=== PATIENT | female | born 1945 | race Caucasian/White ===

== ENCOUNTER → 2018-05-25 15:44 | Outpatient (CLI) | payer MEDICARE, SELFPAY ==
--- NOTE | 2018-05-25 16:03 | RAD_ITS ---
STUDY: X-RAY - PELVIS AND RIGHT HIP REASON FOR EXAM: Female, 72 years old. Pain, right-sided sciatica radiating to leg. No known injury. TECHNIQUE: 3 views of the pelvis and hip. COMPARISON: None. FINDINGS: There is a non-specific bowel gas pattern. Normal visualized soft tissue structures. There are degenerative changes of the visualized lower lumbar spine. Normal bilateral iliac wings, sacroiliac joints and visualized sacrum. Normal bilateral superior and inferior pubic rami. Normal pubic symphysis. Normal bilateral ischial tuberosities. No demonstrate osseous destructive lesion or acute fracture. There are osteoarthritic changes of the femoral head with marginal osteophyte formation. There is mild osteoarthritic spur formation of the acetabular rim. There is moderate articular joint space narrowing of the hip. RAD/HIP, UNI W/ Pelvis 2-3 Views IMPRESSION: Degenerative changes of the lower lumbar spine and right hip. Electronically Signed: Xavier Reynolds MD at 17:50 EST , Service support ,
--- NOTE | 2018-05-25 16:05 | RAD_ITS ---
STUDY: X-RAY - LUMBAR SPINE REASON FOR EXAM: Female, 72 years old. Pain. Sciatica right side radiating down leg. TECHNIQUE: 5 view(s) of the lumbar spine were obtained. COMPARISON: None FINDINGS: Normal lumbar lordosis. There is no substantial scoliosis. There is slight retrolisthesis of L1 on L2 and borderline retrolisthesis of L2 on L3. Minor leftward subluxation of L2 on L3 also noted. There is multilevel endplate spondylosis of the thoracolumbar vertebrae. There is multi-level degenerative disc disease with multi-level disc space narrowing. There are degenerative arthroses of the lumbar facet articulations, predominantly at L4-5 and L5-S1. There is no demonstrated osseous destructive lesion or acute fracture. There is mild atherosclerotic calcification of the abdominal aorta. RAD/L/S Spine Min 4 Views IMPRESSION: Degenerative changes of the spine, as detailed above. Electronically Signed: Xavier Reynolds MD at 17:53 EST , Service support ,
== END ==
PROVIDERS: Family Provider Preventive Medicine Occupational Medicine; PCP Preventive Medicine Occupational Medicine; Referring Provider Preventive Medicine Occupational Medicine; Visit Provider Preventive Medicine Occupational Medicine
DX: M79.604 Pain in right leg (principal); M54.31 Sciatica, right side
CPT/HCPCS: 72110; 73502

== ENCOUNTER 2018-05-25 16:24 | Emergency (ER) | payer MEDICARE, SELFPAY ==
[2018-05-25 16:25] VITALS: BP 146/85; PULSE 88; RESP 16; TEMP 36.4; O2SAT 96; BMI 38.1
--- NOTE | 2018-05-25 16:46 | ED.VISSUMM ---
- ER Visit Summary Date of Service: 05/25/18 Chief Complaint: [] Left lower leg pain rating from the back for days had x-rays today at [facility] radiology department History of Present Illness: The patient is a 72 F [] indicates that she has had a pain to the right lower back that radiates down her right leg for many days possibly a week no trauma no fever no cough, no trauma no bowel bladder complaints she had x-rays done today at the outpatient radiology center [facility] states the pain intensified, her physicians who saw her this week start her on prednisone that is not helping and she came in for something more for the pain, she has no known history of any problems with her extremities such as arthritis she has no history of peripheral vascular disease or DVT, she takes her hand she draws across her right SI joint down across the hip down to the leg crosses her knee goes into the right lateral tib-fib region Physical Examination: [] 148/65, General, no distress resting comfortably HEENT is generally unremarkable The neck is supple no adenopathy Cardiovascular, regular rate and rhythm Lungs, clear bilateral Abdomen, soft nontender Extremities, no clubbing cyanosis or edema, both feet are well-perfused are strong dorsalis pedis pulse, normal capillary refill to all toes normal movement of toes and ankles knee movement hip flexion extension normal she is able to stand and walk without difficulty, she can heel raise toe raise knee bend with no trouble Neurologic, awake alert answering questions appropriately moving all 4 extremities Test Results: [] Emergency Department Course and Treatment: [], I did review the films that she had today which were of her lumbar spine and right hip, they show DJD nothing acute formal radiology review is pending we will try to get those read and formalized today in the chart, I explained all the above to her, Talk with Dr. Peng her attending physician, discussed case in detail he is comfortable for discharge home she will be given [place] 5 tablets to use at bedtime he will follow-up in the office to determine other outpatient management options plans and studies as clinically warranted explained all this the patient her family they understand will follow-up Treatment Plan: [] Disposition: [] Home stable Impression: [] Right lumbar back pain radiating to right leg with radicular symptoms DJD This note was generated with [employer] software. It may contain incorrect words, spelling, and punctuation that were not noted in review of the chart prior to signing ED Disposition - Plan for ED Patient: Chief Complaint: Lower Extremity Injury Referrals: Hemanth Castro DO [Primary Care Provider] -
--- NOTE | 2018-05-25 16:54 | ED.DCSUM_ITS ---
- ER Visit Summary Date of Service: 05/25/18 Chief Complaint: [] Left lower leg pain rating from the back for days had x-rays today at [facility] radiology department History of Present Illness: The patient is a 72 F [] indicates that she has had a pain to the right lower back that radiates down her right leg for many days possibly a week no trauma no fever no cough, no trauma no bowel bladder complaints she had x-rays done today at the outpatient radiology center [facility] states the pain intensified, her physicians who saw her this week start her on prednisone that is not helping and she came in for something more for the pain, she has no known history of any problems with her extremities such as arthritis she has no history of peripheral vascular disease or DVT, she takes her hand she draws across her right SI joint down across the hip down to the leg crosses her knee goes into the right lateral tib-fib region Physical Examination: [] 148/65, General, no distress resting comfortably HEENT is generally unremarkable The neck is supple no adenopathy Cardiovascular, regular rate and rhythm Lungs, clear bilateral Abdomen, soft nontender Extremities, no clubbing cyanosis or edema, both feet are well-perfused are strong dorsalis pedis pulse, normal capillary refill to all toes normal movement of toes and ankles knee movement hip flexion extension normal she is able to stand and walk without difficulty, she can heel raise toe raise knee bend with no trouble Neurologic, awake alert answering questions appropriately moving all 4 extremities Test Results: [] Emergency Department Course and Treatment: [], I did review the films that she had today which were of her lumbar spine and right hip, they show DJD nothing acute formal radiology review is pending we will try to get those read and formalized today in the chart, I explained all the above to her, Talk with Dr. Peng her attending physician, discussed case in detail he is comfortable for discharge home she will be given [place] 5 tablets to use at bedtime he will follow-up in the office to determine other outpatient management options plans and studies as clinically warranted explained all this the patient her family they understand will follow-up Treatment Plan: [] Disposition: [] Home stable Impression: [] Right lumbar back pain radiating to right leg with radicular symptoms DJD This note was generated with [employer] software. It may contain incorrect words, spelling, and punctuation that were not noted in review of the chart prior to signing ED Disposition - Plan for ED Patient: Chief Complaint: Lower Extremity Injury Referrals: Hemanth Castro DO [Primary Care Provider] -
--- NOTE | 2018-05-25 17:08 | ED.DEP ---
ED Disposition - Plan for ED Patient: Chief Complaint: Lower Extremity Injury Instructions: ED Sciatica Prescriptions: Hydrocodone Bitart/Apap 5-325 [[place] 5MG-325MG] 1 tab PO QHS 2 Days #10 tab Referrals: Hemanth Castro DO [Primary Care Provider] -
--- NOTE | 2018-05-25 17:14 | ED.DEP ---
ED Disposition - Plan for ED Patient: Chief Complaint: Lower Extremity Injury Instructions: ED Sciatica Prescriptions: Hydrocodone Bitart/Apap 5-325 [[place] 5MG-325MG] 1 tab PO QHS 2 Days #10 tab Referrals: Hemanth Castro DO [Primary Care Provider] -
--- NOTE | 2018-05-25 17:22 | DCINST.ED_ITS ---
ED Disposition - Plan for ED Patient: Chief Complaint: Lower Extremity Injury Instructions: ED Sciatica Prescriptions: Hydrocodone Bitart/Apap 5-325 [[place] 5MG-325MG] 1 tab PO QHS 2 Days #10 tab Referrals: Hemanth Castro DO [Primary Care Provider] -
[2018-05-25] MEDS: HYDROcodone Bitartrate/Apap 5/325 Tablet PO (17:27)
[2018-05-25 17:30] VITALS: BP 175/98; PULSE 95; RESP 16; O2SAT 96
== END 2018-05-25 17:33 | disposition home or self-care (01) ==
LOC: ED 17:09
PROVIDERS: Emergency Provider Emergency Medicine; Family Provider Preventive Medicine Occupational Medicine; PCP Preventive Medicine Occupational Medicine
DX: M54.41 Lumbago with sciatica, right side (principal); M79.604 Pain in right leg; M19.90 Unspecified osteoarthritis, unspecified site; Z79.899 Other long term (current) drug therapy
CPT/HCPCS: 72110; 73502; 99283

== ENCOUNTER → 2018-07-27 07:27 | Outpatient (CLI) | payer MEDICARE, SELFPAY ==
--- NOTE | 2018-07-27 07:31 | US_ITS ---
STUDY: ULTRASOUND OF THE FEMALE PELVIS - COMPLETE REASON FOR EXAM: Female, 72 years old. Generalized abdominal pain for 2 months. History of hysterectomy. TECHNIQUE: Transabdominal TECHNICAL QUALITY: Adequate. COMPARISON: None. FINDINGS: The uterus is absent. The patient is status post hysterectomy. The right ovary is non-visualized. There is no visualized right adnexal mass or complex lesion. The left ovary is non-visualized. There is no visualized left adnexal mass or complex lesion. There is no fluid in the cul-de-sac. The pre void volume of the bladder was 412 ml. US/Pelvic (Non ) IMPRESSION: 1. Status post hysterectomy. 2. Nonvisualization of both ovaries. 3. No pelvic mass is seen. Electronically Signed: Maxwell Grant MD at 10:42 EST Tel , Service support ,
--- NOTE | 2018-07-27 07:31 | US_ITS ---
STUDY: ABDOMINAL ULTRASOUND REASON FOR EXAM: Female, 72 years old. Generalized abdominal pain x 2 months TECHNIQUE: Transabdominal ultrasound was performed with real-time and static ferris scale imaging. TECHNICAL QUALITY: Adequate. COMPARISON: None. FINDINGS: Liver: The liver measures 17.4 cm. There is increased echogenicity consistent with fatty infiltration. The bile ducts are within normal limits. There is hepatic color flow. The direction of portal flow is hepatopetal. There is no demonstrated mass lesion. Portal vein measurement: Gallbladder: Normal distended gallbladder. The gallbladder wall measures 2.6 mm. There is a negative sonographic Macias's sign. There is no pericholecystic fluid. There are no gallstones. Common Bile Duct (C.B.D.): The common bile duct measures 4.7 mm. Pancreas: Normal size of the head, body and tail of the pancreas. There is normal echogenicity of the pancreas. There is no demonstrated pancreatic mass or cyst. Spleen: Normal size of the spleen. The spleen measures 8.4 cm. Right Kidney: Normal size of the right kidney. The right kidney measures 9.1 x 4.4 x 4.9 cm. Normal renal cortex. The right cortex measures 1.2 cm. There is no demonstrated renal mass or cyst. There is no right hydronephrosis. Left Kidney: Normal size of the left kidney. The left kidney measures 9.1 x 4.3 x 5.0 cm. Normal renal cortex. The left cortex measures 1.5 cm. There is no demonstrated renal mass or cyst. There is no left hydronephrosis. Aorta: Tapers normally with peripheral plaque I.V.C.: The IVC is patent. There is no ascites. US/Abdomen Complete IMPRESSION: Fatty liver, no discrete lesion. Sonographically normal gallbladder Electronically Signed: Xavier Haas MD at 10:44 EST , Service support ,
== END ==
PROVIDERS: Family Provider Preventive Medicine Occupational Medicine; PCP Preventive Medicine Occupational Medicine; Referring Provider Preventive Medicine Occupational Medicine; Visit Provider Preventive Medicine Occupational Medicine
DX: R10.84 Generalized abdominal pain (principal)
CPT/HCPCS: 76700; 76856

== ENCOUNTER → 2018-08-10 10:23 | Outpatient (CLI) | payer MEDICARE, SELFPAY ==
--- NOTE | 2018-08-10 10:31 | NM_ITS ---
CLINICAL: 72-year-old female with reported history of abdominal pain. RADIONUCLIDE HEPATOBILIARY SCINTIGRAPHY COMPARISON: Abdominal ultrasound report 07/27/2018 FINDINGS: Following the intravenous administration of 5.3 mCi of 99m Tc Mebrofenin, hepatobiliary images reveal: 1. Relatively prompt and homogeneous radiopharmaceutical concentration is noted by a normal sized liver. No parenchymal defects are identified. 2. Gallbladder activity is identified at 15 minutes post radiopharmaceutical administration. 3. Small intestinal tract is not visualized during 60 minutes of pre-CCK sequential imaging. Small bowel activity is identified following the administration of cholecystokinin. 4. Washout of the radiopharmaceutical by the hepatic parenchyma appears qualitatively normal. Cholecystokinin (0.02 ug/kg) was administered intravenously over a 30-minute period. The post CCK gallbladder ejection fraction calculated at 30 minutes following Cholecystokinin administration was noted to be < 5 % (normal greater than 35%). NM/Hepatobilliary Img w/Pharm Int IMPRESSION: 1. ABNORMAL 99m Tc Mebrofenin hepatobiliary imaging examination with Cholecystokinin. A. A gallbladder ejection fraction calculated to be less than 35% following the administration of Cholecystokinin is consistent with the presence of functional hepatobiliary disease (gallbladder and/or sphincter of Oddi dyskinesia) and/or organic hepatobiliary disease (chronic acalculous cholecystitis and/or cystic duct syndrome) in patients with intermediate to high pretest likelihoods of hepatobiliary illness. (Arun Huizar et al, Journal of Nuclear Medicine 32:1695, 1990). Electronically Signed: Jesu Howe DO at 23:18 EST Tel , Service support ,
== END ==
PROVIDERS: Family Provider Preventive Medicine Occupational Medicine; PCP Preventive Medicine Occupational Medicine; Referring Provider Preventive Medicine Occupational Medicine; Visit Provider Preventive Medicine Occupational Medicine
DX: R10.11 Right upper quadrant pain (principal)
CPT/HCPCS: 78227; A9537; J2805

== ENCOUNTER → 2019-10-19 12:30 | Outpatient (CLI) | payer MEDICARE, SELFPAY ==
--- NOTE | 2019-10-19 12:44 | MRI_ITS ---
STUDY: MRI BRAIN WITHOUT CONTRAST REASON FOR EXAM: Female, 74 years old. memory loss, repeating self TECHNIQUE: Standardized multiplanar fat and water weighted pulse sequences were obtained. COMPARISON: None. FINDINGS: Normal size of the ventricles and extra-axial spaces for the patient''s age. Normal white matter tracts of the supratentorial brain. There is no evidence for recent intracranial ischemia or other cause of cytotoxic edema on diffusion weighted imaging (DWI). Normal T2* images of the brain without demonstrated susceptibility artifact. There is no demonstrated hemosiderin stain. Thin section coronal images through the temporal lobes demonstrate no evidence of parahippocampal atrophy. Normal bilateral basal ganglia. Normal thalami. There is no extra-axial fluid accumulation. Normal flow voids within the major intracranial circulation suggesting patency by spin echo criteria. Normal sella turcica, pituitary gland, infundibular stalk, optic chiasm and hypothalamus. Normal tectal plate and pineal gland. Normal midbrain, alyson and medulla. Normal cerebellum. Normal basal cisterns. Normal bilateral temporal bones. Normal bilateral internal auditory canals. No demonstrated orbital abnormality, within the constraints of a routine brain study. Normal visualized paranasal sinuses. Normal calvarium and skull base. Normal visualized soft tissue structures. Normal visualized upper cervical spine. MRI/Brain without Contrast IMPRESSION: Normal unenhanced MRI of the brain. Electronically Signed: Jesu Lee MD at 17:12 EDT Tel , Service support ,
== END ==
PROVIDERS: PCP Preventive Medicine Occupational Medicine; Referring Provider Psychiatry & Neurology Neurology; Visit Provider Psychiatry & Neurology Neurology
DX: R41.3 Other amnesia (principal)
CPT/HCPCS: 70551

== ENCOUNTER → 2019-11-08 09:50 | Outpatient (CLI) | payer MEDICARE, SELFPAY ==
[2019-11-08 11:03] LABS: Anion Gap 5 (5-15); BUN 20 mg/dL (7-18); BUN/Creat Ratio 21.5 RATIO (10-20); Calcium,Total 9.3 mg/dL (8.5-10.1); Chloride 105 mmol/L (98-107); Cholesterol 201 mg/dL (200); Creatinine, Serum 0.93 mg/dL (0.55-1.02); EST Glomerular Filtration Rate 63 mL/min (>60); Est Glom Filt Rate - Afr Amer 76 mL/min (>60); Glucose 103 mg/dL (74-106); High Density Lipoprotein 34 mg/dL; Potassium 4.5 mmol/L (3.5-5.1); Sodium Level 138 mmol/L (136-145); Thyroid Stim Hormone (TSH) 1.67 uIU/mL (0.358-3.74); Triglycerides 172 mg/dL; Very Low Density Lipoprotein 34 mg/dL (5-40)
== END ==
PROVIDERS: PCP Preventive Medicine Occupational Medicine; Referring Provider Preventive Medicine Occupational Medicine; Visit Provider Preventive Medicine Occupational Medicine
DX: I10 Essential (primary) hypertension (principal); E03.9 Hypothyroidism, unspecified; E78.5 Hyperlipidemia, unspecified
CPT/HCPCS: 36415; 80048; 80061; 84443

== ENCOUNTER → 2020-05-13 13:12 | Outpatient (CLI) | payer MEDICARE, SELFPAY ==
--- NOTE | 2020-05-13 13:15 | CT_ITS ---
STUDY: CT TEMPORAL BONES WITHOUT CONTRAST REASON FOR EXAM: Female, 74 years old. LEFT HEARING LOSS X1 MONTH -- SURG-BILAT INNER EAR CANALS CLEANED OUT RADIATION DOSAGE (If Supplied By Facility): CTDIvol = ( 67.58 ) mGy, DLP = ( 569.79 ) mGycm TECHNIQUE: The patient was scanned in a multi detector CT scanner. High resolution transaxial imaging was performed without the administration of intravenous contrast material. Sagittal and coronal images were reconstructed. Individualized dose optimization techniques were used for this CT. COMPARISON: 10/24/2015 FINDINGS: RIGHT TEMPORAL BONE There has been interval mastoidectomy and middle ear debulking with prosthetic ossicular reconstruction. There is thickening of the tympanic membrane. Clear epitympanum, mesotympanum, and hypotympanum. Normal right posterior, superior and lateral semicircular canals. Normal right vestibule and cochlea. Normal tympanic segment of the facial nerve. LEFT TEMPORAL BONE Again noted is the left mastoidectomy. Again noted is the soft tissue at the mastoidectomy defect and left middle ear cavity. Soft tissue density is seen at the epitympanum without evidence of dehiscence. The ossicles are not well visualized but appears to be intact and unchanged since the prior examination. The soft tissue is increased in comparison with prior examination in 2016. Normal left posterior, superior and lateral semicircular canals. Normal left vestibule and cochlea. Normal tympanic segment of the facial nerve. CT/Orb Sella Post Fossa Ear w/o IMPRESSION: Increased left mastoid and middle ear soft tissue status post mastoidectomy. Interval right mastoidectomy and ossicular reconstruction. Electronically Signed: Barbara Jean MD at 8:17 EST Tel , Service support ,
== END ==
PROVIDERS: PCP Preventive Medicine Occupational Medicine; Referring Provider Otolaryngology; Visit Provider Otolaryngology
DX: H91.92 Unspecified hearing loss, left ear (principal)
CPT/HCPCS: 70480

== ENCOUNTER 2021-04-14 08:30 | Day surgery (SDC) | payer MEDICARE, SELFPAY ==
[2021-04-14] MEDS: Lactated Ringers 1,000 ML 100 ML IV ×2 (08:45→10:45)
[2021-04-14 09:03] VITALS: BP 156/52; PULSE 74; RESP 16; TEMP 36.7; O2SAT 97; BMI 31.1
--- NOTE | 2021-04-14 09:30 | COLBX_PTH ---
PATIENT: PAYAL MENA LOC: EN U#:[id number] AGE/SX: 75/F ROOM: RE04/14/[address]: Dr. Heriberto Jackson DO : 1945 BED: DIS: 04/14/2021 SPEC #: [id number] RECD: 04/14/21 14:00 STATUS: ESTEPHANIE ENRIQUETA #: [id number] CAMILLA: 04/14/21 09:[address]: Heriberto Jackson DEPT: SURGICAL PATHOLOGY RECD BY: Bryson Hernandez ENTERED: 04/15/21 10:00 SP TYPE: COLON BX OTHR DR: Dr. Hemanth Castro DO Tissues: A - Duodenum, NOS B - Esophagus, NOS C - COLON BIOPSY D - Sigmoid colon biopsy E - Sigmoid colon biopsy Procedures: Special Stain Group II Surgery Specimen Level IV Alcian Blue/PAS (control) HEADER OPERATION: Colonoscopy, EGD ([facility]) PRE-OP DIAGNOSIS: Diarrhea, abdomen pain TISSUE SUBMITTED: A ? Duodenum biopsy, B ? Distal esophagus biopsy, C ? Random colon biopsy, D ? Sigmoid biopsy, E ? Sigmoid polyp biopsy MICROSCOPIC DIAGNOSIS A. Duodenum, biopsy: No pathologic change. B. Distal esophagus, biopsy: Gastroesophageal junctional mucosa with mild chronic inflammation. Focal changes of reflux. No evidence of goblet cell metaplasia. See comment. C. Colon, random biopsy: No pathologic change. D. Sigmoid colon, biopsy: No pathologic change. E. Sigmoid colon polyp, biopsy: Hyperplastic polyp. AM:park 04/16/2021 COMMENT B. Alcian blue/PAS stain with matched control supports the above diagnosis. MICROSCOPIC DESCRIPTION Slides are reviewed. GROSS DESCRIPTION A - Received in fixative is one container labeled with the patient's name and designated duodenum biopsy. The specimen consists of multiple irregular fragments of light hernández soft tissue that in aggregate measure 1 x 0.5 x 0.1 cm. The specimen is totally submitted in one cassette. B - Received in fixative is one container labeled with the patient's name and designated distal esophagus biopsy. The specimen consists of two irregular fragments of light hernández soft tissue that in aggregate measure 0.5 x 0.3 x 0.1 cm. The specimen is totally submitted in one cassette. C - Received in fixative is one container labeled with the patient's name and designated random colonic biopsy. The specimen consists of multiple irregular fragments of light hernández soft tissue that in aggregate measure 1.5 x 0.5 x 0.1 cm. The specimen is totally submitted in one cassette. D - Received in fixative is one container labeled with the patient's name and designated sigmoid biopsy. The specimen consists of multiple irregular fragments of light hernández soft tissue that in aggregate measure 0.6 x 0.3 x 0.1 cm. The specimen is totally submitted in one cassette. E - Received in fixative is one container labeled with the patient's name and designated sigmoid polyp biopsy. The specimen consists of multiple irregular fragments of light hernández soft tissue that in aggregate measure 0.4 x 0.2 x 0.1 cm. The specimen is totally submitted in one cassette. / SJ:rg 04/15/21 TC:5 CPT: 41913 x5, 43266
--- NOTE | 2021-04-14 09:47 | HP.PCM_ITS ---
History and Physical Date of Admission: 04/14/21 ntake Visit Reasons: NEEDS UPPER AND LOWER Allergies atropine sulfate [From Lomotil] Adverse Reaction (Verified 04/02/21 09:20) Unknown diphenoxylate HCl [From Lomotil] Adverse Reaction (Verified 04/02/21 09:20) Unknown fexofenadine HCl [From Rafalea] Adverse Reaction (Verified 04/02/21 09:20) Other propoxyphene HCl [From Darvon] Adverse Reaction (Verified 04/02/21 09:20) Nausea/Vom/Diarrhea Medications levothyroxine 50 mcg PO DAILY 05/25/18 [History Confirmed 04/02/21] pantoprazole 40 mg PO DAILY 05/25/18 [History Confirmed 04/02/21] prednisone [Deltasone] 20 mg PO DAILY 05/25/18 [History Confirmed 05/25/18] ascorbate calcium (vitamin C) 500 mg tablet 500 mg PO DAILY 04/02/21 [History Confirmed 04/02/21] carbidopa 25 mg-levodopa 250 mg tablet 1 tab PO BID 04/02/21 [History Confirmed 04/02/21] cholecalciferol (vitamin D3) 50 mcg (2,000 unit) capsule 50 mcg PO DAILY 04/02/21 [History Confirmed 04/02/21] lactobacillus combination no.4 3 billion cell capsule 3,000 mmu cells PO DAILY 04/02/21 [History Confirmed 04/02/21] losartan 50 mg tablet 50 mg PO DAILY 04/02/21 [History Confirmed 04/02/21] multivitamin 1 tab PO DAILY 04/02/21 [History Confirmed 04/02/21] polyethylene glycol 3350 17 gram/dose oral powder 17 g PO Q10-15M #238 g 04/02/21 [Rx Confirmed 04/02/21] rivastigmine tartrate 1.5 mg capsule 1.5 mg PO BID 04/02/21 [History Confirmed 04/02/21] PFSH Medical History (Updated 04/02/21 @ 09:[address] Louis Friend, DO) Abdominal pain Arthritis Chronic headaches Diarrhea GERD (gastroesophageal reflux disease) Hearing loss HTN (hypertension) Hypothyroid Lewy body dementia Seasonal allergies Surgical History (Updated 04/02/21 @ 09:35 by Angie Swan) History of cholecystectomy History of hysterectomy Social History Smoking Status: Former smoker HPI HPI Details: PAYAL SHELLHORN, is a 75 F who presents to the office today for evaluation of abdominal pain, dark tarry stools and diarrhea. She comes in with her daughter. The patient says that her symptoms going on for several months that have worsened in the last month. Her symptoms include abdominal pain like labor pains, nausea with hematemesis, uncontrolled diarrhea and constipation. There was visible blood in her stool on one occasion and then became black and tarry - last week was most recent occurrence. She also reports weight loss reported of 15lbs since mid-summer. Two sons who had liver issues - [place]. She had an ultrasound done back in July when the results are as follows: Liver: The liver measures 17.4 cm. There is increased echogenicity consistent with fatty infiltration. The bile ducts are within normal limits. There is hepatic color flow. The direction of portal flow is hepatopetal. There is no demonstrated mass lesion. Portal vein measurement: Gallbladder: Normal distended gallbladder. The gallbladder wall measures 2.6 mm. There is a negative sonographic Macias's sign. There is no pericholecystic fluid. There are no gallstones. Common Bile Duct (C.B.D.): The common bile duct measures 4.7 mm. Pancreas: Normal size of the head, body and tail of the pancreas. There is normal echogenicity of the pancreas. There is no demonstrated pancreatic mass or cyst. Spleen: Normal size of the spleen. The spleen measures 8.4 cm. Colonoscopy last performed 4+years ago; no EGD. ROS Const Constitutional: Positive for fatigue, frequent falls, headache(s) and weight change (Loss) ENT ENT: Positive for hearing loss, headache(s) and difficulty swallowing Cardio Cardiology: Positive for leg pain with exertion Gastro GI: Positive for abdominal pain, bloating, change in bowel habits, constipation, diarrhea, difficulty swallowing, Vomiting blood/hematemesis, Blood in stool, nausea/dyspepsia and vomiting Musc Musculoskeletal: Positive for abnormal gait, Arthritis, restless legs, leg pain at night and leg pain with exertion Neuro Neurology: Positive for abnormal gait, frequent falls, headache(s) and restless legs Endo Endocrine: Positive for fatigue and increased thirst/drinking Exam Const General: cooperative and comfortable Nutritional Appearance: average body habitus and well nourished HENMN Head: normal to inspection Ears: hearing grossly normal bilaterally Nose: external nose normal Face and sinus: normal facial exam Mouth: oral mucosae normal Throat: posterior oropharynx normal Eyes General: appearance normal, both eyes and all related structures Neck Neck: normal visual inspection Chest Chest palpation & inspection: normal inspection of the chest and normal palpation of entire chest wall Resp Effort & Inspection: normal respiratory effort Auscultation: Bilateral: Clear to Auscultation Cardio Palpation: normal PMI Rate: regular rate Rhythm: regular rhythm GI Inspection: normal to inspection Auscultation: normal bowel sounds Percussion: normal to percussion Palpation: no hepatosplenomegaly Skin General: no rashes or lesions noted Neuro General: patient alert Extrem General: normal to inspection Psych Affect: normal affect Quality Reporting Tobacco Screening ([facility]) Smoking Status: Former smoker Assessment and Plan Assessment and Plan (1) Diarrhea: Status: Acute Plan - Dr. Louis Friend, DO: This can be secondary to GI bleed. We will need to check her stools for stool culture, C. difficile and fecal leukocytes. She will also need ESR and CRP and CBC. She will undergo colonoscopy for evaluation of the colon for possible microscopic colitis or infectious colitis. Less likely inflammatory bowel disease including Crohn's and also colitis. (2) Abdominal pain: Status: Acute Plan - Dr. Louis Friend, DO: Patient's abdominal pain could be multifactorial including peptic ulcer disease, duodenal ulcer disease or duodenitis secondary to NSAIDs or H. pylori. She will have an evaluation of upper GI tract to look for signs of bleeding in her diarrhea. Plan Details Other Medications: New: polyethylene glycol 3350 (Miralax) 17 grams PO Q10-15M 238 grams 0RF This is an updated H&P from when the patient was seen in office.
[2021-04-14 10:50] VITALS: BP 124/62; BP 156/52; PULSE 75; RESP 16; TEMP 36.4; O2SAT 97
[2021-04-14 10:55] VITALS: BP 122/78; BP 156/52; PULSE 75; RESP 16; O2SAT 97
--- NOTE | 2021-04-14 10:57 | OP.EGD_ITS ---
Patient Name: Stacey Elkins Procedure Date: 04/14/2021 9:54 AM Date of : 1945 Age: 75 Procedure: Upper GI endoscopy Indications: Epigastric abdominal pain, Foreign body in the stomach Providers: Heriberto Jackson DO Referring MD: Heriberto Jackson DO Medicines: Propofol per Anesthesia Patient Profile: This is a 75 year old female. Refer to note in patient chart for documentation of history and physical. Patient has symptoms of acute global abdominal pain, acute nausea and acute vomiting. Complications: No immediate complications. Procedure: Pre-Anesthesia Assessment: - Prior to the procedure, a History and Physical was performed, and patient medications and allergies were reviewed. The patient is competent. The risks and benefits of the procedure and the sedation options and risks were discussed with the patient. All questions were answered and informed consent was obtained. Patient identification and proposed procedure were verified by the physician in the pre-procedure area. Mental Status Examination: alert and oriented. Airway Examination: normal oropharyngeal airway and neck mobility. Respiratory Examination: clear to auscultation. CV Examination: normal. Prophylactic Antibiotics: The patient does not require prophylactic antibiotics. Prior Anticoagulants: The patient has taken no previous anticoagulant or antiplatelet agents. ASA Grade Assessment: II - A patient with mild systemic disease. After reviewing the risks and benefits, the patient was deemed in satisfactory condition to undergo the procedure. The anesthesia plan was to use moderate sedation / analgesia (conscious sedation). Immediately prior to administration of medications, the patient was re-assessed for adequacy to receive sedatives. The heart rate, respiratory rate, oxygen saturations, blood pressure, adequacy of pulmonary ventilation, and response to care were monitored throughout the procedure. The physical status of the patient was re-assessed after the procedure. After obtaining informed consent, the endoscope was passed under direct vision. Throughout the procedure, the patient's blood pressure, pulse, and oxygen saturations were monitored continuously. The Endoscope was introduced through the mouth, and advanced to the second part of duodenum. The upper GI endoscopy was accomplished without difficulty. The patient tolerated the procedure well. Moderate Sedation: Moderate (conscious) sedation was administered by the endoscopy nurse and supervised by the endoscopist. The patient's oxygen saturation, heart rate, blood pressure and response to care were monitored. Total physician intraservice time was 15 minutes. Scope In: 10:04:49 AM Scope Out: 10:09:12 AM Total Procedure Duration Time 0 hours 4 minutes 23 seconds Findings: LA Grade A (one or more mucosal breaks less than 5 mm, not extending between tops of 2 mucosal folds) esophagitis with no bleeding was found 34 to 35 cm from the incisors. Biopsies were taken with a cold forceps for histology. Verification of patient identification for the specimen was done. Estimated blood loss was minimal. No other significant abnormalities were identified in a careful examination of the stomach. Patchy mild inflammation characterized by congestion (edema) was found in the first portion of the duodenum. Biopsies were taken with a cold forceps for histology. Verification of patient identification for the specimen was done. Estimated blood loss was minimal. Impression: - LA Grade A reflux esophagitis. Biopsied. - Duodenitis. Biopsied. Recommendation: - Discharge patient to home. - Resume previous diet. - Continue present medications. - Await pathology results. - Repeat upper endoscopy in 1 year for surveillance. - Return to GI office in 2 weeks. Procedure Code(s): --- Professional --- 38363, Esophagogastroduodenoscopy, flexible, transoral; with biopsy, single or multiple G0500, Moderate sedation services provided by the same physician or other qualified health home health care respiratory therapist performing a gastrointestinal endoscopic service that sedation supports, requiring the presence of an independent trained observer to assist in the monitoring of the patient's level of consciousness and physiological status; initial 15 minutes of intra-service time; patient age 5 years or older (additional time may be reported with 47580, as appropriate) CPT copyright 2017 [employer]. All rights reserved. The codes documented in this report are preliminary and upon behavioral sciences instructor review may be revised to meet current compliance requirements. Heriberto Jackson DO 04/14/2021 10:56:50 AM This report has been signed electronically. Number of Addenda: 1 Note Initiated On: 04/14/2021 9:54 AM Addendum Number: 1 Addendum Date: 02/19/2022 4:47:18 PM MAC was used instead of moderate sedation for this patient. Heriberto Jackson DO 02/19/2022 4:47:22 PM This report has been signed electronically.
--- NOTE | 2021-04-14 10:58 | OP.CCLET_ITS ---
02/19/2022 Hemanth Castro [address] [place] [address] Re : Upper GI endoscopy procedure for Stacey Elkins Dear Dr. Castro This procedure was performed on Wednesday, April 14, 2021. My impressions and recommendations are as follows: Impressions : - LA Grade A reflux esophagitis. Biopsied. - Duodenitis. Biopsied. Recommendations : - Discharge patient to home. - Resume previous diet. - Continue present medications. - Await pathology results. - Repeat upper endoscopy in 1 year for surveillance. - Return to GI office in 2 weeks. My findings are described in the full procedure note, which is enclosed. If I can be of further assistance, please feel free to contact me at . Sincerely, Heriberto Jackson, 04/14/2021 10:56:50 AM This report has been signed electronically.
[2021-04-14 11:00] VITALS: BP 134/84; BP 144/83; BP 156/52; PULSE 75; PULSE 79; RESP 16; TEMP 36; O2SAT 97; O2SAT 98
--- NOTE | 2021-04-14 11:02 | OP.COLON_ITS ---
Patient Name: Stacey Elkins Procedure Date: 04/14/2021 10:12 AM Date of : 1945 Age: 75 Procedure: Colonoscopy Indications: Generalized abdominal pain, Chronic diarrhea Providers: Heriberto Jackson DO Referring MD: Heriberto Jackson DO Medicines: Propofol per Anesthesia Patient Profile: This is a 75 year old female. Refer to note in patient chart for documentation of history and physical. Patient has symptoms of acute global abdominal pain, acute nausea and acute vomiting. Last Colonoscopy: 5 years ago. Complications: No immediate complications. Procedure: Pre-Anesthesia Assessment: - Prior to the procedure, a History and Physical was performed, and patient medications and allergies were reviewed. The patient is competent. The risks and benefits of the procedure and the sedation options and risks were discussed with the patient. All questions were answered and informed consent was obtained. Patient identification and proposed procedure were verified by the physician in the pre-procedure area. Mental Status Examination: alert and oriented. Airway Examination: normal oropharyngeal airway and neck mobility. Respiratory Examination: clear to auscultation. CV Examination: normal. Prophylactic Antibiotics: The patient does not require prophylactic antibiotics. Prior Anticoagulants: The patient has taken no previous anticoagulant or antiplatelet agents. ASA Grade Assessment: II - A patient with mild systemic disease. After reviewing the risks and benefits, the patient was deemed in satisfactory condition to undergo the procedure. The anesthesia plan was to use moderate sedation / analgesia (conscious sedation). Immediately prior to administration of medications, the patient was re-assessed for adequacy to receive sedatives. The heart rate, respiratory rate, oxygen saturations, blood pressure, adequacy of pulmonary ventilation, and response to care were monitored throughout the procedure. The physical status of the patient was re-assessed after the procedure. After I obtained informed consent, the scope was passed under direct vision. Throughout the procedure, the patient's blood pressure, pulse, and oxygen saturations were monitored continuously. The pediatric colonoscope was introduced through the anus and advanced to the cecum, identified by appendiceal orifice and ileocecal valve. The colonoscopy was performed with moderate difficulty due to multiple diverticula in the colon. The patient tolerated the procedure well. The quality of the bowel preparation was good. Moderate Sedation: Moderate (conscious) sedation was administered by the endoscopy nurse and supervised by the endoscopist. The patient's oxygen saturation, heart rate, blood pressure and response to care were monitored. Total physician intraservice time was 15 minutes. Scope In: 10:15:14 AM Scope Withdrawal Time 0 hours 9 minutes 14 seconds Scope Out: 10:45:46 AM Total Procedure Duration Time 0 hours 30 minutes 32 seconds Findings: Hemorrhoids were found on perianal exam. Impression: - Hemorrhoids found on perianal exam. - No specimens collected. - Severe diverticulosis in the sigmoid colon. There was no evidence of diverticular bleeding. There was narrowing of the colon in association with the diverticular opening. There was evidence of diverticular spasm. Erythema was seen in association with the diverticular opening. Celi-diverticular erythema was seen. There was evidence of an impacted diverticulum. Biopsied. - Random biopsies were taken in the colon to rule out microscopic colitis Recommendation: - Discharge patient to home. - Resume previous diet. - Continue present medications. - Return to my office in 2 weeks. - Repeat colonoscopy in 5 years for surveillance based on pathology results. Procedure Code(s): --- Professional --- 84009, Colonoscopy, flexible; diagnostic, including collection of specimen(s) by brushing or washing, when performed (separate procedure) G0500, Moderate sedation services provided by the same physician or other qualified health personal care aide performing a gastrointestinal endoscopic service that sedation supports, requiring the presence of an independent trained observer to assist in the monitoring of the patient's level of consciousness and physiological status; initial 15 minutes of intra-service time; patient age 5 years or older (additional time may be reported with 87895, as appropriate) Diagnosis Code(s): --- Professional --- K64.9, Unspecified hemorrhoids R10.84, Generalized abdominal pain K52.9, Noninfective gastroenteritis and colitis, unspecified K57.30, Diverticulosis of large intestine without perforation or abscess without bleeding CPT copyright 2017 [employer]. All rights reserved. The codes documented in this report are preliminary and upon barrel builder review may be revised to meet current compliance requirements. Heriberto Jackson DO 04/14/2021 11:02:26 AM This report has been signed electronically. Number of Addenda: 1 Note Initiated On: 04/14/2021 10:12 AM Addendum Number: 1 Addendum Date: 02/19/2022 4:47:32 PM MAC was used instead of moderate sedation for this patient. Heriberto Jackson DO 02/19/2022 4:47:37 PM This report has been signed electronically.
--- NOTE | 2021-04-14 11:03 | OP.CCLET_ITS ---
02/19/2022 Hemanth Castro [address] [place] [address] Re : Colonoscopy procedure for Stacey Elkins Dear Dr. Castro This procedure was performed on Wednesday, April 14, 2021. My impressions and recommendations are as follows: Impressions : - Hemorrhoids found on perianal exam. - No specimens collected. - Severe diverticulosis in the sigmoid colon. There was no evidence of diverticular bleeding. There was narrowing of the colon in association with the diverticular opening. There was evidence of diverticular spasm. Erythema was seen in association with the diverticular opening. Celi-diverticular erythema was seen. There was evidence of an impacted diverticulum. Biopsied. - Random biopsies were taken in the colon to rule out microscopic colitis Recommendations : - Discharge patient to home. - Resume previous diet. - Continue present medications. - Return to my office in 2 weeks. - Repeat colonoscopy in 5 years for surveillance based on pathology results. My findings are described in the full procedure note, which is enclosed. If I can be of further assistance, please feel free to contact me at . Sincerely, Heriberto Jackson, 04/14/2021 11:02:26 AM This report has been signed electronically.
[2021-04-14 11:20] VITALS: BP 156/52
== END 2021-04-14 11:30 ==
LOC: EN 08:33 → AC 08:34
PROVIDERS: PCP Preventive Medicine Occupational Medicine; Referring Provider Internal Medicine Gastroenterology; Visit Provider Internal Medicine Gastroenterology
PROC: 0DJD8ZZ Inspection of Lower Intestinal Tract, Via Natural or Artificial Opening Endoscopic (ICD-10-PCS; CPT 45378; principal; 2021-04-14 09:25)
DX: K29.80 Duodenitis without bleeding (principal); K57.30 Diverticulosis of large intestine without perforation or abscess without bleeding; K21.00 Gastro-esophageal reflux disease with esophagitis, without bleeding; K52.9 Noninfective gastroenteritis and colitis, unspecified; K64.9 Unspecified hemorrhoids; Z20.828 Contact with and (suspected) exposure to other viral communicable diseases; G20 Parkinson's disease; F02.80 Dementia in other diseases classified elsewhere, unspecified severity, without behavioral disturbance, psychotic disturbance, mood disturbance, and anxiety; I10 Essential (primary) hypertension; E03.9 Hypothyroidism, unspecified; M19.90 Unspecified osteoarthritis, unspecified site; G47.30 Sleep apnea, unspecified; Z79.52 Long term (current) use of systemic steroids; Z79.890 Hormone replacement therapy; Z79.899 Other long term (current) drug therapy; Z87.891 Personal history of nicotine dependence
CPT/HCPCS: 43239; 45378; 87426; 88305; 88313; C9803; J7120; J2405

== ENCOUNTER 2021-07-28 07:50 | Outpatient (CLI) | payer MEDICARE, SELFPAY ==
[2021-08-01 11:08] LABS: Beef <0.10 kU/L (Class 0); Corn <0.10 kU/L (Class 0); Egg, Whole <0.10 kU/L (Class 0); Milk (Cow) <0.10 kU/L (Class 0); Peanut <0.10 kU/L (Class 0); Pork <0.10 kU/L (Class 0); Soybean <0.10 kU/L (Class 0); Wheat <0.10 kU/L (Class 0)
[2021-08-01 14:22] LABS: Chocolate <0.10 kU/L (Class 0)
== END 2021-07-28 23:59 | disposition home or self-care (01) ==
LOC: LAB 07:54
PROVIDERS: PCP Preventive Medicine Occupational Medicine; Referring Provider Internal Medicine Gastroenterology; Visit Provider Internal Medicine Gastroenterology
DX: K52.839 Microscopic colitis, unspecified (principal); R10.9 Unspecified abdominal pain; R19.7 Diarrhea, unspecified
CPT/HCPCS: 36415; 86003; 86005

== ENCOUNTER 2021-08-18 09:25 | Outpatient (CLI) | payer MEDICARE, SELFPAY ==
--- NOTE | 2021-08-18 09:50 | RAD_ITS ---
STUDY: X-RAY - ABDOMEN/PELVIS REASON FOR EXAM: Female, 75 years old. Diarrhea, eval for underlying constipation TECHNIQUE: Two AP supine views of the abdomen and pelvis. COMPARISON: None. FINDINGS: Normal visualized lung bases. There is a moderate amount of colonic fecal material. There is no demonstrated free abdominal air. The visualized liver, spleen and kidneys are grossly normal in size and morphology. Normal soft tissue structures. There are diffuse degenerative changes of the visualized lumbar spine. Significant right hip arthrosis RAD/Abdomen Single View IMPRESSION: No acute findings, retained stool Electronically Signed: Xavier Haas MD at 18:02 EST ,
== END 2021-08-18 23:59 | disposition home or self-care (01) ==
LOC: RAD 09:27
PROVIDERS: PCP Preventive Medicine Occupational Medicine; Referring Provider Nurse Practitioner Adult Health; Visit Provider Nurse Practitioner Adult Health
DX: R19.7 Diarrhea, unspecified (principal)
CPT/HCPCS: 74018

== ENCOUNTER 2022-05-25 15:06 | Observation (INO) | payer MEDICARE, SELFPAY ==
--- NOTE | 2022-05-19 10:38 | EKG12_ITS ---
Test Reason : PRE-OP Blood Pressure : / mmHG Vent. Rate : 072 BPM Atrial Rate : 072 BPM P-R Int : 114 ms QRS Dur : 066 ms QT Int : 384 ms P-R-T Axes : -14 009 019 degrees QTc Int : 420 ms Normal sinus rhythm Normal ECG Confirmed by VANDANA VARGAS, YOGI ([id number]), editor managing director HERNANDO SETH ([id number]) on 05/20/2022 8:06:14 AM Referred By: De Whittington Confirmed By:YOGI ROSS MD
[2022-05-19 11:59] LABS: Absolute Lymphocyte Count 2.18 X10^3/uL (0.83-4.51); Absolute Neutrophil Count 4.4 X10^3/uL (2.0-7.7); Basophil# 0.05 X10^3/uL; Basophil% 0.7 % (0-1); Eosinophil# 0.14 X10^3/uL; Eosinophils% 1.9 % (0-5); Hematocrit 44.3 % (37-47); Hemoglobin 14.8 g/dL (12.0-15.0); Lymphocyte # 2.18 X10^3/ul (0.83-4.51); Lymphocyte % 29.7 % (19-41); Mean Corp Hgb Conc 33.4 g/dL (32-36); Mean Corpuscular Hgb 31.3 pg (27.0-32.0); Mean Corpuscular Volume 93.7 fL (81-99); Mean Platelet Vol. 10.8 fl (6.2-12.0); Monocyte# 0.53 X10^3/uL; Monocyte% 7.2 % (0-10); NRBC Flagged by Analyzer 0 % (0-5); Neutrophil # 4.41 X10^3/uL (2.7-7.7); Neutrophil % 60.2 % (47-70); Platelet Count 271 K/mm3 (150-450); RBC Distribution Width CV 13.2 % (11.6-14.6); RBC Distribution Width SD 45.9 fl (35.1-43.9); Red Blood Count 4.73 M/mm3 (4.2-5.4); White Blood Count 7.3 K/mm3 (4.4-11.0)
[2022-05-19 12:24] LABS: Albumin, Serum 3.8 g/dL (3.2-5.0); Anion Gap 4 (5-15); BUN 21 mg/dL (7-18); BUN/Creat Ratio 21.9 RATIO (10-20); Calcium,Total 9.5 mg/dL (8.5-10.1); Chloride 103 mmol/L (98-107); Creatinine, Serum 0.96 mg/dL (0.55-1.02); EST Glomerular Filtration Rate 60 mL/min (>60); Est Glom Filt Rate - Afr Amer 73 mL/min (>60); Glucose 104 mg/dL (74-106); Potassium 4.1 mmol/L (3.5-5.1); Sodium Level 138 mmol/L (136-145)
[2022-05-19 12:48] LABS: Magnesium 2.2 mg/dL (1.6-2.6); Thyroid Stim Hormone (TSH) 1.74 uIU/mL (0.358-3.74)
--- NOTE | 2022-05-20 14:46 | CASEMGMT ---
JULIAN TOMAS Assessment: TC to pt for initial transition planning/care coordination assessment. Pt dtr Ana answered and states that she takes pt phone calls as pt cannot hear on the phone. Assessment completed with dtr. Care providers, pharmacy, and demographics verified/updated. Admitting Dx: R total hip PCP:Gloria Specialists:Nelsy, ortho; Vu, neuro; Friend, GI Preferred Pharmacy: [facility] Insurance: [facility] Ad[facility]age Prescription Benefit: yes LNOK: Alexey Elkins, ; Ana Yun, dtr Living Arrangements: Pt lives with in a 1.5 story house with 5 steps to enter with a rail. Pt is I in ADL's typically. Dtr reports pt has Lewy body dementia and Parkinsons. Transportation: Pt dtr transports pt to medical appts. DME/HHC/SNF: Pt has a cane at home. Pt has no hx of SNF stays or HHC. Pt dtr states they have discussed pt going to [facility] Rehab unit post surgery due to her Parkinsons. Made her aware pt insurance requires a precertification for this. She states the second option would be for pt to go to her home and have HHC. She is aware we will see how pt does with therapy post surgery and form a plan. Pt dtr states no further concerns/needs. CM to follow. Pt/Dtr Goal: [facility] Rehab Unit Plan: TBD
[2022-05-25] VITALS (12 sets, daily range): BP systolic 100–140; BP diastolic 51–85; PULSE 72–85; RESP 12–18; TEMP 36.3–37.2; O2SAT 96–100; BMI 33.3
--- NOTE | 2022-05-25 | HIP_PTH ---
PATIENT: PAYAL MENA LOC: MS3 U#:[id number] AGE/SX: 76/F ROOM: [facility] RE05/25/[address]: Dr. De Whittington DO : 1945 BED: 1 DIS: 05/27/2022 SPEC #: [id number] RECD: 05/25/22 12:37 STATUS: ESTEPHANIE JOSeng #: [id number] CAMILLA: 05/25/22 00:[address]: De Whittington DEPT: SURGICAL PATHOLOGY RECD BY: Jean Carlos Holliday ENTERED: 05/25/22 12:37 SP TYPE: TOTAL HIP OTHR DR: MD Dr. Hemanth Celis DO Tissues: Hip, NOS Procedures: Decalcification bone/plaque Surgery Specimen Level IV HEADER OPERATION: ERAS, total hip replacement PRE-OP DIAGNOSIS: Primary osteoarthritis right hip TISSUE SUBMITTED: Femoral head and tissue right hip MICROSCOPIC DIAGNOSIS Femoral head and tissue right hip, total hip replacement/resection: Femoral head with degenerative osteoarthritic changes. SJ:park 05/28/2022 MICROSCOPIC DESCRIPTION Slides are reviewed. GROSS DESCRIPTION Received is one container labeled with the patient's name and designated right femoral head. The specimen consists of a hernández femoral head measuring 5.6 x 4.5 x 4.5 cm and displays prominent osteophyte formation, eburnation and bone erosion. Also present in the specimen container are multiple irregular fragments of reddish-hernández bone consistent with bone reamings measuring in aggregate 6 x 4.5 x 1 cm. Business Banker sections are submitted in two cassettes after decalcification as follows: 1 ? bone reamings, 2 ? femoral head. / AM:park 05/25/2022 TC:5 CPT: 74536, 73315
[2022-05-25] MEDS: Lactated Ringers 1,000 ML 15 ML IV (08:15)
[2022-05-25] MEDS: Gabapentin 600 MG Tablet PO (08:25)
[2022-05-25] MEDS: Acetaminophen 500 MG Tablet 1000 MG PO ×3 (08:25→21:05)
[2022-05-25 09:10] LABS: Bedside Glucose 112 mg/dL (74-106)
[2022-05-25] MEDS: Cefazolin 2 GM in 0.9% Normal Saline 100 ML IV (10:15)
[2022-05-25] MEDS: TXA 1000mg in NS100 100ml (IVPB at Incision) 660 MG IV (10:25)
[2022-05-25] MEDS: Lactated Ringers 1,000 ML 999 ML IV (10:45)
[2022-05-25] MEDS: TXA 1000mg in NS100 100ml (IVPB at Closure) 660 MG IV (11:11)
--- NOTE | 2022-05-25 11:50 | RAD_ITS ---
STUDY: X-RAY - PELVIS AND RIGHT HIP REASON FOR EXAM: Female, 76 years old. Post Op TECHNIQUE: 2 views of the pelvis and hip. COMPARISON: Comparison is made with prior study of 08/18/2021. FINDINGS: The patient is status post right total hip replacement. There is good alignment. Postoperative soft tissue changes. RAD/Hip Min 2 Views (Portable) IMPRESSION: Status post right total hip replacement. There is good alignment. Postoperative soft tissue changes. Electronically Signed: Billy Yanes MD at 12:11 EST ,
--- NOTE | 2022-05-25 11:54 | PCM.OPRPT ---
Report of Operation Date of Procedure: 05/25/22 Pre-Operative Diagnosis: OA right hip Post-Operative Diagnosis: same Surgery/Procedure Performed:: Right THR Description of Surgical Findings:: Report of Operation Date of Procedure: 05/25/2022 Pre-Operative Diagnosis: OA [right ] hip Post-Operative Diagnosis: same Surgery/Procedure Performed: [right ] THR back pad inspector: Alberto Sterling PA-C Type of Anesthesia: spinal Anesthesiologist: Loc Pozo M.D. Specimen's removed: bone Estimated Blood Loss (mL): Implants: 127 degree [place] Accolade 2 size 4 femoral stem with neutral head/neck, 48 mm Trilogy cluster hole cup with MDM liner Surgical Indications: Patient has severe end-stage osteoarthritic changes in the [ right ] hip. They have failed conservative measures including activity modification, anti-inflammatories, use of assistive devices. This to the point where the pain affects their ability to enjoy life and complete activities of daily living without discomfort. Patient has elected to undergo the above procedure Procedure Description: The patient was greeted in the preoperative area the [right ] hip was marked with surgical marker preoperative antibiotics administered. The patient was then taken to or suite in stable condition. Preoperative tranexamic acid was also utilized. Once the patient was placed in the supine position on the operating room table and once adequate anesthesia was obtained they were then placed in the lateral decubitus position with the surgical hip facing the field. All bony prominences were well-padded. A commercial hip position was utilized. The appropriate extremity was then prepped and draped in usual sterile fashion. Ioban was placed on the skin. Surgical timeout was performed and surgery was commenced. A standard posterior approach to the hip was then performed. Incision was planned and carried out with a #10 blade scalpel. Dissection was then carried length of the incision to the IT band which was split proximally and distally. A Charnley retractor was then placed for soft tissue retraction exposing the piriformis. A standard posterior capsulotomy was performed. Severe eburnation of bone was noted and periarticular osteophytes were identified consistent with severe end-stage osteoarthritis. A femoral neck osteotomy guide was used to nai the proximal femur. A femoral osteotomy was then created approximately 1 fingerbreadth above the lesser trochanter. This was measured and placed on the back table. Once this was complete acetabular retractors were placed anteriorly and posteriorly. Labrum was then removed from the acetabulum exposing the entire cup of the acetabulum. Sequential reaming was then commenced and the acetabulum was medialized and sequentially widened in order to accommodate appropriate size cup. The acetabular cup was then impacted into position to the appropriate depth referencing approximately [45 ] anteversion and [45 ]of inclination. Excellent purchase was obtained. An appropriate size MDM liner was then placed. Attention was then turned to the femoral preparation. The hip was placed in the 90/90 position and a lateralizing box osteotome was utilized. Femoral starting awl was used followed by sequential broaching to the appropriate size. Excellent purchase was obtained with the stem no stem subsidence and excellent rotational stability was confirmed. A calcar reamer was then used in the trial head neck was placed on the broach. The hip was then located and taken through full range of motion flexion internal and external rotation as well as extension. Excellent stability was noted no impingement was identified of the components and leg lengths appear to be appropriate. The hip was at this point dislocated and the trial femoral components were removed. The final femoral stem was then implanted and impacted to the appropriate depth. Again excellent purchase was obtained no stem subsidence or rotational instability was noted. The hip was once again trialed and confirmation of leg length and stability was performed. Soft tissue tension also appeared to be appropriate. At this point the hip was redislocated and the trunnion was cleaned and dried meticulously in the appropriate size MDM femoral head was placed on the clean dry trunnion using a 12/14 Cruz taper. The hip was once again relocated and again taken through full range of motion. I did inject a cocktail of postoperative pain medication in the deep and superficial tissues. Copious irrigation was performed. Anatomic closure of the piriformis tendon was performed through drill holes in the greater trochanter. A #1 Vicryl 0 Vicryl was utilized in subcutaneous tissue and surgical pedro were placed in the skin. A well-padded nonadherent dressing was applied. Patient was taken to PACU in stable condition. No complications were identified. Will follow standard postop protocol for total hip arthroplasty. My collections assistant played a vital role in the procedure beginning with positioning, holding retraction of soft tissues, positioning the leg to optimize visualization during the procedure and assisting with wound closure. Post-op Plan: DVT ppx; ASA 81 mg BID, thigh high compression stockings Follow up: in office in 2 weeks for wound check PT: to start POD #0 at hospital, outpatient PT should be arranged. Preoperative antibiotic: Ancef 2 grams IV De Whittington DO Surgeon: eD Whittington back pad inspector: Alberto Sterling Type of Anesthesia: Spinal Anesthesiologist: Loc Pozo Specimen's removed: bone Estimated Blood Loss (mL): 50 cc Fluids Replaced: 1000 cc crystalloid Admit VTE Documentation VTE Present on Admission: No VTE Mechan Device Prophylaxis: SCD's and Thigh High GERDA Hose VTE Pharm Prophylaxis ordered?: Yes
[2022-05-25] MEDS: Lactated Ringers 1,000 ML 125 ML IV (12:25)
[2022-05-25] MEDS: Carbidopa/Levodopa 25/250 Tablet PO (15:36)
--- NOTE | 2022-05-25 16:20 | CASEMGMT ---
Addendum entered by Zoila Ross 05/25/22 17:23: Pt was provided w/list of local [facility] agencies, in case pt unable to go to [facility] TCU for therapy. Original Note: JULIAN TOMAS NOTE: JULIAN TOMAS informed family would like to talk w/CM for discharge planning. JULIAN TOMAS to room. Pt sitting up in recliner chair. Dtr, Ana, @ bedside. Ana states would like pt to stay @ [facility] for therapy @ discharge and pt in agreeance. Offered SNF list for other choices and Ana stated, No, we're not doing that. I promised mom if she can't stay here then I will have her come home to my house and we would like [facility]. We've had bad experiences w/nursing homes. Ana made aware SW will follow-up tomorrow 05/26. Ese LUNA RN CM
--- NOTE | 2022-05-25 16:34 | CM.ED ---
AIDE Note AIDE received call from [facility]. Patient wants TCU only. Declined list. Patient said that if she doesn't get TCU she will go home with home health. AIDE called Rosario Dariusz and made referral. She indicated the only discharge she has is for tomorrow and that bed is already spoken for. Rosario will review the patient's chart. Plan: Referral to TCU for review. Scarlet DE LEON
[2022-05-25] MEDS: Aspirin 81 MG TAB.CHEW PO (17:05)
[2022-05-25] MEDS: Cefazolin 1 GM/50 ML BAG IV (18:09)
[2022-05-25] MEDS: oxyCODONE 5 MG Tablet PO (20:34)
[2022-05-25] MEDS: Pantoprazole Sodium 40 MG Tablet PO (21:05)
[2022-05-25] MEDS: Rivastigmine Tartrate 1.5 MG Capsule PO (21:05)
[2022-05-25] MEDS: Senna/Docusate Sodium 1 Tablet 2 TABLET PO (21:05)
[2022-05-26] VITALS (8 sets, daily range): BP systolic 94–105; BP diastolic 40–58; PULSE 76–96; RESP 16–18; TEMP 36.4–37.2; O2SAT 94–97
[2022-05-26] MEDS: Cefazolin 1 GM/50 ML BAG IV (01:52)
[2022-05-26] MEDS: oxyCODONE 5 MG Tablet PO ×3 (05:30→20:05)
[2022-05-26] MEDS: Levothyroxine 50 MCG Tablet PO (05:30)
[2022-05-26] MEDS: Acetaminophen 500 MG Tablet 1000 MG PO ×3 (05:30→21:21)
[2022-05-26] MEDS: Carbidopa/Levodopa 25/250 Tablet PO ×2 (06:09→16:21)
[2022-05-26 06:29] LABS: Hematocrit 34.2 % (37-47); Hemoglobin 11.3 g/dL (12.0-15.0); Mean Platelet Vol. 10.9 fl (6.2-12.0); Platelet Count 205 K/mm3 (150-450); RBC Distribution Width CV 13.2 % (11.6-14.6); RBC Distribution Width SD 45.7 fl (35.1-43.9); Red Blood Count 3.64 M/mm3 (4.2-5.4); White Blood Count 9.6 K/mm3 (4.4-11.0)
[2022-05-26 07:14] LABS: Anion Gap 4 (5-15); BUN 19 mg/dL (7-18); BUN/Creat Ratio 20.9 RATIO (10-20); Calcium,Total 8.1 mg/dL (8.5-10.1); Chloride 106 mmol/L (98-107); Creatinine, Serum 0.91 mg/dL (0.55-1.02); EST Glomerular Filtration Rate 64 mL/min (>60); Est Glom Filt Rate - Afr Amer 77 mL/min (>60); Glucose 153 mg/dL (74-106); Potassium 4.2 mmol/L (3.5-5.1); Sodium Level 138 mmol/L (136-145)
--- NOTE | 2022-05-26 07:24 | PN.ORTHO_ITS ---
Subjective Subjective Patient lying in bed, states her pain is well-managed. Patient denies chest pain, shortness of breath, calf pain, nausea vomiting. Patient states she is hoping to be admitted to [facility] for rehab. Patient has no other complaints at this time. Objective Data Objective Data Vital Signs: Vital Signs Temp Pulse Resp BP Pulse Ox O2 Del Method O2 Flow Rate 98.8 F 76 16 105/50 L 97 Room Air 2 05/26/22 05:16 05/26/22 05:16 05/26/22 05:16 05/26/22 05:16 05/26/22 05:16 05/26/22 05:16 05/25/22 13:38 Oxygen Flow Rate (L/min) 2 Oxygen Delivery Method Room Air Weight: 69.853 kg Body Mass Index (BMI) 33.3 Intake & Output: Intake and Output for Last 24 Hours 05/24/22 05/25/22 05/26/22 23:59 23:59 23:59 Intake Total 2918.17 / 2918.17 215.75 / 215.75 Balance 2918.17 / 2918.17 215.75 / 215.75 Lab / Micro Data Result Diagrams: 05/26/22 06:09 05/26/22 06:09 Labs: Laboratory Results - last 24 hr 05/25/22 08:06: POC Glucose 112 H 05/26/22 06:09: WBC 9.6, RBC 3.64 L, Hgb 11.3 L, Hct 34.2 L, MCV 94.0, MCH 31.0, MCHC 33.0, RDW Std Deviation 45.7 H, RDW Coeff of Jennifer 13.2, Plt Count 205, MPV 10.9 05/26/22 06:09: Sodium 138, Potassium 4.2, Chloride 106, Carbon Dioxide 28.0, Anion Gap 4 L, BUN 19 H, Creatinine 0.91, Estim Creat Clear Calc 58.00, Est GFR (MDRD) Af Amer 77, Est GFR (MDRD) Non-Af 64, BUN/Creatinine Ratio 20.9 H, Glucose 153 H, Calcium 8.1 L Micro: Microbiology 05/19/22 10:31 Swab (Method) Nasal Screen MRSA/MSSA - Final Radiography Diagnostic Testing: Radiology Impression Hip X-Ray 05/25/22 11:50 IMPRESSION: Status post right total hip replacement. There is good alignment. Postoperative soft tissue changes. Electronically Signed: Billy Yanes MD at 12:11 EST , Physical Exam Narrative Upon entering the room I found patient sleeping. Patient was easy to awake, and was alert and oriented. Patient was in no respiratory distress speaking in full sentences. Patient full range of motion of the upper extremities with good muscle tone and strength. The dressing over the right hip was clean dry intact. Patient had tenderness to palpation through the incisional area. The right thigh was otherwise soft. Patient good flexion-extension of the bilateral knees. No calf tenderness. Neurovascular is otherwise intact. Patient had good plantar flexion dorsiflexion of the bilateral feet. Const alert and oriented x3 General Appearance: cooperative Eyes PERRL Resp normal respiratory effort Effort and Inspection: able to speak in complete sentences Extremity normal capillary refill Neuro CN's II-XII intact bilaterally Psych mental status grossly normal and affect normal Assessment & Plan Assessment/Plan (1) S/P total right hip arthroplasty: PLAN: 1. Continue all pain medications as prescribed 2. Aspirin 81 mg 1 p.o. every 12 hours x30 days for postop DVT prophylaxis 3. Encourage incentive spirometry 4. Continue ice to right hip 5. Weight-bear as tolerated with walker 6. Begin physical therapy today. 7. Possible discharge to [facility] for for rehab tomorrow
--- NOTE | 2022-05-26 07:42 | PCM.PN.ORT ---
Objective Data Objective Data Vital Signs: Vital Signs Temp Pulse Resp BP Pulse Ox O2 Del Method O2 Flow Rate 98.8 F 76 16 105/50 L 97 Room Air 2 05/26/22 05:16 05/26/22 05:16 05/26/22 05:16 05/26/22 05:16 05/26/22 05:16 05/26/22 05:16 05/25/22 13:38 Oxygen Flow Rate (L/min) 2 Oxygen Delivery Method Room Air Weight: 69.853 kg Body Mass Index (BMI) 33.3 Intake & Output: Intake and Output for Last 24 Hours 05/24/22 05/25/22 05/26/22 23:59 23:59 23:59 Intake Total 2918.17 / 2918.17 215.75 / 215.75 Balance 2918.17 / 2918.17 215.75 / 215.75 Lab / Micro Data Result Diagrams: 05/26/22 06:09 05/26/22 06:09 Labs: Laboratory Results - last 24 hr 05/25/22 08:06: POC Glucose 112 H 05/26/22 06:09: WBC 9.6, RBC 3.64 L, Hgb 11.3 L, Hct 34.2 L, MCV 94.0, MCH 31.0, MCHC 33.0, RDW Std Deviation 45.7 H, RDW Coeff of Jennifer 13.2, Plt Count 205, MPV 10.9 05/26/22 06:09: Sodium 138, Potassium 4.2, Chloride 106, Carbon Dioxide 28.0, Anion Gap 4 L, BUN 19 H, Creatinine 0.91, Estim Creat Clear Calc 58.00, Est GFR (MDRD) Af Amer 77, Est GFR (MDRD) Non-Af 64, BUN/Creatinine Ratio 20.9 H, Glucose 153 H, Calcium 8.1 L Micro: Microbiology 05/19/22 10:31 Swab (Method) Nasal Screen MRSA/MSSA - Final Radiography Diagnostic Testing: Radiology Impression Hip X-Ray 05/25/22 11:50 IMPRESSION: Status post right total hip replacement. There is good alignment. Postoperative soft tissue changes. Electronically Signed: Billy Yanes MD at 12:11 EST ,
[2022-05-26] MEDS: Ascorbic Acid 500 MG Tablet PO (08:31)
[2022-05-26] MEDS: Senna/Docusate Sodium 1 Tablet 2 TABLET PO ×2 (08:31→21:21)
[2022-05-26] MEDS: Aspirin 81 MG TAB.CHEW PO ×2 (08:31→16:21)
[2022-05-26] MEDS: Pantoprazole Sodium 40 MG Tablet PO ×2 (08:32→21:21)
[2022-05-26] MEDS: Rivastigmine Tartrate 1.5 MG Capsule PO ×2 (08:32→21:21)
[2022-05-26] MEDS: Escitalopram Oxalate 10 MG Tablet 5 MG PO (08:32)
[2022-05-26] MEDS: Cholecalciferol (VIT D3) 25 MCG TABLET (1,000 UNITS) 50 MCG PO (08:33)
[2022-05-26] MEDS: Multivitamins,Therapeutic Tablet 1 TABLET PO (08:33)
--- NOTE | 2022-05-26 09:50 | CASEMGMT ---
JULIAN TOMAS in to pt room, pt sitting in chair. Discussed GOOD form with patient. Pt asked if this could be done when her dtr comes back. JULIAN TOMAS to check back. Pt states she still is hoping to go to the Rehab unit. Updated SW.
--- NOTE | 2022-05-26 11:06 | CASEMGMT ---
JULIAN TOMAS in to discuss GOOD form with patient dtr. Pt working with therapy. JULIAN TOMAS explained GOOD form, patient dtr voiced understanding. Pt dtr signed form and filed in chart. Pt dtr provided with a copy of signed GOOD form. Pt dtr states they would still like pt to try to go to the Rehab unit. Patient/dtr had no further questions or concerns at this time.
--- NOTE | 2022-05-26 12:02 | CASEMGMT ---
Social work SW notified by RN THOM Forde that pt and family still requesting [facility]. AIDE called Rosario at Rehab Unit. Left message requesting call back. Rosario called back later, stated it is possible pt could come to RU but Dr. Voss would have to approve first. Rosario o review with and called AIDE back later this day with determination. PLAN: Rehab Unit, pending acceptance and precert ASHVIN Molina
--- NOTE | 2022-05-26 14:22 | CASEMGMT ---
Social Work SW received note from pt nurse to call pt daughter to discuss discharge plan. Daughter discussed concern with discharge plan and not knowing what will happen. SW informed that a call from Rehab unit had just been received and pt was accepted. SW explained the process of waiting for insurance auth, which could take 24-72 hours. Daughter voiced understanding. PLAN: Rehab Unit, pending precert ASHVIN Molina
--- NOTE | 2022-05-26 15:56 | CASEMGMT ---
Social Work? ? SW in to pt room to verify advance directives. Pt confirmed has AD and named Alexey Elkins - ; Ana Malcolm, daughter, as agents. SW made pt aware documents are not on file and if pt would like to bring these documents in the documents can be dropped off at the Medical Records department. Pt voiced understanding. ? ? ASHVIN Molina?
[2022-05-27 02:16] VITALS: BP 132/47; PULSE 73; RESP 16; TEMP 37.1; O2SAT 97
[2022-05-27] MEDS: oxyCODONE 5 MG Tablet PO ×2 (04:29→12:39)
[2022-05-27] MEDS: Levothyroxine 50 MCG Tablet PO (05:23)
[2022-05-27] MEDS: Acetaminophen 500 MG Tablet 1000 MG PO (05:23)
[2022-05-27] MEDS: Carbidopa/Levodopa 25/250 Tablet PO (05:23)
[2022-05-27 07:20] VITALS: O2SAT 94
[2022-05-27] MEDS: Aspirin 81 MG TAB.CHEW PO (07:37)
[2022-05-27] MEDS: Multivitamins,Therapeutic Tablet 1 TABLET PO (07:37)
[2022-05-27] MEDS: Cholecalciferol (VIT D3) 25 MCG TABLET (1,000 UNITS) 50 MCG PO (07:37)
[2022-05-27] MEDS: Pantoprazole Sodium 40 MG Tablet PO (07:37)
[2022-05-27] MEDS: Escitalopram Oxalate 10 MG Tablet 5 MG PO (07:38)
[2022-05-27] MEDS: Ascorbic Acid 500 MG Tablet PO (07:38)
[2022-05-27] MEDS: Rivastigmine Tartrate 1.5 MG Capsule PO (07:38)
[2022-05-27] MEDS: Senna/Docusate Sodium 1 Tablet 2 TABLET PO (07:38)
[2022-05-27] MEDS: Losartan Potassium 50 MG Tablet PO (07:38)
[2022-05-27 08:40] VITALS: BP 118/53; PULSE 85; RESP 18; TEMP 36.8; O2SAT 94
--- NOTE | 2022-05-27 09:30 | CASEMGMT ---
Social work AIDE received call from U referral line. Rosario shared pt insurance has denied. Insurance offered peer to peer option if pt would like to complete the call. AIDE called Dr. Whittington to inform of peer to peer call. AIDE informed can call the floor to gather info if Dr able to complete the call by 1:30 pm today. AIDE will leave instructions with charge Nurse, Tk, so can get needed information if AIDE is with other pts. PLAN: Peer to peer or home with [facility] ASHVIN Molina
[2022-05-27 09:31] VITALS: O2SAT 93
--- NOTE | 2022-05-27 11:08 | CASEMGMT ---
Addendum entered by Anita Acuna 05/27/22 11:12: AIDE called Rosario at [facility] to inform that pt will not be going to Rehab unit. Rosario voiced understanding. Original Note: Social Work Dr. Whittington was informed of peer to peer. Declined to complete call. does not feel the call would be beneficial. spoke to pt and discussed options for discharge. Dr. Whittington informed that pt has collaborated with daughter, Ana, and pt will home and do OP therapy with [facility] beginning WednesdayMay 29 at 11:00am. Dispo: Home, OP therapy ASHVIN Molina
--- NOTE | 2022-05-27 11:12 | PCM.PN.ORT ---
Subjective Subjective Patient sitting in chair in her room. Patient states her pain has been very well managed. Patient's reports, as well as case management the patient will not be able to do inpatient rehab. Patient reports she is spoke with her daughter that she will go home. Patient states she will be able to stay on 1 floor with her . She will have transportation for outpatient therapy at [facility]. Patient states this time she is ready for discharge home, she denies any chest pain, shortness of breath, calf pain, not nausea vomiting. Objective Data Objective Data Vital Signs: Vital Signs Temp Pulse Resp BP Pulse Ox O2 Del Method O2 Flow Rate 98.2 F 85 18 118/53 L 93 Room Air 2 05/27/22 08:40 05/27/22 08:40 05/27/22 08:40 05/27/22 08:40 05/27/22 09:31 05/27/22 08:40 05/25/22 13:38 Oxygen Flow Rate (L/min) 2 Oxygen Delivery Method Room Air Weight: 69.853 kg Body Mass Index (BMI) 33.3 Intake & Output: Intake and Output for Last 24 Hours 05/25/22 05/26/22 05/27/22 23:59 23:59 23:59 Intake Total 2918.17 / 2918.17 215.75 / 215.75 Balance 2918.17 / 2918.17 215.75 / 215.75 Lab / Micro Data Result Diagrams: 05/26/22 06:09 05/26/22 06:09 Micro: Microbiology 05/19/22 10:31 Swab (Method) Nasal Screen MRSA/MSSA - Final Physical Exam Narrative Exam, I found patient sitting comfortably in the exam chair at bedside. Patient was sleeping, she was easy to awake and was alert and oriented. Patient had good motion of the upper extremities without limitations and good muscle tone and strength. Patient was had no respiratory distress speaking full sentences. The incision was clean dry intact. Patient had limited flexion extension hip secondary to pain and stiffness. Patient had no calf tenderness. Neurovascular is otherwise intact no signs and symptoms of DVT. Const alert and oriented x3 General Appearance: cooperative HEENT normocephalic Eyes PERRL Resp normal respiratory effort Effort and Inspection: able to speak in complete sentences Extremity normal capillary refill Skin no rashes or lesions noted Neuro CN's II-XII intact bilaterally Psych mental status grossly normal and affect normal Assessment & Plan Assessment/Plan (1) S/P total right hip arthroplasty: PLAN: Plan 1. Continue pain medications as prescribed 2. Continue aspirin 81 mg 1 p.o. every 12 hours x30 days for postop DVT prophylaxis 3. Ice right hip 30 minutes each hour while awake 4. Discharge home today after p.m. therapy 5. Patient will continue her physical therapy at [facility]. Patient is scheduled for her first appointment 05/29/2022 at 11 AM 6. Follow-up as scheduled
--- NOTE | 2022-05-27 11:17 | DCINST_ITS ---
Discharge Instructions Diet Discharge Diet: No restrictions Activity Discharge Activity: Return to Normal Activity, May Not Drive, May Shower and Use Walker May shower in (days): 2 May resume sexual activity in: No Restrictions Ice area for (Minutes): 30 Weight Bearing Status: Weight bearing as tolerated and Full weight bearing Keep extremity elevated above heart level: Operative Extremity Dressing / Incision Call your doctor if your incision/area has: Continuous Slow Oozing, Sudden Increased Bleeding, Increased Pain/ Swelling and Increased Redness Call your doctor if you observe: Fever of 101 or Higher Change Dressing in: leave in place till F/U Remove Dressing in: leave in place till F/U Follow Up Care Please Follow Up With: Alberto Sterling PA-C When: As scheduled Test Results: Test results from this visit will be discussed in further detail at your follow- up appointment, if applicable. Discharge Plan Admission Admit Date/Time: 05/25/22 15:06 Primary Reason for Your Visit: Right total hip Attending Provider: De Whittington Primary Care Provider: Hemanth Castro Consulting Providers: Bunny Goss Discharge Orders/Prescriptions Prescriptions: New acetaminophen 500 mg Tablet 1,000 mg PO Q8 30 Days Qty: 180 0RF aspirin 81 mg Tablet,Chewable 81 mg PO BIDCM 30 Days Qty: 60 0RF oxycodone 5 mg Tablet 5 - 10 mg PO Q4H PRN PRN (Reason: Pain Score 4-10) 7 Days Qty: 56 0RF Continued losartan 50 mg tablet 50 mg PO DAILY carbidopa-levodopa 25-250 mg tablet 1 tab PO BID rivastigmine tartrate 1.5 mg capsule 1.5 mg PO BID multivitamin Tablet 1 tab PO DAILY ascorbate calcium (vitamin C) 500 mg tablet 500 mg PO DAILY cholecalciferol (vitamin D3) 50 mcg (2,000 unit) capsule 50 mcg PO DAILY Probiotic 3 billion cell capsule 3,000 mmu cells PO DAILY Rx Instructions: administer with a meal levothyroxine 50 MCG tablet 50 mcg PO DAILY pantoprazole 40 MG tablet 40 mg PO BID escitalopram oxalate 5 mg tablet 5 mg PO DAILY Label Comments: TAKE 1 TABLET EVERY DAY Other Ambulatory Orders: 12 Lead EKG (Routine) Timeframe: [id number] Location: None Selected Ordered By: Dr. De Whittington Referrals / Follow Up: Hemanth Castro DO [Primary Care Provider] - Disposition Disposition (needs filled in before D/C Order can be placed): Home, Self Care
--- NOTE | 2022-05-27 11:23 | CASEMGMT ---
JULIAN TOMAS notified by [facility] that pt will dc to her own home and she has outpt therapy set up for Wednesday at 11am. JULIAN TOMAS in to pt room, pt states this information is correct. She states there is an illness in her dtr's family and that is why she cannot go there. She states she has a FWW that her will bring in. Pt denies any further homegoing needs. TC to pt dtr, Ana, she confirms the plan and states that she will be taking pt to outpt therapy. Pt dtr denies further needs.
[2022-05-27 11:39] VITALS: BP 118/53; PULSE 85; RESP 16; TEMP 36.8; O2SAT 94
--- NOTE | 2022-05-27 13:46 | PHA.DC.MR ---
Pharmacy Service has performed discharge medication reconciliation for this patient. The patient's discharge medication list was reviewed for discrepancies and discrepancies were resolved. Medication education papers prepared, patient discharged before I was able to staff counsel. Home Medications levothyroxine 50 mcg tablet 50 mcg PO DAILY 05/25/18 pantoprazole 40 mg tablet,delayed release 40 mg PO BID 05/25/18 ascorbate calcium (vitamin C) 500 mg tablet 500 mg PO DAILY 04/02/21 carbidopa 25 mg-levodopa 250 mg tablet 1 tab PO BID 04/02/21 cholecalciferol (vitamin D3) 50 mcg (2,000 unit) capsule 50 mcg PO DAILY 04/02/21 lactobacillus combination no.4 3 billion cell capsule (Probiotic) 3,000 mmu cells PO DAILY 04/02/21 losartan 50 mg tablet 50 mg PO DAILY 04/02/21 multivitamin 1 tab PO DAILY 04/02/21 rivastigmine tartrate 1.5 mg capsule 1.5 mg PO BID 04/02/21 escitalopram oxalate 5 mg tablet 5 mg PO DAILY 05/13/22 acetaminophen 500 mg tablet 1,000 mg PO Q8 30 days #180 tabs 05/27/22 aspirin 81 mg chewable tablet 81 mg PO BIDCM 30 days #60 tabs 05/27/22 oxycodone 5 mg tablet 5 - 10 mg PO Q4H PRN PRN Pain Score 4-10 7 days #56 tabs 05/27/22
== END 2022-05-27 13:25 | disposition home or self-care (01) ==
LOC: SDC 15:23 → MS3 15:23
PROVIDERS: Anesthesiology; Admitting Provider Orthopaedic Surgery; PCP Preventive Medicine Occupational Medicine; Referring Provider Orthopaedic Surgery; Visit Provider Orthopaedic Surgery
PROC: 0SR90JZ Replacement of Right Hip Joint with Synthetic Substitute, Open Approach (ICD-10-PCS; CPT 27130; principal; 2022-05-25 10:00)
DX: M16.11 Unilateral primary osteoarthritis, right hip (principal); G20 Parkinson's disease; F03.90 Unspecified dementia, unspecified severity, without behavioral disturbance, psychotic disturbance, mood disturbance, and anxiety; Z96.641 Presence of right artificial hip joint; Z87.891 Personal history of nicotine dependence; E66.9 Obesity, unspecified; Z71.3 Dietary counseling and surveillance; Z68.31 Body mass index [BMI] 31.0-31.9, adult; K21.9 Gastro-esophageal reflux disease without esophagitis; I10 Essential (primary) hypertension; E03.9 Hypothyroidism, unspecified; Z79.899 Other long term (current) drug therapy
CPT/HCPCS: 29915; 01202; 36415; 73502; 80048; 82040; 82962; 83036; 83735; 84443; 85025; 85027; 87081; 88305; 88311; 93005; 94762; 96365; 96366; 97110; 97116; 97162; 97166; 97530; 97535; 99218; 99251; C1776; J7120; G0378; G0463; J2405; J3475

== ENCOUNTER 2022-07-24 10:49 | Outpatient (CLI) | payer MEDICARE, SELFPAY ==
[2022-07-24 12:04] LABS: Ferritin 145 ng/mL (8-252); Iron 72 ug/dL (50-170); Iron Binding Capacity,Total 310 ug/dL (250-450); PERCENT IRON SATURATION 23.2 % (15.0-55.0); T4 Free Direct 1.06 ng/dL (0.76-1.46); Thyroid Stim Hormone (TSH) 1.63 uIU/mL (0.358-3.74)
== END 2022-07-24 23:59 | disposition home or self-care (01) ==
LOC: LAB 10:53
PROVIDERS: PCP Preventive Medicine Occupational Medicine; Referring Provider Physician Assistant; Visit Provider Physician Assistant
DX: G25.81 Restless legs syndrome (principal)
CPT/HCPCS: 36415; 82728; 83540; 83550; 84439; 84443

== ENCOUNTER → 2022-07-29 | Outpatient (CLI) | payer MEDICARE, SELFPAY ==
--- NOTE | 2022-07-29 16:13 | SP.MBSS_ITS ---
Modified Barium Swallow - Patient Information Study Date: 07/29/22 Study Time: 13:00 Direct Billable Minutes: 55 Total Minutes procedure & reportin Diagnosis: Dysphagia, unspecified (R13.10) Referring Physician: Cely Bruno Reason for Referral: Objectively assess swallow function, assess risk for aspiration, and determine recommendations for least restrictive diet textures and compensatory strategies to improve safety of swallow. Medical History: The patient is a 76-year-old female with PMH including Abdominal pain, GERD, HTN, Lewy body dementia, and seasonal allergies. Pt and daughter, Ana, provided recent history regarding dysphagia concerns. The patient has had coughing episodes frequently at meals with foods, occasional difficulty swallowing liquids. Pt reports frequent sensation of food stuck in her throat, which she feels more often at nighttime. Daughter was concerned for choking 1X, but patient vomited her entire meal. When asked, pt stated these difficulties have been going on for ~1 year. Current Diet Ordered: Regular / Thin (avoids burgers) Dentition: Upper Dentures, Lower Dentures Mental Status: Impaired - hx of Lewy body dementia Respiratory Status: Oxygenating on Room Air - Penetration-Aspiration Scale Penetration-Aspiration Scale: OBJECTIVE ASSESSMENT OF SWALLOW FUNCTION (QUANTITATIVE ? PER TRIAL): PENETRATION / ASPIRATION SCALE (COPELAND): 1 = does not enter airway 2 = enters airway/above vocal folds/ejected 3 = enters airway/above vocal folds/not ejected 4 = enters airway/contacts vocal folds/ejected 5 = enters airway/contacts vocal folds/not ejected 6 = enters airway/below vocal folds/ejected 7 = enters airway/below vocal folds/not ejected despite effort 8 = enters airway/below vocal folds/no effort VIDEOFLOROSCOPIC SCALE SCORE (COPELAND): Grade I = aspiration of material that has penetrated into the laryngeal vestibule, intact cough reflex Grade II = aspiration < 10 % of the bolus, intact cough reflex Grade III = aspiration of < 10 % of the bolus, reduced cough reflex or aspiration of > 10 % of the bolus, intact cough reflex Grade IV = aspiration of > 10 % of the bolus, reduced cough reflex - Oral Phase Labial Seal: Interlabial escape, no progression to anterior lip Tongue Control During Bolus Hold: Posterior escape of less than half of bolus Bolus Preparation/Mastication: Slow prolonged chewing/mashing with complete recollection - small pieces did appear unchewed Bolus Transport/Lingual Motion: Delayed initiation of tongue motion Oral Residue: Trace residue lining oral structures - Pharyngeal Phase Initiation of Pharyngeal Swallow: Bolus head in pyriforms Soft Palate Elevation: Trace column of contrast/air between soft palate and pharyngeal wall Laryngeal Elevation: Comp. Superior move thyroid cart w/comp. apprx arytenoid cart-epig pet Anterior Hyoid Excursion: Partial anterior movement Epiglottic Movement: Complete inversion Laryngeal Vestibule Closure at Height of Swallow: Complete; no air/contrast in laryngeal vestibule Pharyngeal Stripping Wave: Present - complete Pharyngoesophageal Segment Opening: Complete distension and complete duration; no obstruction of flow Tongue Base Retraction: Trace column of contrast between tongue base & post. pharyngeal wall Pharyngeal Residue: Trace residue within or on pharyngeal structures - Esophageal Phase Esophageal Clearance: Complete clearance - Diagnosis/Impression Diagnosis: Oropharyngeal swallow function grossly WNL Impression: Overall, the patient presents with oropharyngeal swallow function grossly WNL. Pt has mildly decreased and slowed mastication abilities - will recommend continuing with Easy to Chew meats (pt's family stated she avoids food such as hamburgers). Pt also mildly delayed swallow onset with sips via straw and decreased anterior hyoid excursion throughout the study; however, the patient demonstrated excellent airway closure during the swallow. No laryngeal penetration or aspiration was observed. Trace oral and pharyngeal residues after the swallow despite the patient feeling sensation of food in her throat at the end of the study - [employer]INE concerned that pt may be experiencing globus sensation secondary to GERD diagnosis. - Recommendations Diet: Regular Textures - Easy to Chew meats (IDDSI Level 7), Thin Liquids Compensatory Strategies: Small Bites - chew thoroughly, Small Sips, Slow Rate, Sitting upright, Remain sitting upright for 30 minutes after PO intake Recommend Repeat Modified Barium Swallow: No Need for Skilled Speech Therapy Services: No Recommended Referrals: GI Consult - Would consider GI follow-up due to reports of vomiting meals and frequent globus sensation (trace pharyngeal residues seen during MBSS). Education Completed: 1. Described result of evaluation. - Status Active ST Patient: Active - Contact Information [facility] Speech Therapy:: Cindy Elkins M.A. [facility] Speech-Language Pathologist [facility] [address] [place] [address] [email or web address] [phone] 07/29/22 16:25
== END | disposition home or self-care (01) ==
LOC: RAD 12:42
PROVIDERS: PCP Preventive Medicine Occupational Medicine; Referring Provider Physician Assistant; Visit Provider Physician Assistant
DX: R13.10 Dysphagia, unspecified (principal)
CPT/HCPCS: 74230; 92611

== ENCOUNTER 2022-12-07 10:37 | Emergency (ER) | payer MEDICARE, SELFPAY ==
[2022-12-07 10:38] VITALS: BP 147/77; PULSE 80; RESP 14; TEMP 36.8; O2SAT 97
[2022-12-07 11:00] VITALS: BMI 34.2
--- NOTE | 2022-12-07 11:02 | CT_ITS ---
STUDY: CT BRAIN WITHOUT CONTRAST REASON FOR EXAM: Female, 77 years old. Severe headache RADIATION DOSAGE (If Supplied By Facility): CTDIvol = ( 44.99 ) mGy, DLP = ( 745.49 ) mGycm TECHNIQUE: Transaxial CT imaging of the brain was performed without administration of intravenous contrast material. Individualized dose optimization techniques were used for this CT. COMPARISON: MRI from 10/19/2019 FINDINGS: Normal soft tissue structures. Normal calvarium. Normal size ventricles and extra-axial spaces for the patient''s age. Normal white matter tracts of the cerebral hemispheres. Normal basal ganglia and thalami. Normal brainstem. Normal cerebellum. There is no intracranial hemorrhage. There are no findings of an acute ischemic infarction. Normal visualized paranasal sinuses. CT/Brain/Head without Contrast IMPRESSION: Age consistent changes, no acute findings Electronically Signed: Xavier Haas MD at 11:41 EDT ,
--- NOTE | 2022-12-07 11:25 | RAD_ITS ---
STUDY: X-RAY - SACRUM/COCCYX REASON FOR EXAM: Female, 77 years old. Fall TECHNIQUE: 4 view(s) of the sacrum and coccyx were obtained. COMPARISON: None. FINDINGS: Diffuse osteopenia. 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 Normal visualized sacral ala and fused sacral bodies. Normal sacrococcygeal junction with a normal angulation. Normal coccygeal segments. Replaced right hip joint free of complication The presacral soft tissue structures are unremarkable. RAD/Sacrum-Coccyx min 2 Views IMPRESSION: Osteopenia with age consistent degenerative changes, no acute fracture or suspicious osseous lesion. Electronically Signed: Xavier Haas MD at 11:42 EDT ,
[2022-12-07 11:26] LABS: Absolute Neutrophil Count 6.6 X10^3/uL (2.0-7.7); Basophil# 0.04 X10^3/uL; Basophil% 0.4 % (0-1); Eosinophil# 0.12 X10^3/uL; Eosinophils% 1.3 % (0-5); Hemoglobin 13.5 g/dL (12.0-15.0); Lymphocyte % 20.9 % (19-41); Mean Corp Hgb Conc 32.9 g/dL (32-36); Mean Corpuscular Hgb 30.1 pg (27.0-32.0); Mean Corpuscular Volume 91.5 fL (81-99); Mean Platelet Vol. 10.7 fl (6.2-12.0); Monocyte# 0.73 X10^3/uL; Monocyte% 7.6 % (0-10); NRBC Flagged by Analyzer 0 % (0-5); Neutrophil # 6.63 X10^3/uL (2.7-7.7); Neutrophil % 69.2 % (47-70); Platelet Count 253 K/mm3 (150-450); RBC Distribution Width CV 13.7 % (11.6-14.6); RBC Distribution Width SD 46.7 fl (35.1-43.9); Red Blood Count 4.48 M/mm3 (4.2-5.4); White Blood Count 9.6 K/mm3 (4.4-11.0)
[2022-12-07 11:39] LABS: Anion Gap 5 (5-15); BUN 18 mg/dL (7-18); BUN/Creat Ratio 18.9 RATIO (10-20); Calcium,Total 9.4 mg/dL (8.5-10.1); Chloride 106 mmol/L (98-107); Creatinine, Serum 0.95 mg/dL (0.55-1.02); EST Glomerular Filtration Rate 61 mL/min (>60); Est Glom Filt Rate - Afr Amer 73 mL/min (>60); Estimated Creatinine Clearance 58.01 ml/min; Glucose 102 mg/dL (74-106); Potassium 4.9 mmol/L (3.5-5.1); Sodium Level 138 mmol/L (136-145)
--- NOTE | 2022-12-07 11:47 | ED.VIS.FALL ---
HPI HPI - Fall History of Present Illness Chief Complaint: Head Injury Occured/Mechanism Occurred: Yesterday Mechanism/Context: Yes same level fall Narrative: Patient fell getting out of a vehicle Pain/Injury Location: Tailbone Pain Location: head Quality of Pain: Sharp Worsened by: Nothing Relieved by: Tylenol Associated Symptoms Associated Symptoms: Negative for Parasthesias, Weakness, Loss of function, Inability to ambulate, Loss of consciousness or Amnesia Narrative Narrative: Patient presents after a fall that occurred last night. Patient fell getting out of the vehicle. Patient fell backwards and landed on her tailbone and hit the back of her head. Patient and family deny any loss of consciousness. Patient has a history of Parkinson's disease and has been falling more frequently. Patient admits to some dizziness and nausea with standing. Patient denies any chest pain or palpitations. Patient admits to some nausea but denies any vomiting. Patient denies any visual changes. Tetanus Immunization: Unknown [facility] Medical History Abdominal pain Ambulates with cane Arthritis Chronic headaches CPAP (continuous positive airway pressure) dependence Dementia Diarrhea Difficulty swallowing Former smoker Gastric reflux GERD (gastroesophageal reflux disease) Hearing loss History of diverticulitis History of echocardiogram History of edema History of GI bleed History of stress test HTN (hypertension) Hypothyroid Leg cramps Lewy body dementia Parkinson's disease Post-menopausal Seasonal allergies Sleep apnea Thyroid disease Wears dentures Wears hearing aid Home Medications levothyroxine 50 mcg tablet 50 mcg PO DAILY 05/25/18 [History Last Taken 05/25/22] pantoprazole 40 mg tablet,delayed release 40 mg PO BID 05/25/18 [History Last Taken 05/24/22] ascorbate calcium (vitamin C) 500 mg tablet 500 mg PO DAILY 04/02/21 [History Last Taken 05/24/22] carbidopa 25 mg-levodopa 250 mg tablet 1 tab PO BID 04/02/21 [History Last Taken 05/24/22] cholecalciferol (vitamin D3) 50 mcg (2,000 unit) capsule 50 mcg PO DAILY 04/02/21 [History Last Taken 05/24/22] lactobacillus combination no.4 3 billion cell capsule (Probiotic) 3,000 mmu cells PO DAILY 04/02/21 [History Last Taken 05/24/22] losartan 50 mg tablet 50 mg PO DAILY 04/02/21 [History Last Taken 05/24/22] rivastigmine tartrate 1.5 mg capsule 1.5 mg PO BID 04/02/21 [History Last Taken 05/24/22] acetaminophen 500 mg tablet 1,000 mg PO Q8 30 days #180 tabs 05/27/22 [Rx Last Taken Unknown] hydrocodone-acetaminophen 5-325mg 5mg-325mg 1 tab PO Q6H PRN PRN Pain 3 days #10 TABLETS 12/07/22 [Rx Last Taken Unknown] Allergy/AdvReac Type Severity Reaction Status Date / Time atropine sulfate AdvReac Unknown Verified 12/07/22 10:40 [From Lomotil] diphenoxylate HCl AdvReac Unknown Verified 12/07/22 10:40 [From Lomotil] fexofenadine HCl AdvReac nightmares Verified 12/07/22 10:40 [From Rafaela] propoxyphene HCl AdvReac Nausea/Vom/ Verified 12/07/22 10:40 [From Darvon] Diarrhea Surgical History History of cholecystectomy History of hysterectomy History of surgery Hx of mastoidectomy Social History Smoking Status: Former smoker ROS ROS ED Constitutional Constitutional ED: Denies chills or fever(s) Eyes Eyes: Denies blurry vision or change in vision ENT ENT ED: Denies rhinorrhea or sore throat Cardiovascular Cardiovascular: Denies chest pain or palpitations Respiratory/Chest Respiratory/Chest: Denies cough or dyspnea Gastrointestinal Gastrointestinal: Reports nausea; Denies vomiting Genitourinary Genitourinary ED: Denies dysuria or hematuria Musculoskeletal Musculoskeletal: Denies back pain or neck pain Integumentary Denies abscess or rash Neurologic Neurologic: Reports headache(s); Denies weakness Allergic/Immunologic Allergic/Immunologic ED: Denies mouth swelling or urticaria EXAM Physical Exam Const Vital Signs: 12/07/22 10:38 12/07/22 10:55 Temperature 98.2 F Temperature Source Temporal Pulse Rate 80 Respiratory Rate 14 Respiratory Effort Normal Non-Labored Respiratory Depth Normal Respiratory Pattern Normal Blood Pressure 147/77 H Blood Pressure Mean 100 Pulse Ox 97 Oxygen Delivery Method Room Air Room Air Positive well nourished and well developed General Appearance ED: well developed HEENT Reports moist mucous membranes HEENT Narrative: There is some mild tenderness over the occipital scalp. There is no bony crepitance or step-off. There is some mild edema. There is no ecchymosis noted. There are no lacerations noted. There are no abrasions noted. Neck supple and no JVD Resp normal respiratory effort and clear to auscultation bilaterally Cardio regular rate, regular rhythm and no murmurs GI normal to inspection, nondistended, normoactive bowel sounds and non-tender Palpation: soft Extremity normal to inspection General Extremety ED: Negative for edema or tenderness General Extremity: Negative for edema Neuro oriented x3, CN's II-XII intact bilaterally and no sensory deficits noted Sensorium / Orientation: alert Motor Exam: strength 5/5 throughout Psych mental status grossly normal Skin no rashes or lesions noted MDM MDM MDM Narrative Medical decision making narrative: Differential diagnosis includes intracranial bleeding, concussion, closed head injury, anemia, electrolyte abnormality, dehydration, and Parkinson's disease. CT scan of the brain will be obtained to assess for intracranial bleeding. CBC will be obtained to assess for leukocytosis and anemia. Basic metabolic profile will be obtained to assess for electrolyte abnormality and renal function. X-rays of the sacrum and coccyx will be obtained to assess for fracture. Lab Data Labs: Laboratory Results - last 24 hr 12/07/22 12/07/22 11:10 11:10 WBC 9.6 RBC 4.48 Hgb 13.5 Hct 41.0 MCV 91.5 MCH 30.1 MCHC 32.9 RDW Std Deviation 46.7 H RDW Coeff of Jennifer 13.7 Plt Count 253 MPV 10.7 Immature Gran % (Auto) 0.600 Neut % (Auto) 69.2 Lymph % (Auto) 20.9 Gordon % (Auto) 7.6 Eos % (Auto) 1.3 Baso % (Auto) 0.4 Absolute Neuts (auto) 6.6 Absolute Lymphs (auto) 2.00 Nucleated RBC % 0 Sodium 138 Potassium 4.9 Chloride 106 Carbon Dioxide 27.0 Anion Gap 5 BUN 18 Creatinine 0.95 Estim Creat Clear Calc 58.01 Est GFR (MDRD) Af Amer 73 Est GFR (MDRD) Non-Af 61 BUN/Creatinine Ratio 18.9 Glucose 102 Calcium 9.4 Radiography Diagnostic Testing: Clinical Impression(s) from Imaging Studies Brain CT 12/07/22 11:02 IMPRESSION: Age consistent changes, no acute findings Electronically Signed: Xavier Haas MD at 11:41 EDT , Sacrum and Coccyx X-Ray 12/07/22 11:25 IMPRESSION: Osteopenia with age consistent degenerative changes, no acute fracture or suspicious osseous lesion. Electronically Signed: Xavier Haas MD at 11:42 EDT , X-rays of the sacrum and coccyx were obtained. There are 4 views. On my independent interpretation, there is no acute fracture or dislocation. Radiologist also interpreted the x-rays and agrees. CT scan of the brain was obtained. There is no acute intracranial abnormality. There are age-related changes. This was interpreted by the radiologist and was also independently reviewed by myself. Treatment and Re-Evaluation Narrative: Patient still complaining of sacral pain on reevaluation. Patient was given a dose of [place] Arm here. Patient was instructed to get an inflatable donut pillow to sit on. Patient was given a prescription for a short course of Big Arm. Patient was instructed to follow-up with her primary care physician in 5 to 7 days. Patient was instructed to use her cane whenever she walks. Patient understood and was agreeable with the plan. All questions were answered. Discharge Plan Triage Chief Complaint: Head Injury Other Complaint: Fall ED Provider: Toñito Hu Dx/Rx/DC Orders Clinical Impression: Closed head injury, Contusion of sacrum Instructions: ED Coccyx or Sacrum Contusion, ED Head Injury (Adult), ED Fall Prevention Prescriptions: New hydrocodone-acetaminophen [hydrocodone-acetaminophen] 5-325 mg tablet 1 tab PO Q6H PRN PRN (Reason: Pain) 3 Days Qty: 10 0RF No Action losartan 50 mg tablet 50 mg PO DAILY carbidopa-levodopa 25-250 mg tablet 1 tab PO BID rivastigmine tartrate 1.5 mg capsule 1.5 mg PO BID ascorbate calcium (vitamin C) 500 mg tablet 500 mg PO DAILY cholecalciferol (vitamin D3) 50 mcg (2,000 unit) capsule 50 mcg PO DAILY Probiotic 3 billion cell capsule 3,000 mmu cells PO DAILY Rx Instructions: administer with a meal levothyroxine 50 MCG tablet 50 mcg PO DAILY pantoprazole 40 MG tablet 40 mg PO BID acetaminophen 500 mg Tablet 1,000 mg PO Q8 30 Days Qty: 180 0RF Primary Care Provider: Hemanth Castro Referrals: Hemanth Castro DO [Primary Care Provider] - 5-7 Days Disposition Disposition: Home, Self Care
[2022-12-07] MEDS: HYDROcodone Bitartrate/Apap 5/325 Tablet PO (12:21)
== END 2022-12-07 12:24 | disposition home or self-care (01) ==
PROVIDERS: Emergency Provider Emergency Medicine; PCP Preventive Medicine Occupational Medicine; Visit Provider Emergency Medicine
DX: S09.90XA Unspecified injury of head, initial encounter (principal); G20 Parkinson's disease; F02.80 Dementia in other diseases classified elsewhere, unspecified severity, without behavioral disturbance, psychotic disturbance, mood disturbance, and anxiety; S30.0XXA Contusion of lower back and pelvis, initial encounter; W18.39XA Other fall on same level, initial encounter; I10 Essential (primary) hypertension; R29.6 Repeated falls; Z79.899 Other long term (current) drug therapy; Z87.891 Personal history of nicotine dependence
CPT/HCPCS: 70450; 72220; 80048; 85025; 99283

== ENCOUNTER → 2023-02-05 | Outpatient (CLI) | payer MEDICARE, SELFPAY ==
[2023-02-05 09:02] LABS: Microalbumin,Random Urine 15.1 mg/L (NO RANGE EST.); Microalbumin:Creatinine Ratio 24.9 mg/g CRE (<30 mg/g CRE)
[2023-02-05 09:40] LABS: AST(SGOT) 11 U/L (15-37); Alanine Aminotransfer ALT/SGPT 24 U/L (13-56); Albumin, Serum 3.6 g/dL (3.2-5.0); Alkaline Phosphatase 62 U/L (45-117); Anion Gap 3 (5-15); BUN 17 mg/dL (7-18); BUN/Creat Ratio 16.7 RATIO (10-20); Calcium,Total 9.1 mg/dL (8.5-10.1); Chloride 104 mmol/L (98-107); Cholesterol 191 mg/dL (200); Creatinine, Serum 1.02 mg/dL (0.55-1.02); EST Glomerular Filtration Rate 56 mL/min (>60); Est Glom Filt Rate - Afr Amer 68 mL/min (>60); Globulin 3.6 g/dL (2.2-4.2); Glucose 114 mg/dL (74-106); High Density Lipoprotein 37 mg/dL; Potassium 4.2 mmol/L (3.5-5.1); Protein, Total 7.2 g/dL (6.4-8.2); Sodium Level 137 mmol/L (136-145); Thyroid Stim Hormone (TSH) 2.12 uIU/mL (0.358-3.74); Triglycerides 144 mg/dL; Very Low Density Lipoprotein 29 mg/dL (5-40)
== END | disposition home or self-care (01) ==
PROVIDERS: PCP Preventive Medicine Occupational Medicine; Referring Provider Preventive Medicine Occupational Medicine; Visit Provider Preventive Medicine Occupational Medicine
DX: R51.9 Headache, unspecified (principal); I10 Essential (primary) hypertension; E78.5 Hyperlipidemia, unspecified; E03.9 Hypothyroidism, unspecified
CPT/HCPCS: 36415; 80053; 80061; 82043; 82570; 84443

== ENCOUNTER → 2023-09-15 | Outpatient (CLI) | payer MEDICARE, SELFPAY ==
[2023-09-15 10:20] LABS: Mucous, Urine 0 SEEN /hpf (<or=2+)
[2023-09-15 11:00] LABS: Color, Urine Yellow (Yellow); Glucose, Dipstick Normal (Normal); Ketone-Dipstick Negative (Negative); Leukocyte Esterase-Dipstick 500 /ul (Negative); Nitrite-Dipstick Positive (Negative); Occult Blood-Urine 150 /ul (Negative); Protein-Dipstick 30 mg/dl (Negative); Urine Bilirubin Dipstick Negative (Negative); Urine Clarity Cloudy (Clear); Urine Urobilinogen Normal (Normal); Urine pH 6.5 (5.0 - 8.0)
[2023-09-15 11:17] LABS: White Blood Cells 50-100 SEEN /hpf (0-5)
[2023-09-15 11:18] LABS: Bacteria 2+ /hpf (None Seen); Red Blood Cells-Urine 0-5 SEEN /hpf (0-5); Squamous Epithelial Cells - UA 0-5 SEEN /hpf (5-10)
== END | disposition home or self-care (01) ==
LOC: LAB 10:16
PROVIDERS: PCP Preventive Medicine Occupational Medicine; Referring Provider Physician Assistant; Visit Provider Physician Assistant
DX: N39.0 Urinary tract infection, site not specified (principal)
CPT/HCPCS: 81001; 87077; 87086; 87088; 87186

== ENCOUNTER → 2024-02-17 | Outpatient (CLI) | payer MEDICARE, SELFPAY ==
[2024-02-17 08:51] LABS: ALB/GLOB Ratio 0.9 RATIO (0.9-2.4); AST(SGOT) 12 U/L (15-37); Alanine Aminotransfer ALT/SGPT 16 U/L (13-56); Albumin, Serum 3.7 g/dL (3.2-5.0); Alkaline Phosphatase 63 U/L (45-117); Anion Gap 7 (5-15); BUN 18 mg/dL (7-18); BUN/Creat Ratio 20.9 RATIO (10-20); Calcium,Total 9.2 mg/dL (8.5-10.1); Chloride 103 mmol/L (98-107); Cholesterol 182 mg/dL (200); Creatinine, Serum 0.86 mg/dL (0.55-1.02); EST Glomerular Filtration Rate 68 mL/min (>60); Est Glom Filt Rate - Afr Amer 82 mL/min (>60); Globulin 3.9 g/dL (2.2-4.2); Glucose 113 mg/dL (74-106); High Density Lipoprotein 38 mg/dL; Potassium 3.8 mmol/L (3.5-5.1); Protein, Total 7.6 g/dL (6.4-8.2); Sodium Level 137 mmol/L (136-145); Triglycerides 154 mg/dL; Very Low Density Lipoprotein 31 mg/dL (5-40)
[2024-02-17 10:54] LABS: Microalbumin,Random Urine < 5.0 mg/L (NO RANGE EST.)
== END | disposition home or self-care (01) ==
LOC: LAB 07:34
PROVIDERS: PCP Preventive Medicine Occupational Medicine; Referring Provider Preventive Medicine Occupational Medicine; Visit Provider Preventive Medicine Occupational Medicine
DX: E03.9 Hypothyroidism, unspecified (principal); I10 Essential (primary) hypertension; E78.5 Hyperlipidemia, unspecified
CPT/HCPCS: 36415; 80053; 80061; 82043; 82570; 84443

== ENCOUNTER → 2025-04-04 | Outpatient (CLI) | payer MEDICARE, SELFPAY ==
[2025-04-04 10:43] LABS: AST(SGOT) 16 U/L (<=31); Alanine Aminotransfer ALT/SGPT 15 U/L (<=34); Albumin, Serum 4.2 g/dL (3.4-4.8); Alkaline Phosphatase 48 U/L (35-104); Anion Gap 9 (5-15); BUN 20 mg/dL (4-19); BUN/Creat Ratio 21.4 RATIO (10-20); Calcium,Total 10.0 mg/dL (7.6-11.0); Carbon Dioxide 29.3 mmol/L (21.0-32.0); Chloride 99 mmol/L (98-108); Cholesterol 185 mg/dL (<=200); Globulin 3.1 g/dL (2.2-4.2); Glucose 106 mg/dL (70-99); Low Density Lipoprotein Calc. 117 mg/dL; Potassium 4.5 mmol/L (3.3-5.1); Triglycerides 161 mg/dL; Very Low Density Lipoprotein 32 mg/dL (5-40); cholesterol:hdl ratio screen 5.20
== END | disposition home or self-care (01) ==
LOC: LAB 08:23
PROVIDERS: PCP Nurse Practitioner Family; Referring Provider Nurse Practitioner Family; Visit Provider Nurse Practitioner Family
DX: I10 Essential (primary) hypertension (principal); E78.5 Hyperlipidemia, unspecified; E03.9 Hypothyroidism, unspecified
CPT/HCPCS: 36415; 80053; 80061; 82043; 82570; 84439; 84443

== ENCOUNTER → 2025-04-05 | Outpatient (CLI) | payer MEDICARE, SELFPAY ==
--- OUTSIDE RECORDS SUMMARY | 2025-04-05 07:33 | XMS RPT_ITS | CCD ---
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 Name Role Phone BOLOGNA, MARISSA A Unavailable Unavailable BRANDY JOSÉ MIGUEL F Unavailable Unavailable BOLOGNA, MARISSA A Unavailable Unavailable BRANDY JOSÉ MIGUEL F Unavailable Unavailable BOLOGNA, MARISSA A Unavailable Unavailable BRANDY JOSÉ MIGUEL F Unavailable Unavailable BOLOGNA, MARISSA A Unavailable Unavailable BRANDY, JOSÉ MIGUEL F Unavailable Unavailable BOLOGNA, MARISSA A Unavailable Unavailable BRANDY JOSÉ MIGUEL F Unavailable Unavailable BOLOGNA, MARISSA A Unavailable Unavailable BRANDY, JOSÉ MIGUEL F Unavailable Unavailable ALEX RAMON Admitting Unavailable ALEX RAMON Attending Unavailable JOSÉ MIGUEL NAVA DO Primary Care Physician [phone] José Miguel Nava Primary Care Provider [phone] JOSÉ MIGUEL NAVA DO Primary Care Physician [phone] BLANCA CARTER Attending Unavailable , PHYSICIAN Primary Care Unavailable Dr. José Miguel Nava Primary Care Provider Dr. Willian Ndiaye Attending Provider [phone] Dr. De [place] Referring Provider José Miguel Nava DO Primary Care Provider [phone] ELTON DAVIES Attending JOSÉ MIGUEL Post DO Primary Care Unavailable José Miguel Nava DO Primary Care Provider [phone] MARILEE BAIN Referring Unavailable JOSÉ MIGUEL NAVA Primary Care Unavailable JOSÉ MIGUEL NAVA Primary Care Unavailable JOSÉ MIGUEL NAVA Primary Care Unavailable LAURITA ARANGO Referring Unavailable JOSÉ MIGUEL NAVA Primary Care Unavailable JOSÉ MIGUEL NAVA Primary Care Unavailable JOSÉ MIGUEL NAVA Primary Care Unavailable PARI JIMENEZ Primary Care Physician JOSÉ MIGUEL NAVA DO Primary Care Unavailable JOSÉ MIGUEL NAVA DO Attending Unavailable JOSÉ MIGUEL NAVA DO Primary Care Unavailable JOSÉ MIGUEL NAVA DO Attending Unavailable MAURI EXPORT PACKER-DEV TECHNICAL MGR, PARI Primary Care Bianca MONTGOMERY MD, DOREEN Ramirez Attending Unavail able ANIBAL HAMILTON-DEV TECHNICAL MGR, WICHO Attending Unavailab le JOSÉ MIGUEL NAVA DO Primary Care Unavailable MAURI, PARI Referring Unavailable MAURI, PARI Attending Unavailable MAURI, PARI Primary Care Unavailable Allergies Allergy Classification Reported Allergen(s) Allergy Type Date of Onset Reaction(s) Facility (18 sources) fexofenadine; Translations: [FEXOFENADINE HCL] Drug Allergy 9 nightmares [facility] Repository (18 sources) propoxyphene; Translations: [PROPOXYPHENE HCL] Drug Allergy 9 Mental Status Change [facility] Repository (8 sources) Atropine / Diphenoxylate; Translations: [atropine-diphe noxylate] Drug Allergy Rash [facility] (8 sources) fexofenadine; Translations: [fexofenadine] Drug Allergy Rash [facility] (8 sources) Propoxyphene; Translations: [propoxyphene] Drug Allergy Hallucinations (finding) [facility] (5 sources) Atropine; Translations: [atropine sulfate] Drug Allergy 2 Unknown [facility] (5 sources) Diphenoxylate; Translations: [diphenoxylate HCl] Drug Allergy 2 Unknown [facility] (7 sources) Diphenoxylate; Translations: [DIPHENOXYLATE] Drug Allergy 1 Unknown [facility] Medications Current Medications Medication Drug Class(es) Dates Sig (Normalized) Sig (Original) acetaminophen 500 mg oral powder (17 sources) Start: 06-09-2022 take 2 doses by mouth every six hours as needed for pain Tylenol Extra Strength 500 mg oral powder 2 packet(s), Oral, q6h, PRN as needed for pain, # 12 packet(s), 0 Refill(s) Start Date: 06/09/22 Status: Ordered Medication Dispense Status: Completed Quantity: 12.0 Unit: packet(s) Total Allowed Fills: 1 Fills Dispensed: 0 Start: 05-27-2022 take 1000 mg by mout h every eight hours Acetaminophen Active 1000 MG PO EVERY 8 HOURS 180 May 27, 2022 1:00am take 2 tablets by mo uth every eight hours as needed acetaminophen (TYLENOL) 500 mg tablet Take 1,000 mg by mouth every 8 hours as needed. Active Comment on above: Take 1,000 mg by beata th every 8 hours as needed. acetaminophen 300 mg / codeine phosphate 30 mg oral tablet (1 source) Opioid Agonist Start: 03-29-2025 End: 04-01-2025 take 1 tablet by mouth every six hours Tylenol with Codeine #3 use acetaminophen-codein e 300 mg-30 mg tablet Dose = 1 tab(s), Oral, q6hr, X 3 day(s), # 12 tab(s), 0 Refill(s), Arm contusion, 72.7 Start Date: 03/29/25 Stop Date: 04/01/25 Status: Ordered Medication Dispense Status: Completed Quantity: 12.0 Unit: tab(s) Total Allowed Fills: 1 Fills Dispensed: 0 Indications: Contusion of unspecified upper arm, initial encounter; acetaminophen 325 mg / HYDROcodone bitartrate 5 mg oral tablet (7 sources) Opioid Agonist Start: 12-07-2022 take 1 tablet by mouth every six hours as needed Hydrocodone-Acetamin ophen Active 1 TABLET PO EVERY 6 HOURS NEEDED 10 December 07, 2022 Start: 05-25-2018 End: 05-27-2018 take 1 tablet by mouth at bedtime Hydrocodone-Acetaminophen Discontinued 1 TABLET PO AT BEDTIME 10 May 25, 2018 1:00am May 27, 2018 1:09am amoxicillin 875 mg oral tablet (1 source) Penicillin-class Antibacterial Start: 03-24-2024 End: 03-31-2024 take 1 tablet by mouth twice daily amoxicillin (AMOXIL) 875 mg tablet Take 1 tablet by mouth two times a day for 7 days. 14 tablet 03/24/2024 03/31/2024 Active amoxicillin 875 mg / clavulanate 125 mg oral tablet (1 source) Penicillin-class Antibacterial Start: 08-27-2021 End: 09-03-2021 take 1 tablet by mouth every twelve hours amoxicillin-clav ulanate 875 mg-125 mg oral tablet 1 tab(s), Oral, q12h, X 7 day(s), # 14 tab(s), 0 Refill(s), 09/03/21 14:01:00 EDT, Pharmacy: [facility], Acute bacterial bronchitis, 150, cm, 08/27/21 13:40:00 EST, Height, 69.1, kg, 08/27/21 13:35:00 EST, Dosing Weight Start Date: 08/27/21 Stop Date: 09/03/21 Status: Ordered ascorbic acid 500 mg oral tablet (9 sources) Vitamin C take 2 tablets by mouth once daily ascorbic acid, vitamin C, (VITAMIN C) 500 mg tablet Take 1,000 mg by mouth once daily. Active Comment on above: Take 1,000 mg by beata once daily. aspirin 81 mg chewable tablet (1 source) Platelet Aggregation Inhibitor, Nonsteroidal Anti-inflammatory Drug Start: 05-27-2022 take 81 mg by mouth twice daily at mealtime Aspirin Active 81 MG PO TWICE DAILY WITH MEALS May 27, 2022 12:00am benzonatate 100 mg oral capsule (3 sources) Non-narcotic Antitussive Start: 08-27-2021 benzonatate 100 mg oral capsule Dose : 200 mg = 2 cap(s), TID, 0 Refill(s) Start Date: 08/27/21 Status: Ordered calcium ascorbate 500 mg oral tablet (4 sources) Start: 04-02-2021 take 500 mg by mouth once daily Ascorbate Calcium (Vitamin C) Active 500 MG PO DAILY April 02, 2021 12:00am calcium carbonate 120 mg/ml / magnesium hydroxide 27 mg/ml / simethicone 8 mg/ml oral suspension (2 sources) calcium carb-mag hydrox-simeth 1,200 mg-270 mg -80 mg/10 mL susp Take by mouth. Active carbidopa 25 mg / levodopa 100 mg oral tablet (20 sources) Aromatic Amino Acid Decarboxylation Inhibitor, Aromatic Amino Acid Start: 04-02-2021 take 1 tablet by mouth twice daily Carbidopa-Levodo pa Active 1 TABLET PO TWICE A DAY April 02, 2021 12:00am Start: 01-09-2020 take 1 tablet by beata three times daily carbidopa-levodopa 25 mg-100 mg oral tablet Dose = 1 tab(s), Oral, TID, neurocare, # 270 tab(s), 0 Refill(s) Start Date: 02/02/24 Status: Ordered Medication Dispense Status: Completed Quantity: 270.0 Unit: tab(s) Total Allowed Fills: 1 Fills Dispensed: 0 Start: 01-09-2020 take 1 tablet by beata twice daily carbidopa-levodopa 25 mg-100 mg oral tablet Dose = 1 tab(s), BID, 0 Refill(s) Start Date: 01/09/20 Status: Ordered Comment on above: Take 1 tablet by [facility] three times daily. cephalexin 500 mg oral capsule (1 source) Cephalosporin Antibacterial Start: 2023 End: 2023 take 1 capsule by mouth twice daily cephALEXin (KEFLEX) 500 mg capsule Take 1 capsule by mouth two times a day for 7 days. 14 capsule 0 09/25/2023 10/02/2023 Active Comment on above: Take 1 capsule by [facility] two times a day for 7 days. cholecalciferol 0.05 mg oral capsule (4 sources) Vitamin D Start: 2020 take 50 ug by mouth once daily Cholecalciferol (Vitamin D3) Active 50 MCG PO DAILY April 02, 2021 12:00am clonazePAM 0.5 mg oral tablet (6 sources) Benzodiazepine Start: 2023 take 1 tablet by mouth once daily at bedtime clonazePAM (KLONOPIN) 0.5 mg tablet Take 1 tablet every day by oral route at bedtime. 01/11/2024 Active Dextromethorphan / Promethazine (1 source) Phenothiazine, Uncompetitive N-qcufwv-T-aspartate Receptor Antagonist, Sigma-1 Agonist Start: 2021 End: 2021 take 1 dose by mouth every six hours as needed for cough dextromethorphan-prom ethazine 15 mg-6.25 mg/5 mL oral syrup Dose = 5 mL, Oral, q6h, PRN for cough, X 7 day(s), # 120 mL, 1 Refill(s), Pharmacy: [facility], Cough in adult, 150, cm, 08/27/21 13:40:00 EST, Height, kg, 08/27/21 13:35:00 EST, Dosing Weight Start Date: 08/27/21 Stop Date: 09/10/21 Status: Ordered doxycycline monohydrate 100 mg oral tablet (1 source) Tetracycline-class Drug Start: 2023 End: 2024 take 1 tablet by mouth twice daily doxycycline monohydrate 100 mg tablet Indications: Productive cough Take 1 tablet by mouth two times a day for 7 days. 14 tablet 06/16/2024 06/23/2024 Active escitalopram 5 mg oral tablet (1 source) Serotonin Reuptake Inhibitor Start: 2021 take 5 mg by mouth once daily Escitalopram Oxalate Active 5 MG PO DAILY May 13, 2022 12:00am gabapentin 300 mg oral capsule (3 sources) Anti-epileptic Agent Start: 2023 gabapentin 300 mg oral capsule Dose : 300 mg = 1 cap(s), Oral, qHS, # 30 cap(s), 0 Refill(s), 72.9 Start Date: 03/30/24 Status: Ordered Medication Dispense Status: Completed Quantity: 30.0 Unit: cap(s) Total Allowed Fills: 1 Fills Dispensed: 0 Lactobacillus Combination No.4 (Probiotic) 3 billion cell capsule (4 sources) Start: 2020 take 3 capsules by mouth once daily Lactobacillus Combination No.4 (Probiotic) 3 billion cell capsule Active 3000 MMU CELLS PO DAILY April 02, 2021 12:00am administer with a meal Start: 04-02-2021 take 3 capsules by m outh once daily Lactobacillus Combination No.4 (Probiotic) 3 billion cell capsule Active 3000 MMU CELLS PO DAILY April 01, 2021 11:00pm administer with a meal levothyroxine sodium 0.05 mg oral tablet (20 sources) l-Thyroxine Start: 07-28-2023 End: 05-24-2025 levothyroxine 50 mcg (0.05 mg) oral tablet Dose : 50 mcg = 1 tab(s), Oral, qDay, # 90 tab(s), 3 Refill(s), Pharmacy: [facility], 149, cm, 05/29/24 9:50:00 EST, Height, kg, 05/29/24 9:50:00 EST, Dosing Weight Start Date: 05/29/24 Stop Date: 05/24/25 Status: Ordered Medication Dispense Status: Completed Quantity: 90.0 Unit: tab(s) Total Allowed Fills: 4 Fills Dispensed: 0 Start: 07-21-2021 End: 07-16-2022 levothyroxine 50 mcg (0.05 m g) oral tablet Dose : 50 mcg = 1 tab(s), Oral, qDay, # 90 tab(s), 3 Refill(s), Pharmacy: [facility], 147.8, cm, 03/19/21 14:41:00 EDT, Height, kg, 03/19/21 14:41:00 EDT, Dosing Weight Start Date: 07/21/21 Stop Date: 07/16/22 Status: Ordered Start: 01-27-2017 levothyroxine (SYNTHROID) 50 mcg tablet 01/27/2017 Active losartan potassium 50 mg oral tablet (20 sources) Angiotensin 2 Receptor Fred Start: 12-12-2019 End: 05-24-2025 losartan 50 mg oral tablet Dose : 50 mg = 1 tab(s), Oral, qDay, # 90 tab(s), 3 Refill(s), Pharmacy: [facility], Essential hypertension, 149, cm, 05/29/24 9:50:00 EST, Height, kg, 05/29/24 9:50:00 EST, Dosing Weight Start Date: 05/29/24 Stop Date: 05/24/25 Status: Ordered Medication Dispense Status: Completed Quantity: 90.0 Unit: tab(s) Total Allowed Fills: 4 Fills Dispensed: 0 Indications: Essential (primary) hypertension; Comment on above: Take 50 mg by mouth once daily. meclizine hydrochloride 25 mg oral tablet (2 sources) Antiemetic Start: 01-25-2023 meclizine 25 m g oral tablet Dose : 25 mg = 1 tab(s), Oral, TID, PRN as needed for dizziness, # 30 tab(s), 0 Refill(s) Start Date: 01/25/23 Status: Ordered Quantity: 30.0 Unit: tab(s) Repeat number: 1 meloxicam 7.5 mg oral tablet (2 sources) Nonsteroidal Anti-inflammatory Drug Start: 01-26-2022 meloxicam 7.5 mg ora l tablet Dose : 7.5 mg = 1 tab(s), Oral, qDay, PRN Leg pain, # 30 tab(s), 2 Refill(s), Pharmacy: [facility], Right hip pain, 150, cm, 01/26/22 10:04:00 EDT, Height Start Date: 01/26/22 Status: Ordered MULTIVITAMIN ORAL (9 sources) MULTIVITAMIN ORA L Take by mouth. Active MULTIVITAMIN ORA L Take by mouth. 0 Active Comment on above: Take by mouth. Multivitamin preparation (6 sources) Start: 04-02-2021 take 1 tablet by mouth once daily Multivitamin Active 1 TABLET PO DAILY April 01, 2021 11:00pm Start: 04-25-2019 take 1 tablet by beata once daily Multivitamin Dose = 1 tab(s), Oral, Daily, 0 Refill(s) Start Date: 04/25/19 Status: Ordered nystatin [id number] unt/ml / triamcinolone acetonide 1 mg/ml topical cream (1 source) Polyene Antifungal, Corticosteroid Start: 05-29-2024 End: 06-26-2024 nystatin-triamcinolone 100,000 units/g-0.1% topical cream Apply 1 remy, Topical, BID, X 14 day(s), # 30 gram(s), 1 Refill(s), Pharmacy: [facility], 149, cm, 05/29/24 9:50:00 EST, Height, 74.8, kg, 05/29/24 9:50:00 EST, Dosing Weight Start Date: 05/29/24 Stop Date: 06/26/24 Status: Ordered Quantity: 30.0 Unit: g Repeat number: 2 Indication: Dermatitis, unspecified ofloxacin 3 mg/ml otic solution (1 source) Quinolone Antimicrobial Start: 03-24-2024 End: 03-31-2024 ofloxacin (FLOXIN) 0.3 % otic solution Use 10 Drops in the left ear once daily for 7 days. 5 mL 03/24/2024 03/31/2024 Active ondansetron 4 mg oral tablet (5 sources) Serotonin-3 Receptor Antagonist Start: 03-29-2025 End: 04-03-2025 Zofran 4 mg oral tablet Dose : 4 mg = 1 tab(s), Oral, q6h, PRN Nausea/Vomiting, X 5 day(s), # 20 tab(s), 0 Refill(s), 04/03/25 12:50:00 PM EDT Start Date: 03/29/25 Stop Date: 04/03/25 Status: Ordered Medication Dispense Status: Completed Quantity: 20.0 Unit: tab(s) Total Allowed Fills: 1 Fills Dispensed: 0 Start: 04-21-2021 End: 08-12-2021 take 4 mg by mouth every eight hours Ondansetron Discontinued 4 MG PO Q8H April 21, 2021 12:00am August 12, 2021 12:23pm oxyCODONE hydrochloride 5 mg oral tablet (1 source) Opioid Agonist Start: 05-27-2022 take 5-10 mg by mouth every four hours as needed Oxycodone Active 5 - 10 MG PO EVERY 4 HOURS NEEDED 56 May 27, 2022 pantoprazole 40 mg delayed release oral tablet (20 sources) Proton Pump Inhibitor Start: 09-11-2024 pantoprazole 40 mg oral enteric coated tablet Dose : 40 mg = 1 tab(s), Oral, BID, # 180 tab(s), 3 Refill(s), Pharmacy: [facility], 152, cm, 07/18/24 13:31:00 EST, Height, kg, 07/18/24 13:31:00 EST, Dosing Weight Start Date: 09/11/24 Status: Ordered Medication Dispense Status: Completed Quantity: 180.0 Unit: tab(s) Total Allowed Fills: 4 Fills Dispensed: 0 Start: 08-26-2018 End: 02-02-2022 take 1 tablet by mouth once daily pantoprazole DR (PROTONIX) 40 mg tablet Take 1 tablet by mouth once daily. 30 tablet 3 08/26/2018 Active Start: 05-25-2018 take 40 mg by mouth twice gordy y Pantoprazole Active 40 MG PO TWICE A DAY May 25, 2018 1:00am Comment on above: Take 1 tablet by beata once daily. Take 40 mg by mouth once daily. Probiotic (4 sources) Start: 04-25-2019 Probiotic 1, Daily, 0 Refill(s) Start Date: 04/25/19 Status: Ordered rivastigmine 1.5 mg oral capsule (20 sources) Start: 04-01-2020 rivastigmine 1.5 mg oral capsule Dose : 1.5 mg = 1 cap(s), Oral, BID, # 180 cap(s), 0 Refill(s) Start Date: 02/02/24 Status: Ordered Medication Dispense Status: Completed Quantity: 180.0 Unit: cap(s) Total Allowed Fills: 1 Fills Dispensed: 0 Comment on above: Take 1.5 mg by mouth twice daily. Saccharomyces boulardii (9 sources) SACCHAROMYCES MATTHEW ULARDII (PROBIOTIC, S.BOULARDII, ORAL) Take by mouth every other day. Active SACCHAROMYCES MATTHEW ULARDII (PROBIOTIC, S.BOULARDII, ORAL) Take by mouth every other day. 0 Active Comment on above: Take by mouth every other day. sertraline 50 mg oral tablet (10 sources) Serotonin Reuptake Inhibitor Start: 4 sertraline 50 mg oral tablet Dose : 50 mg = 1 tab(s), Oral, qDay, # 90 tab(s), 3 Refill(s), Pharmacy: [facility], 149, cm, 05/29/24 9:50:00 EST, Height, kg, 05/29/24 9:50:00 EST, Dosing Weight Start Date: 05/29/24 Status: Ordered Medication Dispense Status: Completed Quantity: 90.0 Unit: tab(s) Total Allowed Fills: 4 Fills Dispensed: 0 traZODone hydrochloride 50 mg oral tablet (6 sources) Serotonin Reuptake Inhibitor take 1 tablet by mouth once daily at bedtime traZODone (DESYREL) 50 mg tablet Take 1 tablet every day by oral route at bedtime. Active Vitamin C 1000 mg oral tablet (8 sources) Start: 9 Vitamin C 1000 mg oral tablet Dose : 1,000 mg = 1 tab(s), Oral, qDay, # 30 tab(s), 0 Refill(s) Start Date: 04/25/19 Status: Ordered Medication Dispense Status: Completed Quantity: 30.0 Unit: tab(s) Total Allowed Fills: 1 Fills Dispensed: 0 Start: 04-25-2019 Vitamin C 1000 mg oral tablet Dose : 1,000 mg = 1 tab(s), Oral, qDay, # 30 tab(s), 0 Refill(s) Start Date: 04/25/19 Status: Ordered Quantity: 30.0 Unit: tab(s) Repeat number: 1 Start: 04-25-2019 Vitamin C 1000 mg oral tablet Dose : 1,000 mg = 1 tab(s), Oral, qDay, # 30 tab(s), 0 Refill(s) Start Date: 04/25/19 Status: Ordered Vitamin D with Minerals oral tablet (3 sources) Start: 05-29-2024 take 1 tablet by mouth once daily Vitamin D with Minerals oral tablet Dose = 1 tab(s), Oral, qDay, OTC, # 30 tab(s), 0 Refill(s) Start Date: 05/29/24 Status: Ordered Medication Dispense Status: Completed Quantity: 30.0 Unit: tab(s) Total Allowed Fills: 1 Fills Dispensed: 0 Start: 05-29-2024 take 1 tablet by beata th once daily Vitamin D with Minerals oral tablet Dose = 1 tab(s), Oral, qDay, OTC, # 30 tab(s), 0 Refill(s) Start Date: 05/29/24 Status: Ordered Quantity: 30.0 Unit: tab(s) Repeat number: 1 Completed/Discontinued Medications Medication Drug Class(es) Dates Sig (Normalized) Sig (Original) [id number] actuat albuterol 0.09 mg/actuat metered dose inhaler (4 sources) beta2-Adrenergic Agonist Start: 06-09-2022 End: 06-16-2022 take 2 puff(s) by inhalation every six hours as needed for wheezing ProAir HFA MDI (90 mcg/inh) inhalation aerosol 2 puff(s), Inhalation, q6hr, PRN as needed for wheezing, # 18 gram(s), 0 Refill(s), Pharmacy: [facility], 150, cm, 06/09/22 16:16:00 EST, Height Start Date: 06/09/22 Stop Date: 06/16/22 Status: Ordered Medication Dispense Status: Completed Quantity: 18.0 Unit: g Total Allowed Fills: 1 Fills Dispensed: 0 24 hr budesonide 9 mg extended release oral tablet (4 sources) Corticosteroid Start: 04-21-2021 End: 06-04-2021 take 1 tablet by mouth once daily in the morning Budesonide Discontinued 9 MG PO DAILY April 21, 2021 12:00am June 04, 2021 3:27pm Take one tab every morning. cyclobenzaprine hydrochloride 5 mg oral tablet (1 source) Muscle Relaxant Start: 07-31-2019 End: 02-02-2022 take 1 tablet by mouth twice daily as needed for muscle spasms cyclobenzaprine (FLEXERIL) 5 mg tablet Indications: Spasm of muscle of lower back Take 1 tablet by mouth twice daily as needed for Muscle Spasm. 10 tablet 0 07/31/2019 02/02/2022 Discontinued Comment on above: Take 1 tablet by beata th twice daily as needed for Muscle Spasm. dicyclomine hydrochloride 10 mg oral capsule (1 source) Anticholinergic Start: 08-17-2018 End: 02-02-2022 dicyclomine (BENTYL) 10 mg capsule Take 10 mg by mouth as needed. 0 08/17/2018 02/02/2022 Discontinued Comment on above: Take 10 mg by mouth as needed. donepezil hydrochloride 5 mg oral tablet (1 source) Start: 10-05-2019 End: 02-02-2022 donepezil (ARICEPT) 5 mg tablet take 1 (ONE) tablet every day use as directed 0 10/05/2019 02/02/2022 Discontinued Comment on above: take 1 (ONE) tablet every day use as directed estrogens, conjugated (detention) 0.625 mg/ml vaginal cream (1 source) Estrogen Start: 08-30-2017 End: 02-02-2022 conjugated estrogens (PREMARIN) vaginal cream Apply fingertip amount into the vagina Every Wed, Wednesday, Wednesday at bedtime. 1 Tube 7 08/30/2017 02/02/2022 Discontinued Comment on above: Apply fingertip amou nt into the vagina Every Wed, Wednesday, Wednesday at bedtime. fluticasone propionate 0.05 mg/actuat metered dose nasal spray (2 sources) Corticosteroid Start: 09-19-2024 End: 10-19-2024 take 100 ug nasal route once daily fluticasone 50 mcg/inh NASAL spray 100 mcg Dose = 2 spray(s), Nostril, each, qDay, shake well before using, # 16 gram(s), 0 Refill(s), Pharmacy: [facility], Viral URI, 152, cm, 09/19/24 9:54:00 EDT, Height, kg, 09/19/24 9:54:00 EDT, Dosing Weight Start Date: 09/19/24 Stop Date: 10/19/24 Status: Ordered Medication Dispense Status: Completed Quantity: 16.0 Unit: g Total Allowed Fills: 1 Fills Dispensed: 0 Indications: Acute upper respiratory infection, unspecified; loratadine 10 mg oral tablet (1 source) Start: 02-21-2009 End: 02-02-2022 loratadine(CLARITIN 10 MG TAB) Take one(1) tablet daily as needed for allergy symptoms. 0 02/21/2009 02/02/2022 Discontinued Comment on above: Take one(1) tablet d aily as needed for allergy symptoms. memantine hydrochloride 10 mg oral tablet (1 source) S-otejqe-Z-aspartate Receptor Antagonist Start: 10-09-2019 End: 02-02-2022 take 1 tablet by mouth once daily in the evening, then take 1 tablet by mouth twice daily in the morning memantine (NAMENDA) 10 mg tablet TAKE 1 TABLET BY MOUTH EVERY EVENING FOR 2 WEEKS, THEN TAKE 1 TABLET TWICE DAILY (IN THE MORNING AND IN THE EVENING) 0 10/09/2019 02/02/2022 Discontinued Comment on above: TAKE 1 TABLET BY BEATA EVERY EVENING FOR 2 WEEKS, THEN TAKE 1 TABLET TWICE DAILY (IN THE MORNING AND IN THE EVENING) Phenazopyridine (1 source) End: 02-02-2022 PHENAZOPYRIDINE HCL (AZO ORAL) Take by mouth. 0 02/02/2022 Discontinued Comment on above: Take by mouth. polyethylene glycol 3350 18266 mg powder for oral solution (4 sources) Osmotic Laxative Start: 04-02-2021 End: 04-21-2021 Polyethylene Glycol 3350 (Miralax) 17 gram/dose powder Discontinued 17 GM PO every 10 to 15 minutes 238 April 02, 2021 12:00am April 21, 2021 8:43am predniSONE 20 mg oral tablet (4 sources) Start: 04-30-2021 End: 06-04-2021 take 20 mg by mouth once daily Prednisone Discontinued 20 MG PO DAILY April 30, 2021 1:00am June 04, 2021 3:27pm propranolol hydrochloride 10 mg oral tablet (1 source) beta-Adrenergic Fred Start: 11-10-2019 End: 02-02-2022 take 1 tablet by mouth twice daily propranolol (INDERAL) 10 mg tablet Take 10 mg by mouth twice daily. 0 11/10/2019 02/02/2022 Discontinued Comment on above: Take 10 mg by mouth twice daily. Salicylic Acid (1 source) End: 02-02-2022 SALICYLIC ACID (COMPOUND W TOPICAL) Apply to affected area. 0 02/02/2022 Discontinued Comment on above: Apply to affected ar ea. 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 Disorders of lipid metabolism (9 sources) Hyperlipidemia; Translations: [Hyperlipidemia, unspecified] Onset: 5 10-30-2019 Chronic E Codes: Fall (2 sources) Fall; Translations: [Unspecified fall, initial encounter] Onset: Episodic E Codes: Fall (1 source) Fall in home 12-07-2022 Esophageal disorders (8 sources) Gastroesophageal reflux disease without esophagitis 01-09-2020 Chronic Essential hypertension (10 sources) Essential hypertension; Translations: [Hypertensive disorder] Onset: 5 01-09-2020 Chronic Fracture of lower limb (1 source) Closed fracture of distal right fibula; Translations: [Other fracture of upper and lower end of right fibula, initial encounter for closed fracture] 02-03-2024 Episodic Genitourinary symptoms and ill-defined conditions (9 sources) Incontinence; Translations: [Mixed incontinence] Onset: 5 05-21-2015 Chronic Headache; including migraine (1 source) Headache 03-03-2022 Episodic Mood disorders (1 source) Depressive disorder 01-08-2025 Chronic Noninfectious gastroenteritis (4 sources) Microscopic colitis; Translations: [Microscopic colitis, unspecified] 04-25-2021 Chronic Osteoporosis (2 sources) Osteoporosis 06-07-2024 Chronic Other connective tissue disease (4 sources) History of total hip arthroplasty; Translations: [Presence of right artificial hip joint] 05-26-2022 Chronic Other connective tissue disease (1 source) Presence of right artificial hip joint; Translations: [Hip joint replacement] 05-27-2022 Chronic Other diseases of bladder and urethra (9 sources) Overactive bladder; Translations: [Other neuromuscular dysfunction of bladder] Onset: 9 02-21-2009 Chronic Other ear and sense organ disorders (1 source) Otitis externa 07-21-2023 Chronic Other ear and sense organ disorders (3 sources) Dermatitis of external ear 05-29-2024 Chronic Other ear and sense organ disorders (1 source) Acute otitis externa of left ear; Translations: [Unspecified acute noninfective otitis externa, left ear] 03-24-2024 Episodic Other gastrointestinal disorders (4 sources) Diarrhea; Translations: [Diarrhea, unspecified] 04-02-2021 Episodic Other gastrointestinal disorders (4 sources) Incontinence of feces; Translations: [Full incontinence of feces] 08-12-2021 Episodic Other injuries and conditions due to external causes (3 sources) Closed injury of head; Translations: [Unspecified injury of head, initial encounter] 12-07-2022 Episodic Other injuries and conditions due to external causes (2 sources) Injury of right ankle; Translations: [Unspecified injury of right ankle, initial encounter] 02-03-2024 Episodic Other injuries and conditions due to external causes (2 sources) Injury of right foot; Translations: [Unspecified injury of right foot, initial encounter] 02-03-2024 Episodic Other injuries and conditions due to external causes (3 sources) H/O: fracture 05-29-2024 Episodic Comment on above: left side Other lower respiratory disease (1 source) Cough 08-27-2021 Episodic Other lower respiratory disease (1 source) Cough; Translations: [Acute cough] 06-16-2024 Episodic Other lower respiratory disease (1 source) Productive cough ; Translations: [Productive cough] 06-16-2024 Episodic Other nervous system disorders (8 sources) Tremor 06-19-2019 Episodic Other non-traumatic joint disorders (5 sources) Hip pain 01-30-2022 Episodic Other upper respiratory infections (1 source) Acute upper respiratory infection; Translations: [Acute upper respiratory infection, unspecified] Episodic Otitis media and related conditions (1 source) Otitis media of left ear; Translations: [Otitis media, unspecified, left ear] 03-24-2024 Episodic Prolapse of female genital organs (1 source) Cystocele, midline; Translations: [Cystocele, midline] Onset: 7 Chronic Residual codes; unclassified (8 sources) Obstructive sleep apnea syndrome 04-25-2019 Chronic Residual codes; unclassified (3 sources) Dependent edema 05-29-2024 Episodic Superficial injury; contusion (7 sources) Contusion of sacral region; Translations: [Contusion of lower back and pelvis, initial encounter] Onset: 5 12-07-2022 Episodic Thyroid disorders (9 sources) Hypothyroidism; Translations: [Hypothyroidism, unspecified] Onset: 5 01-09-2020 Chronic Unclassified (1 source) Unknown / UNK(Unknown) Onset: 7 Unclassified (6 sources) Patient encounter status 05-29-2024 Unclassified (1 source) Cough, unspecified; Translations: [Cough, unspecified] Onset: 5 Past or Other Problems Problem Classification Problem Date Documented Da te Episodic/Chronic Genitourinary symptoms and ill-defined conditions (3 sources) Retention of urine, unspecified; Translations: [Dysuria] Onset: 03-31-2017 Episodic Other injuries and conditions due to external causes (1 source) Unspecified injury of right ankle, initial encounter; Translations: [Right ankle injury, initial encounter] Onset: 02-03-2024 Episodic Other injuries and conditions due to external causes (1 source) Unspecified injury of right foot, initial encounter; Translations: [Right foot injury, initial encounter] Onset: 02-03-2024 Episodic Unclassified (1 source) Cough, unspecified; Translations: [Cough, unspecified] Onset: 09-19-2024 Urinary tract infections (16 sources) Urinary tract infection, site not specified; Translations: [Urinary tract infectious disease] Onset: 05-21-2015 08-27-2021 Episodic Urinary tract infections (1 source) Urinary tract infections Onset: 03-31-2017 Results Test Name Value Interpretation [facility] Albumin [Mass/Vol] 4.2 g/dL Normal 3.4-4.8 [facility] Comment on above: Performed By: #### L 506.0400, L500.4050, L501.9520, L500.4100, L502.0250 #### [facility] [address] [place], [address] Albumin/Globulin [Mass ratio] 1.4 {ratio} Normal 0.9-2.4 [facility] Comment on above: Performed By: #### L 506.0400, L500.4050, L501.9520, L500.4100, L502.0250 #### [facility] [address] [place], [address] ALK PHOS 48 U/L Normal 35-104 [facility] Comment on above: Performed By: #### L 506.0400, L500.4050, L501.9520, L500.4100, L502.0250 #### [facility] [address] [place], [address] ALT [Catalytic activity/Vol] 15 U/L Normal <=34 [facility] Comment on above: Performed By: #### L 506.0400, L500.4050, L501.9520, L500.4100, L502.0250 #### [facility] [address] [place], [address] AST [Catalytic activity/Vol] 16 U/L Normal <=31 [facility] Comment on above: Performed By: #### L 506.0400, L500.4050, L501.9520, L500.4100, L502.0250 #### [facility] [address] [place], [address] Bilirubin [Mass/Vol] 0.38 mg/dL Normal 0.00-1.30 [place] Comment on above: Performed By: #### L 506.0400, L500.4050, L501.9520, L500.4100, L502.0250 #### [facility] [address] [place], [address] BUN/CRE 21.4 RATIO High 10-20 [facility] Comment on above: Performed By: #### L 506.0400, L500.4050, L501.9520, L500.4100, L502.0250 #### [facility] [address] [place], [address] Calcium [Mass/Vol] 10.0 mg/dL Normal 7.6-11.0 [facility] Comment on above: Performed By: #### L 506.0400, L500.4050, L501.9520, L500.4100, L502.0250 #### [facility] [address] [place], [address] Chloride [Moles/Vol] 99 mmol/L Normal 98-108 [place] Comment on above: Performed By: #### L 506.0400, L500.4050, L501.9520, L500.4100, L502.0250 #### [facility] [address] [place], [address] CO2 [Moles/Vol] 29.3 mmol/L Normal 21.0-32.0 [facility] Comment on above: Performed By: #### L 506.0400, L500.4050, L501.9520, L500.4100, L502.0250 #### [facility] [address] [place], [address] Creatinine [Mass/Vol] 0.92 mg/dL Normal 0.70-1.20 [facility] Comment on above: Performed By: #### L 506.0400, L500.4050, L501.9520, L500.4100, L502.0250 #### [facility] [address] [place], [address] GAP 9 Normal 5-15 [facility] Comment on above: Performed By: #### L 506.0400, L500.4050, L501.9520, L500.4100, L502.0250 #### [facility] [address] [place], [address] GFR/1.73 sq M.predicted among non-blacks MDRD (S/P/Bld) [Vol rate/Area] 63 mL/min/{1.73_m2} Normal >60 [facility] Comment on above: Result Comment: mL/m in/1.73m2 CKD-EPI Creatinine Equation (2020) Performed By: #### L 506.0400, L500.4050, L501.9520, L500.4100, L502.0250 #### [facility] [address] [place], [address] Globulin (S) [Mass/Vol] 3.1 g/dL Normal 2.2-4.2 [facility] Comment on above: Performed By: #### L 506.0400, L500.4050, L501.9520, L500.4100, L502.0250 #### [facility] [address] [place], [address] Glucose [Mass/Vol] 106 mg/dL High 70-99 [facility] Comment on above: Performed By: #### L 506.0400, L500.4050, L501.9520, L500.4100, L502.0250 #### [facility] [address] [place], [address] Potassium [Moles/Vol] 4.5 mmol/L Normal 3.3-5.1 [facility] Comment on above: Performed By: #### L 506.0400, L500.4050, L501.9520, L500.4100, L502.0250 #### [facility] [address] [place], [address] Sodium [Moles/Vol] 138 mmol/L Normal 133-145 [facility] Comment on above: Performed By: #### L 506.0400, L500.4050, L501.9520, L500.4100, L502.0250 #### [facility] [address] [place], [address] T PROT 7.3 g/dL Normal 5.9-8.4 [facility] Comment on above: Performed By: #### L 506.0400, L500.4050, L501.9520, L500.4100, L502.0250 #### [facility] [address] [place], [address] Urea nitrogen [Mass/Vol] 20 mg/dL High 4-19 [facility] Comment on above: Performed By: #### L 506.0400, L500.4050, L501.9520, L500.4100, L502.0250 #### [facility] [address] [place], [address] Lipid Profileon 04-04-2025 CHOL:HDL 5.20 Normal [facility] Comment on above: Performed By: #### L 506.0400, L500.4050, L501.9520, L500.4100, L502.0250 #### [facility] [address] [place], [address] Cholesterol [Mass/Vol] 185 mg/dL Normal <=200 [facility] Comment on above: Result Comment: Chol esterol level, Desirable <200 mg/dL Borderline high cholesterol 200-239 mg/dL High cholesterol >=240 mg/dL Recommendations of the NCEP Adult Treatment Panel for the following risk-cutoff thresholds for the [place] population. Performed By: #### L 506.0400, L500.4050, L501.9520, L500.4100, L502.0250 #### [facility] [address] [place], [address] Cholesterol in HDL [Mass/Vol] 36 mg/dL Low [facility] Comment on above: Result Comment: Deja onal Cholesterol Education Program (NCEP) guidelines: <40 mg/dL: Low HDL-cholesterol (major risk factor for CHD) >= 60 mg/dL: High HDL-cholesterol (negative risk factor for CHD) HDL-cholesterol is affected by a number of factors, e.g. smoking, exercise, hormones, sex and age. Performed By: #### L 506.0400, L500.4050, L501.9520, L500.4100, L502.0250 #### [facility] [address] [place], [address] Cholesterol in LDL [Mass/Vol] 117 mg/dL Normal [facility] Comment on above: Result Comment: Bord augceq=248-904 mg/dL Higher Hcwm=068 mg/dL or greater Friedwald Equation for LDL-C Performed By: #### L 506.0400, L500.4050, L501.9520, L500.4100, L502.0250 #### [facility] [address] [place], [address] Cholesterol in VLDL [Mass/Vol] 32 mg/dL Normal 5-40 [facility] Comment on above: Performed By: #### L 506.0400, L500.4050, L501.9520, L500.4100, L502.0250 #### [facility] [address] [place], [address] Triglyceride [Mass/Vol] 161 mg/dL Normal [facility] Comment on above: Result Comment: The drugs N-Acetylcysteine and Metamizole may falsely depress this assay. Normal range: <150 mg/dL Borderline High: 150-199 mg/dL High: 200-499 mg/dL Very High: >500 mg/dL Performed By: #### L 506.0400, L500.4050, L501.9520, L500.4100, L502.0250 #### [facility] [address] [place], [address] Microalb:Creat Ratio,Random URon 04-04-2025 MALB:CREAT Normal <30 mg/g CRE [facility] Comment on above: Order Comment: PATIE NT UTO, WILL BRING BACK BY 1700, IF SHE DOES NOT, ANGIE OP [employer] PROGRAMS DIRECTOR WILL CANCEL ORDER Result Comment: UTO, PATIENT DID NOT BRING BACK URINE Performed By: #### L 506.0400, L500.4050, L501.9520, L500.4100, L502.0250 #### [facility] [address] [place], [place], [phone] MICROALBUMIN,UR Normal <20 mg/L [facility] Comment on above: Order Comment: PATIE NT UTO, WILL BRING BACK BY 1700, IF SHE DOES NOT, ANGIE OP [employer]IST[employer] PROGRAMS DIRECTOR WILL CANCEL ORDER Result Comment: UTO, PATIENT DID NOT BRING BACK URINE Performed By: #### L 506.0400, L500.4050, L501.9520, L500.4100, L502.0250 #### [facility] [address] [place], [address] UR CREAT Normal 28.00-217. 00 [facility] Comment on above: Order Comment: PATIE NT UTO, WILL BRING BACK BY 1700, IF SHE DOES NOT, ANGIE OP [employer]IST[employer] PROGRAMS DIRECTOR WILL CANCEL ORDER Result Comment: UTO, PATIENT DID NOT BRING BACK URINE Performed By: #### L 506.0400, L500.4050, L501.9520, L500.4100, L502.0250 #### [facility] [address] [place], [place], [phone] Free Directon 04-04-2025 T4 FREE DIRECT 1.30 ng/dL Normal 0.76-1.46 [facility] Comment on above: Performed By: #### L 506.0400, L500.4050, L501.9520, L500.4100, L502.0250 #### [facility] [address] [place], [address] Thyroid Stim Hormone (TSH)on 04-04-2025 TSH 2.720 uIU/mL Normal 0.300-4.20 0 [facility] Comment on above: Performed By: #### L 506.0400, L500.4050, L501.9520, L500.4100, L502.0250 #### [facility] [address] [place], [place], [address] XR CHEST 1 VIEWon 03-29-2025 XR CHEST 1 VIEW ORIGINAL EXAMINATION: ONE XRAY VIEW OF THE CHEST 03/29/2025 11:59 am COMPARISON: None. HISTORY: ORDERING SYSTEM PROVIDED HISTORY: Reason for Exam: SOB, LT RIB PAIN S/P FALL 4 DAYS AGO SOB/cough/fever FINDINGS: Severe osteoarthritis left glenohumeral articulation observed. Skeletal elements are intact. No acute fracture is seen. There is a normal cardiac and pulmonary contour without acute alveolar, interstitial or pleural process. Mild osteoarthritis affects the visualized right glenohumeral articulation. IMPRESSION: 1. Severe osteoarthritis left glenohumeral articulation. 2. No acute cardiopulmonary disease. Interpreted by: Chris Henning DO Preliminary Report By: Chris Henning DO Electronically signed By Chris Henning DO Dictated Date: 03/29/2025 12:27:09 PM Prelim Date: 03/29/2025 12:27:49 PM Sign Date: 03/29/2025 12:27:49 PM Ordering Provider: DOREEN MONTGOMERY Normal [facility] XR HUMERUS MINIMUM 2 VIEWS L [facility] 03-29-2025 XR HUMERUS MINIMUM 2 VIEWS LEFT ORIGINAL EXAMINATION: TWO XRAY VIEWS OF THE LEFT HUMERUS 03/29/2025 11:59 am COMPARISON: None. HISTORY: ORDERING SYSTEM PROVIDED HISTORY: Reason for Exam: LT ARM PAIN S/P FALL 4 DAYS AGO fall FINDINGS: Marked joint space narrowing and osteophyte formation affect the glenohumeral articulation. Acromioclavicular joint is preserved. No acute fracture affects the left humerus. Visualized left elbow joint is smoothly marginated. IMPRESSION: 1. 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 2. No acute fracture. Interpreted by: Chris Henning DO Preliminary Report By: Chris Henning DO Electronically signed By Chris Henning DO Dictated Date: 03/29/2025 12:27:54 PM Prelim Date: 03/29/2025 12:28:25 PM Sign Date: 03/29/2025 12:28:25 PM Ordering Provider: DOREEN GARAYFivejack RP [facility] XR RIBS 2 VIEWS LEFTon 03-29 XR RIBS 2 VIEWS LEFT ORIGINAL EXAMINATION: 2 XRAY VIEWS OF THE LEFT RIBS 03/29/2025 11:59 am COMPARISON: None HISTORY: ORDERING SYSTEM PROVIDED HISTORY: Reason for Exam: LT RIB PAIN S/P FALL 4 DAYS AGO. fall FINDINGS: No evidence of acute fracture of the ribs. No focal rib abnormality. No evidence of acute focal process in the lungs. No evidence of consolidation or pulmonary edema. No pleural effusion or pneumothorax. Cardiomediastinal silhouette demonstrates no acute abnormality. IMPRESSION: No acute abnormality of the ribs. No acute process in the lungs. Interpreted by: Chris Henning DO Preliminary Report By: Chris Henning DO Electronically signed By Chris Henning DO Dictated Date: 03/29/2025 12:25:49 PM Prelim Date: 03/29/2025 12:27:02 PM Sign Date: 03/29/2025 12:27:02 PM Ordering Provider: DOREEN MONTGOMERY RP [facility] CVFLURVon 09-19-2024 FLU A PCR Negative Normal Negative [facility] Comment on above: Performed By: #### C VFLURV #### [address] [address] FLU B PCR Negative Normal Negative [facility] Comment on above: Performed By: #### C VFLURV #### [address] [address] [place], [place] [address] RSV PCR Negative Normal Negative [facility] Comment on above: Performed By: #### C VFLURV #### [address] [place], [place] [address] SARS-CoV-2 (COVID-19) RNA ELISEO+probe Ql (Unsp spec) Negative Normal Negative [facility] Comment on above: Result Comment: Resu lts from the Xpert Xpress CoV-2/Flu/RSV plus test should be correlated with the clinical history, epidemiological data, and other data available to the clinical evaluating the patient. Performance of the Xpert Xpress CoV-2/Flu/RSV plus test has only been established in nasopharyngeal swab specimen. Erroneous test results might occur from improper specimen collection, failure to follow the recommended sample collection, handling and storage procedures, technical error, or sample mix-up. False negative results may occur if a virus is present at a level below the analytical limit of detection. Viral nucleic acid may persist in vivo, independent of virus viability. Detection of analyte target(s) does not imply that the corresponding virus(es) are infectious or are the causative agents for clinical symptoms. Recent patient exposure to FluMist or other live attenuated influenza vaccines may cause inaccurate positive results. Performed By: #### C VFLURV #### [address] [address] [place] 06-16-2024 CNOV Office Visit (UCWSTR ) STACEY ELKINS ([id number]) 1945 F Date Time Provider Department 06/16/24 11:30 AM LAURITA ARANGO [facility] During your visit today, we recorded the following information about you: Temperature Pulse Respiration Blood pressure 98.6 degrees 79/minute 19/minute 132/82 Weight 76.1 kg Laurita Arango APRN.DEV TECHNICAL MGR 06/16/2024 11:41 AM Signed Subjective HPI HPI Stacey Elkins is a 78 year old female who presents today for CC of cough, congestion, ear pain. This started 1 day ago. Has tried otc medication for relief. Symptoms are worsened by nothing. Risk factors no sick exposures. .Patient presents with: Cough: Drainage x 1 day PAST MEDICAL HISTORY Diagnosis Date Arthritis Bronchitis GERD (gastroesophageal reflux disease) Hearing loss HTN (hypertension) Overactive bladder Pneumonia Sleep apnea Snoring Thyroid disease UTI (urinary tract infection) PAST SURGICAL HISTORY Procedure Laterality Date COLONOSCOPY FLX DX W/COLLJ SPEC WHEN PFRMD 07/14/2013 Colonoscopy ESOPHAGOGASTRODUODENOSCOPY TRANSORAL DIAGNOSTIC 08/26/2018 [facility]-repeat in 3 years LAPAROSCOPY SURG CHOLECYSTECTOMY 09/05/2018 Cholecystectomy, lap PAST SURGICAL HISTORY OF 05/11/2014 cysto bladder biopsy TOTAL ABDOMINAL HYSTERECT W/WO RMVL TUBE OVARY Hysterectomy, CECILE TYMPANIC MEMB RPR W/WO PREPJ PERFOR PATCH bilat Tympanoplasty ALLERGIES Rafaela [Fexofenadine Hcl], Darvon [Propoxyphene Hcl], and Diphenoxylate MEDICATIONS calcium carb-mag hydrox-simeth 1,200 mg-270 mg -80 mg/10 mL susp Take by mouth. traZODone (DESYREL) 50 mg tablet Take 1 tablet every day by oral route at bedtime. sertraline (ZOLOFT) 50 mg tablet Take 50 mg by mouth once daily. clonazePAM (KLONOPIN) 0.5 mg tablet Take 1 tablet every day by oral route at bedtime. carbidopa-levodopa (SINEMET 25-100) 25-100 mg per tablet Take 1 tablet by mouth three times daily. rivastigmine tartrate (EXELON) 1.5 mg capsule Take 1.5 mg by mouth twice daily. losartan (COZAAR) 50 mg tablet Take 50 mg by mouth once daily. pantoprazole DR (PROTONIX) 40 mg tablet Take 1 tablet by mouth once daily. acetaminophen (TYLENOL) 500 mg tablet Take 1,000 mg by mouth every 8 hours as needed. ascorbic acid, vitamin C, (VITAMIN C) 500 mg tablet Take 1,000 mg by mouth once daily. SACCHAROMYCES BOULARDII (PROBIOTIC, S.BOULARDII, ORAL) Take by mouth every other day. levothyroxine (SYNTHROID) 50 mcg tablet MULTIVITAMIN ORAL Take by mouth. FAMILY HISTORY Problem Relation Age of Onset Heart Mother mi Heart Father mi Stroke Sister Seizures Sister Social History Tobacco Use Smoking status: Former Types: Cigarettes Smokeless tobacco: Never Substance Use Topics Alcohol use: No Drug use: No Review of Systems Constitutional: Negative for fever. HENT: Positive for congestion and ear pain. Negative for ear discharge, nosebleeds and sore throat. Respiratory: Positive for cough and sputum production (yellow). Negative for shortness of breath and wheezing. Cardiovascular: Negative for chest pain. Musculoskeletal: Negative for neck pain. Skin: Negative for itching and rash. Objective Blood pressure 132/82, pulse 79, temperature 37 ?C (98.6 ?F), resp. rate 19, weight 76.1 kg (167 lb 12.3 oz), SpO2 95%. Physical Exam Constitutional: General: She is not in acute distress. Appearance: She is not toxic-appearing or diaphoretic. HENT: Head: Normocephalic and atraumatic. Right Ear: Hearing, tympanic membrane, ear canal and external ear normal. Left Ear: Hearing, ear canal and external ear normal. A middle ear effusion is present. Tympanic membrane is not perforated, erythematous or bulging. Nose: Nose normal. Mouth/Throat: Pharynx: Uvula midline. No pharyngeal swelling, oropharyngeal exudate, posterior oropharyngeal erythema or uvula swelling. Eyes: General: Lids are normal. No scleral icterus. Right eye: No discharge. Left eye: No discharge. Conjunctiva/sclera: Conjunctivae normal. Pupils: Pupils are equal, round, and reactive to light. Neck: Trachea: Trachea normal. Cardiovascular: Rate and Rhythm: Normal rate and regular rhythm. Heart sounds: Normal heart sounds. Pulmonary: Effort: Pulmonary effort is normal. Breath sounds: Normal breath sounds. Musculoskeletal: Cervical back: Normal range of motion and neck supple. Lymphadenopathy: Cervical: No cervical adenopathy. Right cervical: No superficial cervical adenopathy. Left cervical: No superficial cervical adenopathy. Skin: Findings: No rash. Neurological: Mental Status: She is alert and oriented to person, place, and time. ASSESSMENT/PLAN: 1. Productive cough - ICD9: 786.2, ICD10: R05.8 (primary diagnosis) Viral today Hold atb if s/s persist or worsen fill and take atb - DOXYCYCLINE MONOHYDRATE 100 MG TABLET 2. Acute co (more content not included)... Normal [facility] XR CHEST 2V FRONTAL/LATon XR CHEST 2V FRONTAL/LAT * * *Final Report* * * DATE OF EXAM: Jun 16 2024 11:17AM WOX 5291 - XR CHEST 2V FRONTAL/LAT / PROCEDURE REASON: Acute cough * * * * Physician Interpretation * * * * EXAMINATION: CHEST RADIOGRAPH (2 VIEW FRONTAL and LATERAL) CLINICAL HISTORY: Acute cough MQ: XC2_6 EXAM DATE/TIME: 06/16/2024 11:17 AM COMPARISON: No relevant prior studies available. RESULT: Lines, tubes, and devices: None. Lungs and pleura: No consolidation. No lung mass. No pleural effusion. No pneumothorax. Cardiomediastinal silhouette: The cardiac silhouette is within normal limits. There is dilation or tortuosity of the thoracic aorta. Bones and soft tissues: The spine shows degenerative changes. There are 2 suture anchors in the right humeral head. IMPRESSION: No acute radiographic abnormality. General Maintenance Technician[facility] Transcribe Date/Time: Jun 16 2024 11:17A Dictated by : LEENA ALAS MD This examination was interpreted and the report reviewed and electronically signed by: LEENA ALAS MD on Jun 16 2024 11:19AM EST [id number] Normal [facility] XR Chest PA and Lateralon IMPRESSION: No acute radiographic abnormality. General Maintenance Technician: [facility] Transcribe Date/Time: Jun 16 2024 11:17A Dictated by : LEENA ALAS MD This examination was interpreted and the report reviewed and electronically signed by: LEENA ALAS MD on Jun 16 2024 11:19AM EST DIVISION OF RADIOLOGY * * *Final Report* * * DATE OF EXAM: Jun 16 2024 11:17AM WOX 5291 - XR CHEST 2V FRONTAL/LAT / PROCEDURE REASON: Acute cough * * * * Physician Interpretation * * * * EXAMINATION: CHEST RADIOGRAPH (2 VIEW FRONTAL & LATERAL) CLINICAL HISTORY: Acute cough MQ: XC2_6 EXAM DATE/TIME: 06/16/2024 11:17 AM COMPARISON: No relevant prior studies available. RESULT: Lines, tubes, and devices: None. Lungs and pleura: No consolidation. No lung mass. No pleural effusion. No pneumothorax. Cardiomediastinal silhouette: The cardiac silhouette is within normal limits. There is dilation or tortuosity of the thoracic aorta. Bones and soft tissues: The spine shows degenerative changes. There are 2 suture anchors in the right humeral head. DIVISION OF RADIOLOGY Provider, Elana Vernell [facility] - 06/16/2024 * * *Final Report* * * DATE OF EXAM: Jun 16 2024 11:17AM WOX 5291 - XR CHEST 2V FRONTAL/LAT / PROCEDURE REASON: Acute cough * * * * Physician Interpretation * * * * EXAMINATION: CHEST RADIOGRAPH (2 VIEW FRONTAL & LATERAL) CLINICAL HISTORY: Acute cough MQ: XC2_6 EXAM DATE/TIME: 06/16/2024 11:17 AM COMPARISON: No relevant prior studies available. RESULT: Lines, tubes, and devices: None. Lungs and pleura: No consolidation. No lung mass. No pleural effusion. No pneumothorax. Cardiomediastinal silhouette: The cardiac silhouette is within normal limits. There is dilation or tortuosity of the thoracic aorta. Bones and soft tissues: The spine shows degenerative changes. There are 2 suture anchors in the right humeral head. IMPRESSION IMPRESSION: No acute radiographic abnormality. General Maintenance Technician: RAN Transcribe Date/Time: Jun 16 2024 11:17A Dictated by : LEENA ALAS MD This examination was interpreted and the report reviewed and electronically signed by: LEENA ALAS MD on Jun 16 2024 11:19AM EST [facility] Radiology Study observation (narrative) [facility] XR Chest PA and LateralOrder ed By: [facility] Provider on 06-16-2024 [facility] BD BONE DENSITY DEXA AXIAL S Tova 06-06-2024 BD BONE DENSITY DEXA AXIAL SKELETON ORIGINAL EXAMINATION: BONE [id number]/17/2024 3:11 pm TECHNIQUE: Dual energy bone densitometry lumbar spine and left hip. COMPARISON: None HISTORY: Reason for Exam: Osteoporosis Screening FINDINGS: L1-L4: BMD= 1.018 g/cm2 T score= -0.3 Left femoral neck: BMD= 0.488 g/cm2 T score= -3.3 Left hip: BMD= 0.722 g/cm2 T score= -1.8 FRAX score: Not calculated The BHOF f/k/a NOF recommends that FDA-approved medical therapies be considered in post-menopausal women and men age >/= 50 years with a: * Hip or vertebral fracture, or * T-score of /= 20% for major osteoporotic fractures or * >/= 3% for hip fractures All treatment decisions require clinical judgement and consideration of individual patient factors, including patient preferences, comorbidities, previous drug use, risk factors not captured in the FRAX registered model (e.g., frailty, falls, vitamin D deficiency, increased bone turnover, interval significant decline in bone density) and possible under- or over-estimation of fracture risk by FRAX. IMPRESSION: Osteoporosis. Interpreted by: Loraine Foster MD Preliminary Report By: Loraine Foster MD Electronically signed By Loraine Foster MD Dictated Date: 06/06/2024 3:23:44 PM Prelim Date: 06/06/2024 3:24:36 PM Sign Date: 06/06/2024 3:24:36 PM Ordering Provider: JSOÉ MIGUEL Hernández [facility] STACEY ELKINS ([id number]) 1945 F Date Time Provider Department 03/24/24 12:30 PM RADHA MOSQUERA [facility] During your visit today, we recorded the following information about you: Temperature Pulse Respiration Blood pressure 97.8 degrees 73/minute 18/minute 194/88 Weight 76.9 kg Radha Mosquera PA 03/24/2024 12:25 PM Signed This note was created using NoteWriter. Subjective Stacey Elkins is a 78 year old female. HPI 78-year-old female presents for left ear pain. Patient has been having left ear pain for about 2 weeks. Patient presents with daughter. Patient wears a hearing aid in the left ear. She states that she has had drainage from the left ear for few weeks. The drainage goes around the outside of the ear and then gets crusted and is itchy and irritating. She has pain in the ear. She states this has occurred in the past. She has been putting drops she was given by ENT and it, but they do not seem to be helping. She has not had any fevers. No cough, congestion or URI symptoms. No other complaint. PAST MEDICAL HISTORY Diagnosis Date Arthritis Bronchitis GERD (gastroesophageal reflux disease) Hearing loss HTN (hypertension) Overactive bladder Pneumonia Sleep apnea Snoring Thyroid disease UTI (urinary tract infection) PAST SURGICAL HISTORY Procedure Laterality Date COLONOSCOPY FLX DX W/COLLJ SPEC WHEN PFRMD 07/14/2013 Colonoscopy ESOPHAGOGASTRODUODENOSCOPY TRANSORAL DIAGNOSTIC 08/26/2018 [facility]-repeat in 3 years LAPAROSCOPY SURG CHOLECYSTECTOMY 09/05/2018 Cholecystectomy, lap PAST SURGICAL HISTORY OF 05/11/2014 cysto bladder biopsy TOTAL ABDOMINAL HYSTERECT W/WO RMVL TUBE OVARY Hysterectomy, CECILE TYMPANIC MEMB RPR W/WO PREPJ PERFOR PATCH bilat Tympanoplasty ALLERGIES Rafaela [Fexofenadine Hcl], Darvon [Propoxyphene Hcl], and Diphenoxylate MEDICATIONS amoxicillin (AMOXIL) 875 mg tablet Take 1 tablet by mouth two times a day for 7 days. ofloxacin (FLOXIN) 0.3 % otic solution Use 10 Drops in the left ear once daily for 7 days. traZODone (DESYREL) 50 mg tablet Take 1 tablet every day by oral route at bedtime. sertraline (ZOLOFT) 50 mg tablet Take 50 mg by mouth once daily. clonazePAM (KLONOPIN) 0.5 mg tablet Take 1 tablet every day by oral route at bedtime. carbidopa-levodopa (SINEMET 25-100) 25-100 mg per tablet Take 1 tablet by mouth three times daily. rivastigmine tartrate (EXELON) 1.5 mg capsule Take 1.5 mg by mouth twice daily. losartan (COZAAR) 50 mg tablet Take 50 mg by mouth once daily. pantoprazole DR (PROTONIX) 40 mg tablet Take 1 tablet by mouth once daily. acetaminophen (TYLENOL) 500 mg tablet Take 1,000 mg by mouth every 8 hours as needed. ascorbic acid, vitamin C, (VITAMIN C) 500 mg tablet Take 1,000 mg by mouth once daily. SACCHAROMYCES BOULARDII (PROBIOTIC, S.BOULARDII, ORAL) Take by mouth every other day. levothyroxine (SYNTHROID) 50 mcg tablet MULTIVITAMIN ORAL Take by mouth. FAMILY HISTORY Problem Relation Age of Onset Heart Mother mi Heart Father mi Stroke Sister Seizures Sister Social History Tobacco Use Smoking status: Former Types: Cigarettes Smokeless tobacco: Never Substance Use Topics Alcohol use: No Drug use: No Review of Systems Constitutional: Negative for chills and fever. HENT: Positive for ear discharge and ear pain. Negative for congestion and sore throat. Respiratory: Negative for cough and shortness of breath. Cardiovascular: Negative for chest pain. Gastrointestinal: Negative for diarrhea and vomiting. Objective BP 194/88 Pulse 73 Temp 36.6 ?C (97.8 ?F) Resp 18 Wt 76.9 kg (169 lb 8.5 oz) SpO2 95% BMI 35.43 kg/m? Physical Exam Vitals and nursing note reviewed. Constitutional: General: She is not in acute distress. Appearance: Normal appearance. She is not toxic-appearing. HENT: Right Ear: Tympanic membrane and ear canal normal. Left Ear: Drainage and tenderness present. A middle ear effusion is present. Ears: Comments: Patient has purulent middle ear effusion. Tenderness of the external canal with erythema. She does have yellow/white drainage in the external canal. Patient has dry skin and excoriation noted on the external ear and behind the ear. No vesicular rash. Nose: Nose normal. Mouth/Throat: Mouth: Mucous membranes are moist. Eyes: Conjunctiva/sclera: Conjunctivae normal. Cardiovascular: Rate and Rhythm: Normal rate and regular rhythm. Pulmonary: Effort: Pulmonary effort is normal. Breath sounds: Normal breath sounds. Skin: General: Skin is warm and dry. Neurological: Mental Status: She is alert. Assessment and Plan ASSESSMENT/PLAN: 1. Acute otitis externa of left ear, unspecified type - ICD9: 380.10, ICD10: H60.502 (primary diagnosis) -Rx for ofloxacin drops. -Patient does have d (more content not included)... [facility] ([id number]) 1945 F Date Time Provider Department 02/04/24 MARILEE BAIN During your visit today, we recorded the following information about you: Angie Kidd, JULIAN 02/04/2024 10:22 AM Signed Patient daughter Aliyah calls and states that patient has appointment with [facility] on Wednesday02/07/2024. Daughter asking if a xray disc can be made so that patient can take to appointment? Please review and advise, please call when completed [phone] which is patient's daughter Hardeep Angie Kidd, Juli Colbert, [facility] 02/08/2024 9:10 AM Signed Pt picked up Allergies As of Date: 02/04/2024 Noted Allergy Reaction RAFAELA (FEXOFENADINE HCL) 02/21/2009 Comments: bad dreams DARVON (PROPOXYPHENE HCL) 02/21/2009 Comments: mental status change DIPHENOXYLATE 04/02/2021 16 - Unknown Date Reviewed: 02/03/2024 Reviewed by: Marguerite Bauer MA - Fully Assessed Reason for Visit: Patient Request [1696] Prescriptions as of 02/08/2024 - traZODone (DESYREL) 50 mg tablet Take 1 tablet every day by oral route at bedtime. - sertraline (ZOLOFT) 50 mg tablet Take 50 mg by mouth once daily. - clonazePAM (KLONOPIN) 0.5 mg tablet Take 1 tablet every day by oral route at bedtime. - carbidopa-levodopa (SINEMET 25-100) 25-100 mg per tablet Take 1 tablet by mouth three times daily. - rivastigmine tartrate (EXELON) 1.5 mg capsule Take 1.5 mg by mouth twice daily. - losartan (COZAAR) 50 mg tablet Take 50 mg by mouth once daily. - pantoprazole DR (PROTONIX) 40 mg tablet Take 1 tablet by mouth once daily. - acetaminophen (TYLENOL) 500 mg tablet Take 1,000 mg by mouth every 8 hours as needed. - ascorbic acid, vitamin C, (VITAMIN C) 500 mg tablet Take 1,000 mg by mouth once daily. - SACCHAROMYCES BOULARDII (PROBIOTIC, S.BOULARDII, ORAL) Take by mouth every other day. - levothyroxine (SYNTHROID) 50 mcg tablet - MULTIVITAMIN ORAL Take by mouth. Problem List As Of Date 02/04/2024 Noted Resolved Hyperactivity of Bladder [N31.8] 02/21/2009 Urinary tract infection without hematuria [N39.*05/21/2015 Mixed incontinence [N39.46] 05/21/2015 Encounter Status:Closed by ANGIE KIDD on 02/07/[address] [facility] CNOVon 02-03-2024 CNOV Office Visit (UCWSTR ) STACEY ELKINS ([id number]) 1945 F Date Time Provider Department 02/03/24 3:15 PM MARILEE BAIN [facility] During your visit today, we recorded the following information about you: Temperature Pulse Respiration Blood pressure 98.8 degrees 78/minute 18/minute 156/78 Weight 72.9 kg Marilee Bain APRN.DEV TECHNICAL MGR 02/03/2024 4:27 PM Signed Subjective HPI Staceyclement Elkins is a 78 year old female who presents with right ankle and foot pain, swelling and bruising. She fell in a hole in her yard yesterday. She states her took a tree out of the yard and did not fill the hole with dirt and she fell into it. She has been taking tylenol for pain. Review of Systems Constitutional: Negative for chills and fever. Musculoskeletal: Positive for falls and joint pain. See HPI Skin: Negative for itching and rash. BP 156/78 Pulse 78 Temp 37.1 ?C (98.8 ?F) Resp 18 Wt 72.9 kg (160 lb 11.5 oz) SpO2 95% BMI 33.59 kg/m? PAST MEDICAL HISTORY No date: Arthritis No date: Bronchitis No date: GERD (gastroesophageal reflux disease) No date: Hearing loss No date: HTN (hypertension) No date: Overactive bladder No date: Pneumonia No date: Sleep apnea No date: Snoring No date: Thyroid disease No date: UTI (urinary tract infection) PAST SURGICAL HISTORY 07/14/2013: COLONOSCOPY FLX DX W/COLLJ SPEC WHEN PFRMD Comment: Colonoscopy 08/26/2018: ESOPHAGOGASTRODUODENOSCOPY TRANSORAL DIAGNOSTIC Comment: [facility]-repeat in 3 years 09/05/2018: LAPAROSCOPY SURG CHOLECYSTECTOMY Comment: Cholecystectomy, lap 05/11/2014: PAST SURGICAL HISTORY OF Comment: cysto bladder biopsy No date: TOTAL ABDOMINAL HYSTERECT W/WO RMVL TUBE OVARY Comment: Hysterectomy, CECILE bilat: TYMPANIC MEMB RPR W/WO PREPJ PERFOR PATCH Comment: Tympanoplasty ALLERGIES Rafaela [Fexofenadine Hcl] and Darvon [Propoxyphene Hcl] MEDICATIONS clonazePAM (KLONOPIN) 0.5 mg tablet Take 1 tablet every day by oral route at bedtime. carbidopa-levodopa (SINEMET 25-100) 25-100 mg per tablet Take 1 tablet by mouth three times daily. rivastigmine tartrate (EXELON) 1.5 mg capsule Take 1.5 mg by mouth twice daily. losartan (COZAAR) 50 mg tablet Take 50 mg by mouth once daily. pantoprazole DR (PROTONIX) 40 mg tablet Take 1 tablet by mouth once daily. acetaminophen (TYLENOL) 500 mg tablet Take 1,000 mg by mouth every 8 hours as needed. ascorbic acid, vitamin C, (VITAMIN C) 500 mg tablet Take 1,000 mg by mouth once daily. SACCHAROMYCES BOULARDII (PROBIOTIC, S.BOULARDII, ORAL) Take by mouth every other day. levothyroxine (SYNTHROID) 50 mcg tablet MULTIVITAMIN ORAL Take by mouth. traZODone (DESYREL) 50 mg tablet Take 1 tablet every day by oral route at bedtime. sertraline (ZOLOFT) 50 mg tablet Take 50 mg by mouth once daily. FAMILY HISTORY Problem Relation Age of Onset Heart Mother mi Heart Father mi Stroke Sister Seizures Sister Social History Tobacco Use Smoking status: Former Types: Cigarettes Smokeless tobacco: Never Substance Use Topics Alcohol use: No Drug use: No Objective Physical Exam Vitals and nursing note reviewed. Constitutional: Appearance: Normal appearance. Musculoskeletal: General: Swelling, tenderness and signs of injury present. No deformity. Legs: Skin: General: Skin is warm and dry. Capillary Refill: Capillary refill takes less than 2 seconds. Findings: Bruising present. No erythema or rash. Neurological: Mental Status: She is alert. ASSESSMENT/PLAN: 1. Right ankle injury, initial encounter - ICD9: 959.7, ICD10: S99.911A (primary diagnosis) - XR ANKLE GENERAL 3V AP/LAT/OBL RIGHT 2. Right foot injury, initial encounter - ICD9: 959.7, ICD10: S99.921A - XR FOOT GENERAL 3V AP/LAT/OBL RIGHT FINDINGS: Nondisplaced oblique fracture seen in the distal fibula extending to the ankle joint level (Fermin B). The mortise joint spaces are well preserved. There appears to be small ankle joint effusion. Calcaneal enthesophyte is present. There appears be pes cavus. The bones are somewhat osteopenic. There is soft tissue swelling along the lateral malleolus. IMPRESSION: Distal fibular fracture with soft tissue swelling. General Maintenance Technician: RAN Transcribe Date/Time: Feb 03 2024 4:01P Dictated by : LEENA ALAS MD 3. Closed fracture of distal end of right fibula, unspecified fracture morphology, initial encounter - ICD9: 824.8, ICD10: S82.831A - CONSULT PANEL TO ORTHOPAEDICS - patient placed in [employer] walking boot. - she has a 4 point cane she uses and is instructed to use the cane and wear boot until seen by orthopedics. - she will call to make appointment. - Wear boot during daytime. May take off at night but must be worn to walk. Limit weight bearing on right foot. - may take tylenol for pain. - may also use over the swollen a (more content not included)... Normal [facility] No Panel Informationon 02-02 IMPRESSION: Distal f ibular fracture with soft tissue swelling. General Maintenance Technician: RAN Transcribe Date/Time: Feb 03 2024 4:01P Dictated by : LEENA ALAS MD This examination was interpreted and the report reviewed and electronically signed by: LEENA ALAS MD on Feb 03 2024 4:07PM EST DIVISION OF RADIOLOGY Radiology Study observation (narrative) [facility] No Panel InformationOrdered By: Ccf Provider on 02-03-2024 [facility] XR ANKLE 3V AP/LAT/OBL RTon 02-03-2024 XR ANKLE 3V AP/LAT/OBL RT * * *Final Report* * * DATE OF EXAM: Feb 03 2024 3:30PM WOX 5297 - XR ANKLE 3V AP/LAT/OBL RT / PROCEDURE REASON: Right ankle injury, initial encounter * * * * Physician Interpretation * * * * EXAM TITLE: XR ANKLE 3V AP/LAT/OBL RT, XR FOOT 3V AP/LAT/OBL RT EXAM DATE/TIME: 02/03/2024 3:30 PM COMPARISON: None. CLINICAL INDICATION/HISTORY: Injury TECHNIQUE: AP, mortise and lateral views of the right ankle are presented. AP, oblique and lateral views of the right foot are also presented. FINDINGS: Nondisplaced oblique fracture seen in the distal fibula extending to the ankle joint level (Fermin B). The mortise joint spaces are well preserved. There appears to be small ankle joint effusion. Calcaneal enthesophyte is present. There appears be pes cavus. The bones are somewhat osteopenic. There is soft tissue swelling along the lateral malleolus. IMPRESSION: Distal fibular fracture with soft tissue swelling. General Maintenance Technician: RAN Transcribe Date/Time: Feb 03 2024 4:01P Dictated by : LEENA ALAS MD This examination was interpreted and the report reviewed and electronically signed by: LEENA ALAS MD on Feb 03 2024 4:07PM EST [id number] Normal [facility] XR Ankle - right AP and Late ral and obliqueon 02-03-2024 * * *Final Report* * * DATE OF EXAM: Feb 03 2024 3:30PM WOX 5297 - XR ANKLE 3V AP/LAT/OBL RT / PROCEDURE REASON: Right ankle injury, initial encounter * * * * Physician Interpretation * * * * EXAM TITLE: XR ANKLE 3V AP/LAT/OBL RT, XR FOOT 3V AP/LAT/OBL RT EXAM DATE/TIME: 02/03/2024 3:30 PM COMPARISON: None. CLINICAL INDICATION/HISTORY: Injury TECHNIQUE: AP, mortise and lateral views of the right ankle are presented. AP, oblique and lateral views of the right foot are also presented. FINDINGS: Nondisplaced oblique fracture seen in the distal fibula extending to the ankle joint level (Fermin B). The mortise joint spaces are well preserved. There appears to be small ankle joint effusion. Calcaneal enthesophyte is present. There appears be pes cavus. The bones are somewhat osteopenic. There is soft tissue swelling along the lateral malleolus. DIVISION OF RADIOLOGY Provider, [facility] - 02/03/2024 * * *Final Report* * * DATE OF EXAM: Feb 03 2024 3:30PM WOX 5297 - XR ANKLE 3V AP/LAT/OBL RT / PROCEDURE REASON: Right ankle injury, initial encounter * * * * Physician Interpretation * * * * EXAM TITLE: XR ANKLE 3V AP/LAT/OBL RT, XR FOOT 3V AP/LAT/OBL RT EXAM DATE/TIME: 02/03/2024 3:30 PM COMPARISON: None. CLINICAL INDICATION/HISTORY: Injury TECHNIQUE: AP, mortise and lateral views of the right ankle are presented. AP, oblique and lateral views of the right foot are also presented. FINDINGS: Nondisplaced oblique fracture seen in the distal fibula extending to the ankle joint level (Fermin B). The mortise joint spaces are well preserved. There appears to be small ankle joint effusion. Calcaneal enthesophyte is present. There appears be pes cavus. The bones are somewhat osteopenic. There is soft tissue swelling along the lateral malleolus. IMPRESSION IMPRESSION: Distal fibular fracture with soft tissue swelling. General Maintenance Technician[facility] Transcribe Date/Time: Feb 03 2024 4:01P Dictated by : LEENA ALAS MD This examination was interpreted and the report reviewed and electronically signed by: LEENA ALAS MD on Feb 03 2024 4:07PM [facility] XR FOOT 3V AP/LAT/OBL RTon 0 8-15-2024 XR FOOT 3V AP/LAT/OBL RT * * *Final Report* * * DATE OF EXAM: Feb 03 2024 3:30PM WOX 5337 - XR FOOT 3V AP/LAT/OBL RT / PROCEDURE REASON: Right foot injury, initial encounter * * * * Physician Interpretation * * * * EXAM TITLE: XR ANKLE 3V AP/LAT/OBL RT, XR FOOT 3V AP/LAT/OBL RT EXAM DATE/TIME: 02/03/2024 3:30 PM COMPARISON: None. CLINICAL INDICATION/HISTORY: Injury TECHNIQUE: AP, mortise and lateral views of the right ankle are presented. AP, oblique and lateral views of the right foot are also presented. FINDINGS: Nondisplaced oblique fracture seen in the distal fibula extending to the ankle joint level (Fermin B). The mortise joint spaces are well preserved. There appears to be small ankle joint effusion. Calcaneal enthesophyte is present. There appears be pes cavus. The bones are somewhat osteopenic. There is soft tissue swelling along the lateral malleolus. IMPRESSION: Distal fibular fracture with soft tissue swelling. General Maintenance Technician: [facility] Transcribe Date/Time: Feb 03 2024 4:01P Dictated by : LEENA ALAS MD This examination was interpreted and the report reviewed and electronically signed by: LEENA ALAS MD on Feb 03 2024 4:07PM EST [id number] Normal [facility] XR Foot - right AP and Later al and obliqueon 02-03-2024 * * *Final Report* * * DATE OF EXAM: Feb 03 2024 3:30PM WOX 5337 - XR FOOT 3V AP/LAT/OBL RT / PROCEDURE REASON: Right foot injury, initial encounter * * * * Physician Interpretation * * * * EXAM TITLE: XR ANKLE 3V AP/LAT/OBL RT, XR FOOT 3V AP/LAT/OBL RT EXAM DATE/TIME: 02/03/2024 3:30 PM COMPARISON: None. CLINICAL INDICATION/HISTORY: Injury TECHNIQUE: AP, mortise and lateral views of the right ankle are presented. AP, oblique and lateral views of the right foot are also presented. FINDINGS: Nondisplaced oblique fracture seen in the distal fibula extending to the ankle joint level (Fermin B). The mortise joint spaces are well preserved. There appears to be small ankle joint effusion. Calcaneal enthesophyte is present. There appears be pes cavus. The bones are somewhat osteopenic. There is soft tissue swelling along the lateral malleolus. DIVISION OF RADIOLOGY Provider, Jayme Lu - 02/03/2024 * * *Final Report* * * DATE OF EXAM: Feb 03 2024 3:30PM WOX 5337 - XR FOOT 3V AP/LAT/OBL RT / PROCEDURE REASON: Right foot injury, initial encounter * * * * Physician Interpretation * * * * EXAM TITLE: XR ANKLE 3V AP/LAT/OBL RT, XR FOOT 3V AP/LAT/OBL RT EXAM DATE/TIME: 02/03/2024 3:30 PM COMPARISON: None. CLINICAL INDICATION/HISTORY: Injury TECHNIQUE: AP, mortise and lateral views of the right ankle are presented. AP, oblique and lateral views of the right foot are also presented. FINDINGS: Nondisplaced oblique fracture seen in the distal fibula extending to the ankle joint level (Fermin B). The mortise joint spaces are well preserved. There appears to be small ankle joint effusion. Calcaneal enthesophyte is present. There appears be pes cavus. The bones are somewhat osteopenic. There is soft tissue swelling along the lateral malleolus. IMPRESSION IMPRESSION: Distal fibular fracture with soft tissue swelling. General Maintenance Technician[facility] Trans[facility] Date/Time: Feb 03 2024 4:01P Dictated by : LEENA ALAS MD This examination was interpreted and the report reviewed and electronically signed by: LEENA ALAS MD on Feb 03 2024 4:07PM [facility] No Panel Informationon 09-30 Culture Urine No growth at 48 hours. [facility] Work Phone: Bacteria Ur Culton Bacteria identified Cx Nom (U) ORGANISM ID: 1 >=100,000 CFU/ml Escherichia coli ORGANISM ID: 1 (ESCHERICHIA COLI) ------ ANTIBIOTIC INTERPRETATION BE STATUS REFERENCE RANGE ------ Ampicillin R >=32 F Susceptible <=8 , Intermediate >8 , Resistant >16 Cefazolin S <=4 F Susceptible 0-16 , Intermediate <0 or >16 , Resistant >16 For uncomplicated urinary tract infections, cefazolin results can be used to predict susceptibility or resistance to cephalexin. Ceftriaxone S <=1 F Susceptible <=1 , Intermediate >1 , Resistant >=4 Cefepime S <=1 F Susceptible <=2 , Susceptible-Dose Dependent >2 , Resistant >=16 Ertapenem S <=0.5 F Susceptible <=0.5 , Intermediate >.5 , Resistant >1 Meropenem S <=0.25 F Susceptible <=1 , Intermediate >1 , Resistant >2 Ampicillin/Sulbact I 16 F Susceptible <=8 , Intermediate >8 , Resistant >16 Piperacillin/Tazobac S <=4 F Susceptible <16 , Susceptible-Dose Dependent >=16 , Resistant >=32 Gentamicin S <=1 F Susceptible <=2 , Intermediate >2 , Resistant >=8 Tobramycin S <=1 F Susceptible <4 , Intermediate >=4 , Resistant >=8 Trimeth sulfameth S <=20 F Susceptible <=40 , Resistant >40 Ciprofloxacin R >=4 F Susceptible <0.5 , Intermediate >=.5 , Resistant >=1 Nitrofurantoin S <=16 F Susceptible <=32 , Intermediate >32 , Resistant >64 Abnormal [facility] Comment on above: Performed By: #### 6 30-4 #### [facility] CLIA [id number] [address] [place] [address] [place] CNOVon 09-25-2023 CNOV Office Visit (UCWSTR ) STACEY ELKINS ([id number]) 1945 F Date Time Provider Department 09/25/23 9:00 AM EMILY OLIVEIRA [facility] During your visit today, we recorded the following information about you: Temperature Pulse Respiration Blood pressure 98.1 degrees 73/minute 18/minute 118/76 Weight 74.6 kg Emily Oliveira APRN.DEV TECHNICAL MGR 09/25/2023 9:38 AM Signed This note was created using mPorticoriter. Subjective Stacey Elkins is a 78 year old female. 78 year old female with PMH hyperactivity of bladder and mixed incontinence presents for UTI sx. Acute onset She was seen 09/16/23 and Macrobid called in. She completed 5 days Endorses symptoms not improving +burning +frequency +urgency Denies vaginal bleeding Denies vaginal discharge. Denies flank pain Denies abdominal pain Denies N/V/D The history is provided by the patient. No machinery engineer was used. UTI This is a new problem. The current episode started more than 2 days ago. The problem occurs every urination. The problem has been gradually worsening. The quality of the pain is described as burning. The pain is at a severity of 6/10. The pain is moderate. There has been no fever. She is Not sexually active. Associated symptoms include frequency and urgency. Pertinent negatives include no chills, no sweats, no nausea, no vomiting, no discharge, no hematuria, no hesitancy, no possible and no flank pain. She has tried nothing for the symptoms. Her past medical history does not include kidney stones, single kidney, urological procedure, recurrent UTIs, urinary stasis or catheterization. PAST MEDICAL HISTORY Diagnosis Date Arthritis Bronchitis GERD (gastroesophageal reflux disease) Hearing loss HTN (hypertension) Overactive bladder Pneumonia Sleep apnea Snoring Thyroid disease UTI (urinary tract infection) PAST SURGICAL HISTORY Procedure Laterality Date COLONOSCOPY FLX DX W/COLLJ SPEC WHEN PFRMD 07/14/2013 Colonoscopy ESOPHAGOGASTRODUODENOSCOPY TRANSORAL DIAGNOSTIC 08/26/2018 [facility]-repeat in 3 years LAPAROSCOPY SURG CHOLECYSTECTOMY 09/05/2018 Cholecystectomy, lap PAST SURGICAL HISTORY OF 05/11/2014 cysto bladder biopsy TOTAL ABDOMINAL HYSTERECT W/WO RMVL TUBE OVARY Hysterectomy, CECILE TYMPANIC MEMB RPR W/WO PREPJ PERFOR PATCH bilat Tympanoplasty ALLERGIES Rafaela [Fexofenadine Hcl] and Darvon [Propoxyphene Hcl] MEDICATIONS carbidopa-levodopa (SINEMET 25-100) 25-100 mg per tablet Take 1 tablet by mouth three times daily. rivastigmine tartrate (EXELON) 1.5 mg capsule Take 1.5 mg by mouth twice daily. losartan (COZAAR) 50 mg tablet Take 50 mg by mouth once daily. pantoprazole DR (PROTONIX) 40 mg tablet Take 1 tablet by mouth once daily. acetaminophen (TYLENOL) 500 mg tablet Take 1,000 mg by mouth every 8 hours as needed. ascorbic acid, vitamin C, (VITAMIN C) 500 mg tablet Take 1,000 mg by mouth once daily. SACCHAROMYCES BOULARDII (PROBIOTIC, S.BOULARDII, ORAL) Take by mouth every other day. levothyroxine (SYNTHROID) 50 mcg tablet MULTIVITAMIN ORAL Take by mouth. cephALEXin (KEFLEX) 500 mg capsule Take 1 capsule by mouth two times a day for 7 days. FAMILY HISTORY Problem Relation Age of Onset Heart Mother mi Heart Father mi Stroke Sister Seizures Sister Social History Tobacco Use Smoking status: Former Types: Cigarettes Smokeless tobacco: Never Substance Use Topics Alcohol use: No Drug use: No Review of Systems Constitutional: Negative for activity change, appetite change, chills and diaphoresis. Eyes: Negative for pain, discharge, redness and itching. Respiratory: Negative for apnea, cough, choking, chest tightness and shortness of breath. Cardiovascular: Negative for chest pain, palpitations and leg swelling. Gastrointestinal: Negative for abdominal pain, diarrhea, nausea and vomiting. Genitourinary: Positive for dysuria, frequency and urgency. Negative for flank pain, hematuria and hesitancy. Musculoskeletal: Negative for arthralgias, back pain and gait problem. Skin: Negative for color change, pallor, rash and wound. Allergic/Immunologic: Negative for environmental allergies, food allergies and immunocompromised state. Hematological: Negative for adenopathy. Does not bruise/bleed easily. Psychiatric/Behavioral: Negative for agitation and behavioral problems. Objective BP 118/76 Pulse 73 Temp 36.7 ?C (98.1 ?F) (Tympanic) Resp 18 Wt 74.6 kg (164 lb 7.4 oz) SpO2 99% BMI 34.37 kg/m? Physical Exam Vitals and nursing note reviewed. Constitutional: General: She is not in acute distress. Appearance: Normal appearance. She is normal weight. She is not ill-appearing, toxic-appearing or diaphoretic. HENT: Head: Normocephalic and atraumatic. Right Ear: Ear canal and external ear normal. Left Ear: Ear canal and external (more content not included)... Normal [facility] UA DIP, URINE (POC)on 2023 BILIRUBIN UA (POCT) Negative Negative [facility] CLARITY UA (POCT) Cloudy [facility] COLOR UA (POCT) Dark yellow [facility] GLUCOSE UA (POCT) Negative Negative mg/dL [facility] Hemoglobin Ql (U) Moderate Abnormal Negative [facility] KETONE UA (POCT) Negative Negative mg/dL [facility] LEUKOCYTES UA (POCT) Large Abnormal Negative [facility] NITRITE UA (POCT) Positive Abnormal Negative [facility] PH UA (POCT) 5.5 4.5 - 8.0 [facility] Protein Ql (U) Trace Abnormal Negative mg/dL [facility] SPECIFIC GRAVITY UA (POCT) <=1.005 Abnormal 1.005 - 1.030 [facility] UROBILINOGEN UA (POCT) 0.2 E.U./dL Mindy l E.U./dL [facility] Basophil percentageOrdered B y: Cely Bruno on 09-15-2023 Basophil percentage 50-100 SEEN /hpf 0-5 [facility] Bilirubin Test strip Ql (U)O rdered By: Cely Bruno on 09-15-2023 Bilirubin Ql (U) Negative Negative [facility] Culture, urineOrdered By: Kandy Bruno on 09-15-2023 Bacteria identified Cx Nom (U) Escherichia coli [facility] Ketones Test strip Ql (U)Ord ered By: Cely Bruno on 09-15-2023 Ketones Ql (U) Negative Negative [facility] Mucus LM Ql (Urine sed)Order ed By: Cely Bruno on 09-15-2023 Mucus Ql (Urine sed) 0 SEEN /hpf [facility] Nitrite Test strip Ql (U)Ord ered By: Cely Bruno on 09-15-2023 Nitrite Ql (U) Positive Negative [facility] No Panel InformationOrdered By: Cely Bruno on 09-15-2023 Urine RBC 0-5 SEEN /hpf 0-5 [facility] Protein Test strip Ql (U)Ord ered By: Cely Bruno on 09-15-2023 Protein Ql (U) 30 mg/dl Negative [facility] Squamous epithelial cells de tection in urine sediment by light microscopyOrdered By: Cely Bruno on 09-15-2023 Epithelial cells.squamous LM Ql (Urine sed) 0-5 SEEN /hpf 5-10 [facility] Urine blood detectionOrdered By: Cely Bruno on 09-15-2023 RBC Ql (U) 150 /ul Negative [facility] Urine clarityOrdered By: Marni Bruno on 09-15-2023 Clarity (U) Cloudy Clear [facility] Urine color determinationOrd ered By: Cely Bruno on 09-15-2023 Color (U) Yellow Yellow [facility] Urine glucose detectionOrder ed By: Cely Bruno on 09-15-2023 Glucose Ql (U) Normal mg/dl Normal [facility] Urine leukocyte esterase det ection by dipstickOrdered By: Cely Bruno on 09-15-2023 Leukocyte esterase Test strip Ql (U) 500 /ul Negative [facility] Urine pHOrdered By: Cely davis on 09-15-2023 pH (U) 6.5 [pH] 5.0 - 8.0 [facility] Urine sediment bacteria coun t by microscopy (number/high power field)Ordered By: Cely Bruno on 09-15-2023 Bacteria LM.HPF (Urine sed) [#/Area] 2 /[HPF] None Seen [facility] Urine specific gravity measu rementOrdered By: Cely Bruno on 09-15-2023 Specific gravity (U) [Rel density] 1.010 1.002-1.03 0 [facility] Urine urobilinogen measureme ntOrdered By: Cely Damion on 09-15-2023 Urobilinogen Ql (U) Normal mg/dl Normal [facility] Basophil percentageOrdered B y: José Miguel Nava on 02-05-2023 Bilirubin [Mass/Vol] 0.40 mg/dL 0.20-1.00 [place] Comment on above: For patients on eltr ombopag therapy, use of Dimension [place] TBIL is not recommended. Chloride [Moles/Vol] 104 mmol/L 98-107 [place] Cholesterol [Mass/Vol] 191 mg/dL <200 [facility] Comment on above: <200 mg/dL Desirable 200-240 mg/dL Borderline >240 mg/dL High Risk Glucose [Mass/Vol] 114 mg/dL 74-106 [facility] Comment on above: Fasting Glucose resu lt from 100 to 125 mg/dL suggests IMPAIRED HOMEOSTASIS per A.D.A. criteria. Potassium [Moles/Vol] 4.2 mmol/L 3.5-5.1 [facility] Protein [Mass/Vol] 7.2 g/dL 6.4-8.2 [facility] Sodium [Moles/Vol] 137 mmol/L 136-145 [facility] Triglyceride [Mass/Vol] 144 mg/dL <199 [facility] Comment on above: The drugs N-Acetylcy steine and Metamizole may falsely depress this assay.Serum Triglycerides Reference Interval Normal <150 mg/dL Borderline high 150 - 199 mg/dL High 200 - 499 mg/dL Very High > or = 500 mg/dL Laboratory - Chemistry and C hemistry - challengeOrdered By: José Miguel Nava on 02-05-2023 ALP [Catalytic activity/Vol] 62 U/L 45-117 [facility] ALT [Catalytic activity/Vol] 24 U/L 13-56 [facility] CO2 [Moles/Vol] 30.0 mmol/L 21.0-32.0 [facility] Globulin (S) [Mass/Vol] 3.6 g/dL 2.2-4.2 [facility] Urea nitrogen/Creatinine [Mass ratio] 16.7 mg/mg 10-20 [facility] No Panel InformationOrdered By: José Miguel Nava on 02-05-2023 Estimated GFR (MDRD) Amer 68 mL/min >60 [facility] Comment on above: GFR Calc Estimated GFR (MDRD) Non-Af Amer 56 mL/min >60 [facility] Comment on above: Non- GFR Calc Thyroid Stimulating Hormone (TSH) 2.12 uIU/mL 0.358-3.74 [facility] Urine Microalbumin/Creatinin e Ratio 24.9 mg/g CRE <30 [facility] Serum or plasma albumin javier urement (mass/volume)Ordered By: José Miguel Nava on 02-05-2023 Albumin [Mass/Vol] 3.6 g/dL 3.2-5.0 [facility] Serum or plasma albumin/glob ulin mass ratioOrdered By: José Miguel Nava on 02-05-2023 Albumin/Globulin [Mass ratio] 1.0 {ratio} 0.9-2.4 [facility] Serum or plasma calcium javier urement (mass/volume)Ordered By: José Miguel Nava on 02-05-2023 Calcium [Mass/Vol] 9.1 mg/dL 8.5-10.1 [facility] Serum or plasma cholesterol in HDL measurement (mass/volume)Ordered By: José Miguel Nava on 02-05-2023 Cholesterol in HDL [Mass/Vol] 37 mg/dL >40 [facility] Comment on above: The drugs N-Acetylcy steine and Metamizole may falsely depress this assay. Reference Range HDL <40 mg/dL Low HDL Cholesterol HDL >or= 60 mg/dL High HDL Cholesterol Serum or plasma cholesterol in VLDL measurement (mass/volume)Ordered By: José Miguel Nava on 02-05-2023 Cholesterol in VLDL [Mass/Vol] 29 mg/dL 5-40 [facility] Serum or plasma creatinine m easurement (mass/volume)Ordered By: José Miguel Nvaa on 02-05-2023 Creatinine [Mass/Vol] 1.02 mg/dL 0.55-1.02 [facility] Comment on above: The validity of the calculated GFR & GFRAA in patients over 70 years has not been determined. Clinical correlation is essential. Serum or plasma low density lipoprotein (LDL) cholesterol measurement (mass/volume)Ordered By: José Miguel Nava on 02-05-2023 Cholesterol in LDL [Mass/Vol] 125 mg/dL 0-130 [facility] Serum or plasma urea nitroge n measurement (mass/volume)Ordered By: José Miguel Nava on 02-05-2023 Urea nitrogen [Mass/Vol] 17 mg/dL 7-18 [facility] Thin prep Papanicolaou smear with manual screeningOrdered By: José Miguel Nava on 02-05-2023 Thin prep Papanicolaou smear with manual screening 11 U/L 15-37 [facility] Thin prep Papanicolaou smear with manual screening 3 5-15 [facility] Thin prep Papanicolaou smear with manual screening 15.1 mg/L NO RANGE EST. [facility] Urine creatinine measurement (mass/volume)Ordered By: José Miguel Nava on 02-05-2023 Creatinine (U) [Mass/Vol] 60.70 mg/dL NO RANGE EST. [facility] Absolute lymphocyte countOrd ered By: Dr. Hu on 12-07-2022 Lymphocytes Auto (Unsp spec) [#/Vol] 2.00 10*3/uL 0.83-4.51 [facility] Basophil percentageOrdered B y: Dr. Hu on 12-07-2022 Basophils/100 WBC (Bld) 0.4 % 0-1 [facility] Chloride [Moles/Vol] 106 mmol/L 98-107 [place] Eosinophils/100 WBC (Bld) 1.3 % 0-5 [facility] Glucose [Mass/Vol] 102 mg/dL 74-106 [facility] Comment on above: Fasting Glucose resu lt from 100 to 125 mg/dL suggests IMPAIRED HOMEOSTASIS per A.D.A. criteria. Neutrophils (Bld) [#/Vol] 6.6 10*3/uL 2.0-7.7 [facility] Neutrophils/100 WBC (Bld) 69.2 % 47-70 [facility] Potassium [Moles/Vol] 4.9 mmol/L 3.5-5.1 [facility] Comment on above: Moderate Hemolysis, Result may be falsely increased. Sodium [Moles/Vol] 138 mmol/L 136-145 [facility] WBC (Bld) [#/Vol] 9.6 10*3/uL 4.4-11.0 [facility] Blood erythrocytes count (nu mber/volume)Ordered By: Dr. Hu on 12-07-2022 RBC (Bld) [#/Vol] 4.48 10*6/uL 4.2-5.4 [facility] Blood hemoglobin measurement (mass/volume)Ordered By: Dr. Hu on 12-07-2022 Hemoglobin (Bld) [Mass/Vol] 13.5 g/dL 12.0-15.0 [facility] Blood lymphocytes/100 leukoc ytesOrdered By: Dr. Hu on 12-07-2022 Lymphocytes/100 WBC (Bld) 20.9 % 19-41 [facility] Blood monocytes/100 leukocyt esOrdered By: Dr. Hu on 12-07-2022 Monocytes/100 WBC (Bld) 7.6 % 0-10 [facility] Blood platelet mean volumeOr dered By: Dr. Hu on 12-07-2022 Platelet mean volume (Bld) [Entitic vol] 10.7 fL 6.2-12.0 [facility] Determination of erythrocyte mean corpuscular volume (MCV)Ordered By: Dr. Hu on 12-07-2022 MCV (RBC) [Entitic vol] 91.5 fL 81-99 [facility] Hematocrit Auto (Bld) [Volum e fraction]Ordered By: Dr. Hu on 12-07-2022 Hematocrit (Bld) [Volume fraction] 41.0 % 37-47 [facility] Laboratory - Chemistry and C hemistry - challengeOrdered By: Dr. Hu on 12-07-2022 CO2 [Moles/Vol] 27.0 mmol/L 21.0-32.0 [facility] Urea nitrogen/Creatinine [Mass ratio] 18.9 mg/mg 10-20 [facility] Laboratory - Hematology and Cell countsOrdered By: Dr. Hu on 12-07-2022 Erythrocyte distribution width (RBC) [Entitic vol] 46.7 fL 35.1-43.9 [facility] Erythrocyte distribution width (RBC) [Ratio] 13.7 % 11.6-14.6 [facility] Immature granulocytes/100 WBC (Bld) 0.600 % 0.0-0.9 [facility] Comment on above: IG% - Immature Granu locytes (promyelocytes, myelocytes and metamyelocytes) > 1% indicates that a LEFT SHIFT is Present. MCH (RBC) [Entitic mass] 30.1 pg 27.0-32.0 [facility] Nucleated RBC/100 WBC (Bld) [Ratio] 0 % 0-5 [facility] MCHC Auto (RBC) [Mass/Vol]Or dered By: Dr. Hu on 12-07-2022 MCHC (RBC) [Mass/Vol] 32.9 g/dL 32-36 [facility] No Panel InformationOrdered By: Dr. Hu on 12-07-2022 Estimated Creatinine Clearance Calc 58.01 ml/min [facility] Estimated GFR (MDRD) Amer 73 mL/min >60 [facility] Comment on above: GFR Calc Estimated GFR (MDRD) Non-Af Amer 61 mL/min >60 [facility] Comment on above: Non- GFR Calc Platelets bldOrdered By: Dr. Hu on 12-07-2022 Platelets (Bld) [#/Vol] 253 10*3/uL 150-450 [facility] Serum or plasma calcium javier urement (mass/volume)Ordered By: Dr. Hu on 12-07-2022 Calcium [Mass/Vol] 9.4 mg/dL 8.5-10.1 [facility] Serum or plasma creatinine m easurement (mass/volume)Ordered By: Dr. Hu on 12-07-2022 Creatinine [Mass/Vol] 0.95 mg/dL 0.55-1.02 [facility] Comment on above: The validity of the calculated GFR & GFRAA in patients over 70 years has not been determined. Clinical correlation is essential. Serum or plasma urea nitroge n measurement (mass/volume)Ordered By: Dr. Hu on 12-07-2022 Urea nitrogen [Mass/Vol] 18 mg/dL 7-18 [facility] Thin prep Papanicolaou smear with manual screeningOrdered By: Dr. Hu on 12-07-2022 Thin prep Papanicolaou smear with manual screening 5 5-15 [facility] Iron measurement (mass/mass) Ordered By: Cely Bruno on 07-24-2022 Iron (Unsp spec) [Mass/Mass] 72 ug/dL 50-170 [facility] Laboratory - Chemistry and C hemistry - challengeOrdered By: Cely Bruno on 07-24-2022 Free T4 [Mass/Vol] 1.06 ng/dL 0.76-1.46 [facility] No Panel InformationOrdered By: Cely Bruno on 07-24-2022 Thyroid Stimulating Hormone (TSH) 1.63 uIU/mL 0.358-3.74 [facility] Total Iron Binding Capacity 310 ug/dL 250-450 [facility] Serum or plasma ferritin rasheed surement (mass/volume)Ordered By: Cely Bruno on 07-24-2022 Ferritin [Mass/Vol] 145 ng/mL 8-252 [facility] Serum or plasma iron saturat ion measurement (mass fraction)Ordered By: Cely Bruno on 07-24-2022 Iron saturation [Mass fraction] 23.2 % 15.0-55.0 [facility] Basophil percentageOrdered B y: Dr. Whittington on 05-26-2022 Chloride [Moles/Vol] 106 mmol/L 98-107 [place] Glucose [Mass/Vol] 153 mg/dL 74-106 [facility] Comment on above: Fasting Glucose resu lt greater than or equal to 126 mg/dL suggests DIABETES MELLITUS per A.D.A. criteria. Potassium [Moles/Vol] 4.2 mmol/L 3.5-5.1 [facility] Sodium [Moles/Vol] 138 mmol/L 136-145 [facility] WBC (Bld) [#/Vol] 9.6 10*3/uL 4.4-11.0 [facility] Blood erythrocytes count (nu mber/volume)Ordered By: Dr. Whittington on 05-26-2022 RBC (Bld) [#/Vol] 3.64 10*6/uL 4.2-5.4 [facility] Blood hemoglobin measurement (mass/volume)Ordered By: Dr. Whittington on 05-26-2022 Hemoglobin (Bld) [Mass/Vol] 11.3 g/dL 12.0-15.0 [facility] Blood platelet mean volumeOr dered By: Dr. Whittington on 05-26-2022 Platelet mean volume (Bld) [Entitic vol] 10.9 fL 6.2-12.0 [facility] Determination of erythrocyte mean corpuscular volume (MCV)Ordered By: Dr. Whittington on 05-26-2022 MCV (RBC) [Entitic vol] 94.0 fL 81-99 [facility] Hematocrit Auto (Bld) [Volum e fraction]Ordered By: Dr. Whittington on 05-26-2022 Hematocrit (Bld) [Volume fraction] 34.2 % 37-47 [facility] Laboratory - Chemistry and C hemistry - challengeOrdered By: Dr. Whittington on 05-26-2022 CO2 [Moles/Vol] 28.0 mmol/L 21.0-32.0 [facility] Urea nitrogen/Creatinine [Mass ratio] 20.9 mg/mg 10-20 [facility] Laboratory - Hematology and Cell countsOrdered By: Dr. Whittington on 05-26-2022 Erythrocyte distribution width (RBC) [Entitic vol] 45.7 fL 35.1-43.9 [facility] [facility] Erythrocyte distribution width (RBC) [Ratio] 13.2 % 11.6-14.6 [facility] MCH (RBC) [Entitic mass] 31.0 pg 27.0-32.0 [facility] MCHC Auto (RBC) [Mass/Vol]Or dered By: Dr. Whittington on 05-26-2022 MCHC (RBC) [Mass/Vol] 33.0 g/dL 32-36 [facility] No Panel InformationOrdered By: Dr. Whittington on 05-26-2022 Estimated Creatinine Clearance Calc 58.00 ml/min [facility] Estimated GFR (MDRD) Amer 77 mL/min >60 [facility] Comment on above: GFR Calc Estimated GFR (MDRD) Non-Af Amer 64 mL/min >60 [facility] Comment on above: Non- GFR Calc Platelets bldOrdered By: Dr. Whittington on 05-26-2022 Platelets (Bld) [#/Vol] 205 10*3/uL 150-450 [facility] Serum or plasma calcium javier urement (mass/volume)Ordered By: Dr. Whittington on 05-26-2022 Calcium [Mass/Vol] 8.1 mg/dL 8.5-10.1 [facility] Serum or plasma creatinine m easurement (mass/volume)Ordered By: Dr. Whittington on 05-26-2022 Creatinine [Mass/Vol] 0.91 mg/dL 0.55-1.02 [facility] Comment on above: The validity of the calculated GFR & GFRAA in patients over 70 years has not been determined. Clinical correlation is essential. Serum or plasma urea nitroge n measurement (mass/volume)Ordered By: Dr. Whittington on 05-26-2022 Urea nitrogen [Mass/Vol] 19 mg/dL 7-18 [facility] Thin prep Papanicolaou smear with manual screeningOrdered By: Dr. Whittington on 05-26-2022 Thin prep Papanicolaou smear with manual screening 4 5-15 [facility] Glucose Glucometer (BldC) [M ass/Vol]Ordered By: Dr. Whittington on 05-25-2022 Glucose [Mass/Vol] 112 mg/dL 74-106 [facility] Comment on above: MANAGEMENT OF PATIEN T CARE PER NURSING PROTOCOL No Panel InformationOrdered By: Dr. Whittington on 05-20-2022 Nasal Screen MRSA/MSSA [facility] Absolute lymphocyte countOrd ered By: Dr. Whittington on 05-19-2022 Lymphocytes Auto (Unsp spec) [#/Vol] 2.18 10*3/uL 0.83-4.51 [facility] Basophil percentageOrdered B y: Dr. Whittington on 05-19-2022 Basophils/100 WBC (Bld) 0.7 % 0-1 [facility] Eosinophils/100 WBC (Bld) 1.9 % 0-5 [facility] Neutrophils (Bld) [#/Vol] 4.4 10*3/uL 2.0-7.7 [facility] Neutrophils/100 WBC (Bld) 60.2 % 47-70 [facility] Blood lymphocytes/100 leukoc ytesOrdered By: Dr. Whittington on 05-19-2022 Lymphocytes/100 WBC (Bld) 29.7 % 19-41 [facility] Blood monocytes/100 leukocyt esOrdered By: Dr. Whittington on 05-19-2022 Monocytes/100 WBC (Bld) 7.2 % 0-10 [facility] Laboratory - Chemistry and C hemistry - challengeOrdered By: Dr. Goss on 05-19-2022 Magnesium [Mass/Vol] 2.2 mg/dL 1.6-2.6 [facility] - Hematology and Cell countsOrdered By: Dr. Whittington on 05-19-2022 Immature granulocytes/100 WBC (Bld) 0.300 % 0.0-0.9 [facility] Comment on above: IG% - Immature Granu locytes (promyelocytes, myelocytes and metamyelocytes) > 1% indicates that a LEFT SHIFT is Present. Nucleated RBC/100 WBC (Bld) [Ratio] 0 % 0-5 [facility] No Panel InformationOrdered By: Dr. Goss on 05-19-2022 Thyroid Stimulating Hormone (TSH) 1.74 uIU/mL 0.358-3.74 [facility] Serum or plasma albumin javier urement (mass/volume)Ordered By: Dr. Whittington on 05-19-2022 Albumin [Mass/Vol] 3.8 g/dL 3.2-5.0 [facility] Whole blood hemoglobin A1c/t otal hemoglobin ratio (mass fraction)Ordered By: Dr. Whittington on 05-19-2022 HbA1c (Bld) [Mass fraction] 6.0 % 3.8-5.6 [facility] Comment on above: Normal < 5.7 % Predi abetic 5.7 - 6.4 % Diabetic >or= 6.5 % Please note range changes. No Panel Informationon 08-27 Culture Urine >100,000 cfu/ml Esch erichia coli 50,000 - 100,000 cfu/ml Group B Beta Hemolytic Strep (Strep agalactiae) Sensitivity testing is not recommended for one of the following reasons: 1. Established susceptibility patterns are available or 2. Interpretative criteria are not available. [facility] Work Phone: Escherichia coli Escherichia coli [facility] Work Phone: LABORATORYOrdered By: Kelby Foster on 08-05-2021 Albumin BCP dye [Mass/Vol] 4.0 G/dL Invalid Interpretation Code 3.4 - 4.8 G/dL AO ADM SS Albumin/Globulin [Mass ratio] 1.2 {ratio} Invalid Interpretation Code 1.1 - 2.5 ratio AO ADM SS ALP [Catalytic activity/Vol] 64 U/L Invalid Interpretation Code 40 - 135 U/L AO ADM SS ALT With P-5'-P [Catalytic activity/Vol] 28 U/L Invalid Interpretation Code 14 - 59 U/L AO ADM SS AST With P-5'-P [Catalytic activity/Vol] 22 U/L Invalid Interpretation Code 10 - 40 U/L AO ADM SS Bilirubin [Mass/Vol] 0.6 mg/dL Invalid Interpretation Code 0.2 - 1.0 mg/dL AO ADM SS Calcium [Mass/Vol] 9.4 mg/dL Invalid Interpretation Code 8.4 - 10.2 mg/dL AO ADM SS Chloride [Moles/Vol] 104 mmol/L Invalid Interpretation Code 98 - 107 mmol/L AO ADM SS Cholesterol [Mass/Vol] 209 mg/dL Invalid Interpretation Code 0 - 200 mg/dL AO ADM SS Cholesterol in HDL [Mass/Vol] 44 mg/dL Invalid Interpretation Code 40 - 60 mg/dL AO ADM SS Cholesterol in LDL [Mass/Vol] 142 mg/dL Invalid Interpretation Code 0 - 130 mg/dL AO ADM SS CO2 [Moles/Vol] 28 mmol/L Invalid Interpretation Code 23 - 31 mmol/L AO ADM SS Creatinine [Mass/Vol] 0.80 mg/dL Invalid Interpretation Code 0.55 - 1.02 mg/dL AO ADM SS Electrolyte Balance 8.0 mEq/L Invalid Interpretation Code 4.0 - 15.0 mEq/L AO ADM SS Globulin 3.3 G/dL Invalid Interpretation Code AO ADM SS Glucose [Mass/Vol] 107 mg/dL Invalid Interpretation Code 83 - 110 mg/dL AO ADM SS Potassium [Moles/Vol] 5.1 mmol/L Invalid Interpretation Code 3.5 - 5.1 mmol/L AO ADM SS Protein [Mass/Vol] 7.3 G/dL Invalid Interpretation Code 6.4 - 8.2 G/dL AO ADM SS Sodium [Moles/Vol] 140 mmol/L Invalid Interpretation Code 136 - 145 mmol/L AO ADM SS Triglyceride [Mass/Vol] 117 mg/dL Invalid Interpretation Code 0 - 150 mg/dL AO ADM SS TSH Qn 1.72 m[IU]/L Invalid Interpretation Code 0.36 - 3.74 mcIU/mL AO ADM SS Urea nitrogen [Mass/Vol] 17 mg/dL Invalid Interpretation Code 7 - 18 mg/dL AO ADM SS Urea nitrogen/Creatinine [Mass ratio] 21 ratio Invalid Interpretation Code 7 - 27 ratio AO ADM SS LABORATORYOrdered By: SYSTEM SYSTEM on 08-05-2021 GFR 85 ml/min/1.73sqm Invalid Interpretation Code AO Chemistry S GFR Non- 70 ml/min/1.73sqm Invalid Interpretation Code AO Chemistry S ANES Jami 09-05-2018 ANES POST HNO ID: [id number] Author: Grabiel Dyson Service: Anesthesiology Author Type: Anesthesiologist Type: Anesthesia PostOp Filed: 09/05/2018 5:12 PM Note Text: POST ANESTHESIA EVALUATION NOTE SERVICE DATE: 09/05/2018 SERVICE TIME: 5:12 PM : 1945 Vitals: 09/05/18 1044 09/05/18 1435 09/05/18 1530 Temp: 36.8 ?C (98.2 ?F) 36.5 ?C (97.7 ?F) 36.2 ?C (97.2 ?F) 09/05/18 1445 09/05/18 1515 09/05/18 1530 09/05/18 1600 BP: 190/74 131/58 117/60 145/63 09/05/18 1445 09/05/18 1515 09/05/18 1530 09/05/18 1600 Pulse: 100 68 85 80 09/05/18 1445 09/05/18 1515 09/05/18 1530 09/05/18 1600 Resp: 18 16 16 16 09/05/18 1445 09/05/18 1515 09/05/18 1530 09/05/18 1600 SpO2: 95% 98% 98% 94% Validated Vital Signs: Yes POST ANES STATUS: No apparent anesthetic complications. The patient is appropriately hydrated with stable respiratory and cardiovascular status. Patient has safe and adequate airway control. The patient has appropriate pain relief and no significant post operative nausea or vomiting. The patient has achieved baseline mental status. Further assessment by Anesthesia Service: None Other Remarks: SIGNATURE: Grabiel Dyson MD PATIENT NAME: Stacey Elkins DATE: September 05, 2018 TIME: 5:12 PM PAGER/CONTACT #: [id number] [facility] ANES PREOPon 09-05-2018 ANES PREOP HNO ID: [id number] Author: Grabiel Dyson Service: Anesthesiology Author Type: Anesthesiologist Type: Anesthesia PreOp Filed: 09/05/2018 1:05 PM Note Text: ANESTHESIOLOGY DAY OF SURGERY NOTE SERVICE DATE: 09/05/2018 SERVICE TIME: 1:04 PM : 1945 Procedure(s) (LRB): LAPAROSCOPIC CHOLECYSTECTOMY (N/A) Surgeon(s): Alex Ramon Estimated body mass index is 35.11 kg/m? as calculated from the following: Height as of 09/02/18: 147.3 cm (4' 10"). Weight as of 09/02/18: 76.2 kg (168 lb). Most recent hematocrit and potassium results: No results found for this basename: HCT,HEMATOCRIT,K,POTASSIUM ANES DOS/PREOP NOTE: Vitals: 09/05/18 1044 09/05/18 1045 BP: 144/72 Pulse: 87 Resp: 18 Temp: 36.8 ?C (98.2 ?F) SpO2: 97% ACTIVE PROBLEM LIST Hyperactivity of Bladder Urinary Tract Infection Without Hematuria Mixed Incontinence PAST MEDICAL HISTORY Diagnosis Date - Arthritis - Bladder infection - Bronchitis - Bronchitis - GERD (gastroesophageal reflux disease) - Hearing loss - HTN (hypertension) - Overactive bladder - Pneumonia - Sleep apnea - Snoring - Thyroid disease - Unspecified hearing loss - UTI (urinary tract infection) PAST SURGICAL HISTORY Procedure Laterality Date - COLONOSCOP W/ OR W/O BRSH SPEC 07/14/2013 Colonoscopy - EGD W/O OR W/BRUSH/WASH 08/26/2018 Barboza's-repeat in 3 years - LAPAROSCOPIC CHOLEYCYSTECTOMY 09/05/2018 Cholecystectomy, lap - PAST SURGICAL HISTORY OF 05/11/2014 cysto bladder biopsy - TOTAL ABDOM HYSTERECTOMY Hysterectomy, CECILE - TYP MEMBR REP W OR W/O PATCH bilat Tympanoplasty FAMILY HISTORY Problem Relation Age of Onset - Heart Mother mi - Heart Father mi - Stroke Sister - Seizures Sister Social History: Social History Tobacco Use - Smoking status: Former Smoker Types: Cigarettes - Smokeless tobacco: Never Used Substance Use Topics - Alcohol use: No - Drug use: No No current facility-administered medications on file prior to encounter. Current Outpatient Medications on File Prior to Encounter: acetaminophen (TYLENOL EXTRA STRENGTH) 500 mg tablet Take 1,000 mg by mouth every 8 hours as needed. dicyclomine (BENTYL) 10 mg capsule Take 10 mg by mouth as needed. PHENAZOPYRIDINE HCL (AZO ORAL) Take by mouth. ascorbic acid, vitamin C, (VITAMIN C) 500 mg tablet Take 1,000 mg by mouth once daily. SACCHAROMYCES BOULARDII (PROBIOTIC, S.BOULARDII, ORAL) Take by mouth every other day. levothyroxine (SYNTHROID) 50 mcg tablet MULTIVITAMIN ORAL Take by mouth. pantoprazole DR (PROTONIX) 40 mg tablet Take 40 mg by mouth once daily. pantoprazole DR (PROTONIX) 40 mg tablet Take 1 tablet by mouth once daily. conjugated estrogens (PREMARIN) vaginal cream Apply fingertip amount into the vagina Every Wed, Wednesday, Wednesday at bedtime. SALICYLIC ACID (COMPOUND W TOPICAL) Apply to affected area. loratadine(CLARITIN 10 MG TAB) Take one(1) tablet daily as needed for allergy symptoms. No current facility-administered medications for this encounter. Allergies: ALLERGIES Allergen Reactions - Rafaela [Fexofenadi* bad dreams - Darvon [Propoxyphen* mental status change DOS EXAM: Adequate NPO status: Yes Anesthetic risks, benefits, alternatives, personnel and consent discussed: Yes Patient agrees to proceed: Yes Previous Anesthesia: No history of adverse event. Airway Assessment: MP 2; Neck ROM: Full ROM without neurologic symptoms; Airway Evaluation: No significant abnormalities Symptoms of Sleep Apnea: None Dentition: Teeth intact Additional Physical Exam: Lungs: Patient health status unchanged since recent history and physical. See history and physical for exam findings. Cardiac: Patient health status unchanged since recent history and physical. See history and physical for exam findings. Additional Pertinent Findings: N/A Blood Products: Not anticipated for this procedure. Anesthetic Plan: MAC with Sedation Pain Management Plan: Parenteral or Oral ASA Class: 3 Other Medical Problems: None I have interviewed and examined the patient. I have reviewed the medical record and/or the pre-anesthesia evaluation, pertinent labs, and test results. Significant changes in the patient's condition since the History and Physical, not otherwise documented in primary service progress notes: No This contains updated information obtained within 48 hours of Surgery/Procedure. SIGNATURE: Grabiel Dyson MD PATIENT NAME: Stacey Elkins DATE: September 05, 2018 TIME: 1:04 PM CSN: [id number] [facility] BRIEF OP NOTon 09-05-2018 BRIEF OP NOT HNO ID: [id number] Author: Alex Ramon Service: General Surgery Author Type: Physician Type: Brief Op Note Filed: 09/05/2018 2:30 PM Note Text: BRIEF OPERATIVE NOTATION FOR SURGICAL PROCEDURE. Stacey Elkins 1945 [id number] female LOG ID: [id number] Surgery/Procedure Date: 09/05/2018 Incision/Procedure Start Time: 1:38 PM Incision Close/Procedure End Time: 2:25 PM Surgeon(s)/Proceduralist(s) and Ice Cream Scooper(s): Surgeon(s) and Role: * Alex Ramon - Primary Physician Ice Cream Scooper: Tonya Polanco REFERRING PHYSICIAN: Outpatient DEPT: [facility] PROVIDER: Shailesh POS: [id number] ANESTHESIA: General ASA CLASS: 3 - Severe DIAGNOSIS: biliary colic PROCEDURE: LAPAROSCOPIC CHOLECYSTECTOMY WITH INTRAOPERATIVE CHOLEANGIOGRAM - [id number] IVF: 1400 EBL: 10 Specimens: gallbladder ADDITIONAL DIAGNOSES: FINDINGS: normal IOC COMPLICATIONS: None PMHx - PAST MEDICAL HISTORY Diagnosis Date - Arthritis - Bladder infection - Bronchitis - Bronchitis - GERD (gastroesophageal reflux disease) - Hearing loss - HTN (hypertension) - Overactive bladder - Pneumonia - Sleep apnea - Snoring - Thyroid disease - Unspecified hearing loss - UTI (urinary tract infection) COMORBIDITIES - HTN Post Op Occurrences - None Wound Classification - Clean Contaminated Operative note dictated in the dictation system. - [id number] Alex Ramon MD [facility] HISTORY PHYSICALon 9 HISTORY PHYSICAL HNO ID: [id number] Author: Alex Ramon Service: General Surgery Author Type: Physician Type: HANDP Filed: 09/05/2018 1:02 PM Note Text: HISTORY AND PHYSICAL ? Stacey Elkins 1945 ? REFERRING PHYSICIAN: José Miguel Nava, DO ? CHIEF COMPLAINT: Consult ? HPI: Stacey is a 72 year old female with a complaint of right lower quadrant pain. The patient has had symptoms of right lower quadrant pain for 6 months. The symptoms have increased, over the past few months. The pain does radiate to the back. Food does aggravate her symptoms. Alleviating factors include: none. ? The patient was seen by her primary care physician 1 week ago. Stacey underwent an ultrasound and a HIDA scan. These tests demonstrated a normal ultrasound and a decreased gall bladder ejection fraction. She noted nausea during the second portion of the HIDA scan but no true reproduction of her pain symptoms. The patient is referred for evaluation and treatment. ? The patient is being seen by me today at the request of Dr. José Miguel Nava, DO for my opinion and advice regarding right lower quadrant pain but questionably biliary colic. ? ? SIGNIFICANT MEDICAL PROBLEMS: PAST?MEDICAL?HISTORY PAST MEDICAL HISTORY Diagnosis Date - Arthritis ? - Bladder infection ? - Bronchitis ? - Bronchitis ? - GERD (gastroesophageal reflux disease) ? - Hearing loss ? - HTN (hypertension) ? - Overactive bladder ? - Pneumonia ? - Sleep apnea ? - Snoring ? - Thyroid disease ? - Unspecified hearing loss ? - UTI (urinary tract infection) ? ? ? OPERATIONS: PAST?SURGICAL?HISTORY PAST SURGICAL HISTORY Procedure Laterality Date - COLONOSCOP W/ OR W/O BRSH SPEC ? 07/14/2013 ? Colonoscopy - EGD W/O OR W/BRUSH/WASH ? 08/26/2018 ? EGD - PAST SURGICAL HISTORY OF ? 05/11/2014 ? cysto bladder biopsy - TOTAL ABDOM HYSTERECTOMY ? ? ? Hysterectomy, CECILE - TYP MEMBR REP W OR W/O PATCH ? bilat ? Tympanoplasty ? ? ? CURRENT MEDICATIONS: CURRENT?MEDICATIONS Current Outpatient Medications: acetaminophen (TYLENOL EXTRA STRENGTH) 500 mg tablet Take 1,000 mg by mouth every 8 hours as needed. Disp: Rfl: dicyclomine (BENTYL) 10 mg capsule Take 10 mg by mouth as needed. Disp: Rfl: 0 ascorbic acid, vitamin C, (VITAMIN C) 500 mg tablet Take 1,000 mg by mouth once daily. Disp: Rfl: SACCHAROMYCES BOULARDII (PROBIOTIC, S.BOULARDII, ORAL) Take by mouth every other day. Disp: Rfl: levothyroxine (SYNTHROID) 50 mcg tablet ? Disp: Rfl: MULTIVITAMIN ORAL Take by mouth. Disp: Rfl: pantoprazole DR (PROTONIX) 40 mg tablet Take 40 mg by mouth once daily. Disp: Rfl: pantoprazole DR (PROTONIX) 40 mg tablet Take 1 tablet by mouth once daily. Disp: 30 tablet Rfl: 3 conjugated estrogens (PREMARIN) vaginal cream Apply fingertip amount into the vagina Every Wed, Wednesday, Wednesday at bedtime. (Patient not taking: Reported on 08/25/2018 ) Disp: 1 Tube Rfl: 7 PHENAZOPYRIDINE HCL (AZO ORAL) Take by mouth. Disp: Rfl: SALICYLIC ACID (COMPOUND W TOPICAL) Apply to affected area. Disp: Rfl: Methenamine Hippurate (HIPREX) 1 gram tablet Take 1 tablet by mouth twice daily with meals. Disp: 60 tablet Rfl: 11 loratadine(CLARITIN 10 MG TAB) Take one(1) tablet daily as needed for allergy symptoms. Disp: Rfl: 0 ? No current facility-administered medications for this visit. ? ALLERGIES: Rafaela [Fexofenadine Hcl]; Darvon [Propoxyphene Hcl] ? PERSONAL HISTORY: SOCIAL?HISTORY Social History Socioeconomic History Marital status: Spouse name: Not on file Number of children: Not on file Years of education: Not on file Highest education level: Not on file Social Needs Financial resource strain: Not on file Food insecurity - worry: Not on file Food insecurity - inability: Not on file Transportation needs - medical: Not on file Transportation needs - non-medical: Not on file Occupational History Not on file Tobacco Use Smoking status: Former Smoker Types: Cigarettes Smokeless tobacco: Never Used Substance and Sexual Activity Alcohol use: No Drug use: No Sexual activity: Not on file Other Topics Concerns: Service: Not Asked Blood Transfusions: Not Asked Caffeine Concern: Yes low Occupational Exposure: Not Asked Hobby Hazards: Not Asked Sleep Concern: Not Asked Stress Concern: Not Asked Weight Concern: Not Asked Special Diet: Not Asked Back Care: Not Asked Exercise: Not Asked Bike Helmet: Not Asked Seat Belt: Not Asked Self-Exams: Not Asked Social History Narrative Not on file ? FAMILY HISTORY: FAMILY?HISTORY FAMILY HISTORY Problem Relation Age of Onset - Heart Mother ? ? mi - Heart Father ? ? mi - Stroke Sister ? - Seizures Sister ? ? ? REVIEW OF SYMPTOMS: The review of systems data was entered by the nurse and reviewed by me ? Nursing Notes: Manas Davalos 08/25/2018 10:47 AM Signed REVIEW OF SYSTEMS: General: The patient denies fatigue, denies weight loss, denies weight gain, denies feeling hot, and denies feelings of cold. Eyes: The patient denies glaucoma, denies eye injury/surgery, wears glasses or contacts. Ear/Nose/Throat: The patient denies allergies, denies hayfever, denies ear infections, and denies bloody noses. Cardiovascular: The patient denies chest pain, denies heart disease, NOTES high blood pressure,denies cardiac stent, denies prior heart attack, denies irregular heart beat, denies high cholesterol, NOTES poor circulation, denies heart failure, other cardiac issues, denies claudication, denies cold feet, denies peripheral arterial stent. Respiratory: The patient denies tuberculosis, NOTES pneumonia, denies frequent cough, denies pulmonary embolism, denies shortness of breath, and denies coughing up blood. Gastrointestinal: The patient denies difficulty swallowing, NOTES acid reflux, denies ulcers, denies vomiting, denies jaundice/hepatitis, NOTES gallbladder problems, denies black or tarry stools, denies hemorrhoids, denies bleeding from rectum, NOTES diverticulitis, denies constipation, denies diarrhea, denies loss of stool control, and denies hernias. Kidney/Bladder: The patient denies kidney stones, NOTES urine infections, and denies bloody urine. Skin: The patient denies a history of skin cancer, denies bleeding/changing moles, and denies a history of skin rash. Neurologic: The patient denies a history of epilepsy/convulsions, denies headaches, denies head/spinal injuries, and denies stroke/TIA. Psychiatric: The patient denies psychiatric medications, denies depression, and denies voices, denies substance abuse. Endocrine: The patient NOTES thyroid disorders, denies diabetes, and denies hormonal problems. Hematologic: The patient denies a history of bruising, denies bleeding, and denies anemia, denies blood clots. Infections: The patient denies a history of measles and mumps, denies rheumatic fever, and denies sexually transmitted diseases. Musculoskeletal: The patient denies back pain/injury, denies back problems, denies sciatica, denies knee/foot trouble, denies arthritis, or denies gout. ? ? When was patient's last Mammogram screening? Unknown ? Last Colonoscopy: 06/2013 ? Manas Davalos PHYSICAL EXAMINATION: ? General: The patient is 72 year old female, well nourished, well hydrated in no acute distress. The patient is oriented to time, place, and person. ? VITALS: Blood pressure 144/98, pulse 76, temperature 36.8 ?C (98.2 ?F), temperature source Temporal Artery, weight 75 kg (165 lb 6.4 oz). Body mass index is 35.79 kg/m?. ? HEENT: Normal cephalic, ataumatic, pupils are equally round, sclera are anicteric, mucous membranes are moist, oropharynx is clear. Neck has no masses, asymmetry or lymphadenopathy. Thyroid is unremarkable. ? Respiratory: Clear to auscultation and percussion. Normal respiratory excursion and pattern. ? Cardiac: Examination is regular rate and rhythm. ? Abdominal exam: Normoactive bowel sounds, Soft, non tender in the right upper quadrant negative Macias's sign, with no palpable masses. No hepatosplenomegaly. No palpable hernias. ? Rectal exam: exam deferred ? Extremities: no clubbing, cyanosis or edema. No adenopathy. ? Other: ? LABORATORY VALUES: As Noted ? RADIOLOGIC STUDIES: As Noted Above ? Assessment IMPRESSION: Biliary Dyskinesia, atypical history for biliary colic ? PLAN: My plan is to perform upper endoscopy. We discussed the risks and benefits of the planned endoscopy. I have informed the patient that complications can occur including failure to complete the endoscopy and perforation. The patient had the opportunity to ask questions concerning the planned endoscopy. My staff has also explained the procedure to the patient in understandable terms and has given the patient printed material concerning the procedure. The patient freely consents to surgery. ? ? This is unremarkable then my plan is to perform a laparoscopic cholecystectomy with intraoperative choleangiogram. The planned surgical procedure was discussed extensively with the patient. The risks, benefits, anticipated outcomes and possible complications were mentioned. My staff has also explained the procedure in understandable terms and the patient was given the option to take printed material concerning the planned procedure. The patient had the opportunity to ask questions concerning the planned procedure. The patient freely consents to the planned procedure. ? Planned Procedure: LAPAROSCOPIC CHOLECYSTECTOMY WITH INTRAOPERATIVE CHOLEANGIOGRAM - [id number] ? Planned antibiotic: Ancef 2gm IVPB road design draftsperson to OR ? SCDs needed - Yes ? Ice Cream Scooper Needed - Yes ? Diagnoses: (R10.10) Pain of upper abdomen (primary encounter diagnosis) ? ? A letter was sent to Dr. José Miguel Nava DO indicating the above finding for this patient. ? _ Alex Ramon MD [facility] NURSING PROGon 09-05-2018 Protein mass conc HNO ID: [id number] Author: Anni (Rn) JULIAN English Service: Nursing Author Type: Registered Nurse Type: Nursing Progress Note Filed: 09/05/2018 4:34 PM Note Text: 1435 pt to PACU. Awakes easily to VS, remains drowsy. HOPKINS TCx4. Denies pain. Lap sites with mireya VENTURA. PIV DANRAGHAVENDRA. VSS. No s/sx of distress. 1530 pt to Phase 2 in PACU. 1620 pt d/c'd to home via wheelchair. [facility] OPERATIVE NOon 09-05-2018 OPERATIVE NO HNO ID: [id number] Author: Alex Ramon Service: General Surgery Author Type: Physician Type: Operative Report Filed: 09/06/2018 9:16 AM Note Text: [facility] - Operative Report STACEY ELKINS : 1945 AGE: 72. SEX: F PATIENT TYPE: A HOSP SVC: GEN LOCATION: [facility] ATTENDING PHYSICIAN: ALEX RAMON CSN NUMBER: [id number] DATE OF SURGERY/PROCEDURE: 09/05/2018 INCISION/PROCEDURE START TIME: 1:38 p.m. INCISION CLOSE/PROCEDURE END TIME: 2:25 p.m. PREOPERATIVE DIAGNOSIS: Upper abdominal pain, biliary colic. POSTOPERATIVE DIAGNOSIS: Upper abdominal pain, biliary colic. Normal intraoperative cholangiogram. SURGEON: Alex Ramon M.D. BULLET CASTING OPERATOR: Tonya Polanco PA-C. SURGERY/PROCEDURE: Laparoscopic cholecystectomy with intraoperative cholangiogram. ANESTHESIA: General endotracheal. LOG ID NUMBER: [id number]. ANESTHESIOLOGIST: Dr. Jackson. ASA: 3. IV FLUIDS: 1400 mL. EBL: 10 mL. URINE OUTPUT: No catheter. FINDINGS: Normal intraoperative cholangiogram. SPECIMENS: Gallbladder. DRAINS: None. COMPLICATIONS: None. DISPOSITION: The patient was taken to PACU in stable condition. DESCRIPTION OF PROCEDURE: The patient was brought to the operative suite. Sign-in was performed verifying patient, site, procedure, position, critical nursing information, VTE and antibiotic prophylaxis. The patient received 2 grams of Ancef and had sequential compression devices placed. Following induction of general anesthetic, the patient's abdomen was prepped and draped in usual fashion. Time-out was performed verifying patient, site, procedure, and position. Local anesthetic was injected below the umbilicus. Incision was made dissecting down to the level of the fascia. Two stay sutures were placed in the fascia. Incision was made at the fascia, and peritoneum was entered under direct visualization. Jerson trocar was inserted through a stay suture, and pneumoperitoneum to 15 mmHg was insufflated. Three 5-mm ports were placed into position. Visual inspection revealed normal- appearing gallbladder. Gallbladder was dissected upward and outward and dissection was carried out in Calot's triangle. The artery was noted to be anterior to the duct. Once this was fully dissected, it was double clipped proximally and single clipped distally, and divided. As dissection was continued, a critical view of the neck of the gallbladder following into the cystic duct with no signs of aberrant ductal structures were seen. A clip was placed in the neck of the gallbladder- cystic duct junction, and a partial ductotomy was made. Percutaneous cholangiocath was inserted and secured with a clip. Intraoperative cholangiogram showed filling from the cystic duct, filling the common bile duct, filling the secondary biliary radicals, and emptying into the duodenum without obstruction. Clip and catheter were removed. Two clips were placed on the cystic duct and cystic duct was divided. The gallbladder was dissected from the gallbladder fossa using electrocautery, placed in Endobag and removed through the umbilical port site. 0 PDS figure-of- eight sutures were placed on the umbilical port site defect. The gallbladder fossa was checked for hemostasis. With good hemostasis, the area was irrigated and aspirated clear. 5-mm ports were removed under direct visualization with no signs of bleeding. Pneumoperitoneum was released. The umbilical trocar was removed. The umbilical fascia was secured. Skin was closed with interrupted 4-0 Monocryl subcuticular suture. Steri-Strips and sterile dressings were applied. The patient tolerated the procedure well and was brought to recovery room in stable condition. Alex Ramon M.D. IJMMY:[id number] [facility] PT EDon 09-05-2018 PT ED HNO ID: [id number] Author: Anni YeRn) Amador RN Service: Nursing Author Type: Registered Nurse Type: Patient Education Filed: 09/05/2018 4:31 PM Note Text: POST OP LEARNING RESPONSE INSTRUCTION PROVIDED TO: Patient METHOD OF INSTRUCTION: Individual instruction PATIENT / FAMILY RESPONSE: Verbalizes understanding of: POST-PROCEDURE INSTRUCTIONS-Correct actions to take to reduce post procedure complications FOLLOW-UP PLAN: Complete - No need for follow-up SUPPLEMENTAL MATERIAL: None REFERRAL (RECOMMENDATION): None Electronically Signed By: Anni English RN In Department: [facility] SURGERY [facility] PT ED HNO ID: [id number] Author: Maryjane YeRn) JULIAN Fang Service: Nursing Author Type: Registered Nurse Type: Patient Education Filed: 09/05/2018 10:48 AM Note Text: PRE OP LEARNING ASSESSMENT PROCEDURE/SURGERY: SURGERY: READINESS TO LEARN COGNITIVE ABILITY: Alert and oriented MOTIVATION TO LEARN: Eager FAMILY SUPPORT: High - Very involved in pt care PATIENT LEARNS BEST BY: Verbal Instruction FACTORS AFFECTING LEARNING: None PHYSICAL LIMITATIONS AFFECTING LEARNING: None Electronically Signed By: Maryjane Fang RN In Department: [facility] SURGERY [facility] SURGICAL PATHOLOGYon 019 SURGICAL PATHOLOGY Specimen originated from [facility] Specimen #: [id number] Submitting Physician: ALEX RAMON MD FINAL DIAGNOSIS Gallbladder, cholecystectomy - Mild chronic cholecystitis with cholesterolosis. SR/lbk 09/07/2018 Gagan Dewey MD, Ph.D. (Electronic Signature) SPECIMEN SUBMITTED A: GALLBLADDER CLINICAL DATA RUQ PAIN, LMP: BOAT WASHER LAPAROSCOPIC CHOLECYSTECTOMY WITH GRAMS GROSS DESCRIPTION A. Received in formalin is a gallbladder measuring 5.1 x 2.2 x 2 cm. The serosal aspect is smooth and glistening. A perforation is not present. The lumen contains bile. The wall of the gallbladder averages 0.2 cm in thickness. Calculi are not present. The mucosa is bile stained and demonstrates longitudinally oriented yellow streaks more prominent on the summit of the mucosal ridges. Crown Pouncer sections are submitted in cassette A1. GREG/lorin/09/06/18 Gross examination performed at [facility], [address] [place] [address] Date of Report: 09/07/2018 Date of Procedure: 09/05/2018 Date of Receipt: 09/05/2018 Submitted by: ALEX RAMON MD Location: [facility] Diagnostic interpretation performed at [facility], [address] [place] [address]. [facility] Comment on above: Performed By: #### P ATHS ####[facility] [id number] [place], [place] [id number] XR CHOLANGIOGRAM INTRAOPon 0 09-05-2018 Cholesterol mass conc * * *Final Report* * * DATE OF EXAM: Sep 05 2018 2:15PM MDR [id number] - XR CHOLANGIOGRAM INTRAOP / PROCEDURE REASON: GALLBLADDER DISEASE * * * * Physician Interpretation * * * * History: Cholecystectomy Findings: 2 fluoroscopic views submitted. Visualized common bile duct and biliary radicals appear within normal limits without evidence of filling defect or abnormal narrowing. Please see detailed operative report. Fluoroscopic Radiation Summary: Plane A, Air Kerma: 3.9 mGy Dose Area Product (DAP): 1365.6 mGy*cmS2 Fluoro time: 0:20 min:sec General Maintenance Technician: RAN Transcribe Date/Time: Sep 05 2018 5:02P Dictated by : DADA CADET MD This examination was interpreted and the report reviewed and electronically signed by: DADA CADET MD on Sep 05 2018 5:02PM EST [id number] [facility] HOSPon 09-02-2018 HOSP Patient:Matt Elkins ggy Lola MRN: Height:4' 10"(1.473 m) Weight:168 lb (76.204 kg) Outpatient Medications as of 09/05/18: pantoprazole DR (PROTONIX) 40 mg tablet acetaminophen (TYLENOL EXTRA STRENGTH) 500 mg tablet dicyclomine (BENTYL) 10 mg capsule conjugated estrogens (PREMARIN) vaginal cream PHENAZOPYRIDINE HCL (AZO ORAL) ascorbic acid, vitamin C, (VITAMIN C) 500 mg tablet SALICYLIC ACID (COMPOUND W TOPICAL) SACCHAROMYCES BOULARDII (PROBIOTIC, S.BOULARDII, ORAL) levothyroxine (SYNTHROID) 50 mcg tablet MULTIVITAMIN ORAL pantoprazole DR (PROTONIX) 40 mg tablet loratadine(CLARITIN 10 MG TAB) Admission/Clinic Administered Medications as of 09/05/18: scopolamine 1 mg over 3 days 1 Patch (TRANSDERM-SCOP) scopolamine - REMOVE PATCH scopolamine - VERIFY patch Problem List: Hyperactivity of bladder [N31.8] Urinary tract infection without hematuria [N39.0] Mixed incontinence [N39.46] Allergies: Rafaela [Fexofenadine Hcl] Darvon [Propoxyphene Hcl] Date Verified: 09/05/18 Lab Values No results within the last 30 days for the following basenames: K,HCT Progress Notes ([facility]): Manas Davalos 09/02/2018 3:43 PM Signed 09-05-2018 Samir Davalos Progress Notes ([facility]): Jade Hernandez PA-C 09/04/2018 11:04 PM Signed HISTORY AND PHYSICAL Stacey Elkins 1945 REFERRING PHYSICIAN: José Miguel Nava DO CHIEF COMPLAINT: No chief complaint on file. HPI: Stacey is a 72 year old female I am following with Dr. Ramon for a complaint of right upper quadrant pain. Per his HANDP from 08/25/18: Stacey is a 72 year old female with a complaint of right lower quadrant pain. The patient has had symptoms of right lower quadrant pain for 6 months. The symptoms have increased, over the past few months. The pain does radiate to the back. Food does aggravate her symptoms. Alleviating factors include: none. ? The patient was seen by her primary care physician 1 week ago. Stacey underwent an ultrasound and a HIDA scan. These tests demonstrated a normal ultrasound and a decreased gall bladder ejection fraction. She noted nausea during the second portion of the HIDA scan but no true reproduction of her pain symptoms. The patient is referred for evaluation and treatment. ? The patient is being seen by me today at the request of Dr. José Miguel Nava, DO for my opinion and advice regarding right lower quadrant pain but questionably biliary colic. ? Dr. Ramon had felt history was atypical for biliary colic and recommended EGD first, with consideration for possible cholecystectomy pending EGD findings. Dr. Ramon performed EGD on 08/26/18. Patient was noted to have normal examined jejunum, duodenitis, gastritis, and mildly severe reflux esophagitis concerning for Barboza's. Pathology demonstrated: FINAL DIAGNOSIS 1. Stomach, antrum, biopsy (A) - Gastric antral-type mucosa with no pathologic diagnostic abnormality; see comment. 2. Esophagogastric junction, biopsy (B) - Squamous mucosa and inflamed gastric mucosa with intestinal metaplasia; negative for dysplasia; see comment. SS/glw 08/29/2018 COMMENT 1. No microorganisms morphologically compatible with H. pylori are identified on routine XANDER stained sections. 2. If the biopsy specimen comes from an endoscopic abnormality within the esophagus, the intestinal metaplasia fulfills the [employer] definition of Barboza's esophagus; otherwise, this is considered intestinal metaplasia at the gastroesophageal junction. ? Patient states she is miserable today. Notes she has been having more episodes of right upper quadrant discomfort since the endoscopy. Notes she is afraid to eat because food exacerbates her symptoms. Notes feeling "pressure" under right rib cage today. Denies fever, chills, nausea or vomiting. Patient denies any known cardiac or pulmonary issues. She denies any problems with sedation in the past. SIGNIFICANT MEDICAL PROBLEMS: PAST MEDICAL HISTORY Diagnosis Date - Arthritis - Bladder infection - Bronchitis - Bronchitis - GERD (gastroesophageal reflux disease) - Hearing loss - HTN (hypertension) - Overactive bladder - Pneumonia - Sleep apnea - Snoring - Thyroid disease - Unspecified hearing loss - UTI (urinary tract infection) OPERATIONS: PAST SURGICAL HISTORY Procedure Laterality Date - COLONOSCOP W/ OR W/O BRSH SPEC 07/14/2013 Colonoscopy - EGD W/O OR W/BRUSH/WASH 08/26/2018 Barboza's - PAST SURGICAL HISTORY OF 05/11/2014 cysto bladder biopsy - TOTAL ABDOM HYSTERECTOMY Hysterectomy, CECILE - TYP MEMBR REP W OR W/O PATCH bilat Tympanoplasty CURRENT MEDICATIONS: Current Outpatient Medications: pantoprazole DR (PROTONIX) 40 mg tablet Take 1 tablet by mouth once daily. Disp: 30 tablet Rfl: 3 acetaminophen (TYLENOL EXTRA STRENGTH) 500 mg tablet Take 1,000 mg by mouth every 8 hours as needed. Disp: Rfl: dicyclomine (BENTYL) 10 mg capsule Take 10 mg by mouth as needed. Disp: Rfl: 0 conjugated estrogens (PREMARIN) vaginal cream Apply fingertip amount into the vagina Every Wed, Wednesday, Wednesday at bedtime. Disp: 1 Tube Rfl: 7 PHENAZOPYRIDINE HCL (AZO ORAL) Take by mouth. Disp: Rfl: ascorbic acid, vitamin C, (VITAMIN C) 500 mg tablet Take 1,000 mg by mouth once daily. Disp: Rfl: SALICYLIC ACID (COMPOUND W TOPICAL) Apply to affected area. Disp: Rfl: SACCHAROMYCES BOULARDII (PROBIOTIC, S.BOULARDII, ORAL) Take by mouth every other day. Disp: Rfl: Methenamine Hippurate (HIPREX) 1 gram tablet Take 1 tablet by mouth twice daily with meals. Disp: 60 tablet Rfl: 11 levothyroxine (SYNTHROID) 50 mcg tablet Disp: Rfl: MULTIVITAMIN ORAL Take by mouth. Disp: Rfl: pantoprazole DR (PROTONIX) 40 mg tablet Take 40 mg by mouth once daily. Disp: Rfl: loratadine(CLARITIN 10 MG TAB) Take one(1) tablet daily as needed for allergy symptoms. Disp: Rfl: 0 No current facility-administered medications for this visit. ALLERGIES: Rafaela [Fexofenadine Hcl]; Darvon [Propoxyphene Hcl] PERSONAL HISTORY: Social History Socioeconomic History Marital status: Spouse name: Not on file Number of children: Not on file Years of education: Not on file Highest education level: Not on file Social Needs Financial resource strain: Not on file Food insecurity - worry: Not on file Food insecurity - inability: Not on file Transportation needs - medical: Not on file Transportation needs - non-medical: Not on file Occupational History Not on file Tobacco Use Smoking status: Former Smoker Types: Cigarettes Smokeless tobacco: Never Used Substance and Sexual Activity Alcohol use: No Drug use: No Sexual activity: Not on file Other Topics Concerns: Service: Not Asked Blood Transfusions: Not Asked Caffeine Concern: Yes low Occupational Exposure: Not Asked Hobby Hazards: Not Asked Sleep Concern: Not Asked Stress Concern: Not Asked Weight Concern: Not Asked Special Diet: Not Asked Back Care: Not Asked Exercise: Not Asked Bike Helmet: Not Asked Seat Belt: Not Asked Self-Exams: Not Asked Social History Narrative Not on file FAMILY HISTORY: FAMILY HISTORY Problem Relation Age of Onset - Heart Mother mi - Heart Father mi - Stroke Sister - Seizures Sister REVIEW OF SYMPTOMS: The review of systems data was entered by the nurse and reviewed by wv Nursing Notes: Gunner John BOYD 09/02/2018 3:31 PM Signed REVIEW OF SYSTEMS: General: The patient denies fatigue, denies weight loss, denies weight gain, denies feeling hot, and denies feelings of cold. Eyes: The patient denies glaucoma, denies eye injury/surgery, wears glasses or contacts. Ear/Nose/Throat: The patient denies allergies, denies hayfever, denies ear infections, and denies bloody noses. Cardiovascular: The patient denies chest pain, denies heart disease, NOTES high blood pressure,denies cardiac stent, denies prior heart attack, denies irregular heart beat, denies high cholesterol, NOTES poor circulation, denies heart failure, other cardiac issues, denies claudication, denies cold feet, denies peripheral arterial stent. Respiratory: The patient denies tuberculosis, NOTES pneumonia, denies frequent cough, denies pulmonary embolism, denies shortness of breath, and denies coughing up blood. Gastrointestinal: The patient denies difficulty swallowing, NOTES acid reflux, denies ulcers, denies vomiting, denies jaundice/hepatitis, NOTES gallbladder problems, denies black or tarry stools, denies hemorrhoids, denies bleeding from rectum, NOTES diverticulitis, denies constipation, denies diarrhea, denies loss of stool control, and denies hernias. Kidney/Bladder: The patient denies kidney stones, NOTES urine infections, and denies bloody urine. Skin: The patient denies a history of skin cancer, denies bleeding/changing moles, and denies a history of skin rash. Neurologic: The patient denies a history of epilepsy/convulsions, denies headaches, denies head/spinal injuries, and denies stroke/TIA. Psychiatric: The patient denies psychiatric medications, denies depression, and denies voices, denies substance abuse. Endocrine: The patient NOTES thyroid disorders, denies diabetes, and denies hormonal problems. Hematologic: The patient denies a history of bruising, denies bleeding, and denies anemia, denies blood clots. Infections: The patient denies a history of measles and mumps, denies rheumatic fever, and denies sexually transmitted diseases. Musculoskeletal: The patient denies back pain/injury, denies back problems, denies sciatica, denies knee/foot trouble, denies arthritis, or denies go I have confirmed and edited as necessary, the PFSH and ROS obtained by others. PHYSICAL EXAMINATION: General: The patient is 72 year old female, well nourished, well hydrated in no acute distress. The patient is oriented to time, place, and person. VITALS: Blood pressure 138/82, pulse 101, temperature 36.9 ?C (98.4 ?F), temperature source Temporal Artery, height 147.3 cm (4' 10"), weight 76.2 kg (168 lb), SpO2 97 %. Body mass index is 35.11 kg/m?. HEENT: Normal cephalic, ataumatic, pupils are equally round, sclera are anicteric, mucous membranes are moist, oropharynx is clear. Neck has no masses, asymmetry or lymphadenopathy. Respiratory: Clear to auscultation and percussion. Normal respiratory excursion and pattern. Cardiac: Examination is regular rate and rhythm. Abdominal exam: Normoactive bowel sounds, Soft, tender in the right upper quadrant without rebound or guarding, with no palpable masses. No hepatosplenomegaly. No palpable hernias. Rectal exam: exam deferred Extremities: no clubbing, cyanosis or edema. No adenopathy. Other: LABORATORY VALUES: As Noted RADIOLOGIC STUDIES: As Noted Above Assessment IMPRESSION: 1) s/p endoscopy with findings of gastritis and Barboza's esophagus. 2) Biliary colic PLAN: The operative findings and pathology report were reviewed with the patient, and the patient had the opportunity to ask questions and have questions answered. Discussed diagnosis of Barboza's esophagus, importance of staying on a PPI long-term, as well as dietary and lifestyle modifications and regular endoscopic surveillance. 3-year recall letter generated. Patient verbalized understanding of all above and agreed with the plan. Dr. Ramon also evaluated the patient. He plans to perform a laparoscopic cholecystectomy with intraoperative choleangiogram. The planned surgical procedure was discussed extensively with the patient. The risks, benefits, anticipated outcomes and possible complications were mentioned. My staff has also explained the procedure in understandable terms and the patient was given the option to take printed material concerning the planned procedure. The patient had the opportunity to ask questions concerning the planned procedure. The patient freely consents to the planned procedure. Planned Procedure: LAPAROSCOPIC CHOLECYSTECTOMY WITH INTRAOPERATIVE CHOLEANGIOGRAM - [id number] Planned antibiotic: Ancef 2gm IVPB road design draftsperson to OR SCDs needed - Yes Ice Cream Scooper Needed - Yes Diagnoses: (K22.70) Barboza's esophagus without dysplasia (primary encounter diagnosis) (R10.11) Right upper quadrant pain My findings have been communicated to Dr. José Miguel Nava DO via shared medical record. This note will be forwarded to Dr. José Miguel Nava DO. _ FABIAN Stokes PA-C 09/02/2018 3:26 PM Signed The following instructions are important for you related to your office visit today with the [facility] General Surgeons. INSTRUCTIONS FOR BARRETTS ESOPHAGITIS I discussed with you the findings of your upper endoscopy. Your upper endoscopy demonstrated Barboza's esophagitis Esophagitis may be a form of peptic irritation, with acid moving from the stomach to the esophagus (gastroesophageal reflux). Barboza's changes are microscopic findings that have the lining of the esophagus look like the stomach lining. This finding of gastric metaplasia has been shown to be associated with an increased risk of developing esophageal cancer in the future. This is particularly worrisome if atypical cells (dysplasia) are found at biopsy. Esophagitis is related to many factors - acid production, obesity, foods, smoking and alcohol. Factors that increase acid production include smoking and stress. If you smoke, stopping smoking will often cure these issues without needing other medications. Prescription strength proton pump inhibitors (PPIs) are necessary for treatment of Barboza's esophagitis. Treatment with PPI are usually continued indefinitely, even if your symptoms improve or if you never had GERD symptoms. Avoiding smoking, alcohol and antiinflammatory medications are important in the successful treatment of reflux esophagitis and peptic diseases. Other factors that contribute to GERD and esophagitis are being overweight, eating large meals before laying down and certain foods. Weight loss will help improve many GERD complaints. Remaining upright after eating large meals and having a small supper will also help symptoms. Avoiding food that contribute to reflux - chocolate, caffeine, cheddar cheese may also help. Follow up upper endoscopy should be performed regularly to assure healing of the esophagus and to make sure that worsening Barboza's esophagitis is treated appropriately. New or worsening symptoms such are epigastric pain, burning, difficulty swallowing or food sticking should be relayed to your physician. Feeling full early after eating, or black, tarry, foul smelling stools are also worrisome. If you have any difficulties or concerns, you should contact our office immediately. If you note any additional difficulties, questions, or concerns, you should contact our office immediately @ [phone] and ask to be transferred to the General Surgery department. Gunner Lopez LPN 09/02/2018 3:31 PM Signed REVIEW OF SYSTEMS: General: The patient denies fatigue, denies weight loss, denies weight gain, denies feeling hot, and denies feelings of cold. Eyes: The patient denies glaucoma, denies eye injury/surgery, wears glasses or contacts. Ear/Nose/Throat: The patient denies allergies, denies hayfever, denies ear infections, and denies bloody noses. Cardiovascular: The patient denies chest pain, denies heart disease, NOTES high blood pressure,denies cardiac stent, denies prior heart attack, denies irregular heart beat, denies high cholesterol, NOTES poor circulation, denies heart failure, other cardiac issues, denies claudication, denies cold feet, denies peripheral arterial stent. Respiratory: The patient denies tuberculosis, NOTES pneumonia, denies frequent cough, denies pulmonary embolism, denies shortness of breath, and denies coughing up blood. Gastrointestinal: The patient denies difficulty swallowing, NOTES acid reflux, denies ulcers, denies vomiting, denies jaundice/hepatitis, NOTES gallbladder problems, denies black or tarry stools, denies hemorrhoids, denies bleeding from rectum, NOTES diverticulitis, denies constipation, denies diarrhea, denies loss of stool control, and denies hernias. Kidney/Bladder: The patient denies kidney stones, NOTES urine infections, and denies bloody urine. Skin: The patient denies a history of skin cancer, denies bleeding/changing moles, and denies a history of skin rash. Neurologic: The patient denies a history of epilepsy/convulsions, denies headaches, denies head/spinal injuries, and denies stroke/TIA. Psychiatric: The patient denies psychiatric medications, denies depression, and denies voices, denies substance abuse. Endocrine: The patient NOTES thyroid disorders, denies diabetes, and denies hormonal problems. Hematologic: The patient denies a history of bruising, denies bleeding, and denies anemia, denies blood clots. Infections: The patient denies a history of measles and mumps, denies rheumatic fever, and denies sexually transmitted diseases. Musculoskeletal: The patient denies back pain/injury, denies back problems, denies sciatica, denies knee/foot trouble, denies arthritis, or denies go [facility] OBSOLETEon 08-26-2017 OBSOLETE Refill (UROLAE) ----STACEY ELKINS ([id number]) 1945 [facility] Time Provider Department08/26/17 MARISSA FRYE UROLAE During your visit today, we recorded the following information about you:Angie Pacheco [facility] 08/26/2017 3:43 PM SignedPatient called requesting the following refill.Pending Prescriptions Disp Refills CONJUGATED ESTROGENS 0.625 MG/GRAM VAGINAL CREAM 1 Tube 7 Sig: Apply fingertip amount into the vagina Every Wed, Wednesday, Wednesday atbedtime. JOCELIN: No NITROFURANTOIN MACROCRYSTAL 100 MG CAPSULE 30 capsule 2 Sig: Take 1 capsule by mouth daily at bedtime. JOCELIN: NoPatient last appointment: 06/08/2017Patient Phone numbers: [phone] (home)Request is for script(s) to be escript to pharmacy.Angie Pacheco CMAAllergies As of Date: 08/26/2017 Noted Allergy ReactionALLEGRA (FEXOFENADINE HCL) 02/21/2009 Comments: bad dreamsDARVON (PROPOXYPHENE HCL) 02/21/2009 Comments: mental status changeDate Reviewed: 06/08/2017Reviewed by: Marissa Frye - Fully AssessedReason for Visit: Refill Request [94]Order(s):conjugated estrogens (PREMARIN) vaginal creamApply fingertip amount into the vagina Every Wed, Wednesday, Wednesday at bedtime.Disp: 1 TubeRfl: 7 nitrofurantoin (MACRODANTIN) 100 mg capsuleTake 1 capsule by mouth daily at bedtime.Disp: 30 capsuleRfl: 2Prescriptions as of 08/26/2017 Sig: CONJUGATED ESTROGENS 0.625 MG* Apply fingertip amount into t* NITROFURANTOIN MACROCRYSTAL 1* Take 1 capsule by mouth daily* AZO ORAL Take by mouth. ASCORBIC ACID (VITAMIN C) 500* Take 500 mg by mouth once ada* COMPOUND W TOPICAL Apply to affected area. PROBIOTIC (S.BOULARDII) ORAL Take by mouth every other da* METHENAMINE HIPPURATE 1 GRAM * Take 1 tablet by mouth twice * LEVOTHYROXINE 50 MCG TABLET MULTIVITAMIN ORAL Take by mouth. PANTOPRAZOLE 40 MG TABLET,DEL* Take 40 mg by mouth once gordy* * CLARITIN 10 MG TABLET Take one(1) tablet daily as n*Problem List As Of Date 08/26/2017 Noted Resolved Hyperactivity of Bladder [N31.8] INVALID FOR* Urinary tract infection without hematuria [N39.*INVALID FOR* Mixed incontinence [N39.46] INVALID FOR*Prescriptions ordered this encounter Disp Refills Start End CONJUGATED ESTROGENS 0.625 MG/GRAM V* 1 Tu* 7 08/30/2017 Sig: Apply fingertip amount into the vagina Every Wed, Wednesday, Wednesday at bedtime. NITROFURANTOIN MACROCRYSTAL 100 MG C* 30 c* 2 08/30/2017 11/28/2017 Route: ORAL Sig: Take 1 capsule by mouth daily at bedtime.Medications Discontinued During This Encounter conjugated estrogens (PREMARIN) vagi* 1 Tu* 7 12/31/2015 08/30/2017 Sig: Apply fingertip amount into the vagina Every Wed, Wednesday, Wednesday at bedtime. Disc: Reason for discontinue is not on file. nitrofurantoin (MACRODANTIN) 100 mg * 30 c* 2 06/08/2017 08/30/2017 Route: ORAL Sig: Take 1 capsule by mouth daily at bedtime. Disc: Reason for discontinue is not on file. Status:Closed by ALEXIS GAY on 08/30/17 [facility] CNOVon 06-08-2017 CNOV Office Visit (UROLAE) ----DONTAESTACEY Coley ([id number]) 1945 [facility] Time Provider Bgbfmsmjcu74/19/17 1:30 PM MARISSA FRYE During your visit today, we recorded the following information about you: Blood pressure Weight Height 144/90 76.2 kg 1.448 Demond Ruby RN 06/08/2017 1:53 PM SignedMedications and Allergies reviewed and documented.Patient accompanied by:daughterHigh Risk: WEIGHT APPETITE CHANGE: YesSAFETY IN THE HOME: NoADL'S: NoCONCERNS ABOUT ABUSE: NoLatex allergy: No .Betadine allergy: NoLidocaine allergy: NoDo you have any difficulty with chewing and swallowing? No .Any new or significant change in pain? NoLevel of pain, 1-10, with 1 being mild discomfort is NAPatient given lidocaine 2% jelly, 6 ml to urethra Lot# [id number], Exp [id number], [facility] #[id number]. Jeannette Frye MD 06/08/2017 2:43 PM SignedCYSTOSCOPY PROCEDURE NOTE:Stacey Elkins is a 71 year old female who presents with recurrent UTIsfor acystoscopy.Pt ID verified with patient: YesProcedure verified with patient: YesProcedure confirmed with physician and decision support manager: YesSign In:History and Physical Exam reviewed and is unchanged.Primary Diagnosis: UTIInformed Consent Discussed: Yes. Risks, benefits, alternatives and personneldiscussed with patient who consents to proceed.Sign in Communication: CompletedTime Out: Team Confirms the Correct Patient, Correct Procedure; Cystoscopy,Correct Site and Site Marking, Correct Position (if applicable).Affirmation of Time Out: YesSign Out: Sign Out Discussion: CompletedPhysician: Marissa Frye MDA urinalysis was performed revealing no evidence of infection.The benefits, risks, alternatives of the cystoscopy procedure and personnelwere discussed with the patient. The verbal consent was obtained and thepatient agrees to proceed.Procedure: The patient was placed on the procedure table in the supine positionand prepped and draped in the usual sterile fashion. 2% Lidocaine Jelly wasplaced per urethra as an anesthetic in the standard fashion. Once adequatelocal anesthesia was achieved, the tip of the Flexible cystoscope was carefullyplaced into the urethra under direct visual guidance. The scope was negotiatedper urethra with no evidence of stricture into the bladder. Careful panendoscopy was carried out. The posterior, superior and lateral benoit and domeof the bladder were all well visualized and the scope was retroflexed uponitself. The findings were consistent with no evidence of bladder mucosalpathology.At the conclusion of the procedure, the Flexible cystoscope was removedatraumatically. The patient tolerated the procedure without complications.Patient was given standard post-procedure instructions, and was directed tocomplete the course of oral antibiotics and increase oral fluid intake asdirected.ASSESSMENT/PLAN:1 . Urinary tract infection without hematuria, site unspecified - ICD9: 599.0,ICD10: N39.0Referring Provider: JOSÉ MIGUEL NAVA [[id number]]Allergies As of Date: 06/08/2017 Noted Allergy ReactionALLEGRA (FEXOFENADINE HCL) 02/21/2009 Comments: bad dreamsDARVON (PROPOXYPHENE HCL) 02/21/2009 Comments: mental status changeDate Reviewed: 06/08/2017Reviewed by: Marissa Frye - Fully AssessedReason for Visit: Cystoscopy-1 [303]Primary Visit Diagnosis:Urinary tract infection without hematuria, site unspecified [N39.0]Order(s):UA DIP B/O [[id number]] Order #: [id number] nitrofurantoin (MACRODANTIN) 100 mg capsuleTake 1 capsule by mouth daily at bedtime.Disp: 30 capsuleRfl: 2Prescriptions as of 06/08/2017 Sig: AZO ORAL Take by mouth. ASCORBIC ACID (VITAMIN C) 500* Take 500 mg by mouth once ada* PROBIOTIC (S.BOULARDII) ORAL Take by mouth every other da* METHENAMINE HIPPURATE 1 GRAM * Take 1 tablet by mouth twice * LEVOTHYROXINE 50 MCG TABLET MULTIVITAMIN ORAL Take by mouth. PANTOPRAZOLE 40 MG TABLET,DEL* Take 40 mg by mouth once gordy* CONJUGATED ESTROGENS 0.625 MG* Apply fingertip amount into t* NITROFURANTOIN MACROCRYSTAL 1* Take 1 capsule by mouth daily* COMPOUND W TOPICAL Apply to affected area. * CLARITIN 10 MG TABLET Take one(1) tablet daily as n*Medication notes this encounter COMPOUND W TOPICAL >> Jeannette Ruby RN 06/08/2017 1:44 PM >> JEANNETTE RUBY RN Jun 08, 2017 1:44 PM Not takingProblem List As Of Date 06/08/2017 Noted Resolved Hyperactivity of Bladder [N31.8] INVALID FOR* Urinary tract infection without hematuria [N39.*INVALID FOR* Mixed incontinence [N39.46] INVALID FOR*Visit Notes:>> Jeannette Glass Jun 08, 2017 1:48 PM Status: SignedMedications and Allergies reviewed and documented.Patient accompanied by:daughterHigh Risk: WEIGHT APPETITE CHANGE: YesSAFETY IN THE HOME: NoADL'S: NoCONCERNS ABOUT ABUSE: NoLatex allergy: No .Betadine allergy: NoLidocaine allergy: NoDo you have any difficulty with chewing and swallowing? No .Any new or significant change in pain? NoLevel of pain, 1-10, with 1 being mild discomfort is NAPatient given lidocaine 2% jelly, 6 ml to urethra Lot# [id number], Expdate [id number], [facility] #[id number]. Jeannette Ruby RNPrescriptions ordered this encounter Disp Refills Start End NITROFURANTOIN MACROCRYSTAL 100 MG C* 30 c* 2 06/08/2017 09/06/2017 Route: ORAL Sig: Take 1 capsule by mouth daily at bedtime. Status:Closed by MARISSA FRYE MD on 06/08/17 [facility] PROCEDUREon 06-08-2017 PROCEDURE HNO ID: [id number] thor: Marissa Olivoe: (none)Author Type: PhysicianType: ProceduresFiled: 06/08/2017 2:43 PMNote Text:CYSTOSCOPY PROCEDURE NOTE:Stacey Elkins is a 71 year old female who presents with recurrentUTIsfor a cystoscopy.Pt ID verified with patient: YesProcedure verified with patient: YesProcedure confirmed with physician and decision support manager: YesSign In:History and Physical Exam reviewed and is unchanged.Primary Diagnosis: UTIInformed Consent Discussed: Yes. Risks, benefits, alternatives andpersonnel discussed with patient who consents to proceed.Sign in Communication: CompletedTime Out: Team Confirms the Correct Patient, Correct Procedure;Cystoscopy, Correct Site and Site Marking, Correct Position (ifapplicable).Affirmation of Time Out: YesSign Out: Sign Out Discussion: CompletedPhysician: Marissa Frye MDA urinalysis was performed revealing no evidence of infection.The benefits, risks, alternatives of the cystoscopy procedure andpersonnel were discussed with the patient. The verbal consent was obtainedand the patient agrees to proceed.Procedure: The patient was placed on the procedure table in the supineposition and prepped and draped in the usual sterile fashion. 2% LidocaineJelly was placed per urethra as an anesthetic in the standard fashion.Once adequate local anesthesia was achieved, the tip of the Flexiblecystoscope was carefully placed into the urethra under direct visualguidance. The scope was negotiated per urethra with no evidence ofstricture into the bladder. Careful michael endoscopy was carried out. Theposterior, superior and lateral benoit and dome of the bladder were allwell visualized and the scope was retroflexed upon itself. The findingswere consistent with no evidence of bladder mucosal pathology.At the conclusion of the procedure, the Flexible cystoscope was removedatraumatically. The patient tolerated the procedure without complications.Patient was given standard post-procedure instructions, and was directedto complete the course of oral antibiotics and increase oral fluid intakeas directed.ASSESSMENT/PLAN:1. Urinary tract infection without hematuria, site unspecified - ICD9:599.0, ICD10: N39.0 [facility] CNOVon 04-06-2017 CNOV Office Visit (UROLAE) ----STACEY ELKINS ([id number]) 1945 FDate Time Provider Kybamrlteb11/17/17 8:30 AM MARISSA FRYE During your visit today, we recorded the following information about you: Blood pressure Weight Height 122/84 77.1 kg 1.524 Demond Ruby RN 04/06/2017 8:42 AM AddendumMedications and Allergies reviewed and documented.Patient accompanied by:selfHigh Risk: WEIGHT APPETITE CHANGE: NoSAFETY IN THE HOME: NoADL'S: NoCONCERNS ABOUT ABUSE: NoLatex allergy: No .Betadine allergy: NoLidocaine allergy: NoDo you have any difficulty with chewing and swallowing? No .Any new or significant change in pain? NoLevel of pain, 1-10, with 1 being mild discomfort is 0Patient given lidocaine 2% jelly, 6 ml to urethra Lot# [id number], Exp date07/09, [facility] #[id number]. Jeannette Frye MD 04/06/2017 8:53 AM SignedCYSTOSCOPY PROCEDURE NOTE:Stacey Elkins is a 71 year old female who presents with recurrent UTIsfor acystoscopy.Pt ID verified with patient: YesProcedure verified with patient: YesProcedure confirmed with physician and decision support manager: YesSign In:History and Physical Exam reviewed and is unchanged.Primary Diagnosis: UTIInformed Consent Discussed: Yes. Risks, benefits, alternatives and personneldiscussed with patient who consents to proceed.Sign in Communication: CompletedTime Out: Team Confirms the Correct Patient, Correct Procedure; Cystoscopy,Correct Site and Site Marking, Correct Position (if applicable).Affirmation of Time Out: YesSign Out: Sign Out Discussion: CompletedPhysician: Marissa Frye MDA urinalysis was performed revealing no evidence of infection.The benefits, risks, alternatives of the cystoscopy procedure and personnelwere discussed with the patient. The verbal consent was obtained and thepatient agrees to proceed.Procedure: The patient was placed on the procedure table in the supine positionand prepped and draped in the usual sterile fashion. 2% Lidocaine Jelly wasplaced per urethra as an anesthetic in the standard fashion. Once adequatelocal anesthesia was achieved, the tip of the Flexible cystoscope was carefullyplaced into the urethra under direct visual guidance. The scope was negotiatedper urethra with no evidence of stricture into the bladder. Careful panendoscopy was carried out. The posterior, superior and lateral benoit and domeof the bladder were all well visualized and the scope was retroflexed uponitself. The findings were consistent with diffuse erythema areas of erythemareviewed with patient will recheck cysto.At the conclusion of the procedure, the Flexible cystoscope was removedatraumatically. The patient tolerated the procedure without complications.Patient was given standard post-procedure instructions, and was directed tocomplete the course of oral antibiotics and increase oral fluid intake asdirected.ASSESSMENT/PLAN:R ecurrent UTI'sRepeat cysto in 2 monthsReferring Provider: JOSÉ MIGUEL NAVA [[id number]]Allergies As of Date: 04/06/2017 Noted Allergy ReactionALLEGRA (FEXOFENADINE HCL) 02/21/2009 Comments: bad dreamsDARVON (PROPOXYPHENE HCL) 02/21/2009 Comments: mental status changeDate Reviewed: 04/06/2017Reviewed by: Marissa Frye - Fully AssessedReason for Visit: Cystoscopy-1 [303]Primary Visit Diagnosis:Recurrent UTI [N39.0]Order(s):UA DIP B/O [[id number]] Order #: [id number] as of 04/06/2017 Sig: COMPOUND W TOPICAL Apply to affected area. PROBIOTIC (S.BOULARDII) ORAL Take by mouth every other da* METHENAMINE HIPPURATE 1 GRAM * Take 1 tablet by mouth twice * LEVOTHYROXINE 50 MCG TABLET MULTIVITAMIN ORAL Take by mouth. PANTOPRAZOLE 40 MG TABLET,DEL* Take 40 mg by mouth once gordy* CONJUGATED ESTROGENS 0.625 MG* Apply fingertip amount into t* * CLARITIN 10 MG TABLET Take one(1) tablet daily as n*Medication notes this encounter CONJUGATED ESTROGENS 0.625 MG/GRAM VAGINAL CREAM >> Jeannette Ruby RN 04/06/2017 8:16 AM >> JEANNETTE RUBY RN Apr 06, 2017 8:16 AMProblem List As Of Date 04/06/2017 Noted Resolved Hyperactivity of Bladder [N31.8] INVALID FOR* Urinary tract infection without hematuria [N39.*INVALID FOR* Mixed incontinence [N39.46] INVALID FOR*Visit Notes:>> Jeannette Glass Apr 06, 2017 8:23 AM Status: AddendumMedications and Allergies reviewed and documented.Patient accompanied by:selfHigh Risk: WEIGHT APPETITE CHANGE: NoSAFETY IN THE HOME: NoADL'S: NoCONCERNS ABOUT ABUSE: NoLatex allergy: No .Betadine allergy: NoLidocaine allergy: NoDo you have any difficulty with chewing and swallowing? No .Any new or significant change in pain? NoLevel of pain, 1-10, with 1 being mild discomfort is 0Patient given lidocaine 2% jelly, 6 ml to urethra Lot# [id number], Expdate 07/09, [facility] #[id number]. Jeannette Ruby RNEncounter Number: [id number] Status:Closed by MARISSA FRYE MD on 04/06/17 [facility] PROCEDUREon 04-06-2017 PROCEDURE HNO ID: [id number] thor: Marissa Reeder: (none)Author Type: PhysicianType: ProceduresFiled: 04/06/2017 8:53 AMNote Text:CYSTOSCOPY PROCEDURE NOTE:Stacey Elkins is a 71 year old female who presents with recurrentUTIsfor a cystoscopy.Pt ID verified with patient: YesProcedure verified with patient: YesProcedure confirmed with physician and decision support manager: YesSign In:History and Physical Exam reviewed and is unchanged.Primary Diagnosis: UTIInformed Consent Discussed: Yes. Risks, benefits, alternatives andpersonnel discussed with patient who consents to proceed.Sign in Communication: CompletedTime Out: Team Confirms the Correct Patient, Correct Procedure;Cystoscopy, Correct Site and Site Marking, Correct Position (ifapplicable).Affirmation of Time Out: YesSign Out: Sign Out Discussion: CompletedPhysician: Marissa Frye MDA urinalysis was performed revealing no evidence of infection.The benefits, risks, alternatives of the cystoscopy procedure andpersonnel were discussed with the patient. The verbal consent was obtainedand the patient agrees to proceed.Procedure: The patient was placed on the procedure table in the supineposition and prepped and draped in the usual sterile fashion. 2% LidocaineJelly was placed per urethra as an anesthetic in the standard fashion.Once adequate local anesthesia was achieved, the tip of the Flexiblecystoscope was carefully placed into the urethra under direct visualguidance. The scope was negotiated per urethra with no evidence ofstricture into the bladder. Careful michael endoscopy was carried out. Theposterior, superior and lateral benoit and dome of the bladder were allwell visualized and the scope was retroflexed upon itself. The findingswere consistent with diffuse erythema areas of erythema reviewed withpatient will recheck cysto.At the conclusion of the procedure, the Flexible cystoscope was removedatraumatically. The patient tolerated the procedure without complications.Patient was given standard post-procedure instructions, and was directedto complete the course of oral antibiotics and increase oral fluid intakeas directed.ASSESSMENT/PLAN:Rec urrent UTI'sRepeat cysto in 2 months [facility] ----STACEY ELKINS ([id number]) 1945 [facility] Time Provider Tiefzvufbq21/11/17 2:00 PM MARISSA FRYE During your visit today, we recorded the following information about you: Blood pressure Weight Height 174/104 77.1 kg 1.524 Janna Frye MD 03/31/2017 2:30 PM SignedNEW PATIENT HISTORY AND PHYSICAL EXAMHISTORY OF PRESENT ILLNESS: Stacey Elkins is a 71 year old female whopresents recurrent uti's.Last atbx keflex for a boil.Feels she has a uti every 2 months.Will usually take the AZO.Using estrogen cream Mon/Wed/e has seen 3 different urologist previously.Previous TAHBSO We reviewed her evaluation incomplete bladder emptying.We discussed UTI prevention. Where can arrange for cystoscopy. She is can usstart [facility].She has a history of urethral dilation approximately 30 years ago./12/2015 ?3:57 PM - Interface, Results InComponent ResultsComponent Performing LabSpecimen Request (Final) CCMSpecimen received in preservativeCulture (Abnormal) (Final) CCMANDgt;=100,000 CFU/mlEscherichia coliCulture ANDamp; SusceptibilityAntibiotic Organism Organism Organism Organism Escherichia coliAMPICILLIN ?ANDgt;=32 ? R FinalAMPICILLIN SULBACT ?ANDgt;=32 ? R FinalCEFAZOLIN ?ANDlt;=4 ? S FinalCEFEPIME ?ANDlt;=1 ? S FinalCEFTRIAXONE ?ANDlt;=1 ? S FinalCIPROFLOXACIN ?ANDgt;=4 ? R FinalERTAPENEM ?ANDlt;=0.5 ? S FinalGENTAMICIN ?ANDlt;=1 ? S FinalMEROPENEM ?ANDlt;=0.25 ? S FinalNITROFURANTOIN ?ANDlt;=16 ? S FinalPIPERACILLIN/TAZOBAC ?ANDlt;=4 ? S FinalTRIMETH SULFAMETH ?ANDgt;=320 ? R FinalREVIEW OF SYSTEMS:GENERAL:Positive for fever recent UTIALLERGIC/IMMUNOLOGIC: drug allergiesHEENT:Ears Positive for ear infection and sinus problemRESPIRATORY: Negative for cough, hemoptysis, wheezing, COPD, dyspnea orshortness of breathCARDIOVASCULAR: Hypertension, left leg swellingGASTROINTESTINAL: No nausea, vomiting, or diarrheaGENITOURINARY: See HPIMUSCULOSKELETAL: Negative for joint pain or swelling, back pain or muscle painNEUROLOGIC:Positive for dizzy spellsSKIN:Negative for lesions, rash, and itchingPSYCHIATRIC: Negative for sleep disturbance, mood disorder and recentpsychosocial stressors.HEMATOLOGIC/LYMPHA TIC/IMMUNOLOGIC:Negative for prolonged bleeding, bruisingeasily or swollen nodesENDOCRINE: Negative for cold or heat intolerance, polyuria, polydipsia andgoiterThe remainder of the ROS was negative.LABColor (no units)Date Value12/31/2015 Yellow Clarity (no units)Date Value12/31/2015 Cloudy Glucose, Urine (mg/dL)Date Value03/31/2017 neg Bilirubin, Urine (no units)Date Value03/31/2017 neg Ketones, Urine (no units)Date Value03/31/2017 neg Specific [place], Ur (no units)Date Value03/31/2017 1.010 Hemoglobin/Bl ood,Ur (no units)Date Value03/31/2017 small pH, Urine (no units)Date Value03/31/2017 6.0 Protein, Urine (mg/dL)Date Value03/31/2017 neg Urobilinogen (no units)Date Value12/31/2015 Normal Nitrites (no units)Date Value03/31/2017 neg Leukest (no units)Date Value12/31/2015 3+ MEDICATIONS:levo thyroxine (SYNTHROID) 50 mcg tabletMULTIVITAMIN ORAL Take by mouth.pantoprazole DR (PROTONIX) 40 mg tablet Take 40 mg by mouth once daily.conjugated estrogens (PREMARIN) vaginal cream Apply fingertip amount into thevagina Every Wed, Wednesday, Wednesday at bedtime.loratadine(CLARITIN 10 MG TAB) Take one(1) tablet daily as needed for allergysymptoms.HISTORIESPAS T MEDICAL HISTORYDiagnosis Date- Arthritis- Bronchitis- Hearing loss- HTN (hypertension)- Overactive bladder- Unspecified hearing lossFAMILY HISTORYProblem Relation Age of Onset- Heart Mother mi- Heart Father miPAST SURGICAL HISTORYProcedure Laterality Date- COLONOSCOP W/ OR W/O BRSH SPEC 07/14/2013 Colonoscopy- PAST SURGICAL HISTORY OF 05/11/2014 cysto bladder biopsy- TOTAL ABDOM HYSTERECTOMY Hysterectomy, CECILE- TYP MEMBR REP W OR W/O PATCH bilat TympanoplastySocial HistorySubstance Use Topics- Smoking status: Never Smoker- Smokeless tobacco: Not on file- Alcohol use NoPhysical ExamBP 174/104 Ht 152.4 cm (5') Wt 77.1 kg (170 lb) BMI 33.2 kg/m2GU PHYSICAL EXAM: FEMALEVital signs: BP 174/104 Ht 152.4 cm (5') Wt 77.1 kg (170 lb) BMI 33.2kg/f2Fgirbic Appearance: Normal, No acute distress, well nourishedPsych:No signs of depression, anxiety, or agitation.Neuro: Gait normal: YesSKIN/LYMPH: No rashes noted, no lesions.Respiratory Effort: Normal, no labored breathingCardiovascular:No extremity swelling varices, edema, pallor, or erythemaABDOMEN: - Liver/spleen: No abnormalities palpable - Hernia: None - Mass: None - Pain on palpation: None - Bladder/Kidney: No abnormalities palpableExtremities:Extremit ies normal. No deformities, edema, clubbing or skindiscoloration.GENITALIA FEMALE EXAM:External Genitalia: Normal, no atrophy, no rashUrethral Meatus: Normal, no prolapse or caruncleUrethra: No mass, no tenderness and no diverticulum.Urethral angle: ANDgt;30 degreesStress incontinence on exam: noBladder:Cystocele to the hymen,Vagina: Enterocele: no Rectocele: noCervix: Present without inflammation or dischargeUterus: Not enlarged; no uterine prolapse, no palpable massAdnexa: No palpable mass; no cysts; no tendernessAnus/Perineum: No hemorrhoids, no mass, normal sphincter toneLevator tenderness: noPOP-Q: Prolapse noted: NoPost Void Residual (stcath): 250ccaSSESSMENT/PLAN:1. Urinary tract infection without hematuria, site unspecified- UA DIP B/O1. Urinary tract infection without hematuria, site unspecified - ICD9: 599.0,ICD10: N39.0 (primary diagnosis)2. Midline cystocele - ICD9: 618.01, ICD10: N81.113. Retention of urine - ICD9: 788.20, ICD10: R33.9Referring Provider: JOSÉ MIGUEL NAVA [[id number]]Allergies As of Date: 03/31/2017 Noted Allergy ReactionALLEGRA (FEXOFENADINE HCL) 02/21/2009 Comments: bad dreamsDARVON (PROPOXYPHENE HCL) 02/21/2009 Comments: mental status changeDate Reviewed: 03/31/2017Reviewed by: Joselyn Jesus MA - Fully AssessedReason for Visit: UTI [116]Primary Visit Diagnosis:Urinary tract infection without hematuria, site unspecified [N39.0] Other Visit Diagnoses:Midline cystocele [N81.11] Retention of urine [R33.9]Order(s):UA DIP B/O [[id number]] Order #: [id number] Methenamine Hippurate (HIPREX) 1 gram tabletTake 1 tablet by mouth twice daily with meals.Disp: 60 tabletRfl: 11Prescriptions as of 03/31/2017 Sig: PROBIOTIC (S.BOULARDII) ORAL Take by mouth every other da* METHENAMINE HIPPURATE 1 GRAM * Take 1 tablet by mouth twice * LEVOTHYROXINE 50 MCG TABLET MULTIVITAMIN ORAL Take by mouth. PANTOPRAZOLE 40 MG TABLET,DEL* Take 40 mg by mouth once gordy* CONJUGATED ESTROGENS 0.625 MG* Apply fingertip amount into t* * CLARITIN 10 MG TABLET Take one(1) tablet daily as n*Medication notes this encounter PANTOPRAZOLE 40 MG TABLET,DELAYED RELEASE >> Joselyn Jesus MA 03/31/2017 1:35 PM >> JOSELYN JESUS MA Wed Mar 31, 2017 1:35 PMProblem List As Of Date 03/31/2017 Noted Resolved Hyperactivity of Bladder [N31.8] INVALID FOR* Urinary tract infection without hematuria [N39.*INVALID FOR* Mixed incontinence [N39.46] INVALID FOR*Prescriptions ordered this encounter Disp Refills Start End METHENAMINE HIPPURATE 1 GRAM TABLET 60 t* 11 03/31/2017 Route: ORAL Sig: Take 1 tablet by mouth twice daily with meals.Letter TextLetter TextEncounter Number: [id number] Status:Closed by MARISSA FRYE MD on 03/31/17 [facility] PROGRESSon 03-31-2017 PROGRESS HNO ID: [id number] thor: Marissa Reeder: (none)Author Type: PhysicianType: Progress NotesFiled: 03/31/2017 2:30 PMNote Text:NEW PATIENT HISTORY AND PHYSICAL EXAMHISTORY OF PRESENT ILLNESS: Stacey Elkins is a 71 year old female whopresents recurrent uti's.Last atbx keflex for a boil.Feels she has a uti every 2 months.Will usually take the AZO.Using estrogen cream Wed/Wed/e has seen 3 different urologist previously.Previous TAHBSO We reviewed her evaluation incomplete bladder emptying.We discussed UTI prevention. Where can arrange for cystoscopy. She iscan us start Urex.She has a history of urethral dilation approximately 30 years ago./12/2015 ?3:57 PM - Interface, Results InComponent ResultsComponent Performing LabSpecimen Request (Final) CCMSpecimen received in preservativeCulture (Abnormal) (Final) CCM>=100,000 CFU/mlEscherichia coliCulture AND SusceptibilityAntibiotic Organism Organism Organism Organism Escherichia coliAMPICILLIN ?>=32 ? R FinalAMPICILLIN SULBACT ?>=32 ? R FinalCEFAZOLIN ?<=4 ? S FinalCEFEPIME ?<=1 ? S FinalCEFTRIAXONE ?<=1 ? S FinalCIPROFLOXACIN ?>=4 ? R FinalERTAPENEM ?<=0.5 ? S FinalGENTAMICIN ?<=1 ? S FinalMEROPENEM ?<=0.25 ? S FinalNITROFURANTOIN ?<=16 ? S FinalPIPERACILLIN/TAZOBAC ?<=4 ? S FinalTRIMETH SULFAMETH ?>=320 ? R FinalREVIEW OF SYSTEMS:GENERAL:Positive for fever recent UTIALLERGIC/IMMUNOLOGIC: drug allergiesHEENT:Ears Positive for ear infection and sinus problemRESPIRATORY: Negative for cough, hemoptysis, wheezing, COPD, dyspnea orshortness of breathCARDIOVASCULAR: Hypertension, left leg swellingGASTROINTESTINAL: No nausea, vomiting, or diarrheaGENITOURINARY: See HPIMUSCULOSKELETAL: Negative for joint pain or swelling, back pain or musclepainNEUROLOGIC:Positiv e for dizzy spellsSKIN:Negative for lesions, rash, and itchingPSYCHIATRIC: Negative for sleep disturbance, mood disorder and recentpsychosocial stressors.HEMATOLOGIC/LYMPHA TIC/IMMUNOLOGIC:Negative for prolonged bleeding,bruising easily or swollen nodesENDOCRINE: Negative for cold or heat intolerance, polyuria, polydipsia andgoiterThe remainder of the ROS was negative.LABColor (no units)Date Value12/31/2015 Yellow Clarity (no units)Date Value12/31/2015 Cloudy Glucose, Urine (mg/dL)Date Value03/31/2017 neg Bilirubin, Urine (no units)Date Value03/31/2017 neg Ketones, Urine (no units)Date Value03/31/2017 neg Specific [place], Ur (no units)Date Value03/31/2017 1.010 Hemoglobin/Bl ood,Ur (no units)Date Value03/31/2017 small pH, Urine (no units)Date Value03/31/2017 6.0 Protein, Urine (mg/dL)Date Value03/31/2017 neg Urobilinogen (no units)Date Value12/31/2015 Normal Nitrites (no units)Date Value03/31/2017 neg Leukest (no units)Date Value12/31/2015 3+ MEDICATIONS:levo thyroxine (SYNTHROID) 50 mcg tabletMULTIVITAMIN ORAL Take by mouth.pantoprazole DR (PROTONIX) 40 mg tablet Take 40 mg by mouth once daily.conjugated estrogens (PREMARIN) vaginal cream Apply fingertip amount intothe vagina Every Wed, Wednesday, Wednesday at bedtime.loratadine(CLARITIN 10 MG TAB) Take one(1) tablet daily as needed forallergy symptoms.HISTORIESPAST MEDICAL HISTORYDiagnosis Date- Arthritis- Bronchitis- Hearing loss- HTN (hypertension)- Overactive bladder- Unspecified hearing lossFAMILY HISTORYProblem Relation Age of Onset- Heart Mother mi- Heart Father miPAST SURGICAL HISTORYProcedure Laterality Date- COLONOSCOP W/ OR W/O BRSH SPEC 07/14/2013 Colonoscopy- PAST SURGICAL HISTORY OF 05/11/2014 cysto bladder biopsy- TOTAL ABDOM HYSTERECTOMY Hysterectomy, CECILE- TYP MEMBR REP W OR W/O PATCH bilat TympanoplastySocial HistorySubstance Use Topics- Smoking status: Never Smoker- Smokeless tobacco: Not on file- Alcohol use NoPhysical ExamBP 174/104 Ht 152.4 cm (5') Wt 77.1 kg (170 lb) BMI 33.2 kg/m2GU PHYSICAL EXAM: FEMALEVital signs: BP 174/104 Ht 152.4 cm (5') Wt 77.1 kg (170 lb) BMI33.2 kg/r5Xkzmgkw Appearance: Normal, No acute distress, well nourishedPsych:No signs of depression, anxiety, or agitation.Neuro: Gait normal: YesSKIN/LYMPH: No rashes noted, no lesions.Respiratory Effort: Normal, no labored breathingCardiovascular:No extremity swelling varices, edema, pallor, or erythemaABDOMEN: - Liver/spleen: No abnormalities palpable - Hernia: None - Mass: None - Pain on palpation: None - Bladder/Kidney: No abnormalities palpableExtremities:Extremit ies normal. No deformities, edema, clubbing or skindiscoloration.GENITALIA FEMALE EXAM:External Genitalia: Normal, no atrophy, no rashUrethral Meatus: Normal, no prolapse or caruncleUrethra: No mass, no tenderness and no diverticulum.Urethral angle: >30 degreesStress incontinence on exam: noBladder:Cystocele to the hymen,Vagina: Enterocele: no Rectocele: noCervix: Present without inflammation or dischargeUterus: Not enlarged; no uterine prolapse, no palpable massAdnexa: No palpable mass; no cysts; no tendernessAnus/Perineum: No hemorrhoids, no mass, normal sphincter toneLevator tenderness: noPOP-Q: Prolapse noted: NoPost Void Residual (stcath): 250ccaSSESSMENT/PLAN:1. Urinary tract infection without hematuria, site unspecified- UA DIP B/O1. Urinary tract infection without hematuria, site unspecified - ICD9:599.0, ICD10: N39.0 (primary diagnosis)2. Midline cystocele - ICD9: 618.01, ICD10: N81.113. Retention of urine - ICD9: 788.20, ICD10: R33.9 Normal [facility] Vital Signs Date Time Vital Sign Value Performing Clinician Facility 03-29-2025 12:59-0400 Diastolic Blood Pressure Non-Invasive 78 mm[Hg] DOREEN MONTGOMERY MD [facility] 03-29-2025 12:59-0400 Heart rate 74 /min DOREEN MONTGOMERY MD [facility] 03-29-2025 12:59-0400 Respiratory rate 17 /min DOREEN MONTGOMERY MD [facility] 03-29-2025 12:59-0400 Systolic Blood Pressure Non-Invasive 144 mm[Hg] DOREEN MONTGOMERY MD [facility] 03-29-2025 11:30-0400 Blood Pressure Cuff Size DOREEN MONTGOMERY MD [facility] 03-29-2025 11:30-0400 Blood Pressure Location DOREEN MONTGOMERY MD [facility] 03-29-2025 11:30-0400 Blood Pressure Method DOREEN MONTGOMERY MD [facility] 03-29-2025 11:30-0400 Body height 150 cm DOREEN MONTGOMERY MD [facility] 03-29-2025 11:30-0400 Body temperature 96.44 [degF] DOREEN MONTGOMERY MD [facility] 03-29-2025 11:30-0400 Body weight 72.7 kg DOREEN MONTGOMERY MD [facility] 03-29-2025 11:30-0400 Diastolic Blood Pressure Non-Invasive 74 mm[Hg] DOREEN MONTGOMERY MD [facility] 03-29-2025 11:30-0400 Heart rate 76 /min DOREEN MONTGOMERY MD [facility] 03-29-2025 11:30-0400 Respiratory rate 18 /min DOREEN MONTGOMERY MD [facility] 03-29-2025 11:30-0400 Systolic Blood Pressure Non-Invasive 147 mm[Hg] DOREEN MONTGOMERY MD [facility] 10-30-2024 11:34-0400 Diastolic Blood Pressure Non-Invasive 90 mm[Hg] JOSÉ MIGUEL NAVA DO [facility] 10-30-2024 11:34-0400 Systolic Blood Pressure Non-Invasive 152 mm[Hg] JOSÉ MIGUEL NAVA DO [facility] 10-30-2024 11:30-0400 Body temperature 97.34 [degF] JOSÉ MIGUEL NAVA DO [facility] 10-30-2024 11:30-0400 Diastolic Blood Pressure Non-Invasive 90 mm[Hg] JOSÉ MIGUEL NAVA DO [facility] 10-30-2024 11:30-0400 Heart rate 69 /min JOSÉ MIGUEL NAVA DO [facility] 10-30-2024 11:30-0400 Reason For Taking VItal Signs JOSÉ MIGUEL NAVA DO [facility] 10-30-2024 11:30-0400 Respiratory rate 18 /min JOSÉ MIGUEL NAVA DO [facility] 10-30-2024 11:30-0400 Systolic Blood Pressure Non-Invasive 180 mm[Hg] JOSÉ MIGUEL NAVA DO [facility] 06-16-2024 10:52-0500 Body mass index (BMI) [Ratio] 35.06 kg/m2 Lauritakenyatta Arango EXPORT P[employer]ER.[employer] TECH[employer]ICAL M[employer] Work Phone: [facility] 06-16-2024 10:52-0500 Body temperature 98.6 [degF] Laurita Arango [employer] TECH[employer]ICAL [employer] Work Phone: [facility] 06-16-2024 10:52-0500 Body weight 76.1 kg Laurita Arango [employer] TE[employer] Work Phone: [facility] 06-16-2024 10:52-0500 Diastolic blood pressure 82 mm[Hg] Laurita Arango EX[employer] P[employer]ER[employer] TECH[employer]ICAL MGR Work Phone: [facility] 06-16-2024 10:52-0500 Heart rate 79 /min Laurita Arango [employer] TE[employer] Work Phone: [facility] 06-16-2024 10:52-0500 Respiratory rate 19 /min Laurita Arango [employer] TE[employer] Work Phone: [facility] 06-16-2024 10:52-0500 SaO2% (BldA) [Mass fraction] 95 % Laurita Arango [employer] TECH[employer] Work Phone: [facility] 06-16-2024 10:52-0500 Systolic blood pressure 132 mm[Hg] Laurita Arango [employer]PORT [employer]ER[employer] TECH[employer] Work Phone: [facility] 03-24-2024 12:15-0400 Body mass index (BMI) [Ratio] 35.43 kg/m2 Radha BELL Work Phone: [facility] 03-24-2024 12:15-0400 Body temperature 97.81 [degF] Krislyn Aberegg PA Work Phone: [facility] 03-24-2024 12:15-0400 Body weight 76.9 kg Krislyn Aberegg PA Work Phone: [facility] 03-24-2024 12:15-0400 Diastolic blood pressure 88 mm[Hg] Krislyn Aberegg PA Work Phone: [facility] 03-24-2024 12:15-0400 Heart rate 73 /min Krislyn Aberegg PA Work Phone: [facility] 03-24-2024 12:15-0400 Respiratory rate 18 /min Krislyn Aberegg PA Work Phone: [facility] 03-24-2024 12:15-0400 SaO2% (BldA) [Mass fraction] 95 % Krislyn Aberegg PA Work Phone: [facility] 03-24-2024 12:15-0400 Systolic blood pressure 194 mm[Hg] Krislyn Aberegg PA Work Phone: [facility] 02-03-2024 15:12-0400 Body mass index (BMI) [Ratio] 33.59 kg/m2 Marilee Praisler-Wood EXPORT P[employer]ER[employer] TECH[employer]GR Work Phone: [facility] 02-03-2024 15:12-0400 Body temperature 98.8 [degF] Marilee Praisler-Wood EXPORT P[employer]ER[employer] TECH[employer]ICAL MGR Work Phone: [facility] 02-03-2024 15:12-0400 Body weight 72.9 kg Marilee Praisler-Wood EXPORT P[employer]ER.[employer] TECH[employer]ICAL MGR Work Phone: [facility] 02-03-2024 15:12-0400 Diastolic blood pressure 78 mm[Hg] Marilee Praisler-Wood EXPORT P[employer]ER[employer] TECH[employer]ICAL MGR Work Phone: [facility] 02-03-2024 15:12-0400 Heart rate 78 /min Marilee Praisler-Wood EXPORT P[employer]ER.[employer] TECHNICAL MGR Work Phone: [facility] 02-03-2024 15:12-0400 Respiratory rate 18 /min Marilee Carolynnler-Wood EXPORT P[employer]ER.[employer] TECHNICAL MGR Work Phone: [facility] 02-03-2024 15:12-0400 SaO2% (BldA) [Mass fraction] 95 % Marileemicheal Bartlettisler-Wood EXPORT P[employer]ER.[employer] TECHNICAL MGR Work Phone: [facility] 02-03-2024 15:12-0400 Systolic blood pressure 156 mm[Hg] Marilee Praisler-Wood EXPORT P[employer]ER.[employer] TECH[employer]ICAL MGR Work Phone: [facility] 09-25-2023 08:53-0400 Body temperature 98.1 [degF] Emily Oliveira EX[employer]ER[employer] TE[employer] Work Phone: [facility] 09-25-2023 08:53-0400 Body weight 74.6 kg Emily Oliveira EXPORT P[employer]ER[employer] TECH[employer]GR Work Phone: [facility] 09-25-2023 08:53-0400 Diastolic blood pressure 76 mm[Hg] Emily Oliveira EXPORT P[employer]ER[employer] TECH[employer]ICAL MGR Work Phone: [facility] 09-25-2023 08:53-0400 Heart rate 73 /min Emily Oliveira EXPORT P[employer]ER[employer] TECH[employer]ICAL MGR Work Phone: [facility] 09-25-2023 08:53-0400 Respiratory rate 18 /min Emily Oliveira [employer]PORT [employer]ER[employer] TECH[employer] MGR Work Phone: [facility] 09-25-2023 08:53-0400 SaO2% (BldA) [Mass fraction] 99 % Emily Oliveira EXPORT [employer]ER[employer] TECH[employer]GR Work Phone: [facility] 09-25-2023 08:53-0400 Systolic blood pressure 118 mm[Hg] Emily Oliveira EX[employer]ER[employer] TECH[employer] MGR Work Phone: [facility] 12-07-2022 11:00-0400 Body mass index (BMI) [Ratio] 34.2 kg/m2 [facility] 12-07-2022 11:00-0400 Body weight 74.1 kg [facility] 12-07-2022 10:38-0400 Body height 147.32 cm [facility] 12-07-2022 10:38-0400 Body temperature 98.2 [degF] [facility] 12-07-2022 10:38-0400 Diastolic blood pressure 77 mm[Hg] [facility] 12-07-2022 10:38-0400 Heart rate 80 /min [facility] 12-07-2022 10:38-0400 Respiratory rate 14 /min [facility] 12-07-2022 10:38-0400 SaO2% (BldA) [Mass fraction] 97 % [facility] 12-07-2022 10:38-0400 Systolic blood pressure 147 mm[Hg] [facility] 05-27-2022 11:39-0500 Body temperature 98.2 [degF] Dr. José Miguel Nava Work Phone: [facility] 05-27-2022 11:39-0500 Diastolic blood pressure 53 mm[Hg] Dr. José Miguel Nava Work Phone: [facility] 05-27-2022 11:39-0500 Heart rate 85 /min Dr. José Miguel Nava Work Phone: [facility] 05-27-2022 11:39-0500 Respiratory rate 16 /min Dr. José Miguel Nava Work Phone: [facility] 05-27-2022 11:39-0500 SaO2% (BldA) [Mass fraction] 94 % Dr. José Miguel Nava Work Phone: [facility] 05-27-2022 11:39-0500 Systolic blood pressure 118 mm[Hg] Dr. José Miguel Nava Work Phone: [facility] 05-25-2022 13:38-0500 Inhaled oxygen flow rate 2 L/min Dr. José Miguel Nava Work Phone: [facility] 05-25-2022 08:31-0500 Body height 144.[address] José Miguel Nava Work Phone: [facility] 05-25-2022 08:31-0500 Body mass index (BMI) [Ratio] 33.3 kg/m2 Dr. José Miguel Nava Work Phone: [facility] 05-25-2022 08:31-0500 Body weight 69.[address] José Miguel Nava Work Phone: [facility] 02-02-2022 09:40-0400 Body temperature 99.81 [degF] Axel Henderson MD Work Phone: [facility] 02-02-2022 09:40-0400 Body weight 70.49 kg Axel Henderson MD Work Phone: [facility] 02-02-2022 09:40-0400 Diastolic blood pressure 88 mm[Hg] Axel Henderson MD Work Phone: [facility] 02-02-2022 09:40-0400 Heart rate 85 /min Axel Henderson MD Work Phone: [facility] 02-02-2022 09:40-0400 Respiratory rate 20 /min Axel Henderson MD Work Phone: [facility] 02-02-2022 09:40-0400 SaO2% (BldA) [Mass fraction] 97 % Axel Henderson MD Work Phone: [facility] 02-02-2022 09:40-0400 Systolic blood pressure 126 mm[Hg] Axel Henderson MD Work Phone: [facility] Encounters Encounter Date Encounter Type Care Provider Facility Start: 04-04-2025 ambulatory PARI Bruno y:[facility] Start: 03-29-2025 End: 03-29-2025 Emergency department patient visit DOREEN MONTGOMERY MD [facility] Start: 10-30-2024 End: 10-30-2024 ambulatory JOSÉ MIGUEL NAVA DO Facility:[facility] Start: 10-30-2024 End: 10-30-2024 SAME DAY STAY JOSÉ MIGUEL NAVA DO [facility] Start: 09-19-2024 End: 09-23-2024 ambulatory WICHO BARNETT APRN-DEV TECHNICAL MGR Facility:[facility] Start: 06-16-2024 End: 06-16-2024 Patient encounter procedure Laurita Arango DEV TECHNICAL MGR Work Phone: [facility] Comment on above: Productive cough (Pr imary Dx); Acute cough Start: 06-16-2024 End: 06-16-2024 ambulatory [facility] Facility:[facility] Start: 06-16-2024 End: 06-16-2024 Subsequent hospital visit by physician Camila [facility] Work Phone: Radiology Comment on above: Acute cough [R05.1] Start: 06-06-2024 End: 06-06-2024 ambulatory JOSÉ MIGUEL [facility] Facility:[facility] Start: 06-06-2024 End: 06-06-2024 Patient encounter procedure JOSÉ MIGUEL NAVA [facility] Start: 03-24-2024 End: 03-24-2024 Patient encounter procedure Radha BELL Work Phone: [facility] Comment on above: Acute otitis externa of left ear, unspecified type (Primary Dx); Left otitis media, unspecified otitis media type Start: 03-24-2024 End: 03-24-2024 ambulatory [facility] Facility:[facility] Start: 02-04-2024 End: 02-07-2024 Telephone encounter Marilee Bain APRN.DEV TECHNICAL MGR Work Phone: [facility] Comment on above: Patient Request Start: 02-03-2024 End: 02-03-2024 Subsequent hospital visit by physician Camila [facility] Work Phone: Radiology Comment on above: Right ankle injury, initial encounter [S99.911A] Start: 02-03-2024 End: 02-03-2024 ambulatory [facility] Facility:[facility] Start: 02-03-2024 End: 02-03-2024 Patient encounter procedure Marilee Bain EXPORT P[employer]ER.DEV TECHNICAL MGR Work Phone: [facility] Comment on above: Right ankle injury, initial encounter (Primary Dx); Right foot injury, initial encounter; Closed fracture of distal end of right fibula, unspecified fracture morphology, initial encounter Start: 10-01-2023 End: 10-05-2023 ambulatory ELTON RODRÍGUEZSEY EXPORT P[employer]ER-DEV TECHNICAL MGR Facility:[facility] Start: 10-01-2023 End: 10-05-2023 Outreach Lab ELTON LYNCH EXPORT PACKER-DEV TECHNICAL MGR [facility] Start: 09-25-2023 End: 09-25-2023 ambulatory [facility] Facility:[facility] Start: 09-25-2023 End: 09-25-2023 Patient encounter procedure Emily Sheila EXPORT P[employer]ER[employer] TECH[employer]ICAL MGR Work Phone: [facility] Comment on above: Cystitis (Primary Dx ) Start: 09-15-2023 End: 09-15-2023 ambulatory [facility] Work Phone: Start: 09-15-2023 End: 09-15-2023 Patient encounter procedure [facility]-Laboratory Work Phone: Start: 02-05-2023 End: 02-05-2023 ambulatory [facility] Work Phone: Start: 02-05-2023 End: 02-05-2023 Patient encounter procedure [facility] Work Phone: Start: 12-07-2022 End: 12-07-2022 Emergency department patient visit [facility]Emergency Department Start: 07-29-2022 End: 07-29-[address] José Miguel Nava Work Phone: [facility] Work Phone: Start: 07-29-2022 End: 07-29-[address] José Miguel Nava Work Phone: [facility]-Radiology, [facility] Start: 07-24-2022 End: 07-24-[address] José Miguel Nava Work Phone: [facility]-Laboratory Start: 07-17-2022 ambulatory BLANCA CARTER [facility] Ambulatory Start: 05-25-2022 End: 05-27-2022 Evaluation and management of inpatient Dr. José Miguel Nava Work Phone: [facility]-Medical Surgical 3 Start: 05-19-2022 End: 05-19-2022 Non-patient / Non-visit Dr. José Miguel Nava Work Phone: [facility] Start: 03-05-2022 End: 03-05-2022 Patient encounter procedure JOSÉ MIGUEL NAVA DO [facility] Start: 02-03-2022 Telephone encounter Laurita garcia APRN.CNP Work Phone: [facility] Comment on above: Results Start: 02-02-2022 End: 02-02-2022 Patient encounter procedure Axel Henderson MD Work Phone: [facility] Comment on above: URI, acute (Primary Dx) Start: 01-26-2022 End: 01-26-2022 Patient encounter procedure JOSÉ MIGUEL NAVA DO [facility] Start: 08-27-2021 End: 08-31-2021 Outreach Lab JOSÉ MIGUEL NAVA DO [facility] Start: 08-05-2021 End: 08-05-2021 Patient encounter procedure JOSÉ MIGUEL NAVA DO [facility] Start: 09-05-2018 Patient encounter procedure [facility] Start: 06-08-2017 End: 06-08-2017 Ambulatory MARISSA FRYE [facility] Start: 04-06-2017 End: 04-06-2017 [facility] Start: 03-31-2017 End: 03-31-2017 Ambulatory MARISSA Brown [facility] Procedures Date Procedure Procedure Detail Performing Clinician Start: 06-16-2024 Radiologic exam ches t 2 views Laurita Arango [employer]ER[employer] Work Phone: Start: 02-03-2024 Radex ankle complete minimum 3 views Marilee Bain EXPORT P[employer]ER.[employer] TECH[employer]ICAL MGR Work Phone: Start: 09-25-2023 Urnls dip stick/tabl et rgnt auto w/o microscopy Emily Oliveira EX[employer]ER[employer] TECH[employer] MGR Work Phone: Start: 09-15-2023 Urine culture Start: 12-07-2022 Radiography of sacrococcygeal spine Start: 12-07-2022 CT of head without contrast Start: 07-29-[address] José Miguel Nava Work Phone: Start: 05-25-2022 Plain X-ray of hip Dr. José Miguel Nava Work Phone: Fracture of neck of femur (disorder) JOSÉ MIGUEL NAVA DO Comment on above: right 01/05/2009 Hysterectomy JOSÉ MIGUEL NAVA DO Comment on above: has ovaries Nasal Screen MRSA/MSSA Dr. Pretty Nava Work Phone: Repair of musculoten dinous cuff of shoulder JOSÉ MIGUEL NAVA DO Comment on above: bilateral 2004 Plan of Treatment Date Care Activity Detail Author Start: 02-20-2024 Covid-19 Vaccine ( season) Covid-19 Vaccine ( season) [facility] Start: 02-20-2024 Covid-19 Vaccine ( season) [facility] [facility] Start: 02-20-2024 Influenza vaccination [facility] Start: 06-21-2023 Advance Directive Discussion Advance Directive Discussion [facility] Start: 06-21-2023 Behavioral Health Screening Behavioral Health Screening [facility] Start: 02-19-2023 Covid-19 Vaccine ( season) Covid-19 Vaccine ( season) [facility] Start: 05-27-2022 Patient discharge [facility] Start: 05-25-2022 Admission procedure [facility] Start: 05-25-2022 Oxygen therapy [facility] Start: 05-25-2022 Anesthesia arthroscopic hip joint procedure ANESTH ARTHROSCOPY OF HIP [facility] Start: 05-25-2022 Arthroscopy hip w/acetabuloplasty HIP ARTHRO ACETABULOPLASTY [facility] Start: 05-25-2022 Application of intermittent pneumatic compression device [facility] Start: 05-25-2022 Following clinical pathway protocol [facility] Start: 05-25-2022 Provision of overbed trapeze [facility] Start: 05-25-2022 Ambulation therapy management [facility] Start: 05-25-2022 Application of device [facility] Start: 05-25-2022 Assessment of risk of venous thromboembolism [facility] Start: 05-25-2022 Catheterization of vein [facility] Start: 05-25-2022 Exercises [facility] Start: 05-25-2022 Following clinical pathway protocol [facility] Start: 05-25-2022 Incentive spirometry [facility] Start: 05-25-2022 Introduction of urinary catheter [facility] Start: 05-25-2022 Measuring intake and output [facility] Start: 05-25-2022 Neurovascular assessment [facility] Start: 05-25-2022 Patient education [facility] Start: 05-25-2022 Procedure discontinued [facility] Start: 05-25-2022 Provision of activity privileges [facility] Start: 05-25-2022 Referral to occupational therapist [facility] Start: 05-25-2022 Referral to service [facility] Start: 05-25-2022 Vital signs measurements [facility] Start: 05-25-2022 Wound care [facility] Start: 05-25-2022 End: 05-25-2022 [facility] Start: 02-19-2022 Influenza vaccination INFLUENZA (#1) [facility] Start: 02-02-2022 End: 02-16-2022 SARS-CoV-2 (COVID-19) RNA [Presence] in Respiratory specimen by ELISEO with probe detection 2019 CORONAVIRUS Microbiology Routine URI, acute Expected: 02/02/2022, Expires: 02/16/2022 [facility] Work Phone: Comment on above: Expected: 02/02/2022, Expires: Start: 06-21-2021 ADVANCE DIRECTIVE DISCUSSION ADVANCE DIRECTIVE DISCUSSION [facility] Start: 2020 RSV Vaccine (1 - 1-dose 75+ series) RSV Vaccine (1 - 1-dose 75+ series) [facility] Start: 04-24-2015 PNEUMOCOCCAL: 65+ (2 - PCV) PNEUMOCOCCAL: 65+ (2 - PCV) [facility] Start: 2010 BONE DENSITY BONE DENSITY [facility] Start: 2010 Screening for osteoporosis Bone Density Screening [facility] Start: 2005 RSV Vaccine (1 - 1-dose 60+ series) RSV Vaccine (1 - 1-dose 60+ series) [facility] Start: 09-19-1995 SHINGRIX VACCINE (1 of 2) SHINGRIX VACCINE (1 of 2) [facility] Start: 1990 DIABETES SCREEN DIABETES SCREEN [facility] Start: 1990 Diabetes Screening Diabetes Screening [facility] Start: 1964 Urine microalbumin profile [facility] Start: 09-19-1963 Anxiety Screening Anxiety Screening [facility] Start: 09-19-1963 Depression Screening Depression Screening [facility] Start: 09-19-1963 HEPATITIS C SCREENING HEPATITIS C SCREENING [facility] Start: 09-19-1963 Hepatitis C screening Hepatitis C Screening [facility] Start: 1957 Adult depression screening assessment DEPRESSION SCREENING [facility] Start: 03-20-1946 COVID-19 VACCINE (#1) COVID-19 VACCINE (#1) [facility] Bacteria identified in Urine by Culture URINE CULTURE Microbiology Routine Cystitis Ordered: 09/25/2023 [facility] Work Phone: Comment on above: Ordered: 09/25/2023 Electrocardiographic procedure [facility] Patient Education ED Coccyx or S acrum Contusion ED Head Injury (Adult) ED Fall Prevention [facility] Work Phone: Patient referral [facility] Work Phone: Immunizations Immunization Date Immunization Notes Care Provider Fa barbara 05-28-2023 zoster vaccine recombinant JOSÉ MIGUEL NAVA DO [facility] [place] 04-07-2023 zoster vaccine recombinant JOSÉ MIGUEL NAVA DO [facility] [place] 02-02-2023 Pneumococcal conjuga te PCV20, polysaccharide [id number] conjugate, adjuvant, PF; Translations: [Prevnar 20] ELTON LYNCH EXPORT [employer] [facility] 03-21-2022 influenza, injectabl e, quadrivalent, preservative free [facility] 03-21-2022 influenza, seasonal, injectable Dr. José Miguel Nava Work Phone: [facility] 03-21-2022 influenza virus vacc ine, unspecified formulation Emily Oliveira [employer] Work Phone: [facility] 04-01-2020 influenza, injectabl e, quadrivalent, preservative free; Translations: [Fluarix PF Quadrivalent ] JOSÉ MIGUEL NAVA DO [facility] 04-05-2017 influenza virus vacc ine, unspecified formulation ELTON LYNCH [employer] [facility] 04-27-2016 influenza virus vacc ine, unspecified formulation ELTON LYNCH EX[employer] [facility] 04-29-2015 influenza virus vacc ine, unspecified formulation ELTON LYNCH [employer] [facility] 05-25-2014 influenza virus vacc ine, unspecified formulation ELTON LYNCH EX[employer] [facility] [place] 05-01-2014 pneumococcal polysaccharide vaccine, 23 valent JOSÉ MIGUEL NAVA DO [facility] 04-24-2014 pneumococcal polysaccharide vaccine, 23 cookie Henderson MD Work Phone: [facility] Work Phone: 03-29-2013 influenza virus vacc ine, unspecified formulation ELTON LYNCH [employer] [facility] 03-21-2013 influenza virus vacc ine, unspecified formulation ELTON RODRÍGUEZSEY EXPORT [employer] [facility] 04-13-2012 influenza virus vacc ine, unspecified formulation ELTON LYNCH [employer] [facility] 03-25-2010 pneumococcal polysaccharide vaccine, 23 cookie Henderson MD Work Phone: [facility] 12-16-1994 pneumococcal polysaccharide vaccine, 23 valent JOSÉ MIGUEL NAVA DO [facility] Payers Date Payer Category Payer Self-pay [id number] 2023 Private Health Insurance [facility] [id number] 2022 Medicare [id number] 2021 Medicare [id number] 2013 Private Health Insurance [id number] 1945 Unknown [id number] [id number]. [id number] 1945 Unknown [id number] [id number] 1945 Unknown [id number] [id number]. [id number] 1945 Unknown [id number] [id number] 1945 Unknown [id number] [id number] 1945 Unknown [id number] [id number] Unknown [id number] [id number] Social History Date Type Detail Facility Start: 04-25-2019 End: 09-19-2024 Never smoked tobacco (finding) [facility] Start: 1945 Sex Assigned At Female [facility] Start: 02-02-2022 Tobacco smoking stat us NHIS Ex-smoker [facility] History of tobacco use Current smoker [facility] History of tobacco use Cigarette Smoker [facility] Start: 02-02-2022 Tobacco use and exposure Smoke less tobacco non-user [facility] Start: 02-02-2022 End: 06-16-2024 Alcohol intake Current non-drinker of alcohol (finding) [facility] Start: 1945 Sex Assigned At Not on file [facility] Start: 01-23-2022 End: 02-02-2022 Exposure to SARS-CoV-2 (event) Not sure [facility] Start: 05-13-2022 End: 12-07-2022 Tobacco smoking status INIS Unknown if ever smoked [facility] Start: 05-26-2020 End: 09-25-2023 History of Social function [facility] Start: 05-26-2020 End: 09-25-2023 Tobacco use panel [facility] National Score (1-10 0), lower number is lower risk Not on file [facility] Sexual Orientation [place] [facility] Start: 12-14-2018 Sex Female (finding) [facility] Start: 03-29-2025 Not applicable (qualifier value) [facility] Medical Equipment Procedure Code Equipment Code Equipment Original Text Equipment Identifier Dates Gyrus Dornhoffer Interpositional FDA Start: 02-11-2016 GEOFFREY ACETABULAR SHELL FDA Start: 05-25-2022 GEOFFREY FEMORAL HEAD FDA Star t: 05-25-2022 GEOFFREY HIP STEM FDA Start: 05-25-2022 GEOFFREY LINER FDA Start: 05-25-2022 GEOFFREY MDM LINER FDA Start: 05-25-2022 Gyrus Dornhoffer Interpositional FDA Start: 02-11-2016 GEOFFREY ACETABULAR SHELL FDA Start: 05-25-2022 GEOFFREY FEMORAL HEAD FDA Star t: 05-25-2022 GEOFFREY HIP STEM FDA Start: 05-25-2022 GEOFFREY LINER FDA Start: 05-25-2022 GEOFFREY MDM LINER FDA Start: 05-25-2022 Gyrus Dornhoffer Interpositional FDA Start: 02-11-2016 GEOFFREY ACETABULAR SHELL FDA Start: 05-25-2022 GEOFFREY FEMORAL HEAD FDA Star t: 05-25-2022 GEOFFREY HIP STEM FDA Start: 05-25-2022 GEOFFREY LINER FDA Start: 05-25-2022 GEOFFREY MDM LINER FDA Start: 05-25-2022 Gyrus Dornhoffer Interpositional FDA Start: 02-11-2016 GEOFFREY ACETABULAR SHELL FDA Start: 05-25-2022 GEOFFREY FEMORAL HEAD FDA Star t: 05-25-2022 GEOFFREY HIP STEM FDA Start: 05-25-2022 GEOFFREY LINER FDA Start: 05-25-2022 GEOFFREY MDM LINER FDA Start: 05-25-2022 Goals Date Patient Goal Desired Activity /State Functional Status Date Assessment Result Facility 03-29-2025 [facility] 03-29-2025 Functional Status Room check performed [facility] 12-07-2022 Functional status [employer] [place] Work Phone: Mental Status Date Assessment Result Facility 03-29-2025 Mental Status Orientation Oriented x 4 [facility] 03-29-2025 Mental Status [facility] 05-27-2022 Cognitive function Voice/Name [facility] Work Phone: Clinical Notes 02-02-2022 to 03-29-2025 Note Date & Type Note Facility 03-29-2025 Hospital Discharg e instructions Patient Education 03/29/2025 12:50:32 Hematoma Hematoma A hematoma is a collection of blood trapped outside of a blood vessel. It is what we think of as a bruise or a contusion. It is usually seen under the skin as a black and blue spot on your arm or leg, or a bump on your head after an injury. It can be almost anywhere on or in your body. It can also occur in an internal organ where it can be more serious. A hematoma is caused by an injury with damage to small blood vessels. This causes blood to leak into the tissues. Blood forms a pocket under the skin that swells and looks like a purplish patch. Hematomas sometimes form under the skin from bleeding during childbirth and can be particularly serious. Another serious form of hematoma forms after a fall on the head, called a subdural hematoma. Gradually the blood in the hematoma is absorbed back into the body. The swelling and pain of the hematoma will go away. This takes from 1 to 4 weeks, depending on the size of the hematoma. The skin over the hematoma may turn bluish then brown and yellow as the blood is dissolved and absorbed. Usually, this only takes a couple of weeks but can last months. Home care Limit motion of the joints near the hematoma. If the hematoma is large and painful, avoid sports and other vigorous physical activity until the swelling and pain goes away. Apply an ice pack (ice cubes in a plastic bag, or a frozen bag of peas, wrapped in a thin towel) over the injured area for 20 minutes every 1 to 2 hours the first day. Continue with ice packs 3 to 4 times a day for the next 2 days. Continue the use of ice packs for relief of pain and swelling as needed. If you need anything for pain, you can take acetaminophen, unless you were given a different pain medicine to use. Talk with your healthcare provider before using this medicine if you have chronic liver or kidney disease. Also talk with your healthcare provider if you have had a stomach ulcer or digestive tract bleeding, or are taking blood-thinner medicines. Follow-up care Follow up with your healthcare provider, or as advised. If X-rays or a CT scan were done, you will be notified if there is a change in the reading, especially if it affects treatment. When to seek medical advice Call your healthcare provider right away if any of the following occur: Redness around the hematoma Increase in pain or warmth in the hematoma Increase in size of the hematoma Fever of 100.4 F (38 C) or higher, or as directed by your healthcare provider If the hematoma is on the arm or leg, watch for: oIncreased swelling or pain in the extremity oNumbness or tingling or blue color of the hand or foot [id number] [employer]. [address] [place] [address]. All rights reserved. This information is not intended as a substitute for professional medical care. Always follow your healthcare professional's instructions. 03/29/2025 12:50:31 Bruises (Contusions) Bruises (Contusions) A contusion is a bruise. A bruise happens when a blow to your body doesn't break the skin but does break blood vessels beneath the skin. Blood leaking from the broken vessels causes redness and swelling. As it heals, your bruise is likely to turn colors like purple, green, and yellow. This is normal. The bruise should fade in 2 or 3 weeks. Factors that make you more likely to bruise Almost everyone bruises now and then. Certain people do bruise more easily than others. You're more prone to bruising as you get older. That's because blood vessels become more fragile with age. You're also more likely to bruise if you have a clotting disorder such as hemophilia or take medicines that reduce clotting, including aspirin and coumadin. You are also more likely to bruise if you have liver disease and or drink alcohol daily. When to go to the emergency room (ER) Bruises almost always heal on their own without special treatment. But for some people, a bad bruise can be serious. Seek medical care if you: Have a clotting disorder such as hemophilia Have cirrhosis or other serious liver disease Take blood-thinning medicines such as warfarin What to expect in the ER A doctor will examine your bruise and ask about any health conditions you have. In some cases, you may have a test to check how well your blood clots. Other treatment will depend on your needs. Follow-up care Sometimes a bruise gets worse instead of better. It may become larger and more swollen. This can occur when your body benoit off a small pool of blood under the skin (hematoma). In very rare cases, your doctor may need to drain extra blood from the area. Tip: Apply an ice pack or bag of frozen peas to a bruise. Keep a thin cloth between the ice or frozen peas and your skin. The cold can help reduce redness and swelling. [id number] [employer]. [address] [place] [address]. All rights reserved. This information is not intended as a substitute for professional medical care. Always follow your healthcare professional's instructions. Follow Up Care 03/29/2025 11:24:16 With:PARI DOTSON Address: [address] [place], [place] [id number]- [phone] When:2-4 days [facility] 03-29-2025 Note Discharge Instructions Thank you for allowing [place] to assist you with your healthcare needs. The following is important discharge information regarding your hospital visit. Diagnosis from Today's Visit Arm contusion Fall Rib contusion What to Do Next Instructions from Your Care Team No qualifying data available. Post Acute Orders No qualifying data available. You Need to Schedule the Following Appointments Follow Up with PARI DOTSON When:Within 2-4 days Where:[address] [place] [phone] Allergies Rafaela Rash Darvon Hallucinations Lomotil Rash Medications Please ask your primary doctor or pharmacist before taking any other medication not listed, including over the counter drugs, herbal medications, vitamins and or supplements as they may interact with your home medications. What How Much When Why Instructions Last Dose New acetaminophen-codeine (Tylenol with Codeine #3 use acetaminophen-codeine 300 mg-30 mg tablet ) 1 tab(s) by mouth Every 6 hours Arm contusion Duration: 3 Days Printed Prescription New ondansetron (Zofran 4 mg oral tablet) 1 tab(s) by mouth Every 6 hours as needed for Nausea/Vomiting Duration: 5 Days Printed Prescription Unchanged acetaminophen (Tylenol Extra Strength 500 mg oral powder) 2 Packet(s) by mouth Every 6 hours as needed for as needed for pain Unchanged albuterol (ProAir HFA MDI (90 mcg/ inh) inhalation aerosol) 2 puff(s) by inhalation Every 6 hours as needed for as needed for wheezing Duration: 7 Days Unchanged ascorbic acid (Vitamin C 1000 mg oral tablet) 1 tab(s) by mouth Once a day Unchanged carbidopa-levodopa (carbidopa-levodopa 25 mg-100 mg oral tablet) 1 tab(s) by mouth Three (3) times a day neurocare Unchanged fluticasone nasal (fluticasone 50 mcg/ inh NASAL spray) 2 spray(s) each nostril Once a day Viral URI Duration: 30 Days shake well before using Unchanged gabapentin (gabapentin 300 mg oral capsule) 1 cap by mouth Daily at bedtime Unchanged levothyroxine (levothyroxine 50 mcg (0.05 mg) oral tablet) 1 tab(s) by mouth Once a day Duration: 90 Days Unchanged losartan (losartan 50 mg oral tablet) 1 tab(s) by mouth Once a day Essential hypertension Duration: 90 Days Unchanged multivitamin with minerals (Vitamin D with Minerals oral tablet) 1 tab(s) by mouth Once a day OTC Unchanged pantoprazole (pantoprazole 40 mg oral enteric coated tablet) 1 tab(s) by mouth Two (2) times a day Unchanged rivastigmine (rivastigmine 1.5 mg oral capsule) 1 cap by mouth Two (2) times a day Unchanged sertraline (sertraline 50 mg oral tablet) 1 tab(s) by mouth Once a day Please take this list to your next doctor s visit. Bring all medications you take, including over the counter medications, herbals and other supplements with you to your doctor s visit. Patients and families are reminded to discard old lists and to update any records with all medication providers or retail pharmacies. Education Materials Hematoma A hematoma is a collection of blood trapped outside of a blood vessel. It is what we think of as a bruise or a contusion. It is usually seen under the skin as a black and blue spot on your arm or leg, or a bump on your head after an injury. It can be almost anywhere on or in your body. It can also occur in an internal organ where it can be more serious. A hematoma is caused by an injury with damage to small blood vessels. This causes blood to leak into the tissues. Blood forms a pocket under the skin that swells and looks like a purplish patch. Hematomas sometimes form under the skin from bleeding during childbirth and can be particularly serious. Another serious form of hematoma forms after a fall on the head, called a subdural hematoma. Gradually the blood in the hematoma is absorbed back into the body. The swelling and pain of the hematoma will go away. This takes from 1 to 4 weeks, depending on the size of the hematoma. The skin over the hematoma may turn bluish then brown and yellow as the blood is dissolved and absorbed. Usually, this only takes a couple of weeks but can last months. Home care Limit motion of the joints near the hematoma. If the hematoma is large and painful, avoid sports and other vigorous physical activity until the swelling and pain goes away. Apply an ice pack (ice cubes in a plastic bag, or a frozen bag of peas, wrapped in a thin towel) over the injured area for 20 minutes every 1 to 2 hours the first day. Continue with ice packs 3 to 4 times a day for the next 2 days. Continue the use of ice packs for relief of pain and swelling as needed. If you need anything for pain, you can take acetaminophen, unless you were given a different pain medicine to use. Talk with your healthcare provider before using this medicine if you have chronic liver or kidney disease. Also talk with your healthcare provider if you have had a stomach ulcer or digestive tract bleeding, or are taking blood-thinner medicines. Follow-up care Follow up with your healthcare provider, or as advised. If X-rays or a CT scan were done, you will be notified if there is a change in the reading, especially if it affects treatment. When to seek medical advice Call your healthcare provider right away if any of the following occur: Redness around the hematoma Increase in pain or warmth in the hematoma Increase in size of the hematoma Fever of 100.4 F (38 C) or higher, or as directed by your healthcare provider If the hematoma is on the arm or leg, watch for: oIncreased swelling or pain in the extremity oNumbness or tingling or blue color of the hand or foot [phone] [employer]. [address] [place] [place] [address]. All rights reserved. This information is not intended as a substitute for professional medical care. Always follow your healthcare professional's instructions. Bruises (Contusions) A contusion is a bruise. A bruise happens when a blow to your body doesn't break the skin but does break blood vessels beneath the skin. Blood leaking from the broken vessels causes redness and swelling. As it heals, your bruise is likely to turn colors like purple, green, and yellow. This is normal. The bruise should fade in 2 or 3 weeks. Factors that make you more likely to bruise Almost everyone bruises now and then. Certain people do bruise more easily than others. You're more prone to bruising as you get older. That's because blood vessels become more fragile with age. You're also more likely to bruise if you have a clotting disorder such as hemophilia or take medicines that reduce clotting, including aspirin and coumadin. You are also more likely to bruise if you have liver disease and or drink alcohol daily. When to go to the emergency room (ER) Bruises almost always heal on their own without special treatment. But for some people, a bad bruise can be serious. Seek medical care if you: Have a clotting disorder such as hemophilia Have cirrhosis or other serious liver disease Take blood-thinning medicines such as warfarin What to expect in the ER A doctor will examine your bruise and ask about any health conditions you have. In some cases, you may have a test to check how well your blood clots. Other treatment will depend on your needs. Follow-up care Sometimes a bruise gets worse instead of better. It may become larger and more swollen. This can occur when your body benoit off a small pool of blood under the skin (hematoma). In very rare cases, your doctor may need to drain extra blood from the area. Tip: Apply an ice pack or bag of frozen peas to a bruise. Keep a thin cloth between the ice or frozen peas and your skin. The cold can help reduce redness and swelling. [id number] [employer]. [address] [place] [address], [place] [address]. All rights reserved. This information is not intended as a substitute for professional medical care. Always follow your healthcare professional's instructions. Additional Information VACCINATE! IT SAVES LIVES! Members of the community who have not yet received the COVID-19 vaccine and would like to receive it can visit one of [facility] vaccine clinics. There are many vaccine clinic locations within the [facility]. For locations and available times, please visit [email or web address] [email or web address] It is important to note that some COVID mobile vaccine clinics are held outdoors and may be canceled in rainy or stormy conditions. To learn more about pediatric vaccinations (ages 5-11), we invite you to visit the [facility] webpage. [email or web address]://[email or web address] [email or web address]/p [email or web address]-Kgmof-Upnyzofzmmn-Freq ntntmk-Mxwun-Wxuijdszh.html To learn more about the COVID-19 vaccine, we invite you to visit the CDC website for a list of frequently asked questions. https://www.cdc.gov/coronavirus/ 2019-ncov/vaccines/faq.html [facility] Patient Portal Access Instructions: Stay connected with your healthcare team and access your personal medical information anytime with the [facility] Patient Portal. If you would like a full copy of your medical records please contact the [facility] Medical Records Department Wednesday through Wednesday between 8a.m. and 4:30p.m. Please follow the directions below to access the portal: 1.Access the email account you provided upon registration to the hospital.2.Look for an invitation email from [facility].3.Open the email and access the invitation link: Accept Invitation to [facility]4.Fill in the required gaming to create your account. To access your account, visit Zenfolio/Kiyonbj or scan the QR code above. Click the blue button labeled "Access Patient Portal" and then log in with the username and password that you created in the steps above. You can then view a summary of results, a summary of your visits, and the ability to download your summaries to your computer or send the information securely to a physician. Remember that your healthcare information is confidential, so carefully consider who you will allow to register on the [email or web address] Patient Portal for access to your information. You can also access the [email or web address] Patient Portal on the Musicnotes. Simply click on "Health Records" under "Health Data" and then click on the ShowKit logo. HOW TO SAFELY DISPOSE OF PRESCRIPTION MEDICATIONS Please use one of the following methods to safely dispose of your unused medications. 1.Use a drug disposal kit: the drug disposal pouch allows you to safely discard your old and unused drugs. Ask your nurse to give you one when you are discharged.2.Visit a local take-back location: Many local pharmacies and police departments have programs that collect old and unwanted prescription drugs. Call your local pharmacy or go to http://e-Tag.LiveOnDemand/7E1Qv1k to find one close to you.3.Make use of household items: Use cat litter or old coffee grounds to dispose medications if other options are not available. Mix your drugs with these household products, seal them in an airtight container and throw it into the garbage. Call [facility]: [phone] to be sure your drugs can be disposed of in this way. Some medicines may require a different approach.4.Never flush your medications down the toilet. IF YOU HAVE BEEN PRESCRIBED AN OPIOIDS FOR PAIN If you have been prescribed an opioid (such as hydrocodone, oxycodone or morphine), it is critical to understand the possible side effects and risks of opioid pain medications. Even when taken as directed, opioids can have several side effects including: Tolerance, meaning you might need to take more of a medication for the same pain relief. Nausea, vomiting and/or constipation. Sleepiness, dizziness, dry mouth, confusion, depression or itching. Physical dependence, meaning you have withdrawal symptoms when a medication is stopped ? this can develop within a few days. KNOW YOUR RESPONSIBILITIES It is important to know exactly how much and how often to take the opioid pain medications you are prescribed. Never take opioids in higher amounts or more often than prescribed. Do not combine opioids with alcohol or other drugs that cause drowsiness, such as benzodiazepines, also known as benzos, including diazepam and alprazolam, muscle relaxants or sleep aids. Never sell or share prescription opioids. This is illegal. Store opioids in a secure place and out of reach of others (including children, family, friends and visitors). The last page(s) of this document has been signed and retained as a CHART COPY Signatures Patient Education Materials Hematoma Bruises (Contusions) Medication Leaflets My discharge plan and instructions have been reviewed and explained to me and I,STACEY ELKINS understand my current condition and have read and understand these discharge instructions. I have received a written copy of the plan/instructions. If I have questions, I am aware that I should contact my doctor. Patient/Crown Pouncer Signature: Date/Time: Relationship to Patient: Witness Name/Signature: Date/Time: [facility] 03-29-2025 Note Exam Date Time Procedure Performing Provider Status 03/29/25 11:57 AM XR Ribs 2 Views Left CHRIS HENNING DO; Auth (Verified) [id number] ORIGINAL EXAMINATION: 2 XRAY VIEWS OF THE LEFT RIBS 03/29/2025 11:59 am COMPARISON: None HISTORY: ORDERING SYSTEM PROVIDED HISTORY: Reason for Exam: LT RIB PAIN S/P FALL 4 DAYS AGO. fall FINDINGS: No evidence of acute fracture of the ribs. No focal rib abnormality. No evidence of acute focal process in the lungs. No evidence of consolidation or pulmonary edema. No pleural effusion or pneumothorax. Cardiomediastinal silhouette demonstrates no acute abnormality. IMPRESSION: No acute abnormality of the ribs. No acute process in the lungs. Interpreted by: Chris Henning DO Preliminary Report By: Chris Henning DO Electronically signed By Chris Henning DO Dictated Date: 03/29/2025 12:25:49 PM Prelim Date: 03/29/2025 12:27:02 PM Sign Date: 03/29/2025 12:27:02 PM Ordering Provider: DOREEN MONTGOMERY RP [facility]10-09-2025 Note* Exam Date Time Procedure Performing Provider Status 03/29/25 11:57 AM XR Humerus Minimum 2 Views Left CHRIS HENNING ; Auth (Verified) [id number] ORIGINAL EXAMINATION: TWO XRAY VIEWS OF THE LEFT HUMERUS 03/29/2025 11:59 am COMPARISON: None. HISTORY: ORDERING SYSTEM PROVIDED HISTORY: Reason for Exam: LT ARM PAIN S/P FALL 4 DAYS AGO fall FINDINGS: Marked joint space narrowing and osteophyte formation affect the glenohumeral articulation. Acromioclavicular joint is preserved. No acute fracture affects the left humerus. Visualized left elbow joint is smoothly marginated. IMPRESSION: 1. 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 2. No acute fracture. Interpreted by: Chris Henning DO Preliminary Report By: Chris Henning DO Electronically signed By Chris Henning DO Dictated Date: 03/29/2025 12:27:54 PM Prelim Date: 03/29/2025 12:28:25 PM Sign Date: 03/29/2025 12:28:25 PM Ordering Provider: DOREEN MONTGOMERY RP [facility]10-09-2025 Note* Exam Date Time Procedure Performing Provider Status 03/29/25 11:56 AM XR Chest 1 View SUPACHRIS Tavo MORALES; [facility] (Verified) [id number] ORIGINAL EXAMINATION: ONE XRAY VIEW OF THE CHEST 03/29/2025 11:59 am COMPARISON: None. HISTORY: ORDERING SYSTEM PROVIDED HISTORY: Reason for Exam: SOB, LT RIB PAIN S/P FALL 4 DAYS AGO SOB/cough/fever FINDINGS: Severe osteoarthritis left glenohumeral articulation observed. Skeletal elements are intact. No acute fracture is seen. There is a normal cardiac and pulmonary contour without acute alveolar, interstitial or pleural process. Mild osteoarthritis affects the visualized right glenohumeral articulation. IMPRESSION: 1. Severe osteoarthritis left glenohumeral articulation. 2. No acute cardiopulmonary disease. Interpreted by: Chris Henning DO Preliminary Report By: Chris Henning DO Electronically signed By Chris Henning DO Dictated Date: 03/29/2025 12:27:09 PM Prelim Date: 03/29/2025 12:27:49 PM Sign Date: 03/29/2025 12:27:49 PM Ordering Provider: DOREEN MONTGOMERY RP [facility]05-12-2025 Nurse Progress note patient tolerated prolia injection without signs or symptoms of a reaction Digitally Signed by Lyndsey Swan RN on 10/30/2024 11:56 AM [facility]01-28-2025 Evaluation + Plan note Future Scheduled Tests Laboratory* Thyroid Stimulating Hormone 07/18/24 * Lipid Profile 07/18/24 * Albumin/Creatinine Ratio, Random Urine 07/18/24 * Complete Metabolic Panel 07/18/24 [facility] 12-27-2024 Instructions* Patient Instructions* Laurita Arango APRN.[facility] - 06/16/2024 11:24 AM EST Hold antibiotic, if symptoms persist or worsen fill antibiotic prescription. RESPIRATORY INFECTION GENERAL INFORMATION: An upper respiratory tract infection, or cold, is a viral infection of the airway passages. It can be caused by any one of almost 200 different viruses. Common symptoms include a runny or stuffy nose, sneezing, watery eyes, sore throat, cough, and slight fever. Colds are contagious, especially during the first 3 or 4 days and cannot be cured by antibiotics. They are spread by coughs, sneezes, anddirect contact, especially znxu-mx-vqho. A respiratory tract infection usually clears up in a few days, but some people may be sick for a week or two. INSTRUCTIONS: 1. Be careful not to blow your nose too hard because this may cause a nosebleed. 2. Use a cool-mist humidifier (vaporizer) to increase air moisture. This will make it easier for you to breathe. Do not use hot steam. 3. Rest as much as possible and get plenty of sleep. 4. Wash your hands often, especially after you blow your nose. Cover your mouth and nose with a tissue when you sneeze or cough. 5. Drink plenty of clear fluids (8 glasses a day) such as water, fruit juice, tea, clear soups, andcarbonated beverages. CONTACT YOUR DOCTOR IF : 1. Your fever lasts more than 3 days. 2. You have a sore throat that gets worse or you see white or yellow spots in your throat. 3. Your cough gets worse or lasts more than 10 days. 4. You develop a rash anywhere on your skin. 5. You have an earache or a headache. 6. You have thick greenish or yellowish discharge from your nose. RETURN IMMEDIATELY IF: 1. You cough up thick yellow, green, ferris, or bloody sputum. 2. You have difficulty breathing, pain in your chest, or your skin or nails look ferris or blue. 3. You have shaking chills or a temperature over 102 F (39 C). [facility] History of Present illness Narrative* Mc Lawrence RT(R) - 06/16/2024 11:10 AM EST Radiology Service Progress Note PATIENT NAME: Stacey Elkins DATE OF SERVICE: June 16, 2024 TIME: 11:09 AM PATIENT IDENTITY VERIFICATION COMPLETED USING TWO (2) IDENTIFIERS: Name and Date of confirmedby patient verbally. FALL SCREENING: Has the patient had 2 falls in the last year or 1 fall with injury or currently using an Ambulatory Assistive Device (Walker, Cane, Wheelchair, Crutches, etc.)? No PATIENT GENDER DATA: Female. status: : No status: NO. PATIENT RELEVANT IMPLANT DATA REVIEWED: Not Applicable PATIENT PRESENTS WITH AN IMPLANTABLE OR ATTACHED ART EDUCATOR: No RADIOLOGY DEPARTMENT: General X-ray: Exam(s) Completed: Chest X-Ray PERIPHERAL IV DATA: Not applicable SIGNED BY: RT Yonis(R) June 16, 2024 11:09 AM documented in [facility]27-[facility]24 NoteHNO ID: [id number] Author: MC LAWRENCE RT(R) Service: Radiology Author Type: Technologist Type: Progress Notes Filed: 06/16/2024 11:17 Note Text: Radiology Service Progress Note PATIENT NAME: Stacey Elkins DATE OF SERVICE: June 16, 2024 TIME: 11:09 AM PATIENT IDENTITY VERIFICATION COMPLETED USING TWO (2) IDENTIFIERS: Name and Date of confirmed by patient verbally. FALL SCREENING: Has the patient had 2 falls in the last year or 1 fall with injury or currently using an Ambulatory Assistive Device (Walker, Cane, Wheelchair, Crutches, etc.)? No PATIENT GENDER DATA: Female. status: : No status: NO. PATIENT RELEVANT IMPLANT DATA REVIEWED: Not Applicable PATIENT PRESENTS WITH AN IMPLANTABLE OR ATTACHED ART EDUCATOR: No RADIOLOGY DEPARTMENT: General X-ray: Exam(s) Completed: Chest X-Ray PERIPHERAL IV DATA: Not applicable SIGNED BY: RT Yonis(R) June 16, 2024 11:09 [facility]12-27-2024 NoteHNO ID: [id number] Author: LAURITA ARANGO APRN.DEV TECHNICAL MGR Service: ? Author Type: Nurse Practitioner Type: Progress Notes Filed: 06/16/2024 11:41 Note Text: Subjective HPI HPI Stacey Elkins is a 78 year old female who presents today for CC of cough, congestion, ear pain. This started 1 day ago. Has tried otc medication for relief. Symptoms are worsened by nothing. Risk factors no sick exposures. .Patient presents with: Cough: Drainage x 1 day PAST MEDICAL HISTORY Diagnosis Date Arthritis Bronchitis GERD (gastroesophageal reflux disease) Hearing loss HTN (hypertension) Overactive bladder Pneumonia Sleep apnea Snoring Thyroid disease UTI (urinary tract infection) PAST SURGICAL HISTORY Procedure Laterality Date COLONOSCOPY FLX DX W/COLLJ SPEC WHEN PFRMD 07/14/2013 Colonoscopy ESOPHAGOGASTRODUODENOSCOPY TRANSORAL DIAGNOSTIC 08/26/2018 [facility]-repeat in 3 years LAPAROSCOPY SURG CHOLECYSTECTOMY 09/05/2018 Cholecystectomy, lap PAST SURGICAL HISTORY OF 05/11/2014 cysto bladder biopsy TOTAL ABDOMINAL HYSTERECT W/WO RMVL TUBE OVARY Hysterectomy, CECILE TYMPANIC MEMB RPR W/WO PREPJ PERFOR PATCH bilat Tympanoplasty ALLERGIES Rafaela [Fexofenadine Hcl], Darvon [Propoxyphene Hcl], and Diphenoxylate MEDICATIONS calcium carb-mag hydrox-simeth 1,200 mg-270 mg -80 mg/10 mL susp Take by mouth. traZODone (DESYREL) 50 mg tablet Take 1 tablet every day by oral route at bedtime. sertraline (ZOLOFT) 50 mg tablet Take 50 mg by mouth once daily. clonazePAM (KLONOPIN) 0.5 mg tablet Take 1 tablet every day by oral route at bedtime. carbidopa-levodopa (SINEMET 25-100) 25-100 mg per tablet Take 1 tablet by mouth three times daily. rivastigmine tartrate (EXELON) 1.5 mg capsule Take 1.5 mg by mouth twice daily. losartan (COZAAR) 50 mg tablet Take 50 mg by mouth once daily. pantoprazole DR (PROTONIX) 40 mg tablet Take 1 tablet by mouth once daily. acetaminophen (TYLENOL) 500 mg tablet Take 1,000 mg by mouth every 8 hours as needed. ascorbic acid, vitamin C, (VITAMIN C) 500 mg tablet Take 1,000 mg by mouth once daily. SACCHAROMYCES BOULARDII (PROBIOTIC, S.BOULARDII, ORAL) Take by mouth every other day. levothyroxine (SYNTHROID) 50 mcg tablet MULTIVITAMIN ORAL Take by mouth. FAMILY HISTORY Problem Relation Age of Onset Heart Mother mi Heart Father mi Stroke Sister Seizures Sister Social History Tobacco Use Smoking status: Former Types: Cigarettes Smokeless tobacco: Never Substance Use Topics Alcohol use: No Drug use: No Review of Systems Constitutional: Negative for fever. HENT: Positive for congestion and ear pain. Negative for ear discharge, nosebleeds and sore throat. Respiratory: Positive for cough and sputum production (yellow). Negative for shortness of breath and wheezing. Cardiovascular: Negative for chest pain. Musculoskeletal: Negative for neck pain. Skin: Negative for itching and rash. Objective Blood pressure 132/82, pulse 79, temperature 37 ?C (98.6 ?F), resp. rate 19, weight 76.1 kg (167 lb 12.3 oz), SpO2 95%. Physical Exam Constitutional: General: She is not in acute distress. Appearance: She is not toxic-appearing or diaphoretic. HENT: Head: Normocephalic and atraumatic. Right Ear: Hearing, tympanic membrane, ear canal and external ear normal. Left Ear: Hearing, ear canal and external ear normal. A middle ear effusion is present. Tympanic membrane is not perforated, erythematous or bulging. Nose: Nose normal. Mouth/Throat: Pharynx: Uvula midline. No pharyngeal swelling, oropharyngeal exudate, posterior oropharyngeal erythema or uvula swelling. Eyes: General: Lids are normal. No scleral icterus. Right eye: No discharge. Left eye: No discharge. Conjunctiva/sclera: Conjunctivae normal. Pupils: Pupils are equal, round, and reactive to light. Neck: Trachea: Trachea normal. Cardiovascular: Rate and Rhythm: Normal rate and regular rhythm. Heart sounds: Normal heart sounds. Pulmonary: Effort: Pulmonary effort is normal. Breath sounds: Normal breath sounds. Musculoskeletal: Cervical back: Normal range of motion and neck supple. Lymphadenopathy: Cervical: No cervical adenopathy. Right cervical: No superficial cervical adenopathy. Left cervical: No superficial cervical adenopathy. Skin: Findings: No rash. Neurological: Mental Status: She is alert and oriented to person, place, and time. ASSESSMENT/PLAN: 1. Productive cough - ICD9: 786.2, ICD10: R05.8 (primary diagnosis) Viral today Hold atb if s/s persist or worsen fill and take atb - DOXYCYCLINE MONOHYDRATE 100 MG TABLET 2. Acute cough - ICD9: 786.2, ICD10: R05.1 - XR CHEST 2V FRONTAL/LAT IMPRESSION: No acute radiographic abnormality. Dictated by : MD Laurita MONTANO APRN.[facility]12-27-2024 History of Present illness Narrative* Laurita Arango APRN.[facility] - 06/16/2024 10:59 AM EST Subjective HPI HPI Stacey Elkins is a 78 year old female who presents today for CC of cough, congestion, ear pain. This started 1 day ago. Has tried otc medication for relief. Symptoms are worsened by nothing. Risk factors no sick exposures. .Patient presents with: Cough: Drainage x 1 day PAST MEDICAL HISTORY Diagnosis Date Arthritis Bronchitis GERD (gastroesophageal reflux disease) Hearing loss HTN (hypertension) Overactive bladder Pneumonia Sleep apnea Snoring Thyroid disease UTI (urinary tract infection) PAST SURGICAL HISTORY Procedure Laterality Date COLONOSCOPY FLX DX W/COLLJ SPEC WHEN PFRMD 07/14/2013 Colonoscopy ESOPHAGOGASTRODUODENOSCOPY TRANSORAL DIAGNOSTIC 08/26/2018 [facility]-repeat in 3 years LAPAROSCOPY SURG CHOLECYSTECTOMY 09/05/2018 Cholecystectomy, lap PAST SURGICAL HISTORY OF 05/11/2014 cysto bladder biopsy TOTAL ABDOMINAL HYSTERECT W/WO RMVL TUBE OVARY Hysterectomy, CECILE TYMPANIC MEMB RPR W/WO PREPJ PERFOR PATCH bilat Tympanoplasty ALLERGIES Rafaela [Fexofenadine Hcl], Darvon [Propoxyphene Hcl], and Diphenoxylate MEDICATIONS calcium carb-mag hydrox-simeth 1,200 mg-270 mg -80 mg/10 mL susp Take by mouth. traZODone (DESYREL) 50 mg tablet Take 1 tablet every day by oral route at bedtime. sertraline (ZOLOFT) 50 mg tablet Take 50 mg by mouth once daily. clonazePAM (KLONOPIN) 0.5 mg tablet Take 1 tablet every day by oral route at bedtime. carbidopa-levodopa (SINEMET 25-100) 25-100 mg per tablet Take 1 tablet by mouth three times daily. rivastigmine tartrate (EXELON) 1.5 mg capsule Take 1.5 mg by mouth twice daily. losartan (COZAAR) 50 mg tablet Take 50 mg by mouth once daily. pantoprazole DR (PROTONIX) 40 mg tablet Take 1 tablet by mouth once daily. acetaminophen (TYLENOL) 500 mg tablet Take 1,000 mg by mouth every 8 hours as needed. ascorbic acid, vitamin C, (VITAMIN C) 500 mg tablet Take 1,000 mg by mouth once daily. SACCHAROMYCES BOULARDII (PROBIOTIC, S.BOULARDII, ORAL) Take by mouth every other day. levothyroxine (SYNTHROID) 50 mcg tablet MULTIVITAMIN ORAL Take by mouth. FAMILY HISTORY Problem Relation Age of Onset Heart Mother mi Heart Father mi Stroke Sister Seizures Sister Social History Tobacco Use Smoking status: Former Types: Cigarettes Smokeless tobacco: Never Substance Use Topics Alcohol use: No Drug use: No Review of Systems Constitutional: Negative for fever. HENT: Positive for congestion and ear pain. Negative for ear discharge, nosebleeds and sore throat. Respiratory: Positive for cough and sputum production (yellow). Negative for shortness of breath and wheezing. Cardiovascular: Negative for chest pain. Musculoskeletal: Negative for neck pain. Skin: Negative for itching and rash. Objective Blood pressure 132/82, pulse 79, temperature 37 C (98.6 F), resp. rate 19, weight 76.1 kg (167 lb 12.3 oz), SpO2 95%. Physical Exam Constitutional: General: She is not in acute distress. Appearance: She is not toxic-appearing or diaphoretic. HENT: Head: Normocephalic and atraumatic. Right Ear: Hearing, tympanic membrane, ear canal and external ear normal. Left Ear: Hearing, ear canal and external ear normal. A middle ear effusion is present. Tympanic membrane is not perforated, erythematous or bulging. Nose: Nose normal. Mouth/Throat: Pharynx: Uvula midline. No pharyngeal swelling, oropharyngeal exudate, posterior oropharyngeal erythema or uvula swelling. Eyes: General: Lids are normal. No scleral icterus. Right eye: No discharge. Left eye: No discharge. Conjunctiva/sclera: Conjunctivae normal. Pupils: Pupils are equal, round, and reactive to light. Neck: Trachea: Trachea normal. Cardiovascular: Rate and Rhythm: Normal rate and regular rhythm. Heart sounds: Normal heart sounds. Pulmonary: Effort: Pulmonary effort is normal. Breath sounds: Normal breath sounds. Musculoskeletal: Cervical back: Normal range of motion and neck supple. Lymphadenopathy: Cervical: No cervical adenopathy. Right cervical: No superficial cervical adenopathy. Left cervical: No superficial cervical adenopathy. Skin: Findings: No rash. Neurological: Mental Status: She is alert and oriented to person, place, and time. ASSESSMENT/PLAN: 1. Productive cough - ICD9: 786.2, ICD10: R05.8 (primary diagnosis) Viral today Hold atb if s/s persist or worsen fill and take atb - DOXYCYCLINE MONOHYDRATE 100 MG TABLET 2. Acute cough - ICD9: 786.2, ICD10: R05.1 - XR CHEST 2V FRONTAL/LAT IMPRESSION: No acute radiographic abnormality. Dictated by : MD Laurita MONTANO APRN.DEV TECHNICAL MGR [facility] Note* Exam Date Time Procedure Performing Provider Status 06/06/24 3:09 PM BD Bone Density DEXA Axial Skeleton Auth (Verified) [id number] ORIGINAL EXAMINATION: BONE GHYYDETPEKEF47/17/2024 3:11 pm TECHNIQUE: Dual energy bone densitometry lumbar spine and left hip. COMPARISON: None HISTORY: Reason for Exam: Osteoporosis Screening FINDINGS: L1-L4: BMD= 1.018 g/cm2 T score= -0.3 Left femoral neck: BMD= 0.488 g/cm2 T score= -3.3 Left hip: BMD= 0.722 g/cm2 T score= -1.8 FRAX score: Not calculated The BHOF f/k/a NOF recommends that FDA-approved medical therapies be considered in post-menopausal women and men age >/= 50 years with a: * Hip or vertebral fracture, or * T-score of /= 20% for major osteoporotic fractures or * >/= 3% for hip fractures All treatment decisions require clinical judgement and consideration of individual patient factors, including patient preferences, comorbidities, previous drug use, risk factors not captured in the FRAX registered model (e.g., frailty, falls, vitamin D deficiency, increased bone turnover, interval significant decline in bone density) and possible under- or over-estimation of fracture risk by FRAX. IMPRESSION: Osteoporosis. Interpreted by: Loraine Foster MD Preliminary Report By: Loraine Foster MD Electronically signed By Loraine Foster MD Dictated Date: 06/06/2024 3:23:44 PM Prelim Date: 06/06/2024 3:24:36 PM Sign Date: 06/06/2024 3:24:36 PM Ordering Provider: [place] [id number] NoteHNO ID: [id number] Author: RADHA MOSQUERA PA Service: ? Author Type: Physician Ice Cream Scooper Type: Progress Notes Filed: 03/24/2024 12:25 Note Text: This note was created using NoteWriter. Subjective Stacey Elkins is a 78 year old female. HPI 78-year-old female presents for left ear pain. Patient has been having left ear pain for about 2 weeks. Patient presents with daughter. Patient wears a hearing aid in the left ear. She states that she has had drainage from the left ear for few weeks. The drainage goes around the outside of the ear and then gets crusted and is itchy and irritating. She has pain in the ear. She states this has occurred in the past. She has been putting drops she was given by ENT and it, but they do not seem to be helping. She has not had any fevers. No cough, congestion or URI symptoms. No other complaint. PAST MEDICAL HISTORY Diagnosis Date Arthritis Bronchitis GERD (gastroesophageal reflux disease) Hearing loss HTN (hypertension) Overactive bladder Pneumonia Sleep apnea Snoring Thyroid disease UTI (urinary tract infection) PAST SURGICAL HISTORY Procedure Laterality Date COLONOSCOPY FLX DX W/COLLJ SPEC WHEN PFRMD 07/14/2013 Colonoscopy ESOPHAGOGASTRODUODENOSCOPY TRANSORAL DIAGNOSTIC 08/26/2018 [facility]-repeat in 3 years LAPAROSCOPY SURG CHOLECYSTECTOMY 09/05/2018 Cholecystectomy, lap PAST SURGICAL HISTORY OF 05/11/2014 cysto bladder biopsy TOTAL ABDOMINAL HYSTERECT W/WO RMVL TUBE OVARY Hysterectomy, CECILE TYMPANIC MEMB RPR W/WO PREPJ PERFOR PATCH bilat Tympanoplasty ALLERGIES Rafaela [Fexofenadine Hcl], Darvon [Propoxyphene Hcl], and Diphenoxylate MEDICATIONS amoxicillin (AMOXIL) 875 mg tablet Take 1 tablet by mouth two times a day for 7 days. ofloxacin (FLOXIN) 0.3 % otic solution Use 10 Drops in the left ear once daily for 7 days. traZODone (DESYREL) 50 mg tablet Take 1 tablet every day by oral route at bedtime. sertraline (ZOLOFT) 50 mg tablet Take 50 mg by mouth once daily. clonazePAM (KLONOPIN) 0.5 mg tablet Take 1 tablet every day by oral route at bedtime. carbidopa-levodopa (SINEMET 25-100) 25-100 mg per tablet Take 1 tablet by mouth three times daily. rivastigmine tartrate (EXELON) 1.5 mg capsule Take 1.5 mg by mouth twice daily. losartan (COZAAR) 50 mg tablet Take 50 mg by mouth once daily. pantoprazole DR (PROTONIX) 40 mg tablet Take 1 tablet by mouth once daily. acetaminophen (TYLENOL) 500 mg tablet Take 1,000 mg by mouth every 8 hours as needed. ascorbic acid, vitamin C, (VITAMIN C) 500 mg tablet Take 1,000 mg by mouth once daily. SACCHAROMYCES BOULARDII (PROBIOTIC, S.BOULARDII, ORAL) Take by mouth every other day. levothyroxine (SYNTHROID) 50 mcg tablet MULTIVITAMIN ORAL Take by mouth. FAMILY HISTORY Problem Relation Age of Onset Heart Mother mi Heart Father mi Stroke Sister Seizures Sister Social History Tobacco Use Smoking status: Former Types: Cigarettes Smokeless tobacco: Never Substance Use Topics Alcohol use: No Drug use: No Review of Systems Constitutional: Negative for chills and fever. HENT: Positive for ear discharge and ear pain. Negative for congestion and sore throat. Respiratory: Negative for cough and shortness of breath. Cardiovascular: Negative for chest pain. Gastrointestinal: Negative for diarrhea and vomiting. Objective BP 194/88 Pulse 73 Temp 36.6 ?C (97.8 ?F) Resp 18 Wt 76.9 kg (169 lb 8.5 oz) SpO2 95% BMI 35.43 kg/m? Physical Exam Vitals and nursing note reviewed. Constitutional: General: She is not in acute distress. Appearance: Normal appearance. She is not toxic-appearing. HENT: Right Ear: Tympanic membrane and ear canal normal. Left Ear: Drainage and tenderness present. A middle ear effusion is present. Ears: Comments: Patient has purulent middle ear effusion. Tenderness of the external canal with erythema. She does have yellow/white drainage in the external canal. Patient has dry skin and excoriation noted on the external ear and behind the ear. No vesicular rash. Nose: Nose normal. Mouth/Throat: Mouth: Mucous membranes are moist. Eyes: Conjunctiva/sclera: Conjunctivae normal. Cardiovascular: Rate and Rhythm: Normal rate and regular rhythm. Pulmonary: Effort: Pulmonary effort is normal. Breath sounds: Normal breath sounds. Skin: General: Skin is warm and dry. Neurological: Mental Status: She is alert. Assessment and Plan ASSESSMENT/PLAN: 1. Acute otitis externa of left ear, unspecified type - ICD9: 380.10, ICD10: H60.502 (primary diagnosis) -Rx for ofloxacin drops. -Patient does have dry skin and irritation around the ear. Advise she may use a moisturizer [id number] or 1% hydrocortisone cream. -Follow-up with ENT if no improvement. 2. Left otitis media, unspecified otitis media type - ICD9: 382.9, ICD10: H66.92 - Will begin treatment with Amoxicillin for 7 days - Jerez (more content not included)...[facility]10-04-2024 History of Present illness Narrative* Radha Mosquera PA - 03/24/2024 12:22 PM EDT This note was created using sickweather. Subjective Stacey Elkins is a 78 year old female. HPI 78-year-old female presents for left ear pain. Patient has been having left ear pain for about 2 weeks. Patient presents with daughter. Patient wears a hearing aid in the left ear. She states that she has had drainage from the left ear for few weeks. The drainage goes around the outside of the ear and then gets crusted and is itchy and irritating. She has pain in the ear. She states this has occurred in the past. She has been putting drops she was given by ENT and it, but they do not seem to be helping. She has not had any fevers. No cough, congestion or URI symptoms. No other complaint. PAST MEDICAL HISTORY Diagnosis Date Arthritis Bronchitis GERD (gastroesophageal reflux disease) Hearing loss HTN (hypertension) Overactive bladder Pneumonia Sleep apnea Snoring Thyroid disease UTI (urinary tract infection) PAST SURGICAL HISTORY Procedure Laterality Date COLONOSCOPY FLX DX W/COLLJ SPEC WHEN PFRMD 07/14/2013 Colonoscopy ESOPHAGOGASTRODUODENOSCOPY TRANSORAL DIAGNOSTIC 08/26/2018 [facility]-repeat in 3 years LAPAROSCOPY SURG CHOLECYSTECTOMY 09/05/2018 Cholecystectomy, lap PAST SURGICAL HISTORY OF 05/11/2014 cysto bladder biopsy TOTAL ABDOMINAL HYSTERECT W/WO RMVL TUBE OVARY Hysterectomy, CECILE TYMPANIC MEMB RPR W/WO PREPJ PERFOR PATCH bilat Tympanoplasty ALLERGIES Rafaela [Fexofenadine Hcl], Darvon [Propoxyphene Hcl], and Diphenoxylate MEDICATIONS amoxicillin (AMOXIL) 875 mg tablet Take 1 tablet by mouth two times a day for 7 days. ofloxacin (FLOXIN) 0.3 % otic solution Use 10 Drops in the left ear once daily for 7 days. traZODone (DESYREL) 50 mg tablet Take 1 tablet every day by oral route at bedtime. sertraline (ZOLOFT) 50 mg tablet Take 50 mg by mouth once daily. clonazePAM (KLONOPIN) 0.5 mg tablet Take 1 tablet every day by oral route at bedtime. carbidopa-levodopa (SINEMET 25-100) 25-100 mg per tablet Take 1 tablet by mouth three times daily. rivastigmine tartrate (EXELON) 1.5 mg capsule Take 1.5 mg by mouth twice daily. losartan (COZAAR) 50 mg tablet Take 50 mg by mouth once daily. pantoprazole DR (PROTONIX) 40 mg tablet Take 1 tablet by mouth once daily. acetaminophen (TYLENOL) 500 mg tablet Take 1,000 mg by mouth every 8 hours as needed. ascorbic acid, vitamin C, (VITAMIN C) 500 mg tablet Take 1,000 mg by mouth once daily. SACCHAROMYCES BOULARDII (PROBIOTIC, S.BOULARDII, ORAL) Take by mouth every other day. levothyroxine (SYNTHROID) 50 mcg tablet MULTIVITAMIN ORAL Take by mouth. FAMILY HISTORY Problem Relation Age of Onset Heart Mother mi Heart Father mi Stroke Sister Seizures Sister Social History Tobacco Use Smoking status: Former Types: Cigarettes Smokeless tobacco: Never Substance Use Topics Alcohol use: No Drug use: No Review of Systems Constitutional: Negative for chills and fever. HENT: Positive for ear discharge and ear pain. Negative for congestion and sore throat. Respiratory: Negative for cough and shortness of breath. Cardiovascular: Negative for chest pain. Gastrointestinal: Negative for diarrhea and vomiting. Objective BP 194/88 Pulse 73 Temp 36.6 C (97.8 F) Resp 18 Wt 76.9 kg (169 lb 8.5 oz) SpO2 95% BMI35.43 kg/m Physical Exam Vitals and nursing note reviewed. Constitutional: General: She is not in acute distress. Appearance: Normal appearance. She is not toxic-appearing. HENT: Right Ear: Tympanic membrane and ear canal normal. Left Ear: Drainage and tenderness present. A middle ear effusion is present. Ears: Comments: Patient has purulent middle ear effusion. Tenderness of the external canal with erythema.She does have yellow/white drainage in the external canal. Patient has dry skin and excoriation noted on the external ear and behind the ear. No vesicular rash. Nose: Nose normal. Mouth/Throat: Mouth: Mucous membranes are moist. Eyes: Conjunctiva/sclera: Conjunctivae normal. Cardiovascular: Rate and Rhythm: Normal rate and regular rhythm. Pulmonary: Effort: Pulmonary effort is normal. Breath sounds: Normal breath sounds. Skin: General: Skin is warm and dry. Neurological: Mental Status: She is alert. Assessment and Plan ASSESSMENT/PLAN: 1. Acute otitis externa of left ear, unspecified type - ICD9: 380.10, ICD10: H60.502 (primary diagnosis) -Rx for ofloxacin drops. -Patient does have dry skin and irritation around the ear. Advise she may use a moisturizer [id number] or 1% hydrocortisone cream. -Follow-up with ENT if no improvement. 2. Left otitis media, unspecified otitis media type - ICD9: 382.9, ICD10: H66.92 - Will begin treatment with Amoxicillin for 7 days - Supportive care with plenty of fluids, rest, and analgesia prn. -Blood pressure elevated here. Patient already on medications. Daughter states they were just to orthopedics and it was not elevated there. Advised to keep an eye on blood pressure at home. If any symptoms, go to ER including chest pain, shortness of breath, headaches, vision changes. Diagnosis and treatment plan were discussed and questions were answered to the patient's satisfaction. Pt acknowledged understanding of concepts and follow up plan. Specific signs and symptoms that would indicate the need for higher level of care were discussed in detail warranting prompt ER evaluation. ARABELLA Geiger documented [facility] Tele[facility] encounter Note * Telephone Encounter - Angie Kidd RN - 02/04/2024 10:19 AM EDT Patient daughter Aliyah calls and states that patient has appointment with [facility] on Wednesday02/07/2024. Daughter asking if a xray disc can be made so that patient can take to appointment? Please review and advise, please call when completed [phone] which is patient's daughter Hardeep Angie Kidd RN [facility]08-[facility] Miscellaneous Notes* Telephone Encounter - Angie Kidd RN - 02/04/2024 10:19 AM EDT Patient daughter Aliyah calls and states that patient has appointment with [facility] on Wednesday02/07/2024. Daughter asking if a xray disc can be made so that patient can take to appointment? Please review and advise, please call when completed [phone] which is patient's daughter Hardeep Angie Kidd RN documented [facility] this encounter[facility] Instructions* Patient Instructions* Marilee Bain, ALFONSO.DEV TECHNICAL MGR - 02/03/2024 4:26 PM EDT ASSESSMENT/PLAN: 1. Right ankle injury, initial encounter - ICD9: 959.7, ICD10: S99.911A (primary diagnosis) - XR ANKLE GENERAL 3V AP/LAT/OBL RIGHT 2. Right foot injury, initial encounter - ICD9: 959.7, ICD10: S99.921A - XR FOOT GENERAL 3V AP/LAT/OBL RIGHT FINDINGS: Nondisplaced oblique fracture seen in the distal fibula extending to the ankle joint level (Fermin B). The mortise joint spaces are well preserved. There appears to be small ankle joint effusion. Calcaneal enthesophyte is present. There appears be pes cavus. The bones are somewhat osteopenic. There is soft tissue swelling along the lateral malleolus. IMPRESSION: Distal fibular fracture with soft tissue swelling. General Maintenance Technician: RAN Transcribe Date/Time: Feb 03 2024 4:01P Dictated by : LEENA ALAS MD 3. Closed fracture of distal end of right fibula, unspecified fracture morphology, initial encounter - ICD9: 824.8, ICD10: S82.831A - CONSULT PANEL TO ORTHOPAEDICS - patient placed in [employer] walking boot. - she has a 4 point cane she uses and is instructed to use the cane and wear boot until seen by orthopedics. - she will call to make appointment. - Wear boot during daytime. May take off at night but must be worn to walk. Limit weight bearing onright foot. - may take tylenol for pain. - may also use over the swollen area. - Follow-up with orthopedics as directed. - Discussed red flags and need for immediate medical evaluation if any occur. - Discussed supportive care treatment with fluids, rest and analgesia. - Discussed expected course of illness Marilee Bain APRN.DEV TECHNICAL MGR FRACTURES GENERAL INFORMATION: A fracture is a break in a bone. The length of time the cast will be on depends on how much time isneeded for the bone to heal. Sometimes a temporary splint is placed to allow the swelling to come down. If this is the case, you must follow up to have the actual cast applied. INSTRUCTIONS: 1. To minimize swelling, keep the injured limb above the level of your heart as much as possible. 2. Apply ice to the injury for 15 minutes each hour for the first two days. Put the ice in a plastic bag and place a thin towel between the bag of ice and your cast. 3. Keep your cast or splint dry. It can be protected during bathing with a plastic bag. If a fiberglass cast gets a little wet, it can be dried with a geography department chair. 4. Do not put pressure on any part of your cast or splint as it may break. 5. Plaster or fiberglass cast: Do not try to scratch the skin under the cast using a sharp or pointed object. Check the skin around the cast every day. You may put lotion on any red or sore area. Wear the splint until you are seen in follow-up. 6. You may take acetaminophen, or other prescribed pain medication as needed. CONTACT YOUR DOCTOR OR RETURN TO THE ED IF: 1. Your cast gets damaged or breaks. 2. You have continued severe pain or more swelling than you did before the cast was placed. 3. Your skin or nails turn blue, rosen, or feel cold or numb. 4. There is a bad smell or discharge coming from under the cast. documented in this encounterMet[facility] History of Present illness Narrative* Mc Lawrence RT(R) - 02/03/2024 3:30 PM EDT Radiology Service Progress Note PATIENT NAME: Stacey Elkins DATE OF SERVICE: February 03, 2024 TIME: 3:20 PM PATIENT IDENTITY VERIFICATION COMPLETED USING TWO (2) IDENTIFIERS: Name and Date of confirmedby patient verbally. FALL SCREENING: Has the patient had 2 falls in the last year or 1 fall with injury or currently using an Ambulatory Assistive Device (Walker, Cane, Wheelchair, Crutches, etc.)? Yes, Patient High Riskfor Falls What interventions were put in place to prevent falls during this visit? Offered Assistance with Transfers/Clothing and Instructed Patient to Remain Seated (Not on Exam Table) Until Exam PATIENT GENDER DATA: Female. status: : No status: NO. PATIENT RELEVANT IMPLANT DATA REVIEWED: Not Applicable PATIENT PRESENTS WITH AN IMPLANTABLE OR ATTACHED ART EDUCATOR: No RADIOLOGY DEPARTMENT: General X-ray: Exam(s) Completed: Lower Extremity X- Ray(s): Ankle, Right and Foot, Right PERIPHERAL IV DATA: Not applicable SIGNED BY: DORA Somers) February 03, 2024 3:20 PM documented in this encounterMet[facility]08-15-2024 NoteHNO ID: [id number] Author: MC LAWRENCE RT (R) Service: Radiology Author Type: Technologist Type: Progress Notes Filed: 02/03/2024 15:31 Note Text: Radiology Service Progress Note PATIENT NAME: Stacey Elkins DATE OF SERVICE: February 03, 2024 TIME: 3:20 PM PATIENT IDENTITY VERIFICATION COMPLETED USING TWO (2) IDENTIFIERS: Name and Date of confirmed by patient verbally. FALL SCREENING: Has the patient had 2 falls in the last year or 1 fall with injury or currently using an Ambulatory Assistive Device (Walker, Cane, Wheelchair, Crutches, etc.)? Yes, Patient High Risk for Falls What interventions were put in place to prevent falls during this visit? Offered Assistance with Transfers/Clothing and Instructed Patient to Remain Seated (Not on Exam Table) Until Exam PATIENT GENDER DATA: Female. status: : No status: NO. PATIENT RELEVANT IMPLANT DATA REVIEWED: Not Applicable PATIENT PRESENTS WITH AN IMPLANTABLE OR ATTACHED ART EDUCATOR: No RADIOLOGY DEPARTMENT: General X-ray: Exam(s) Completed: Lower Extremity X-Ray(s): Ankle, Right and Foot, Right PERIPHERAL IV DATA: Not applicable SIGNED BY: Mc Lawrence RT(R) February 03, 2024 3:[address] [facility]08-15-2024 NoteHNO ID: [id number] Author: MARILEE BAIN APRN.DEV TECHNICAL MGR Service: ? Author Type: Nurse Practitioner Type: Progress Notes Filed: 02/03/2024 16:27 Note Text: Subjective HPI Stacey Elkins is a 78 year old female who presents with right ankle and foot pain, swelling and bruising. She fell in a hole in her yard yesterday. She states her took a tree out of the yard and did not fill the hole with dirt and she fell into it. She has been taking tylenol for pain. Review of Systems Constitutional: Negative for chills and fever. Musculoskeletal: Positive for falls and joint pain. See HPI Skin: Negative for itching and rash. BP 156/78 Pulse 78 Temp 37.1 ?C (98.8 ?F) Resp 18 Wt 72.9 kg (160 lb 11.5 oz) SpO2 95% BMI 33.59 kg/m? PAST MEDICAL HISTORY No date: Arthritis No date: Bronchitis No date: GERD (gastroesophageal reflux disease) No date: Hearing loss No date: HTN (hypertension) No date: Overactive bladder No date: Pneumonia No date: Sleep apnea No date: Snoring No date: Thyroid disease No date: UTI (urinary tract infection) PAST SURGICAL HISTORY 07/14/2013: COLONOSCOPY FLX DX W/COLLJ SPEC WHEN PFRMD Comment: Colonoscopy 08/26/2018: ESOPHAGOGASTRODUODENOSCOPY TRANSORAL DIAGNOSTIC Comment: [facility]-repeat in 3 years 09/05/2018: LAPAROSCOPY SURG CHOLECYSTECTOMY Comment: Cholecystectomy, lap 05/11/2014: PAST SURGICAL HISTORY OF Comment: cysto bladder biopsy No date: TOTAL ABDOMINAL HYSTERECT W/WO RMVL TUBE OVARY Comment: Hysterectomy, CECILE bilat: TYMPANIC MEMB RPR W/WO PREPJ PERFOR PATCH Comment: Tympanoplasty ALLERGIES Rafaela [Fexofenadine Hcl] and Darvon [Propoxyphene Hcl] MEDICATIONS clonazePAM (KLONOPIN) 0.5 mg tablet Take 1 tablet every day by oral route at bedtime. carbidopa-levodopa (SINEMET 25-100) 25-100 mg per tablet Take 1 tablet by mouth three times daily. rivastigmine tartrate (EXELON) 1.5 mg capsule Take 1.5 mg by mouth twice daily. losartan (COZAAR) 50 mg tablet Take 50 mg by mouth once daily. pantoprazole DR (PROTONIX) 40 mg tablet Take 1 tablet by mouth once daily. acetaminophen (TYLENOL) 500 mg tablet Take 1,000 mg by mouth every 8 hours as needed. ascorbic acid, vitamin C, (VITAMIN C) 500 mg tablet Take 1,000 mg by mouth once daily. SACCHAROMYCES BOULARDII (PROBIOTIC, S.BOULARDII, ORAL) Take by mouth every other day. levothyroxine (SYNTHROID) 50 mcg tablet MULTIVITAMIN ORAL Take by mouth. traZODone (DESYREL) 50 mg tablet Take 1 tablet every day by oral route at bedtime. sertraline (ZOLOFT) 50 mg tablet Take 50 mg by mouth once daily. FAMILY HISTORY Problem Relation Age of Onset Heart Mother mi Heart Father mi Stroke Sister Seizures Sister Social History Tobacco Use Smoking status: Former Types: Cigarettes Smokeless tobacco: Never Substance Use Topics Alcohol use: No Drug use: No Objective Physical Exam Vitals and nursing note reviewed. Constitutional: Appearance: Normal appearance. Musculoskeletal: General: Swelling, tenderness and signs of injury present. No deformity. Legs: Skin: General: Skin is warm and dry. Capillary Refill: Capillary refill takes less than 2 seconds. Findings: Bruising present. No erythema or rash. Neurological: Mental Status: She is alert. ASSESSMENT/PLAN: 1. Right ankle injury, initial encounter - ICD9: 959.7, ICD10: S99.911A (primary diagnosis) - XR ANKLE GENERAL 3V AP/LAT/OBL RIGHT 2. Right foot injury, initial encounter - ICD9: 959.7, ICD10: S99.921A - XR FOOT GENERAL 3V AP/LAT/OBL RIGHT FINDINGS: Nondisplaced oblique fracture seen in the distal fibula extending to the ankle joint level (Fermin B). The mortise joint spaces are well preserved. There appears to be small ankle joint effusion. Calcaneal enthesophyte is present. There appears be pes cavus. The bones are somewhat osteopenic. There is soft tissue swelling along the lateral malleolus. IMPRESSION: Distal fibular fracture with soft tissue swelling. General Maintenance Technician: RNA Transcribe Date/Time: Feb 03 2024 4:01P Dictated by : LEENA ALAS MD 3. Closed fracture of distal end of right fibula, unspecified fracture morphology, initial encounter - ICD9: 824.8, ICD10: S82.831A - CONSULT PANEL TO ORTHOPAEDICS - patient placed in [employer] walking boot. - she has a 4 point cane she uses and is instructed to use the cane and wear boot until seen by orthopedics. - she will call to make appointment. - Wear boot during daytime. May take off at night but must be worn to walk. Limit weight bearing on right foot. - may take tylenol for pain. - may also use over the swollen area. - Follow-up with orthopedics as directed. - Discussed red flags and need for immediate medical evaluation if any occur. - Discussed supportive care treatment with fluids, rest and analgesia. - Discussed expected course of illness Marilee Bain APRN.[facility]08-15-2024 History of Present illness Narrative* Marilee Bain APRN.DEV TECHNICAL MGR - 02/03/2024 3:15 PM EDT Images from the original note were not included. Subjective HPI Stacey Elkins is a 78 year old female who presents with right ankle and foot pain, swellingand bruising. She fell in a hole in her yard yesterday. She states her took a tree out of the yard and did not fill the hole with dirt and she fellinto it. She has been taking tylenol for pain. Review of Systems Constitutional: Negative for chills and fever. Musculoskeletal: Positive for falls and joint pain. See HPI Skin: Negative for itching and rash. BP 156/78 Pulse 78 Temp 37.1 C (98.8 F) Resp 18 Wt 72.9 kg (160 lb 11.5 oz) SpO2 95% BMI 33.59 kg/m PAST MEDICAL HISTORY No date: Arthritis No date: Bronchitis No date: GERD (gastroesophageal reflux disease) No date: Hearing loss No date: HTN (hypertension) No date: Overactive bladder No date: Pneumonia No date: Sleep apnea No date: Snoring No date: Thyroid disease No date: UTI (urinary tract infection) PAST SURGICAL HISTORY 07/14/2013: COLONOSCOPY FLX DX W/COLLJ SPEC WHEN PFRMD Comment: Colonoscopy 08/26/2018: ESOPHAGOGASTRODUODENOSCOPY TRANSORAL DIAGNOSTIC Comment: [facility]-repeat in 3 years 09/05/2018: LAPAROSCOPY SURG CHOLECYSTECTOMY Comment: Cholecystectomy, lap 05/11/2014: PAST SURGICAL HISTORY OF Comment: cysto bladder biopsy No date: TOTAL ABDOMINAL HYSTERECT W/WO RMVL TUBE OVARY Comment: Hysterectomy, CECILE bilat: TYMPANIC MEMB RPR W/WO PREPJ PERFOR PATCH Comment: Tympanoplasty ALLERGIES Rafaela [Fexofenadine Hcl] and Darvon [Propoxyphene Hcl] MEDICATIONS clonazePAM (KLONOPIN) 0.5 mg tablet Take 1 tablet every day by oral route at bedtime. carbidopa-levodopa (SINEMET 25-100) 25-100 mg per tablet Take 1 tablet by mouth three times daily. rivastigmine tartrate (EXELON) 1.5 mg capsule Take 1.5 mg by mouth twice daily. losartan (COZAAR) 50 mg tablet Take 50 mg by mouth once daily. pantoprazole DR (PROTONIX) 40 mg tablet Take 1 tablet by mouth once daily. acetaminophen (TYLENOL) 500 mg tablet Take 1,000 mg by mouth every 8 hours as needed. ascorbic acid, vitamin C, (VITAMIN C) 500 mg tablet Take 1,000 mg by mouth once daily. SACCHAROMYCES BOULARDII (PROBIOTIC, S.BOULARDII, ORAL) Take by mouth every other day. levothyroxine (SYNTHROID) 50 mcg tablet MULTIVITAMIN ORAL Take by mouth. traZODone (DESYREL) 50 mg tablet Take 1 tablet every day by oral route at bedtime. sertraline (ZOLOFT) 50 mg tablet Take 50 mg by mouth once daily. FAMILY HISTORY Problem Relation Age of Onset Heart Mother mi Heart Father mi Stroke Sister Seizures Sister Social History Tobacco Use Smoking status: Former Types: Cigarettes Smokeless tobacco: Never Substance Use Topics Alcohol use: No Drug use: No Objective Physical Exam Vitals and nursing note reviewed. Constitutional: Appearance: Normal appearance. Musculoskeletal: General: Swelling, tenderness and signs of injury present. No deformity. Legs: Skin: General: Skin is warm and dry. Capillary Refill: Capillary refill takes less than 2 seconds. Findings: Bruising present. No erythema or rash. Neurological: Mental Status: She is alert. ASSESSMENT/PLAN: 1. Right ankle injury, initial encounter - ICD9: 959.7, ICD10: S99.911A (primary diagnosis) - XR ANKLE GENERAL 3V AP/LAT/OBL RIGHT 2. Right foot injury, initial encounter - ICD9: 959.7, ICD10: S99.921A - XR FOOT GENERAL 3V AP/LAT/OBL RIGHT FINDINGS: Nondisplaced oblique fracture seen in the distal fibula extending to the ankle joint level (Fermin B). The mortise joint spaces are well preserved. There appears to be small ankle joint effusion. Calcaneal enthesophyte is present. There appears be pes cavus. The bones are somewhat osteopenic. There is soft tissue swelling along the lateral malleolus. IMPRESSION: Distal fibular fracture with soft tissue swelling. General Maintenance Technician: RAN Transcribe Date/Time: Feb 03 2024 4:01P Dictated by : LEENA ALAS MD 3. Closed fracture of distal end of right fibula, unspecified fracture morphology, initial encounter - ICD9: 824.8, ICD10: S82.831A - CONSULT PANEL TO ORTHOPAEDICS - patient placed in [employer] walking boot. - she has a 4 point cane she uses and is instructed to use the cane and wear boot until seen by orthopedics. - she will call to make appointment. - Wear boot during daytime. May take off at night but must be worn to walk. Limit weight bearing onright foot. - may take tylenol for pain. - may also use over the swollen area. - Follow-up with orthopedics as directed. - Discussed red flags and need for immediate medical evaluation if any occur. - Discussed supportive care treatment with fluids, rest and analgesia. - Discussed expected course of illness Marilee Bain APRN.DEV TECHNICAL MGR documented in this encounter[facility] Note. MICRO - Microbiology PROCEDURE: Urine Culture [*1] SOURCE: Urine, Clean Catch BODY SITE: COLLECTED DATE/TIME: 10/01/2023 13:35 EDT RECEIVED DATE/TIME: 10/01/2023 18:57 EDT START DATE/TIME: 10/01/2023 18:58 EDT FREE TEXT SOURCE: FINAL REPORTS Final Report [] Verified Date/Time/Personnel: 10/03/2023 07:46 EDT No growth at 48 hours. PRELIMINARY REPORTS Preliminary Report [] Verified Date/Time/Personnel: 10/02/2023 09:59 EDT No growth to date Performing Locations *1: This test was performed at: [facility], [address] [place] [address], [facility] , [facility] hospital ([place])09-25-2023 Instructions* Patient Instructions* Emily Oliveira APRN.DEV TECHNICAL MGR - 09/25/2023 9:02 AM EDT URINARY TRACT INFECTION GENERAL INFORMATION: A urinary tract infection (UTI) is an infection of the bladder or kidneys. A bladder infection, called cystitis, is the more common type. If the infection travels up to the kidneys, it is called pyelonephritis. This can be more serious. UTIs are a common problem in women. Having sexual relations can leave a woman more susceptible to developing a UTI, but it is not sexually transmitted like gonorrhea. Some women have a problem with recurrent UTIs. INSTRUCTIONS: 1. Your doctor prescribed an antibiotic to treat the UTI. Take exactly as directed. Be sure to takeall the medication prescribed, even if your symptoms disappear. If you stop treatment early, the infection may not be fully treated and the symptoms could come back again. 2. Get plenty of rest. You may take acetaminophen for fever and aches. 3. Drink 6 to 8 glasses of fluids, especially water, every day. This helps wash out germs from yoururinary tract. Cranberry juice or other sources of vitamin C are also good for you. 4. Urinate often, as soon as you feel the urge. Empty your bladder completely. Urinate before and after you have sex. 5. Always wipe from front to back after going to the bathroom. This pushes germs away from your bladder, rather than towards it. 6. Showers are better than baths, and you should wash the genital area daily. Avoid bubble bath or bath oils if you do take a bath. 7. Wear underwear and pantyhose with a cotton crotch. CONTACT YOUR DOCTOR: 1. You have a temperature over 102F (38.8C) after 48 hours on medication. 2. You notice blood in your urine. 3. Your symptoms don't improve in 2 days. 4. You develop nausea, vomiting, diarrhea, or a rash. 5. You develop new or unexplained symptoms. These may be related to the medication you are taking. 6. Your symptoms return after you finish treatment. RETURN TO THE EMERGENCY DEPARTMENT IF: You develop vomiting and can't keep your medication or fluids down. documented in this encounterMet[facility]04-06-[facility]24 NoteHNO ID: [id number] Author: EMILY OLIVEIRA APRN.CNP Service: ? Author Type: Nurse Practitioner Type: Progress Notes Filed: 09/25/2023 09:38 Note Text: This note was created using mPorticoriter. Subjective Stacey Elkins is a 78 year old female. 78 year old female with PMH hyperactivity of bladder and mixed incontinence presents for UTI sx. Acute onset She was seen 09/16/23 and Macrobid called in. She completed 5 days Endorses symptoms not improving +burning +frequency +urgency Denies vaginal bleeding Denies vaginal discharge. Denies flank pain Denies abdominal pain Denies N/V/D The history is provided by the patient. No machinery engineer was used. UTI This is a new problem. The current episode started more than 2 days ago. The problem occurs every urination. The problem has been gradually worsening. The quality of the pain is described as burning. The pain is at a severity of 6/10. The pain is moderate. There has been no fever. She is Not sexually active. Associated symptoms include frequency and urgency. Pertinent negatives include no chills, no sweats, no nausea, no vomiting, no discharge, no hematuria, no hesitancy, no possible and no flank pain. She has tried nothing for the symptoms. Her past medical history does not include kidney stones, single kidney, urological procedure, recurrent UTIs, urinary stasis or catheterization. PAST MEDICAL HISTORY Diagnosis Date Arthritis Bronchitis GERD (gastroesophageal reflux disease) Hearing loss HTN (hypertension) Overactive bladder Pneumonia Sleep apnea Snoring Thyroid disease UTI (urinary tract infection) PAST SURGICAL HISTORY Procedure Laterality Date COLONOSCOPY FLX DX W/COLLJ SPEC WHEN PFRMD 07/14/2013 Colonoscopy ESOPHAGOGASTRODUODENOSCOPY TRANSORAL DIAGNOSTIC 08/26/2018 [facility]-repeat in 3 years LAPAROSCOPY SURG CHOLECYSTECTOMY 09/05/2018 Cholecystectomy, lap PAST SURGICAL HISTORY OF 05/11/2014 cysto bladder biopsy TOTAL ABDOMINAL HYSTERECT W/WO RMVL TUBE OVARY Hysterectomy, CECILE TYMPANIC MEMB RPR W/WO PREPJ PERFOR PATCH bilat Tympanoplasty ALLERGIES Rafaela [Fexofenadine Hcl] and Darvon [Propoxyphene Hcl] MEDICATIONS carbidopa-levodopa (SINEMET 25-100) 25-100 mg per tablet Take 1 tablet by mouth three times daily. rivastigmine tartrate (EXELON) 1.5 mg capsule Take 1.5 mg by mouth twice daily. losartan (COZAAR) 50 mg tablet Take 50 mg by mouth once daily. pantoprazole DR (PROTONIX) 40 mg tablet Take 1 tablet by mouth once daily. acetaminophen (TYLENOL) 500 mg tablet Take 1,000 mg by mouth every 8 hours as needed. ascorbic acid, vitamin C, (VITAMIN C) 500 mg tablet Take 1,000 mg by mouth once daily. SACCHAROMYCES BOULARDII (PROBIOTIC, S.BOULARDII, ORAL) Take by mouth every other day. levothyroxine (SYNTHROID) 50 mcg tablet MULTIVITAMIN ORAL Take by mouth. cephALEXin (KEFLEX) 500 mg capsule Take 1 capsule by mouth two times a day for 7 days. FAMILY HISTORY Problem Relation Age of Onset Heart Mother mi Heart Father mi Stroke Sister Seizures Sister Social History Tobacco Use Smoking status: Former Types: Cigarettes Smokeless tobacco: Never Substance Use Topics Alcohol use: No Drug use: No Review of Systems Constitutional: Negative for activity change, appetite change, chills and diaphoresis. Eyes: Negative for pain, discharge, redness and itching. Respiratory: Negative for apnea, cough, choking, chest tightness and shortness of breath. Cardiovascular: Negative for chest pain, palpitations and leg swelling. Gastrointestinal: Negative for abdominal pain, diarrhea, nausea and vomiting. Genitourinary: Positive for dysuria, frequency and urgency. Negative for flank pain, hematuria and hesitancy. Musculoskeletal: Negative for arthralgias, back pain and gait problem. Skin: Negative for color change, pallor, rash and wound. Allergic/Immunologic: Negative for environmental allergies, food allergies and immunocompromised state. Hematological: Negative for adenopathy. Does not bruise/bleed easily. Psychiatric/Behavioral: Negative for agitation and behavioral problems. Objective BP 118/76 Pulse 73 Temp 36.7 ?C (98.1 ?F) (Tympanic) Resp 18 Wt 74.6 kg (164 lb 7.4 oz) SpO2 99% BMI 34.37 kg/m? Physical Exam Vitals and nursing note reviewed. Constitutional: General: She is not in acute distress. Appearance: Normal appearance. She is normal weight. She is not ill-appearing, toxic-appearing or diaphoretic. HENT: Head: Normocephalic and atraumatic. Right Ear: Ear canal and external ear normal. Left Ear: Ear canal and external ear normal. Nose: Nose normal. No congestion or rhinorrhea. Mouth/Throat: Mouth: Mucous membranes are moist. Pharynx: No oropharyngeal exudate or posterior oropharyngeal erythema. Eyes: General: Right eye: No discharge. Left eye: No discharge. Extraocular Movements: Extraocula (more content not included)...[facility]04-06-2024 History of Present illness Narrative* Emily Oliveira APRN.[facility] - 09/25/2023 8:55 AM EDT This note was created using NoteWriter. Subjective Stacey Elkins is a 78 year old female. 78 year old female with PMH hyperactivity of bladder and mixed incontinence presents for UTI sx. Acute onset She was seen 09/16/23 and Macrobid called in. She completed 5 days Endorses symptoms not improving +burning +frequency +urgency Denies vaginal bleeding Denies vaginal discharge. Denies flank pain Denies abdominal pain Denies N/V/D The history is provided by the patient. No machinery engineer was used. UTI This is a new problem. The current episode started more than 2 days ago. The problem occurs every urination. The problem has been gradually worsening. The quality of the pain is described as burning.The pain is at a severity of 6/10. The pain is moderate. There has been no fever. She is Not sexually active. Associated symptoms include frequency and urgency. Pertinent negatives include no chills,no sweats, no nausea, no vomiting, no discharge, no hematuria, no hesitancy, no possible and no flank pain. She has tried nothing for the symptoms. Her past medical history does not includekidney stones, single kidney, urological procedure, recurrent UTIs, urinary stasis or catheterization. PAST MEDICAL HISTORY Diagnosis Date Arthritis Bronchitis GERD (gastroesophageal reflux disease) Hearing loss HTN (hypertension) Overactive bladder Pneumonia Sleep apnea Snoring Thyroid disease UTI (urinary tract infection) PAST SURGICAL HISTORY Procedure Laterality Date COLONOSCOPY FLX DX W/COLLJ SPEC WHEN PFRMD 07/14/2013 Colonoscopy ESOPHAGOGASTRODUODENOSCOPY TRANSORAL DIAGNOSTIC 08/26/2018 [facility]-repeat in 3 years LAPAROSCOPY SURG CHOLECYSTECTOMY 09/05/2018 Cholecystectomy, lap PAST SURGICAL HISTORY OF 05/11/2014 cysto bladder biopsy TOTAL ABDOMINAL HYSTERECT W/WO RMVL TUBE OVARY Hysterectomy, CECILE TYMPANIC MEMB RPR W/WO PREPJ PERFOR PATCH bilat Tympanoplasty ALLERGIES Rafaela [Fexofenadine Hcl] and Darvon [Propoxyphene Hcl] MEDICATIONS carbidopa-levodopa (SINEMET 25-100) 25-100 mg per tablet Take 1 tablet by mouth three times daily. rivastigmine tartrate (EXELON) 1.5 mg capsule Take 1.5 mg by mouth twice daily. losartan (COZAAR) 50 mg tablet Take 50 mg by mouth once daily. pantoprazole DR (PROTONIX) 40 mg tablet Take 1 tablet by mouth once daily. acetaminophen (TYLENOL) 500 mg tablet Take 1,000 mg by mouth every 8 hours as needed. ascorbic acid, vitamin C, (VITAMIN C) 500 mg tablet Take 1,000 mg by mouth once daily. SACCHAROMYCES BOULARDII (PROBIOTIC, S.BOULARDII, ORAL) Take by mouth every other day. levothyroxine (SYNTHROID) 50 mcg tablet MULTIVITAMIN ORAL Take by mouth. cephALEXin (KEFLEX) 500 mg capsule Take 1 capsule by mouth two times a day for 7 days. FAMILY HISTORY Problem Relation Age of Onset Heart Mother mi Heart Father mi Stroke Sister Seizures Sister Social History Tobacco Use Smoking status: Former Types: Cigarettes Smokeless tobacco: Never Substance Use Topics Alcohol use: No Drug use: No Review of Systems Constitutional: Negative for activity change, appetite change, chills and diaphoresis. Eyes: Negative for pain, discharge, redness and itching. Respiratory: Negative for apnea, cough, choking, chest tightness and shortness of breath. Cardiovascular: Negative for chest pain, palpitations and leg swelling. Gastrointestinal: Negative for abdominal pain, diarrhea, nausea and vomiting. Genitourinary: Positive for dysuria, frequency and urgency. Negative for flank pain, hematuria and hesitancy. Musculoskeletal: Negative for arthralgias, back pain and gait problem. Skin: Negative for color change, pallor, rash and wound. Allergic/Immunologic: Negative for environmental allergies, food allergies and immunocompromised state. Hematological: Negative for adenopathy. Does not bruise/bleed easily. Psychiatric/Behavioral: Negative for agitation and behavioral problems. Objective BP 118/76 Pulse 73 Temp 36.7 C (98.1 F) (Tympanic) Resp 18 Wt 74.6 kg (164 lb 7.4 oz) SpO2 99% BMI 34.37 kg/m Physical Exam Vitals and nursing note reviewed. Constitutional: General: She is not in acute distress. Appearance: Normal appearance. She is normal weight. She is not ill-appearing, toxic-appearing or diaphoretic. HENT: Head: Normocephalic and atraumatic. Right Ear: Ear canal and external ear normal. Left Ear: Ear canal and external ear normal. Nose: Nose normal. No congestion or rhinorrhea. Mouth/Throat: Mouth: Mucous membranes are moist. Pharynx: No oropharyngeal exudate or posterior oropharyngeal erythema. Eyes: General: Right eye: No discharge. Left eye: No discharge. Extraocular Movements: Extraocular movements intact. Conjunctiva/sclera: Conjunctivae normal. Pupils: Pupils are equal, round, and reactive to light. Cardiovascular: Rate and Rhythm: Normal rate and regular rhythm. Pulses: Normal pulses. Heart sounds: Normal heart sounds. No murmur heard. No friction rub. Pulmonary: Effort: Pulmonary effort is normal. No respiratory distress. Breath sounds: Normal breath sounds. No stridor. No wheezing, rhonchi or rales. Chest: Chest wall: No tenderness. Abdominal: General: Abdomen is flat. There is no distension. Palpations: Abdomen is soft. There is no mass. Tenderness: There is no abdominal tenderness. There is no right CVA tenderness, left CVA tenderness, guarding or rebound. Hernia: No hernia is present. Musculoskeletal: General: No swelling, tenderness, deformity or signs of injury. Normal range of motion. Cervical back: Normal range of motion and neck supple. No rigidity. Right lower leg: No edema. Left lower leg: No edema. Lymphadenopathy: Cervical: No cervical adenopathy. Skin: General: Skin is warm and dry. Capillary Refill: Capillary refill takes less than 2 seconds. Coloration: Skin is not jaundiced or pale. Findings: No bruising, erythema, lesion or rash. Neurological: General: No focal deficit present. Mental Status: She is alert and oriented to person, place, and time. Cranial Nerves: No cranial nerve deficit. Sensory: No sensory deficit. Motor: No weakness. Coordination: Coordination normal. Gait: Gait normal. Psychiatric: Mood and Affect: Mood normal. Behavior: Behavior normal. Thought Content: Thought content normal. Judgment: Judgment normal. Assessment and Plan ASSESSMENT/PLAN: 1. Cystitis - ICD9: 595.9, ICD10: N30.90 X 2 days acute - UA positive for claudia esterase, hematuria, proteinuria, and nitrates - Send urine for culture - Begin treatment with Keflex for 7 days - Patient education for prevention given - UA DIP, URINE (POC) - URINE CULTURE Emily Oliveira APRN.CNP documented in this encounterMet[facility]02-08-[facility]23 Procedure [facility]08-16-2022 Miscellaneous Notes* Telephone Encounter - Melanie Pardo LPN - 02/03/2022 8:50 AM EDT Phone call placed patient advised (see prior provider encounter) Patient verbalized understanding, agreed with plan of care. Melanie Pardo LPN * Telephone Encounter - Laurita Arango APRN.CNP - 02/03/2022 7:54 AM EDT You tested positive for COVID-19 Follow the CDC guidelines for isolation: 1. Everyone, regardless of vaccination status, should stay home for 5 days. 2. If you have no symptoms or your symptoms are resolving after 5 days, you can leave your house. 3. Continue to wear a mask around others for 5 additional days. If you have a fever, continue to stay home until your fever resolves, even if it is longer than 5 days. Please monitor your symptoms, and for any worrisome symptoms, call your primary care provider or schedule a visit with [facility]. A test is not recommended to return to work/school when meeting the above criteria. *if you desire treatment for covid 19 please discuss with your pcp. documented in this encounterMet[facility]08-15-2022 History of Present illness Narrative* Axel Henderson MD - 02/02/2022 9:43 AM EDT Patient presents with: Nasal Congestion: Body aches x1 day HPI: Feeling sick since yesterday Positive symptoms: Cough, Sinus pressure, Nasal Congestion, Rhinorrhea, Body Aches, Malaise, Headache, Negative symptoms: Shortness of breath, Wheezing, Earache, Vomiting, Diarrhea, OTC: Tylenol, Rx cough syrup (phenergan DM?) Has not had known COVID illness. Remote smoker. PAST MEDICAL HISTORY Diagnosis Date Arthritis Bladder infection Bronchitis GERD (gastroesophageal reflux disease) Hearing loss HTN (hypertension) Overactive bladder Pneumonia Sleep apnea Snoring Thyroid disease Unspecified hearing loss UTI (urinary tract infection) MEDICATIONS: zyrtec and allergy injections weekly. Current Outpatient Medications Medication Sig carbidopa-levodopa (SINEMET 25-100) 25-100 mg per tablet Take 1 tablet by mouth three times daily. rivastigmine tartrate (EXELON) 1.5 mg capsule Take 1.5 mg by mouth twice daily. losartan (COZAAR) 50 mg tablet Take 50 mg by mouth once daily. pantoprazole DR (PROTONIX) 40 mg tablet Take 1 tablet by mouth once daily. acetaminophen (TYLENOL) 500 mg tablet Take 1,000 mg by mouth every 8 hours as needed. ascorbic acid, vitamin C, (VITAMIN C) 500 mg tablet Take 1,000 mg by mouth once daily. SACCHAROMYCES BOULARDII (PROBIOTIC, S.BOULARDII, ORAL) Take by mouth every other day. levothyroxine (SYNTHROID) 50 mcg tablet MULTIVITAMIN ORAL Take by mouth. No current facility-administered medications for this visit. ALLERGIES: ALLERGIES Allergen Reactions Rafaela [Fexofenadi* bad dreams Darvon [Propoxyphen* mental status change VITALS: BP 126/88 Pulse 85 Temp 37.7 C (99.8 F) Resp 20 Wt 70.5 kg (155 lb 6.4 oz) SpO2 97% BMI32.48 kg/m PHYSICAL EXAM: GEN: mildly ill appearing HEENT: PERRL, EOMI, conjunctiva clear Sinuses: pressure over sinuses Throat: moist mucous membranes, no erythema, no exudate Neck: supple, no thyromegaly, no lymphadenopathy HEART: regular rate and rhythm, no murmurs LUNGS: clear to auscultation, no wheezes or crackles, no increased WOB; intermittent cough ASSESSMENT/PLAN: 1. URI, acute - ICD9: 465.9, ICD10: J06.9 - suspect viral URI, differential includes COVID-19. - Discussed supportive care treatment with home isolation, rest, cough medicine, and analgesia. - Red flags to seek further treatment include chest pain, shortness of breath, and lethargy; in theER if severe. - 2019 CORONAVIRUS. If positive discuss treatment with PCP; may return here if unable to prescribe.She does not use computers for virtual visits. Axel Henderson MD documented in this encounterMetrohealth [facility] CenterEvaluation + Plan note Future Appointments Appointment Date:01/26/2022 10:00:00 AM Scheduled Provider:JOSÉ MIGUEL NAVA DO Location:[facility] Appointment Type:PC OV Future Scheduled Tests Laboratory* Microalbumin Level Urine 08/05/21 * Microalbumin Level Urine 09/30/20 [facility] Evaluation + Plan note Future Appointments Appointment Date:07/27/2022 11:00:00 AM Scheduled Provider:JOSÉ MIGUEL NAVA DO Location:[facility] Appointment Type:PC OV Future Scheduled Tests Laboratory* Microalbumin Level Urine 08/05/21 Radiology* XR Hip Minimum 2 Views Right 01/26/22 [facility] Evaluation + Plan note Future Appointments Appointment Date:02/02/2024 09:00:00 AM Scheduled Provider:JOSÉ MIGUEL NAVA DO Location:[facility] Appointment Type:PC OV Future Scheduled Tests Laboratory* Thyroid Stimulating Hormone 07/28/23 * Complete Blood Count 07/28/23 * Lipid Profile 07/28/23 * Albumin/Creatinine Ratio, Random Urine 07/28/23 * Complete Metabolic Panel 07/28/23 [facility] Evaluation + Plan note Future Appointments Appointment Date:08/02/2024 09:00:00 AM Scheduled Provider:JOSÉ MIGUEL NAVA DO Location:[facility] Appointment Type:PC OV Follow Up Future Scheduled Tests Laboratory* Thyroid Stimulating Hormone 02/02/24 * Lipid Profile 02/02/24 * Albumin/Creatinine Ratio, Random Urine 02/02/24 * Complete Metabolic Panel 02/02/24 [facility] Evaluation + Plan note Future Appointments Appointment Date:04/09/2025 09:30:00 AM Scheduled Provider:PARI DOTSON Location:[facility] Appointment Type:PC OV Future Scheduled Tests Laboratory* TSH with Reflex to FT4 04/10/25 * Thyroid Stimulating Hormone 07/18/24 * Lipid Profile 07/18/24 * Lipid Profile 04/10/25 * Albumin/Creatinine Ratio, Random Urine 07/18/24 * Albumin/Creatinine Ratio, Random Urine 04/10/25 * Complete Metabolic Panel 07/18/24 * Complete Metabolic Panel 04/10/25 [facility] evaluation note* Diagnosis URI, acute- Primary Acute upper respiratory infections of unspecified site documented in this encounter [facility] CenterEvalut[facility]* Diagnosis Onset Date Resolution Status S/P total right hip arthroplasty acute [facility] Work Phone: Evaluation noteNo assessment information available [facility] Work Phone: evaluation note* Diagnosis Cystitis- Primary Cystitis, unspecified documented in this encounter [facility] note* Diagnosis Right ankle injury, initial encounter- Primary Right foot injury, initial encounter Closed fracture of distal end of right fibula, unspecified fracture morphology, initial encounter Right ankle injury, initial encounter Right foot injury, initial encounter documented in this encounter [facility] note* Diagnosis Right ankle injury, initial encounter Right foot injury, initial encounter documented in this encounter [facility] note* Diagnosis Acute otitis externa of left ear, unspecified type- Primary Left otitis media, unspecified otitis media type documented in this encounter [facility] note* Diagnosis Productive cough- Primary Cough Acute cough documented in this encounter [facility] course Narrative No data available for this section [facility] Hospital Discharge instructions No data available for this section [facility] Progress note No data available for this section [facility] Reason for referral (narrative)* Diagnostic Procedure Only (Urgent) - Closed Specialty Diagnoses / Procedures Referred By Contac t Referred To Contact XR IMAGING Diagnoses Right foot injury, initial encounter Procedures XR FOOT GENERAL 3V AP/LAT/OBL RIGHT RADEX FOOT COMPLETE MINIMUM 3 VIEWS Marilee Bain APRN.DEV TECHNICAL MGR [address] [place] [address] [place] [address] Referral ID Status Reason Start Date Expiration Date V isits Requested Visits Authorized [id number] Closed Auto-Generate d Referral 02/03/2024 03/04/2025 1 1 * Diagnostic Procedure Only (Urgent) - Closed Specialty Diagnoses / Procedures Referred By Contac t Referred To Contact XR IMAGING Diagnoses Right ankle injury, initial encounter Procedures XR ANKLE GENERAL 3V AP/LAT/OBL RIGHT RADEX ANKLE COMPLETE MINIMUM 3 VIEWS Marilee Bain APRN.DEV TECHNICAL MGR [address] [place] [address] [place] [address] Referral ID Status Reason Start Date Expiration Date V isits Requested Visits Authorized [id number] Closed Auto-Generate d Referral 02/03/2024 03/04/2025 1 1 [facility] Diagnostic Procedure Only (Urgent) - Closed Specialty Diagnoses / Procedures Referred By Contac t Referred To Contact XR IMAGING Diagnoses Right foot injury, initial encounter Procedures XR FOOT GENERAL 3V AP/LAT/OBL RIGHT RADEX FOOT COMPLETE MINIMUM 3 VIEWS Marilee Bain APRN.CNP [address] [place] [address] [place] [address] Referral ID Status Reason Start Date Expiration Date V isits Requested Visits Authorized [id number] Closed Auto-Generate d Referral 02/03/2024 03/04/2025 1 1 [facility] Summary Purpose Family History No Family History Records FoundNo Family History Records FoundNo Family History Records FoundNo Family History Records Found No data available for this section No Family History Records Found No data available for this section No Family History Records Found No data available for this section No data available for this section No Family History Records FoundNo Family History Records Found Advance Directives No Advanced Directives Records Found Advance Directive Response Recorded Date/ Time Name of Medical Power of Asbestos Abatement Technician Alexey Elkins - ; Hardeep Whitten daughter May 25, 2022 1:16pm Advance Directives Yes March 25, 2021 9:26am Living Will Yes May 25 1:16pm Power of Asbestos Abatement Technician Yes May 25, 2022 1:16pm Advance Directive Response Recorded Date/ Time Advance Directives Yes March 25, 2021 10:26am Living Will No December 07, 2022 10:55am Power of Asbestos Abatement Technician No December 07 10:55am Health Concerns Infection Onset Date Last Indicated Resolved Time COVID-19 Confirmed 02/02/2022 02/02/2022 Chief Complaint and Reason for Visit Chief Complaint PREOP RT TOTAL HIP DYSPHAGIA SINCE SURG IN 05/2022 Reason for Visit S/P total right hip arthroplasty Chief Complaint HEAD INJURY Reason for Referral Specialty Diagnoses / Procedures Referred By Contac t Referred To Contact Orthopedics Diagnoses Closed fracture of distal end of right fibula, unspecified fracture morphology, initial encounter Procedures CONSULT PANEL TO ORTHOPAEDICS OFFICE/OUTPATIENT [facility] 60 MINUTES Marilee Bain APRN.DEV TECHNICAL MGR [address] [place] [address] Referral ID Status Reason Start Date Expiration Date Visits Requested Visits Authorized [id number] Authorized PCP Requested Referral 02/03/2024 02/02/2025 1 1 Specialty Diagnoses / Procedures Referred By Contac t Referred To Contact XR IMAGING Diagnoses Right foot injury, initial encounter Procedures XR FOOT GENERAL 3V AP/LAT/OBL RIGHT RADEX FOOT COMPLETE MINIMUM 3 VIEWS Marilee Bain APRN.DEV TECHNICAL MGR [address] [place] [address] [place] [address] Referral ID Status Reason Start Date Expiration Date V isits Requested Visits Authorized [id number] Closed Auto-Generate d Referral 02/03/2024 03/04/2025 1 1 Specialty Diagnoses / Procedures Referred By Contac t Referred To Contact XR IMAGING Diagnoses Right ankle injury, initial encounter Procedures XR ANKLE GENERAL 3V AP/LAT/OBL RIGHT RADEX ANKLE COMPLETE MINIMUM 3 VIEWS Marilee Bain APRN.DEV TECHNICAL MGR [address] [place] [address] [place] [address] Referral ID Status Reason Start Date Expiration Date V isits Requested Visits Authorized [id number] Closed Auto-Generate d Referral 02/03/2024 03/04/2025 1 1 Additional Source Comments INFORMATION SOURCE (unrecogn ized section and content) DATE CREATED AUTHOR 12/10/2017 [facility] DATE CREATED AUTHOR AUTHOR'S ORGANIZ ATION 12/14/2017 [facility] DATE CREATED AUTHOR AUTHOR'S ORGANIZ ATION 09/08/2018 [facility] DATE CREATED AUTHOR AUTHOR'S ORGANIZ ATION 07/18/2022 [facility] DATE CREATED AUTHOR AUTHOR'S ORGANIZ ATION 01/06/2024 [facility] ([place]) DATE CREATED AUTHOR AUTHOR'S ORGANIZ ATION 06/17/2024 [facility] DATE CREATED AUTHOR AUTHOR'S ORGANIZ ATION 03/31/2025 [facility] DATE CREATED AUTHOR AUTHOR'S ORGANIZ ATION 04/04/2025 [facility] Care Team (unrecognized sect ion and content) Care Team Personnel Name: JOSÉ MIGUEL NAVA Position: P4 Physician - Primary Care Med Service: Active Provider Member Role: Primary Care Physician Address: Address: [address] [place] [address] Care Team Related Persons Name: HARDEEP WHITTEN Name: PORSHA ELKINSYD Care Team Personnel Name: JOSÉ MIGUEL NAVA Position: P4 Physician - Primary Care Med Service: Active Provider Member Role: Primary Care Physician Address: Address: [address] [place] [address] Care Team Related Persons Name: HARDEEP WHITTEN Name: PORSHA ELKINSYD Source Comments (unrecognize d section and content) In the event this informatio n is protected by the Federal Confidentiality of Alcohol and Drug Abuse Patient Records regulations: The Federal rules restrict any use of the information to criminally investigate or prosecute any alcohol or drug abuse patient.[facility] the event this information is protected by the Federal Confidentiality of Alcohol and Drug Abuse Patient Records regulations: The Federal rules restrict any use of the information to criminally investigate or prosecute any alcohol or drug abuse patient.[facility] the event this information is protected by the Federal Confidentiality of Alcohol and Drug Abuse Patient Records regulations: The Federal rules restrict any use of the information to criminally investigate or prosecute any alcohol or drug abuse patient.[facility] the event this information is protected by the Federal Confidentiality of Alcohol and Drug Abuse Patient Records regulations: The Federal rules restrict any use of the information to criminally investigate or prosecute any alcohol or drug abuse patient.[facility] the event this information is protected by the Federal Confidentiality of Alcohol and Drug Abuse Patient Records regulations: The Federal rules restrict any use of the information to criminally investigate or prosecute any alcohol or drug abuse patient.[facility] Center[facility] the event this information is protected by the Federal Confidentiality of Alcohol and Drug Abuse Patient Records regulations: The Federal rules restrict any use of the information to criminally investigate or prosecute any alcohol or drug abuse patient.[facility] Center[facility] the event this information is protected by the Federal Confidentiality of Alcohol and Drug Abuse Patient Records regulations: The Federal rules restrict any use of the information to criminally investigate or prosecute any alcohol or drug abuse patient.[facility] Center[facility] the event this information is protected by the Federal Confidentiality of Alcohol and Drug Abuse Patient Records regulations: The Federal rules restrict any use of the information to criminally investigate or prosecute any alcohol or drug abuse patient.[facility] CenterIn the event this information is protected by the Federal Confidentiality of Alcohol and Drug Abuse Patient Records regulations: The Federal rules restrict any use of the information to criminally investigate or prosecute any alcohol or drug abuse patient.[facility] Reason for Visit (unrecogniz ed section and content) Reason Comments Nasal Congestion Body aches x1 day Reason Comments Results Reason Comments Ankle Injury R ankle injury x1 da y, stepped in hole and twisted ankle and foot Reason Comments Patient Request Reason Comments Ear Pain L ear pain x2 weeks Reason Comments Cough Drainage x 1 day Care Teams (unrecognized sec tion and content) 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 José Miguel Nava DO Family Provider Active Dr. José Miguel Nava DO Primary Care Provider Active Team Status: Active Member Role Status Dates Dr. José Miguel Nava DO Primary Care Provider Active Dr. Willian Ndiaye MD Attending Provider Active Dr. De Whittington , DO Referring Provider Active Team Status: Inactive Member Role Status Dates Dr. José Miguel Nava DO Primary Care Provider Active Dr. De Whittington , DO Admit Provider, Attending Provider, Referring Provider Active Dr. Bunny Goss MD Other Provider Active Team Status: Inactive Member Role Status Dates Dr. José Miguel Nava DO Primary Care Provider Active ARABELLA Schulte Attending Provider, Referring Provid er Active Team Status: Inactive Member Role Status Dates Dr. José Miguel Nava DO Primary Care Provider Active Dr. Toñito Hu , DO Emergency Provider Active Team Status: Inactive Member Role Status Dates Dr. José Miguel Nava DO Primary Care Provider Active Dr. Toñito Hu , DO Attending Provider, Emergency P matilda Active Team Status: Inactive Member Role Status Dates Dr. 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 Relationship Specialty Start Date End Date José Miguel Nava DO PCP - General Family Medicine 04/22/10 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 This clinical summary was aggregated from multiple sources. Caution should be exercised in using it in the provision of clinical care. This summary normalizes information from multiple sources, and as a consequence, information in this document may materially change the coding, format and clinical context of patient data. In addition, data may be omitted in some cases. CLINICAL DECISIONS SHOULD BE BASED ON THE PRIMARY CLINICAL RECORDS. [email or web address] [facility]. provides no warranty or guarantee of the accuracy or completeness of information in this document.
[2025-04-05 08:32] LABS: Creatinine, Urine (random) 20.70 mg/dL (28.00-217.00); Microalbumin,Random Urine < 12.0 mg/L (<20 mg/L)
== END | disposition home or self-care (01) ==
PROVIDERS: PCP Nurse Practitioner Family; Referring Provider Nurse Practitioner Family; Visit Provider Nurse Practitioner Family
DX: I10 Essential (primary) hypertension (principal)
CPT/HCPCS: 82043; 82570

== ENCOUNTER → 2025-04-10 | Outpatient (CLI) | payer MEDICARE, SELFPAY | END | disposition home or self-care (01) | LOC: LABSPEC 09:17 | PROVIDERS: PCP Nurse Practitioner Family; Referring Provider Nurse Practitioner Family; Visit Provider Nurse Practitioner Family | DX: R19.7 Diarrhea, unspecified (principal) | CPT/HCPCS: 87493 ==

== ENCOUNTER → 2025-05-22 | Outpatient (CLI) | payer MEDICARE, SELFPAY ==
--- NOTE | 2025-05-22 10:15 | RAD_ITS ---
PROCEDURE: CHEST PA AND LATERAL 05/22/2025 REASON FOR EXAM: SOB,WHEEZING, PRODUCTIVE COUGH TECHNIQUE: Procedure Code: RADCXR Modality: DX Procedure: CHEST PA AND LATERAL COMPARISON: None FINDINGS: Frontal and lateral views of the chest were obtained. Heart size and mediastinal configuration are within normal limits. There is no focal infiltrate or consolidation. There is no pneumothorax or effusion. There is no acute bony abnormality. Aortic calcifications are visible. RAD/Chest PA and Lateral IMPRESSION: No acute process is identified in the chest. Reading Location: [facility]
== END | disposition home or self-care (01) ==
PROVIDERS: PCP Nurse Practitioner Family; Referring Provider Nurse Practitioner Family; Visit Provider Nurse Practitioner Family
DX: J20.8 Acute bronchitis due to other specified organisms (principal); R05.9 Cough, unspecified; R06.2 Wheezing
CPT/HCPCS: 71046